=== PATIENT | male | born 1945 | race Caucasian/White ===

== ENCOUNTER 2022-06-08 16:08 | Inpatient (IN) | payer OTHER, SELFPAY ==
[2022-06-08] VITALS (87 sets, daily range): BP systolic 71–125; BP diastolic 42–59; PULSE 81–122; RESP 14–36; TEMP 37.7–37.9; O2SAT 87–98; BMI 35.9; BMI 49.4
--- NOTE | 2022-06-08 16:17 | ECG_ITS ---
[facility] Test Date: 2022-06-08 Pat Name: Devyn Luo Department: Room: Gender: Male Specialized Developer: : 1945 Requested By: Walter Newsome Order Number: [id number] Konrad MD: Gilles Galvez M.D. Measurements Intervals [place] Rate: 117 P: 19 [place]: 162 QRS: 43 QRSD: 84 T: 50 QT: 319 QTc: 446 Interpretive Statements SINUS TACHYCARDIA MODERATE ST DEPRESSION [0.05+ mV ST DEPRESSION] No previous ECG available for comparison Electronically Signed On 06-10-2022 16:28:17 CDT by Gilles Galvez M.D. [id number]
--- NOTE | 2022-06-08 16:29 | XRR_ITS ---
PROCEDURE INFORMATION: Exam: XR Chest Exam date and time: 06/08/2022 5:00 PM Age: 77 years old Clinical indication: Shortness of breath and other: Blood pressure issues; Patient HX: Blood pressure issues; Short of breath; Additional info: SOB TECHNIQUE: Imaging protocol: Radiologic exam of the chest. Views: 1 view. COMPARISON: CR XR chest 1V [id number] 12/07/2015 11:11 AM FINDINGS: Lungs: Lungs are clear bilaterally. Pleural spaces: No pleural effusion. No pneumothorax. Heart/Mediastinum: Stable mild enlargement of the cardiac silhouette. Mediastinal contours are unremarkable. Vasculature: Stable vascular calcifications in the aorta. Bones/joints: Unremarkable for age. XR/XR chest 1V portable [id number] IMPRESSION: 1. No acute cardiopulmonary process. 2. Incidental/nonacute findings are listed in the report.
--- NOTE | 2022-06-08 16:30 | ED_ITS ---
HPI - SOB/Dyspnea General: Chief Complaint: Shortness of Breath/Dyspnea Stated Complaint: RESP DISTRESS Time Seen by Provider: 06/08/22 16:13 Source: patient and EMS Mode of arrival: EMS Limitations: no limitations History of Present Illness: HPI Narrative: History is predominantly obtained from the patient as well as additional history from EMS report. EMS was called to the patient's home by family. The patient apparently has been short of breath and complaining of similar symptoms since this morning per history from EMS although the patient states his breathing seems to be normal. There is could conflict in information regarding his home oxygen use. There is question of whether he does use home oxygen intermittently per patient. Patient currently denies chest pain. He states he has had cough which has been nonproductive but is unaware of any fevers. He states he has had some heart problems in the past and has had a stent placed previously. He denies any nausea vomiting or diarrhea exposure to infectious disease etc. Later information received from family members alleges that he has been having some upset stomach with some vomiting and diarrhea for the last 2 days. MD elicited complaint: shortness of breath Relieving factors: oxygen Associated symptoms: Deny abdominal pain, chest pain, extremity pain, fever(s), nausea, syncope or vomiting Review of Systems Const: Denies: fever(s) ENMT: Denies: throat pain, odynophagia, nasal discharge or nasal congestion Card: Denies: chest pain, irregular heart rhythm, syncope or pre-syncope Resp: Reports: dyspnea and non-productive cough GI: Denies: abdominal pain, nausea, vomiting or diarrhea Musc: Denies: back pain or extremity pain Skin/Breast: Denies: rash Neuro: Denies: headache(s), numbness in extremities or weakness in extremities Physical Exam Narrative: EXAM NARRATIVE: The patient appears to be comfortable he answers questions no reasonable fashion with generally complete answers. Const: COMMON NORMALS: alert GENERAL APPEARANCE: cooperative NUTRITIONAL APPEARANCE: overweight ORIENTATION/CONSCIOUSNESS: Yes awake, Yes oriented to person and Yes oriented to place HENMT: COMMON NORMALS: normocephalic, Normal nasal mucous membranes and turbinates present, moist oral mucous membranes and oropharynx normal HEAD & SCALP: normocephalic FACE & SINUS: normal facial exam NOSE: Normal nasal mucous membranes and turbinates present Eye: COMMON NORMALS: Equal, round and reactive pupils present, EOMs intact bilaterally and conjunctivae normal CONJUNCTIVA: Yes conjunctivae normal PUPIL: Yes Equal, round and reactive pupils present Neck/C-Spine: COMMON NORMALS: full ROM, no JVD and No carotid bruits Chest: COMMONS NORMALS: normal inspection of the chest Resp: COMMON NORMALS: No retractions and No use of accessory muscles AUSCULTATION: crackles and rhonchi Cardio: COMMON NORMALS: no JVD, regular rate, regular rhythm, No murmurs present (Cardio) and Peripheral pulses 2+ throughout RATE: regular rate RHYTHM: regular rhythm PERIPHERAL PULSES: Peripheral pulses 2+ throughout GI: COMMON NORMALS: Normal to inspection, nondistended, normoactive bowel sounds present and Soft to palpation INSPECTION: Yes central obesity PALPATION: Yes Soft to palpation Back/Pelvis: COMMON NORMALS: thoracic and lumbar spine normal to inspection, n o thoracic nor lumbar tenderness, thoraco-lumbar ROM normal and straight leg raise negative bilaterally Extremity: COMMON NORMALS: normal to inspection, full ROM and no calf tenderness NARRATIVE EXTREMITY EXAM: Bilateral pretibial edema right leg worse than left. Neuro: COMMON NORMALS: moves all extremities, no focal motor deficits and no sensory deficits noted SENSORIUM/ORIENTATION: Yes alert, Yes oriented to person and Yes oriented to place Skin: NARRATIVE SKIN EXAM: Hyperpigmentation to right lower extremity. No proximal erythema, lymphangitis or lymphadenopathy. Course Reevaluation(s): Reevaluation #1: Patient continues to be oxygen requiring approximately 3 L to keep O2 sat in the 94 to 95% range. He has a history of intermittent oxygen use but does not require it continuously. CT scan is reassuring that there is no evidence of pulmonary embolus. There are some other changes which suggest pulmonary in fection. His viral studies to include COVID-19 and influenza are negative. He has a very mild elevation in his troponin but his serial EKGs do not suggest any ongoing ischemia at this point. We will plan on giving a loading dose of antibiotics, additional fluids and reassess but likely will need to be placed in observation status for determination response to current therapy. Time: 21:22 Consultations: Consultation #1: Discussed current findings with attending hospitalist Dr. Amin who agreed to place the patient in the hospital for further evaluation. Time: 21:39 Vital Signs: Vital signs: Vital Signs Temperature 99.8 F H 06/08/22 16:11 Pulse Rate 90 06/08/22 21:17 Respiratory Rate 16 06/08/22 21:17 Blood Pressure 89/46 06/08/22 21:17 Pulse Oximetry 93 06/08/22 21:17 Oxygen Delivery Me thod Nasal Cannula 06/08/22 16:11 Oxygen Flow Rate 3 06/08/22 16:11 MDM - SOB/Dyspnea Medical Decision Making Patient was transported to the emergency department because of increasing shortness of breath over the past several days accompanied by cough and some questionable subjective fevers at home. He has had a history of using oxygen intermittently but not on a continuous basis. History was initially limited to what the patient and EMS provided and then son provided additional illuminating history later in his visit. His evaluation revealed findings suggestive of pneumonia clinically. A CTA was obtained due to an elevated D-dimer. It was reassuring and that there was no evidence of PE. We also evaluate him for potential ACS etc. but EKGs and serial troponinsBrain or skull or your low back from your falls. And his BNP are not suggestive of same but will need to be followed to ensure that they do not significantly change. The patient's initial viral studies to include COVID antigen as well as influenza antigen were unremarkable. Despite the patient's denial of history of COPD certainly some of his medication profile suggest he may have COPD. The patient will be admitted to the hospitalist service for further treatment and reevaluation. Lab Data I reviewed the patient's lab results. 06/08/22 16:47 06/08/22 16:47 Labs/Radiology: Radiology Impressions Chest X-Ray 06/08/22 16:29 IMPRESSION: 1. No acute cardiopulmonary process. 2. Incidental/nonacute findings are listed in the report. Chest CTA 06/08/22 18:10 IMPRESSION: 1. Bronchial wall thickening and mucous plugging in the right lower lobe suspicious for bronchitis. 2. Calcified granuloma in the left upper lobe. Flattened appearance of the trachea and proximal bronchi which raises suspicion for tracheobronchomalacia. Recommend clinical correlation. 3. No evidence for pulmonary embolism. 4. Dependent atelectasis in the lungs bilaterally. 5. Incidental/nonacute findings are listed in the report. COMMENTS: Consistent with the [employer] [employer]'s Incidental Findings Committee white paper (J Am Jeff Radiol 2018): Any incidental renal lesion less than 1 cm or classified as too small to characterize, or any incidental cystic renal lesion characterized as simple-appearing, is likely benign. No follow-up imaging is recommended for these lesions per consensus recommendations based on imaging criteria. Laboratory Results WBC 7.5 10^3/uL (4.0-10.0) 06/08/22 16:47 RBC 4.94 10^6/uL (4.1-5.3) 06/08/22 16:47 Hgb 14.7 g/dL (11.7-16.6) 06/08/22 16:47 Hct 45.2 % (42.0-52.0) 06/08/22 16:47 MCV 91.5 fl (80-94) 06/08/22 16:47 MCH 29.8 pg (28.0-34.0) 06/08/22 16:47 MCHC 32.5 g/dL (30.0-36.0) 06/08/22 16:47 RDW 13.0 % (12.1-15.1) 06/08/22 16:47 Plt Count 179 10^3/cmm (130-400) 06/08/22 16:47 MPV 9.0 fL (7.4-10.4) 06/08/22 16:47 Neut % (Auto) 91.8 % 06/08/22 16:47 Lymph % (Auto) 4.0 % 06/08/22 16:47 [place] % (Auto) 2.7 % 06/08/22 16:47 Eos % (Auto) 0.8 % 06/08/22 16:47 Baso % (Auto) 0.3 % 06/08/22 16:47 Neut # (Auto) 6.85 10^3/uL (1.8-7.7) 06/08/22 16:47 Lymph # (Auto) 0.3 10^3/uL (0.8-4.8) L 06/08/22 16:47 [place] # (Auto) 0.2 10^3/uL (0.2-0.9) 06/08/22 16:47 Eos # (Auto) 0.1 10^3/uL (0.0-0.8) 06/08/22 16:47 Baso # (Auto) 0.0 10^3/uL (0.0-0.1) 06/08/22 16:47 Nucleated RBC % (auto) 0 % 06/08/22 16:47 Nucleated RBCs # 0.0 /100WBC 06/08/22 16:47 D-Dimer 1.21 ug/mIFEU (0-0.59) H 06/08/22 16:47 Specimen Type Arterial 06/08/22 16:22 Sample Site Radial, left 06/08/22 16:22 ABG pH 7.39 (7.35-7.45) 06/08/22 16:22 ABG pCO2 37.0 mmHg (35-45) 06/08/22 16:22 ABG pO2 68.8 mmHg (80.0-100.0) L 06/08/22 16:22 ABG HCO3 22.6 mmol/L (22-26) 06/08/22 16:22 ABG O2 Saturation 93.8 06/08/22 16:22 ABG Base Excess -1.9 mmol/L (-2.0-2.0) 06/08/22 16:22 Al Test Pos 06/08/22 16:22 A-a O2 Gradient 4.3 mmHg (5-10) L 06/08/22 16:22 Hematocrit 45.9 % (42-52) 06/08/22 16:22 Hgb O2 Saturation 92.5 % (95-100) L 06/08/22 16:22 Carboxyhemoglobin 0.7 %THgb (0.4-20.1) 06/08/22 16:22 Methemoglobin 0.7 % (0.4-1.5) 06/08/22 16:22 Total Hemoglobin 15.0 g/dL (14-18) 06/08/22 16:22 Sodium 141.0 mmol/L (131-143) 06/08/22 16:22 Potassium 4.0 mmol/L (3.5-5.0) 06/08/22 16:22 Glucose 123.0 mg/dL (70-115) H 06/08/22 16:22 Ionized Calcium 1.1 mmol/L (1.1-1.4) 06/08/22 16:22 O2 Delivery Device Nc 06/08/22 16:22 O2 Liters/Min 5.0 % 06/08/22 16:22 Target Aircraft Technician ID Cak 06/08/22 16:22 Sodium 137 mmol/L (136-145) 06/08/22 16:47 Potassium 4.3 mmol/L (3.5-5.1) 06/08/22 16:47 Chloride 101 mmol/L (98-107) 06/08/22 16:47 Carbon Dioxide 24 mmol/L (22-29) 06/08/22 16:47 Anion Gap 16.3 (5-19) 06/08/22 16:47 BUN 25 mg/dL (8-23) H 06/08/22 16:47 Creatinine 1.6 mg/dL (0.7-1.2) H 06/08/22 16:47 GFR Calculation Not Reportable 06/08/22 16:47 Glucose 115 mg/dL (65-115) 06/08/22 16:47 Calculated Osmolality 289 mOsm/kg (285-295) 06/08/22 16:47 Calcium 8.6 mg/dL (8.5-10.5) 06/08/22 16:47 Total Bilirubin 0.7 mg/dL (0.15-1.2) 06/08/22 16:47 AST 55 U/L (0-40) H 06/08/22 16:47 ALT 45 U/L (0-41) H 06/08/22 16:47 Alkaline Phosphatase 132 U/L (40-130) H 06/08/22 16:47 Troponin T Baseline 20 ng/L (0-15) H 06/08/22 16:47 Troponin T 120 Minute 29.91 ng/L (0-15) H 06/08/22 19:05 Delta Troponin T 9.91 ABS# (0-10) 06/08/22 19:05 NT-Pro-B Natriuret Pep 458 pg/mL (0-450) H 06/08/22 16:47 Total Protein 6.9 g/dL (6.6-8.7) 06/08/22 16:47 Albumin 4.1 g/dL (3.5-5.2) 06/08/22 16:47 Globulin 2.8 g/dL (1.3-4.6) 06/08/22 16:47 Influenza Type A Ag Negative (Negative) 06/08/22 19:35 Influenza Type B Ag Negative (Negative) 06/08/22 19:35 SARS-CoV-2 Ag (Rapid) negative (Negative) 06/08/22 19:35 EKG Data EKG 1: I personally reviewed and interpreted this EKG as follows: Interpretation: Contemporaneous review of EKG reveals ventricular rate of 117 bpm. Normal VA interval, QRS duration, QTc intervals. Normal axis. Consistent with sinus tachycardia. There appears to be approximately 1.[address] depression V2 345 and extending somewhat into 6. EKG 2: I personally reviewed and interpreted this EKG as follows: Interpretation: Second EKG this visit reveals a ventricular rate of 106 bpm consistent with sinus tachycardia. Normal intervals, normal axis, very minimal ST wave depressions noted V2 V3 and perhaps V4. No reciprocal changes otherwise. No other changes of concern. Essentially unchanged from prior EKG this visit. Discharge Plan Discharge Patient Disposition: Admitted As Inpatient Clinical Impression: Community acquired pneumonia, Acute exacerbation of chronic obstructive airways disease Condition: Stable Prescriptions: No Action atorvastatin 80 mg Tablet 80 mg PO DAILY cetirizine 10 mg Tablet 10 mg PO DAILY Senna-S 8.6-50 mg Tablet 1 tab-cap PO DAILY famotidine 20 mg Tablet 20 mg PO BID tamsulosin 0.4 mg Capsule 0.4 mg PO DAILY Novolog U-100 Insulin aspart 100 unit/mL Solution See Rx Instructions .ROUTE .COMPLEX Rx Instructions: per sliding scale Wixela Inhub 500-50 mcg/dose Blister With Device 1 inh INHALATION BID Nitrostat 0.4 mg Tablet, Sublingual 0.4 mg SUBLINGUAL Q5M PRN (Reason: Chest Pain) Rx Instructions: do not exceed 3 doses per episode gabapentin 300 mg Capsule 300 mg PO BEDTIME aspirin 81 mg Tablet,Chewable 81 mg PO DAILY Flonase 50 mcg/actuation [place],Suspension 1 spray INTRANASAL BID Rx Instructions: administer into each nostril finasteride 5 mg Tablet 5 mg PO DAILY loratadine 10 mg Tablet 10 mg PO DAILY Vitamin D3 25 mcg (1,000 unit) Capsule 25 mcg PO DAILY Osteo Bi-Flex 250-200 mg Tablet 1 tab PO BID Rx Instructions: give after food/meal Lantus Solostar U-100 Insulin 100 unit/mL (3 mL) Insulin Pen 50 unit SUBCUT BEDTIME Combivent Respimat 20-100 mcg/actuation Mist 1 puff INHALATION QID Rx Instructions: space evenly during waking hours Referrals: Trujillo,Natalia R, LIBRARY SERVICES COORDINATOR [Primary Care Provider] - Coding Level of Care Code ED Senior Bi Developer for Anabelle Lopez
[2022-06-08 16:33] LABS: ABG PH Result 7.39 (7.35-7.45); Alveolar-Arterial Oxygen Gradi 4.3 mmHg (5-10); Arterial Blood Gas Hematocrit 45.9 % (42-52); Base Excess ABG -1.9 mmol/L (-2.0-2.0); Blood Gas Allen Test Pos; Blood Gas Operator Identificat CAK; Blood Gas Sample Site Radial, left; Blood Gas Sample Type Arterial; Carboxyhemoglobin 0.7 %THgb (0.4-20.1); HCO3 ABG 22.6 mmol/L (22-26); HGB O2 Sat 92.5 % (95-100); Ionized Calcium Level - ABG 1.1 mmol/L (1.1-1.4); Methemoglobin 0.7 % (0.4-1.5); Oxygen Device NC; Oxygen Saturation ABG 93.8; PO2 ABG 68.8 mmHg (80.0-100.0)
[2022-06-08 16:59] LABS: Basophils % 0.3 %; Eosinophils # 0.1 10^3/uL (0.0-0.8); Eosinophils % 0.8 %; Hematocrit 45.2 % (42.0-52.0); Hemoglobin 14.7 g/dL (11.7-16.6); Lymphocytes # 0.3 10^3/uL (0.8-4.8); Mean Corpuscular HGB Conc 32.5 g/dL (30.0-36.0); Mean Corpuscular Hemoglobin 29.8 pg (28.0-34.0); Mean Corpuscular Volume 91.5 fl (80-94); Monocytes # 0.2 10^3/uL (0.2-0.9); Monocytes % 2.7 %; Neutrophils # 6.85 10^3/uL (1.8-7.7); Neutrophils % 91.8 %; Nucleated Red Blood Cells % 0 %; Platelet Count 179 10^3/cmm (130-400); Red Blood Count 4.94 10^6/uL (4.1-5.3); White Blood Count 7.5 10^3/uL (4.0-10.0)
--- NOTE | 2022-06-08 17:14 | PC.PHAR ---
pt and family unable to verify home medications - Patient has home health nurse through [facility]. Med list updated from [facility] records
[2022-06-08 17:27] LABS: D Dimer 1.21 ug/mIFEU (0-0.59)
[2022-06-08 17:32] LABS: Troponin(5th) Baseline 20 ng/L (0-15)
[2022-06-08 17:35] LABS: Alanine Aminotransferase 45 U/L (0-41); Albumin Level 4.1 g/dL (3.5-5.2); Alkaline Phosphatase 132 U/L (40-130); Anion Gap 16.3 (5-19); Aspartate Amino Transferase 55 U/L (0-40); Blood Urea Nitrogen 25 mg/dL (8-23); Calcium 8.6 mg/dL (8.5-10.5); Carbon Dioxide 24 mmol/L (22-29); Chloride 101 mmol/L (98-107); Globulin 2.8 g/dL (1.3-4.6); Glucose 115 mg/dL (65-115); NT Pro B Type Natriuretic Pept 458 pg/mL (0-450); Osmolality Calculated 289 mOsm/kg (285-295); Potassium 4.3 mmol/L (3.5-5.1); Sodium 137 mmol/L (136-145); Total Bilirubin 0.7 mg/dL (0.15-1.2); Total Protein 6.9 g/dL (6.6-8.7)
--- NOTE | 2022-06-08 18:10 | CTR_ITS ---
PROCEDURE INFORMATION: Exam: CTA Chest With Contrast Exam date and time: 06/08/2022 6:30 PM Age: 77 years old Clinical indication: Abnormal findings; Abnormal diagnostic tests; Elevated d-dimer; Additional info: SOB, elevated dimer TECHNIQUE: Imaging protocol: Computed tomographic angiography of the chest with contrast. Sagittal and coronal reformatted images were created and reviewed. 3D rendering (Not supervised by radiologist): MIP and/or 3D reconstructed images were created by the technologist. Radiation optimization: All CT scans at this facility use at least one of these dose optimization techniques: automated exposure control; mA and/or kV adjustment per patient size (includes targeted exams where dose is matched to clinical indication); or iterative reconstruction. Contrast material: OMNI 350; Contrast volume: 100 ml; Contrast route: INTRAVENOUS (IV); REPORTING DATA: Count of CT and Cardiac NM exams in prior 12 months: This patient has received 0 known CTs and 0 known cardiac nuclear medicine studies in the 12 months prior to the current study. COMPARISON: CR (CHEST, ) 06/08/2022 5:00 PM RADIATION DOSE METRICS: Total DLP (mGy-cm): 564 FINDINGS: Pulmonary arteries: No filling defects in the pulmonary arteries to suggest pulmonary embolism. Aorta: Mild atherosclerotic changes in the visualized arteries. No evidence for aortic aneurysm. Evaluation for aortic dissection is limited due to the phase of contrast-enhancement. Lungs: Bronchial wall thickening and mucous plugging in the right lower lobe suspicious for bronchitis. Mosaic attenuation of the pulmonary parenchyma, consistent with air trapping from underlying small airways disease. Dependent atelectasis in the lungs bilaterally. Calcified granuloma in the left upper lobe. Flattened appearance of the trachea and proximal bronchi which raises suspicion for tracheobronchomalacia. Pleural spaces: No pneumothorax. No pleural effusion. Heart: Moderate enlargement of the heart. Coronary arteries: Mild atherosclerotic calcification in the coronary arteries. Esophagus: The esophagus is unremarkable. Lymph nodes: Calcified lymph nodes in the mediastinum and right hilum. No lymphadenopathy. Liver: The visualized liver is unremarkable. Gallbladder and bile ducts: Patient has had a previous cholecystectomy. No dilatation of the visualized bile ducts. Pancreas: Mild atrophy of the visualized pancreatic parenchyma. Spleen: The visualized spleen is unremarkable. Kidneys and ureters: The visualized right kidney is unremarkable. Multiple parapelvic cysts in the visualized left kidney. Bones/joints: Degenerative changes in the spine and shoulders. There is a vertebral body hemangioma at T10. Soft tissues: No acute abnormality in the extra-abdominal soft tissues. CT/CT angio chest PE protcl [id number] IMPRESSION: 1. Bronchial wall thickening and mucous plugging in the right lower lobe suspicious for bronchitis. 2. Calcified granuloma in the left upper lobe. Flattened appearance of the trachea and proximal bronchi which raises suspicion for tracheobronchomalacia. Recommend clinical correlation. 3. No evidence for pulmonary embolism. 4. Dependent atelectasis in the lungs bilaterally. 5. Incidental/nonacute findings are listed in the report. COMMENTS: Consistent with the [place] [employer]'s Incidental Findings Committee white paper (J Am Jeff Radiol 2018): Any incidental renal lesion less than 1 cm or classified as too small to characterize, or any incidental cystic renal lesion characterized as simple-appearing, is likely benign. No follow-up imaging is recommended for these lesions per consensus recommendations based on imaging criteria.
--- NOTE | 2022-06-08 18:30 | ECG_ITS ---
[facility] Test Date: 2022-06-08 Pat Name: Devyn Luo Department: Room: Gender: Male Personal Lines Account Executive: : 1945 Requested By: Walter Newsome Order Number: [id number] Konrad MD: Gilles Galvez M.D. Measurements Intervals [place] Rate: 106 P: 28 [place]: 162 QRS: 57 QRSD: 86 T: 59 QT: 317 QTc: 422 Interpretive Statements SINUS TACHYCARDIA MINIMAL ST DEPRESSION [0.025+ mV ST DEPRESSION] ABNORMAL RHYTHM ECG Compared to ECG 06/08/2022 16:22:16 No significant changes Electronically Signed On 06-10-2022 16:46:41 CDT by Gilles Galvez M.D. [email or web address]
[2022-06-08] MEDS: iohexol 350 mg/mL 500 mL Btl (per mL) IV (18:40)
[2022-06-08 19:33] LABS: Troponin 5 2HR 29.91 ng/L (0-15)
[2022-06-08 19:37] LABS: Troponin 5 2HR Delta 9.91 ABS# (0-10)
[2022-06-08 20:10] LABS: SARS Covid-2 Antigen negative (Negative)
[2022-06-08 20:17] LABS: Influenza A by IFA Negative (Negative); Influenza B by IFA Negative (Negative)
[2022-06-08] MEDS: cefTRIAXone 2,000 MG in sodium chloride 0.9% (plus) 50 ML 100 MG IV (21:35)
[2022-06-08] MEDS: sodium chloride 0.9% 500 ML IV (21:37)
[2022-06-08] MEDS: azithromycin 500 MG in sodium chloride 0.9% 250 ML 250 MG IV (21:44)
--- NOTE | 2022-06-08 22:01 | P.HP_ITS ---
Providers/Chief Complaint Admitting Physician: Gaudencio Amin MD Primary Care Provider: DAVID Anglin Chief Complaint: RESP DISTRESS History of Present Illness Devyn Luo is a 77 year old male who presents to the hospital with complaints of right lower extremity discomfort, shortness of breath, wheezing. He also had an episode of vomiting and some loose stool. No blood was noted in the emesis or the loose stool. All of his symptoms started in the last 1 to 2 days. He has not taken his temperature but had some chills, and some sweating. He has had a cough its not really been productive. He denies any chest discomfort currently. He denies any abdominal pain. He still has some discomfort in his right lower extremity. In the emergency department he received some Rocephin, azithromycin, a breathing treatment. Reports he typically has 1 L of oxygen he wears at home as needed that he has been prescribed. Review of Systems General: Reports: 10 or more systems reviewed and unremarkable except in HPI and below Card: Denies: chest pain Resp: Reports: dyspnea, non-productive cough and wheezing; Denies: hemoptysis GI: Reports: nausea, vomiting and diarrhea; Denies: abdominal pain, hematochezia or melena Medications/Allergies Home Medications Medication Instructions Recorded Confirmed Last Taken Type aspirin 81 mg chewable tablet 81 mg PO DAILY 06/08/22 06/08/22 06/08/22 History atorvastatin 80 mg tablet 80 mg PO DAILY 06/08/22 06/08/22 06/07/22 History cetirizine 10 mg tablet 10 mg PO DAILY 06/08/22 06/08/22 06/08/22 History cholecalciferol (vitamin D3) 25 25 mcg PO DAILY 06/08/22 06/08/22 06/08/22 History mcg (1,000 unit) capsule (Vitamin D3) famotidine 20 mg tablet 20 mg PO BID 06/08/22 06/08/22 06/08/22 History finasteride 5 mg tablet 5 mg PO DAILY 06/08/22 06/08/22 06/08/22 History fluticasone 500 mcg-salmeterol 50 1 inh inhalation BID 06/08/22 06/08/22 06/08/22 History mcg/dose blistr powdr for inhalation (Wixela Inhub) fluticasone propionate 50 1 spray intranasal BID 06/08/22 06/08/22 06/08/22 History mcg/actuation nasal spray,suspension gabapentin 300 mg capsule 300 mg PO BEDTIME 06/08/22 06/08/22 06/07/22 History glucosamine-chondroitin 250 mg-200 1 tab PO BID 06/08/22 06/08/22 06/08/22 History mg tablet (Osteo Bi-Flex) insulin aspart U-100 100 unit/mL See Rx Instructions .Route .COMPLEX 06/08/22 06/08/22 Unknown History subcutaneous solution (Novolog U-100 Insulin aspart) insulin glargine 100 unit/mL (3 50 unit SUBCUT BEDTIME 06/08/22 06/08/22 06/07/22 History mL) subcutaneous pen (Lantus Solostar U-100 Insulin) ipratropium 20 mcg-albuterol 100 1 puff inhalation QID 06/08/22 06/08/22 06/08/22 History mcg/actuation mist for inhalation (Combivent Respimat) loratadine 10 mg tablet 10 mg PO DAILY 06/08/22 06/08/22 06/08/22 History nitroglycerin 0.4 mg sublingual 0.4 mg sublingual Q5M PRN Chest 06/08/22 06/08/22 Unknown History tablet (Nitrostat) Pain sennosides 8.6 mg-docusate sodium 1 tab-cap PO DAILY 06/08/22 06/08/22 06/08/22 History 50 mg tablet (Senna-S) tamsulosin 0.4 mg capsule 0.4 mg PO DAILY 06/08/22 06/08/22 06/08/22 History Allergies Allergy/AdvReac Type Severity Reaction Status Date / Time amoxicillin Allergy Unknown Unknown Verified 06/08/22 17:06 PFSH Acute PFSH: Medical History (Updated 06/08/22 @ 22:13 by Gaudencio Amin MD) BPH (benign prostatic hyperplasia) Chronic kidney disease COPD (chronic obstructive pulmonary disease) Coronary artery disease GERD (gastroesophageal reflux disease) Hyperlipidemia Morbid obesity Peripheral neuropathy Type 2 diabetes mellitus Surgical History (Updated 06/08/22 @ 22:04 by Gaudencio Amin MD) History of cholecystectomy History of coronary angioplasty Family History (Updated 06/08/22 @ 22:04 by Gaudencio Amin MD) Other CAD (coronary artery disease) Social History (Updated 06/08/22 @ 22:04 by Gaudencio Amin MD) Smoking and tobacco status: former smoker Alcohol intake: never Vitals/I&O/Wt Last Vital Signs Temp 99.8 F H 06/08/22 16:11 Pulse 90 06/08/22 21:17 Resp 16 06/08/22 21:57 BP 100/51 06/08/22 21:57 Pulse Ox 95 06/08/22 21:57 O2 Del Method Nasal Cannula 06/08/22 16:11 O2 Flow Rate 3 06/08/22 16:11 06/08/22 06/08/22 06/08/22 06:59 14:59 22:59 Intake Total 550 / 550 Balance 550 / 550 Weight last 48 hrs Weight 120.202 kg Physical Exam Narrative: General exam is a white male, with audible wheezing, with a temperature of 99.8 and a systolic blood pressure of 100. He is on 3 L of oxygen saturating 90%. HEENT: Atraumatic and normocephalic. Oropharynx is clear Neck is obese, no obvious lymphadenopathy Cardiovascular heart sounds distant. No obvious murmur. Regular Lungs bilateral expiratory wheezes. No crackles Abdomen is obese soft nontender positive bowel sounds. No obvious organomegaly Back demonstrates a few excoriations Extremities show trace edema bilaterally. Right bigger than left with some venous stasis changes and also some erythema surrounding these. Increased warmth and pain to palpation. Skin see findings above Neuro no obvious focal deficits. Data 06/08/22 16:47 06/08/22 16:47 Other Labs: Dimer elevated at 1.21 ABG with a pH 7.39, PCO2 37, PO2 69 on 5 L LFTs are elevated with an AST 55, ALT 45, alk phos of 132 Troponin 20 with repeat of 29 BNP 458 Albumin 4.1 Calcium 8.6 Rapid COVID and influenza negative. PCR pending. Chest x-ray by my read demonstrates poor quality, atelectasis right lung. Probable cardiomegaly. CTA demonstrates no pulmonary embolism. Bronchial wall thickening and some mucous plugging are noted. By my reading some posterior dependent atelectasis is also noted. Blood cultures were drawn EKG initially demonstrated sinus tachycardia with a rate of 120, normal axis, some nonspecific ST-T wave changes/slight depression V2 through 4 A&P Assessment and plan (1) Acute exacerbation of chronic obstructive airways disease: Patient with audible wheezing, consistent with acute exacerbation of COPD. I will give Solu-Medrol 125 mg IV x1, and then 60 mg IV every 12 hours Budesonide twice daily DuoNeb every 4 hours Wean steroids as soon as patient has improvement. CTA was performed which did not demonstrate any pulmonary embolism. Levaquin was initiated. It is also possible that his wheezing may have been triggered by aspiration/vomiting that occurred earlier today Associated with acute respiratory failure. Is requiring 3 to 5 L of oxygen, tachypneic. This is much greater than his baseline of 1 L as needed (2) Cellulitis of right lower extremity: Patient has evidence of underlying right lower extremity venous stasis, with acute cellulitis. Check venous duplex lower extremities to rule out DVT in this area Initiate vancomycin (3) Hypotension: Patient was normotensive on arrival to the emergency department but tachycardic. He is now hypotensive. He has received a small fluid bolus in the emergency department, with improvement of his blood pressure. We will continue to monitor the patient, for recurrent hypotension. This is most likely secondary to his underlying infection. (4) Acute kidney injury: Patient may have acute kidney injury We will bladder scan secondary to his previous prostate problems Continue to follow creatinine closely Without baseline lab it is unknown if he has a chronic component but I suspect it. (5) Transaminitis: Patient has evidence of transaminitis. Etiology is unclear. Check hepatitis panel. If this persists consider hepatic ultrasound. Note he has previously had his gallbladder removed. (6) Elevated troponin: I believe this is a type II elevation Telemetry, serial troponins Depending upon these and echocardiogram might be ordered, however the usefulness of this may be in question secondary to body habitus of the patient. (7) Type 2 diabetes mellitus: Continue long-acting insulin. Add sliding scale. Plan Multiple other medical problems as outlined in past medical history Allow natural Lovenox for DVT prophylaxis Attestations Medical Necessity Statement*: Will need greater than 2 midnight stay for evaluation and treatment of cellulit is, COPD exacerbation, acute respiratory failure Critical Care Time: The high probability of a clinically significant, sudden or life threatening deterioration of the patient's [pulmonary, cardiac, vascular] system(s) required my full and direct attention, intervention and personal management. The critical care time is as shown. This time is in addition to time spent performing any reported procedures but includes the following: [x] Data and vital sign review and interpretation [x] Patient assessment, examination and intervention [x] Documentation [x] Medication orders and management Critical Care Time (min): 49 Coding Level of Care Code Critical Care >/= 30 minutes Diagnoses Acute exacerbation of chronic obstructive airways disease J44.1 Cellulitis of right lower extremity L03.115 Hypotension I95.9 Acute kidney injury N17.9 Transaminitis R74.01 Elevated troponin R77.8 Type 2 diabetes mellitus E11.9 Time Spent (min) 49
--- NOTE | 2022-06-08 22:17 | PC.PHAR ---
Initial Vanc Dosing Goal Vanc Trough: 15-20 (High trough requested) Plan: Initial dose of 1750 mg Q24H Vanc trough scheduled for prior to 4th dose and will reassess
--- NOTE | 2022-06-08 22:30 | ECG_ITS ---
[facility] Test Date: 2022-06-08 Pat Name: Devyn Luo Department: Room: [facility] Gender: Male Assistant Grocery Store Manager: : 1945 Requested By: Walter Newsome Order Number: [id number] Konrad MD: Gilles Galvez M.D. Measurements Intervals [place] Rate: 80 P: 50 MI: 165 QRS: 42 QRSD: 89 T: 53 QT: 347 QTc: 403 Interpretive Statements SINUS RHYTHM Compared to ECG 06/08/2022 19:03:53 Sinus tachycardia no longer present ST (T wave) deviation no longer present Electronically Signed On 06-10-2022 16:47:00 CDT by Gilles Galvez M.D. [id number]
[2022-06-08 22:36] LABS: Troponin 5 6HR 30.81 ng/L (0-15)
[2022-06-08 22:37] LABS: Troponin 5 6HR Delta 10.81 ng/L (0-12)
[2022-06-08] MEDS: vancomycin 1,750 MG/350 ML PIGGYBACK 233.33 MG IV (22:52)
[2022-06-08] MEDS: enoxaparin 40 mg/0.4 mL Syringe SUBCUT (23:01)
[2022-06-08] MEDS: levofloxacin-dextrose 5 % 750 MG/150 ML PREMIX 100 MG IV (23:01)
[2022-06-08] MEDS: ipratropium-albuterol 3 mL Neb INHALATION (23:15)
[2022-06-08 23:58] LABS: Hepatitis A Antibody IgM Non-Reactive (Nonreactive); Hepatitis B Core IgM Non-Reactive (Nonreactive); Hepatitis B Surface Antigen Non-Reactive (Nonreactive); Hepatitis C Virus Antibody Non-Reactive (Nonreactive)
[2022-06-09] VITALS (58 sets, daily range): BP systolic 92–158; BP diastolic 48–125; PULSE 64–98; RESP 15–30; TEMP 37.2–37.3; O2SAT 85–99
[2022-06-09 01:59] LABS: Adenovirus Not Detected (NOT DETECT); Coronavirus 229E,HKU1,NL63,OC4 Not Detected (NOT DETECT); Human Metapneumovirus Not Detected (NOT DETECT); Human Rhinovirus/Enterovirus Detected (NOT DETECT); Influenza A Not Detected (NOT DETECT); Influenza A H1 Not Detected (NOT DETECT); Influenza A H1-2009 Not Detected (NOT DETECT); Influenza A H3 Not Detected (NOT DETECT); Influenza B Not Detected (NOT DETECT); Parainfluenza Virus Type 1 Not Detected (NOT DETECT); SARS-COV-2 Not Detected (NOT DETECT)
[2022-06-09 02:00] LABS: Chlamydia Pneumoniae Not Detected (NOT DETECT); Mycoplasma Pneumoniae Not Detected (NOT DETECT); Parainfluenza Virus Type 2 Not Detected (NOT DETECT); Parainfluenza Virus Type 3 Not Detected (NOT DETECT); Parainfluenza Virus Type 4 Not Detected (NOT DETECT); Respiratory Syncytial Virus A Not Detected (NOT DETECT); Respiratory Syncytial Virus B Not Detected (NOT DETECT)
[2022-06-09 02:08] LABS: Human Metapneumovirus Not Detected (NOT DETECT); Human Rhinovirus/Enterovirus Detected (NOT DETECT); Results from Genmark
[2022-06-09] MEDS: ipratropium-albuterol 3 mL Neb INHALATION ×5 (03:15→19:35)
[2022-06-09 03:25] LABS: Basophils % 0.3 %; Eosinophils % 0.1 %; Hematocrit 40.6 % (42.0-52.0); Lymphocytes # 0.4 10^3/uL (0.8-4.8); Lymphocytes % 2.4 %; Mean Corpuscular Hemoglobin 30.3 pg (28.0-34.0); Mean Corpuscular Volume 94.6 fl (80-94); Mean Platelet Volume 9.4 fL (7.4-10.4); Monocytes # 0.6 10^3/uL (0.2-0.9); Neutrophils # 14.09 10^3/uL (1.8-7.7); Neutrophils % 92.8 %; Nucleated Red Blood Cells % 0 %; Platelet Count 152 10^3/cmm (130-400); Red Blood Count 4.29 10^6/uL (4.1-5.3); Red Cell Distribution Width 13.1 % (12.1-15.1); White Blood Count 15.2 10^3/uL (4.0-10.0)
[2022-06-09 03:48] LABS: Alanine Aminotransferase 39 U/L (0-41); Albumin Level 3.3 g/dL (3.5-5.2); Alkaline Phosphatase 95 U/L (40-130); Anion Gap 17.2 (5-19); Aspartate Amino Transferase 49 U/L (0-40); Blood Urea Nitrogen 29 mg/dL (8-23); Carbon Dioxide 21 mmol/L (22-29); Chloride 102 mmol/L (98-107); Globulin 2.6 g/dL (1.3-4.6); Glucose 123 mg/dL (65-115); Magnesium 1.4 mg/dL (1.7-2.3); Osmolality Calculated 289 mOsm/kg (285-295); Potassium 4.2 mmol/L (3.5-5.1); Sodium 136 mmol/L (136-145); Total Bilirubin 0.5 mg/dL (0.15-1.2); Total Protein 5.9 g/dL (6.6-8.7)
[2022-06-09 04:04] LABS: Slide Review Slide Review Perform
[2022-06-09 07:34] LABS: Glucose Point of Care 176 mg/dL (70-110)
[2022-06-09] MEDS: budesonide 0.5 mg/2 mL Neb INHALATION ×2 (08:06→19:35)
[2022-06-09] MEDS: finasteride 5 mg Tablet PO (08:20)
[2022-06-09] MEDS: aspirin 81 mg Chew Tablet PO (08:20)
[2022-06-09] MEDS: tamsulosin 0.4 mg Capsule PO (08:21)
[2022-06-09] MEDS: insulin lispro 100 unit/1 mL SUBCUT ×4 (08:21→21:37)
[2022-06-09] MEDS: atorvastatin 40 mg Tablet 80 MG PO (08:21)
[2022-06-09] MEDS: cetirizine 10 mg Tablet PO (08:21)
[2022-06-09] MEDS: famotidine 20 mg Tablet PO ×2 (08:21→17:08)
[2022-06-09 11:14] LABS: Glucose Point of Care 268 mg/dL (70-110)
--- NOTE | 2022-06-09 15:00 | PM.PN ---
Subjective Subjective: Patient was seen and examined this morning, shortness of breath is significantly improved, currently he is saturating well on 3 L supplemental oxygen, noted Tmax overnight was 100.3, serum creatinine has trended up to 1.9 as compared to admission serum creatinine of 1.6, could be possible secondary to acute hypotension. Medications: Medication Review Details: Generic Name Dose Route Start Last Admin Trade Name Woodq PRN Reason Stop Dose Admin Albuterol/Ipratrop ium 3 ml 06/09/22 00:00 06/09/22 11:17 Ipratropium-Albu terol 3 Ml Neb INHALATION 3 ml Q4H.RESPIRATORY S CH Administration Aspirin 81 mg 06/09/22 09:00 06/09/22 08:20 Aspirin 81 Mg Ch ew Tablet PO 81 mg DAILY DONALD Administration Atorvastatin Calci um 80 mg 06/09/22 09:00 06/09/22 08:21 Atorvastatin 40 Mg Tablet PO 80 mg DAILY DONALD Administration Budesonide 0.5 mg 06/09/22 09:00 06/09/22 08:06 Budesonide 0.5 M g/2 Ml Neb INHALATION 0.5 mg BID DONALD Administration Cetirizine HCl 10 mg 06/09/22 09:00 06/09/22 08:21 Cetirizine 10 Mg Tablet PO 10 mg DAILY DONALD Administration Enoxaparin Sodium 40 mg 06/08/22 22:51 06/08/22 23:01 Enoxaparin 40 Mg /0.4 Ml Syringe SUBCUT 40 mg Q24H DONALD Administration Famotidine 20 mg 06/09/22 09:00 06/09/22 08:21 Famotidine 20 Mg Tablet PO 20 mg BID DONALD Administration Finasteride 5 mg 06/09/22 09:00 06/09/22 08:20 Finasteride 5 Mg Tablet PO 5 mg DAILY DONALD Administration Vancomycin/PEG/NAD A/Lysine/Water 1,750 mg in 350 m ls @ 233.333 mls/h r 06/08/22 22:30 06/09/22 00:25 Vancocin IV Infused Q24H DONALD Infusion Levofloxacin/Dextr ose 750 mg in 150 mls @ 100 mls/hr 06/08/22 22:51 06/09/22 00:31 Levaquin-D5w IV Infused Q24H DONALD Infusion Protocol Insulin Human Lisp ro 0 unit 06/09/22 08:00 06/09/22 12:19 Insulin Lispro 1 00 Unit/1 Ml SUBCUT 10 unit WM&BEDTIME DONALD Administration Protocol Methylprednisolone Sodium Succinate 60 mg 06/09/22 10:00 06/09/22 10:06 Methylprednisolo ne Sod Succ 125 Mg /2 Ml Inj IVP 60 mg Q12H DONALD Administration Tamsulosin HCl 0.4 mg 06/09/22 09:00 06/09/22 08:21 Tamsulosin 0.4 M g Capsule PO 0.4 mg DAILY DONALD Administration Vitals/I&O/Wt Last Vital Signs Temp 99.1 F 06/09/22 04:00 Pulse 77 06/09/22 14:00 Resp 24 H 06/09/22 14:00 BP 126/73 06/09/22 13:30 Pulse Ox 92 06/09/22 13:00 O2 Del Method Nasal Cannula 06/09/22 11:15 O2 Flow Rate 2 06/09/22 11:15 06/09/22 06/09/22 06/09/22 06:59 14:59 22:59 Intake Total 750 / 1300 650 / 650 Output Total 0 / 0 Balance 750 / 1300 650 / 650 Weight last 48 hrs Weight 165.108 kg Weight 165.108 kg Weight 120.202 kg Physical Exam Const: COMMON NORMALS: patient oriented x3 HENMT: COMMON NORMALS: normocephalic and atraumatic HEAD & SCALP: normocephalic and atraumatic Resp: OTHER: Bilateral expiratory wheezing present in both the lungs smith. Cardio: COMMON NORMALS: regular rate, regular rhythm, S1 normal heart sound present, S2 normal heart sound present, No gallops present (Cardio), No murmurs present (Cardio), No rub (Cardio) and Peripheral pulses 2+ throughout RATE: regular rate RHYTHM: regular rhythm HEART SOUNDS: S1 normal heart sound present and S2 normal heart sound present PERIPHERAL PULSES: Peripheral pulses 2+ throughout GI: COMMON NORMALS: Normal to inspection, nondistended, normoactive bowel sounds present, Soft to palpation, non-tender, No hepatosplenomegaly present and no masses AUSCULTATION: Yes normoactive bowel sounds PALPATION: Yes Soft to palpation and Yes No hepatosplenomegaly present RECTAL EXAM: Yes deferred Extremity: NARRATIVE EXTREMITY EXAM: Right lower extremity redness, trace edema present Neuro: COMMON NORMALS: patient oriented x3 Data 06/09/22 02:48 06/09/22 02:48 Micro: Microbiology 06/08/22 23:23 MRSA Culture - Final Nose 06/08/22 22:16 Blood Culture - Preliminary Blood SPECIMEN COLLECTED 06/08/22 22:16 Blood Culture - Preliminary Blood SPECIMEN COLLECTED A&P Assessment and plan (1) Acute exacerbation of chronic obstructive airways disease: Patient with audible wheezing, consistent with acute exacerbation of COPD. I will give Solu-Medrol 125 mg IV x1, and then 60 mg IV every 12 hours Budesonide twice daily DuoNeb every 4 hours Wean steroids as soon as patient has improvement. CTA was performed which did not demonstrate any pulmonary embolism. Levaquin was initiated. It is also possible that his wheezing may have been triggered by aspiration/vomiting that occurred earlier today Associated with acute respiratory failure. Is requiring 3 to 5 L of oxygen, tachypneic. This is much greater than his baseline of 1 L as needed (2) Cellulitis of right lower extremity: Patient has evidence of underlying right lower extremity venous stasis, with acute cellulitis. Check venous duplex lower extremities to rule out DVT in this area Initiate vancomycin (3) Hypotension: Patient was normotensive on arrival to the emergency department but tachycardic. He is now hypotensive. He has received a small fluid bolus in the emergency department, with improvement of his blood pressure. We will continue to monitor the patient, for recurrent hypotension. This is most likely secondary to his underlying infection. (4) Acute kidney injury: Patient may have acute kidney injury We will bladder scan secondary to his previous prostate problems Continue to follow creatinine closely Without baseline lab it is unknown if he has a chronic component but I suspect it. (5) Transaminitis: Patient has evidence of transaminitis. Etiology is unclear. Check hepatitis panel. If this persists consider hepatic ultrasound. Note he has previously had his gallbladder removed. (6) Elevated troponin: I believe this is a type II elevation Telemetry, serial troponins Depending upon these and echocardiogram might be ordered, however the usefulness of this may be in question secondary to body habitus of the patient. (7) Type 2 diabetes mellitus: Continue long-acting insulin. Add sliding scale. Plan 77-year-old male with past medical history of CKD COPD CAD GERD morbid obesity type 2 diabetes Came in with chief complaint of worsening shortness of breath, going on for about a week time, was significantly worse yesterday, he also had an episode of projectile nonbloody vomiting last night, he was also complaining of loose stool, currently he is also complaining of right lower extremity pain. Patient has history of chronic nonproductive cough, particularly so when he wears his CPAP at night. Assessment: COPD exacerbation: CTA chest has shown: Bronchial wall thickening and mucous plugging in the right lower lobe suspicious for bronchitis. No evidence for pulmonary embolism.Dependent atelectasis in the lungs bilaterally. MRSA PCR negative Blood culture: Sputum Gram stain and culture Continue vancomycin and levofloxacin for now Continue DuoNebs Budesonide inhaler Solu-Medrol 60 IV twice daily Right lower extremity cellulitis: Bilateral lower extremity venous duplex negative for DVT Currently on Vanco and levofloxacin will suffice for cellulitis. CKD versus AICHA on CKD: Admission serum creatinine is 1.6 Serum creatinine has up trended to 1.9: Could be possibly secondary to contrast use, during CTA as well as, some contribution from acute hypotension. Baseline serum creatinine is unknown Monitor BMP for now Avoid nephrotoxic's Intake output charting Transaminitis: Currently he has denied any abdominal pain, though he had an episode of vomiting prior to admission Monitor CMP for now If needed ultrasound abdomen If needed hepatitis panel Type 2 diabetes: Continue Lantus 50 at bedtime SSI, monitor fingerstick Sleep apnea: Continue CPAP at night CODE STATUS AND DVT prophylaxis on Lovenox Attestations Medical Necessity Statement*: Needs to be in hospital for management of COPD exacerbation. Coding Level of Care Code Acute Code for [facility] Diagnoses Acute exacerbation of chronic obstructive airways disease J44.1 Cellulitis of right lower extremity L03.115 Hypotension I95.9 Acute kidney injury N17.9 Transaminitis R74.01 Elevated troponin R77.8 Type 2 diabetes mellitus E11.9
[2022-06-09 17:10] LABS: Glucose Point of Care 240 mg/dL (70-110)
[2022-06-09] MEDS: gabapentin 300 mg Capsule PO (21:17)
[2022-06-09] MEDS: vancomycin 1,750 MG/350 ML PIGGYBACK 233.3 MG IV (21:18)
[2022-06-09] MEDS: enoxaparin 40 mg/0.4 mL Syringe SUBCUT (21:19)
--- NOTE | 2022-06-09 21:24 | PC.ADMIT ---
[address] Admission Note: The patient,Devyn Luo,77 y/o, was given written information regarding hospital policies, unit procedures and contact persons. Patient's smoking status: former smoker. Vital Signs - 8 hr 06/09/22 13:30 06/09/22 14:00 06/09/22 14:00 Pulse Rate 91 77 77 Respiratory Rate 23 H 24 H Blood Pressure 126/73 Pulse Oximetry Oxygen Delivery Method Oxygen Flow Rate 06/09/22 15:00 06/09/22 15:04 06/09/22 14:30 Pulse Rate 76 77 78 Respiratory Rate 18 19 H Blood Pressure Pulse Oximetry 94 Oxygen Delivery Method Nasal Cannula Oxygen Flow Rate 3 06/09/22 15:00 06/09/22 15:30 06/09/22 16:00 Pulse Rate 77 79 77 Respiratory Rate 19 H 29 H 27 H Blood Pressure 111/53 123/54 Pulse Oximetry 95 94 Oxygen Delivery Method Oxygen Flow Rate 06/09/22 16:30 06/09/22 17:00 06/09/22 17:30 Pulse Rate 98 93 79 Respiratory Rate 30 H 28 H 26 H Blood Pressure 116/60 116/60 Pulse Oximetry 94 94 Oxygen Delivery Method Oxygen Flow Rate 06/09/22 18:00 06/09/22 19:35 Pulse Rate 84 81 Respiratory Rate 21 H 17 Blood Pressure 102/61 Pulse Oximetry 93 94 Oxygen Delivery Method Nasal Cannula Oxygen Flow Rate 2
[2022-06-09 21:36] LABS: Glucose Point of Care 195 mg/dL (70-110)
[2022-06-09] MEDS: insulin glargine 100 units/1 mL 50 UNIT SUBCUT (21:37)
--- NOTE | 2022-06-09 22:51 | USCV_ITS ---
Devyn Luo Age: 77 Gender: M : 1945 Exam Date: 06/09/2022 01:10 Ordering Phys: Gaudencio Amin MD Technologist: KG Exam Location: [facility] [place] Indication: Bilateral lower extremity edema. No history of DVT per patient. HISTORY: Bilateral lower extremity edema. No history of DVT per patient. PROCEDURES: Venous duplex imaging was performed in bilateral lower extremities. The following venous structures were evaluated: common femoral vein, profunda vein, proximal portion of the greater saphenous vein, superficial femoral vein, and the popliteal vein. In addition, the posterior tibial veins were evaluated. FINDINGS: Normal 2-D Doppler and augmentation and compressibility throughout the lower extremity venous structures. Additional imaging through the proximal calf veins also reveals no thrombus. Limited evaluation of the greater saphenous vein is patent with no thrombus. CONCLUSIONS No DVT bilateral lower extremities. Dr. Alyson Culver DO (Electronically Signed) Final Date: 09 June 2022 07:34 S
[2022-06-09] MEDS: levofloxacin-dextrose 5 % 750 MG/150 ML PREMIX 100 MG IV (22:57)
[2022-06-10] VITALS (28 sets, daily range): BP systolic 113–146; BP diastolic 58–100; PULSE 68–87; RESP 16–30; TEMP 36.8–37.2; O2SAT 75–99; BMI 49.4
[2022-06-10 01:05] LABS: Glucose Point of Care 221 mg/dL (70-110)
[2022-06-10] MEDS: ipratropium-albuterol 3 mL Neb INHALATION ×5 (04:00→19:54)
[2022-06-10 04:49] LABS: Hematocrit 39.5 % (42.0-52.0); Hemoglobin 12.8 g/dL (11.7-16.6); Mean Corpuscular HGB Conc 32.4 g/dL (30.0-36.0); Mean Corpuscular Hemoglobin 30.3 pg (28.0-34.0); Mean Corpuscular Volume 93.6 fl (80-94); Mean Platelet Volume 9.6 fL (7.4-10.4); Platelet Count 167 10^3/cmm (130-400); Red Blood Count 4.22 10^6/uL (4.1-5.3); White Blood Count 13.3 10^3/uL (4.0-10.0)
[2022-06-10 05:01] LABS: Alanine Aminotransferase 36 U/L (0-41); Albumin Level 3.4 g/dL (3.5-5.2); Alkaline Phosphatase 101 U/L (40-130); Anion Gap 17.3 (5-19); Aspartate Amino Transferase 39 U/L (0-40); Blood Urea Nitrogen 46 mg/dL (8-23); Calcium 8.1 mg/dL (8.5-10.5); Carbon Dioxide 22 mmol/L (22-29); Chloride 102 mmol/L (98-107); Globulin 2.6 g/dL (1.3-4.6); Glucose 260 mg/dL (65-115); Osmolality Calculated 305 mOsm/kg (285-295); Potassium 4.3 mmol/L (3.5-5.1); Sodium 137 mmol/L (136-145); Total Bilirubin 0.4 mg/dL (0.15-1.2)
[2022-06-10 07:29] LABS: Glucose Point of Care 296 mg/dL (70-110)
[2022-06-10] MEDS: famotidine 20 mg Tablet PO ×2 (08:24→17:14)
[2022-06-10] MEDS: tamsulosin 0.4 mg Capsule PO (08:24)
[2022-06-10] MEDS: aspirin 81 mg Chew Tablet PO (08:24)
[2022-06-10] MEDS: cetirizine 10 mg Tablet PO (08:24)
[2022-06-10] MEDS: finasteride 5 mg Tablet PO (08:24)
[2022-06-10] MEDS: atorvastatin 40 mg Tablet 80 MG PO (08:25)
[2022-06-10] MEDS: insulin lispro 100 unit/1 mL SUBCUT ×4 (08:25→21:03)
[2022-06-10] MEDS: sodium chloride 0.9% 1,000 ML 75 ML IV (08:45)
[2022-06-10] MEDS: budesonide 0.5 mg/2 mL Neb INHALATION ×2 (09:01→19:54)
--- NOTE | 2022-06-10 09:57 | PC.NURSE ---
up in chair and assist .. am garrettk serverd doctor here iv fluids started
[2022-06-10 11:14] LABS: Glucose Point of Care 391 mg/dL (70-110)
--- NOTE | 2022-06-10 12:47 | PM.PN ---
Subjective Subjective: Patient was seen and examined this morning, shortness of breath is improved, has been afebrile overnight, serum creatinine has trended up to 2, with also uptrending BUN 46. We will start patient on gentle IV hydration with normal saline at 75 cc an hour. Medications: Medication Review Details: Generic Name Dose Route Start Last Admin Trade Name Lucio PRN Reason Stop Dose Admin Albuterol/Ipratrop ium 3 ml 06/09/22 00:00 06/10/22 11:25 Ipratropium-Albu terol 3 Ml Neb INHALATION 3 ml Q4H.RESPIRATORY S CH Administration Aspirin 81 mg 06/09/22 09:00 06/10/22 08:24 Aspirin 81 Mg Ch ew Tablet PO 81 mg DAILY DONALD Administration Atorvastatin Calci um 80 mg 06/09/22 09:00 06/10/22 08:25 Atorvastatin 40 Mg Tablet PO 80 mg DAILY DONALD Administration Budesonide 0.5 mg 06/09/22 20:00 06/10/22 09:01 Budesonide 0.5 M g/2 Ml Neb INHALATION 0.5 mg BID DONALD Administration Cetirizine HCl 10 mg 06/09/22 09:00 06/10/22 08:24 Cetirizine 10 Mg Tablet PO 10 mg DAILY DONALD Administration Enoxaparin Sodium 40 mg 06/08/22 22:51 06/09/22 21:19 Enoxaparin 40 Mg /0.4 Ml Syringe SUBCUT 40 mg Q24H DONALD Administration Famotidine 20 mg 06/09/22 09:00 06/10/22 08:24 Famotidine 20 Mg Tablet PO 20 mg BID DONALD Administration Finasteride 5 mg 06/09/22 09:00 06/10/22 08:24 Finasteride 5 Mg Tablet PO 5 mg DAILY DONALD Administration Gabapentin 300 mg 06/09/22 21:00 06/09/22 21:17 Gabapentin 300 M g Capsule PO 300 mg BEDTIME DONALD Administration Vancomycin/PEG/NAD A/Lysine/Water 1,750 mg in 350 m ls @ 233.333 mls/h r 06/08/22 22:30 06/10/22 00:13 Vancocin IV Infused Q24H DONALD Infusion Levofloxacin/Dextr ose 750 mg in 150 mls @ 100 mls/hr 06/08/22 22:51 06/10/22 00:51 Levaquin-D5w IV Infused Q24H DONALD Infusion Protocol Sodium Chloride 1,000 mls @ 75 ml s/hr 06/10/22 08:15 06/10/22 08:45 Sodium Chloride 0.9% IV 75 mls/hr .[id number] DONALD Administration Insulin Glargine 50 unit 06/09/22 21:00 06/09/22 21:37 Insulin Glargine 100 Units/1 Ml SUBCUT 50 unit BEDTIME DONALD Administration Insulin Human Lisp ro 0 unit 06/09/22 08:00 06/10/22 11:44 Insulin Lispro 1 00 Unit/1 Ml SUBCUT 14 unit WM&BEDTIME DONALD Administration Protocol Methylprednisolone Sodium Succinate 60 mg 06/09/22 10:00 06/10/22 10:00 Methylprednisolo ne Sod Succ 125 Mg /2 Ml Inj IVP 60 mg Q12H DONALD Administration Tamsulosin HCl 0.4 mg 06/09/22 09:00 06/10/22 08:24 Tamsulosin 0.4 M g Capsule PO 0.4 mg DAILY DONALD Administration Vitals/I&O/Wt Last Vital Signs Temp 98.9 F 06/10/22 03:00 Pulse 70 06/10/22 11:25 Resp 16 06/10/22 11:25 BP 143/89 06/10/22 10:00 Pulse Ox 94 06/10/22 11:25 O2 Del Method Nasal Cannula 06/10/22 11:25 O2 Flow Rate 2 06/10/22 11:25 06/09/22 06/10/22 06/10/22 22:59 06:59 14:59 Intake Total 659.777 / 1309.777 642.223 / 1952.000 250 / 250 Output Total 400 / 400 0 / 400 Balance 259.777 / 909.777 642.223 / 1552.000 250 / 250 Weight last 48 hrs Weight 165.108 kg Weight 165.108 kg Weight 165.108 kg Weight 120.202 kg Physical Exam Const: COMMON NORMALS: patient oriented x3 HENMT: COMMON NORMALS: normocephalic and atraumatic HEAD & SCALP: normocephalic and atraumatic Resp: OTHER: Bilateral expiratory wheezing present in both the lungs smith. Cardio: COMMON NORMALS: regular rate, regular rhythm, S1 normal heart sound present, S2 normal heart sound present, No gallops present (Cardio), No murmurs present (Cardio), No rub (Cardio) and Peripheral pulses 2+ throughout RATE: regular rate RHYTHM: regular rhythm HEART SOUNDS: S1 normal heart sound present and S2 normal heart sound present PERIPHERAL PULSES: Peripheral pulses 2+ throughout GI: COMMON NORMALS: Normal to inspection, nondistended, normoactive bowel sounds present, Soft to palpation, non-tender, No hepatosplenomegaly present and no masses AUSCULTATION: Yes normoactive bowel sounds PALPATION: Yes Soft to palpation and Yes No hepatosplenomegaly present RECTAL EXAM: Yes deferred Extremity: COMMON NORMALS: no clubbing, cyanosis or edema and no pedal edema NARRATIVE EXTREMITY EXAM: Right lower extremity redness, trace edema present Neuro: COMMON NORMALS: patient oriented x3 Data 06/10/22 04:10 06/10/22 04:10 Micro: Microbiology 06/08/22 22:16 Blood Culture - Preliminary Blood NEGATIVE TO DATE 06/08/22 22:16 Blood Culture - Preliminary Blood NEGATIVE TO DATE 06/08/22 23:23 MRSA Culture - Final Nose A&P Assessment and plan (1) Acute exacerbation of chronic obstructive airways disease: Patient with audible wheezing, consistent with acute exacerbation of COPD. I will give Solu-Medrol 125 mg IV x1, and then 60 mg IV every 12 hours Budesonide twice daily DuoNeb every 4 hours Wean steroids as soon as patient has improvement. CTA was performed which did not demonstrate any pulmonary embolism. Levaquin was initiated. It is also possible that his wheezing may have been triggered by aspiration/vomiting that occurred earlier today Associated with acute respiratory failure. Is requiring 3 to 5 L of oxygen, tachypneic. This is much greater than his baseline of 1 L as needed (2) Cellulitis of right lower extremity: Patient has evidence of underlying right lower extremity venous stasis, with acute cellulitis. Check venous duplex lower extremities to rule out DVT in this area Initiate vancomycin (3) Hypotension: Patient was normotensive on arrival to the emergency department but tachycardic. He is now hypotensive. He has received a small fluid bolus in the emergency department, with improvement of his blood pressure. We will continue to monitor the patient, for recurrent hypotension. This is most likely secondary to his underlying infection. (4) Acute kidney injury: Patient may have acute kidney injury We will bladder scan secondary to his previous prostate problems Continue to follow creatinine closely Without baseline lab it is unknown if he has a chronic component but I suspect it. (5) Transaminitis: Patient has evidence of transaminitis. Etiology is unclear. Check hepatitis panel. If this persists consider hepatic ultrasound. Note he has previously had his gallbladder removed. (6) Elevated troponin: I believe this is a type II elevation Telemetry, serial troponins Depending upon these and echocardiogram might be ordered, however the usefulness of this may be in question secondary to body habitus of the patient. (7) Type 2 diabetes mellitus: Continue long-acting insulin. Add sliding scale. Plan 77-year-old male with past medical history of CKD COPD CAD GERD morbid obesity type 2 diabetes Came in with chief complaint of worsening shortness of breath, going on for about a week time, was significantly worse yesterday, he also had an episode of projectile nonbloody vomiting last night, he was also complaining of loose stool, currently he is also complaining of right lower extremity pain. Patient has history of chronic nonproductive cough, particularly so when he wears his CPAP at night. Assessment: COPD exacerbation: CTA chest has shown: Bronchial wall thickening and mucous plugging in the right lower lobe suspicious for bronchitis. No evidence for pulmonary embolism.Dependent atelectasis in the lungs bilaterally. MRSA PCR negative Blood culture: Sputum Gram stain and culture Continue vancomycin and levofloxacin for now Continue DuoNebs Budesonide inhaler Solu-Medrol 60 IV twice daily Right lower extremity cellulitis: Bilateral lower extremity venous duplex negative for DVT Currently on Vanco and levofloxacin will suffice for cellulitis. CKD versus AICHA on CKD: Admission serum creatinine is 1.6 Serum creatinine has up trended to 1.9: Could be possibly secondary to contrast use, during CTA as well as, some contribution from acute hypotension. Baseline serum creatinine is unknown Monitor BMP for now Avoid nephrotoxic's Gentle IV hydration with normal saline 75 cc an hour. Intake output charting Transaminitis: Currently he has denied any abdominal pain, though he had an episode of vomiting prior to admission Monitor CMP for now If needed ultrasound abdomen If needed hepatitis panel Type 2 diabetes: Continue Lantus 50 at bedtime SSI, monitor fingerstick Sleep apnea: Continue CPAP at night CODE STATUS AND DVT prophylaxis on Lovenox Attestations Medical Necessity Statement*: Needs to be in hospital for monitoring of AICHA, need for IV fluids. Coding Level of Care Code Acute Code for Chg Fwd Diagnoses Acute exacerbation of chronic obstructive airways disease J44.1 Cellulitis of right lower extremity L03.115 Hypotension I95.9 Acute kidney injury N17.9 Transaminitis R74.01 Elevated troponin R77.8 Type 2 diabetes mellitus E11.9
[2022-06-10 16:51] LABS: Glucose Point of Care 381 mg/dL (70-110)
[2022-06-10 18:37] LABS: Add Urine Culture? No; Amorphous Sediment Urine 2+ /hpf; Bacteria Urine TRACE /hpf; Bilirubin Urine Neg (Negative); Blood Urine Neg (Negative); Glucose Urine UA 2+ (Normal); Ketones Urine Negative (Negative); Leukocyte Esterase Urine Negative (Negative); Nitrate Urine Negative (Negative); Protein Urine Neg (Negative); RBC Urine 0-4 /hpf (0-2); Squamous Epithelial Cell Urine 0-4 /hpf (0-5); Urine Appearance Clear (CLEAR); Urine Color Yellow (Yellow); Urobilinogen Urine Norm (Negative); WBC Urine 0-4 /hpf (0-5); pH Urine 5 (5-7)
[2022-06-10] MEDS: gabapentin 300 mg Capsule PO (20:56)
[2022-06-10 21:02] LABS: Glucose Point of Care 416 mg/dL (70-110)
[2022-06-10] MEDS: insulin glargine 100 units/1 mL 50 UNIT SUBCUT (21:03)
[2022-06-10] MEDS: levofloxacin-dextrose 5 % 750 MG/150 ML PREMIX 100 MG IV (21:28)
[2022-06-10] MEDS: enoxaparin 40 mg/0.4 mL Syringe SUBCUT (21:37)
[2022-06-10 22:11] LABS: Vancomycin Trough 10.3 ug/mL (10-15)
[2022-06-10] MEDS: vancomycin 1,750 MG/350 ML PIGGYBACK 150 MG IV (22:18)
--- NOTE | 2022-06-10 22:24 | PC.PHAR ---
Vanc trough dose change Vanc trough: 10.3 Trough goal: 15-20 (high trough requested) Plan: Change frequency to 1750 mg Q18H Vanc trough to be scheduled for prior to 4th dose and will reassess
[2022-06-11] VITALS (16 sets, daily range): BP systolic 114–139; BP diastolic 58–78; PULSE 62–78; RESP 13–25; TEMP 36.8; O2SAT 80–99
[2022-06-11] MEDS: ipratropium-albuterol 3 mL Neb INHALATION ×3 (00:13→08:32)
[2022-06-11] MEDS: sodium chloride 0.9% 1,000 ML 75 ML IV (01:52)
[2022-06-11 04:35] LABS: Basophils % 0.2 %; Hematocrit 37.5 % (42.0-52.0); Hemoglobin 12.2 g/dL (11.7-16.6); Lymphocytes # 0.5 10^3/uL (0.8-4.8); Lymphocytes % 3.4 %; Mean Corpuscular HGB Conc 32.5 g/dL (30.0-36.0); Mean Corpuscular Hemoglobin 29.9 pg (28.0-34.0); Mean Corpuscular Volume 91.9 fl (80-94); Mean Platelet Volume 10.2 fL (7.4-10.4); Monocytes # 0.6 10^3/uL (0.2-0.9); Monocytes % 4.3 %; Neutrophils # 11.88 10^3/uL (1.8-7.7); Neutrophils % 90.4 %; Nucleated Red Blood Cells % 0 %; Platelet Count 192 10^3/cmm (130-400); Red Blood Count 4.08 10^6/uL (4.1-5.3); Red Cell Distribution Width 12.6 % (12.1-15.1); White Blood Count 13.2 10^3/uL (4.0-10.0)
[2022-06-11 04:47] LABS: Alanine Aminotransferase 35 U/L (0-41); Albumin Level 3.2 g/dL (3.5-5.2); Alkaline Phosphatase 109 U/L (40-130); Anion Gap 16.6 (5-19); Aspartate Amino Transferase 28 U/L (0-40); Blood Urea Nitrogen 47 mg/dL (8-23); Calcium 8.2 mg/dL (8.5-10.5); Carbon Dioxide 21 mmol/L (22-29); Chloride 99 mmol/L (98-107); Globulin 2.9 g/dL (1.3-4.6); Glucose 341 mg/dL (65-115); Osmolality Calculated 300 mOsm/kg (285-295); Potassium 4.6 mmol/L (3.5-5.1); Sodium 132 mmol/L (136-145); Total Bilirubin 0.3 mg/dL (0.15-1.2); Total Protein 6.1 g/dL (6.6-8.7)
[2022-06-11 07:07] LABS: Glucose Point of Care 347 mg/dL (70-110)
[2022-06-11] MEDS: atorvastatin 40 mg Tablet 80 MG PO (08:23)
[2022-06-11] MEDS: aspirin 81 mg Chew Tablet PO (08:23)
[2022-06-11] MEDS: tamsulosin 0.4 mg Capsule PO (08:23)
[2022-06-11] MEDS: cetirizine 10 mg Tablet PO (08:23)
[2022-06-11] MEDS: famotidine 20 mg Tablet PO (08:23)
[2022-06-11] MEDS: finasteride 5 mg Tablet PO (08:23)
[2022-06-11] MEDS: insulin lispro 100 unit/1 mL SUBCUT (08:24)
[2022-06-11] MEDS: budesonide 0.5 mg/2 mL Neb INHALATION (08:32)
[2022-06-11] MEDS: levoFLOXacin 750 mg Tablet PO (09:38)
--- NOTE | 2022-06-11 13:39 | PC.SOCIAL ---
IMM Update @ 0900 on 06/11/22 CM to room and updated IMM w/ patient and his daughter. Copy provided and copy dated, initialed and placed in chart.
--- NOTE | 2022-06-11 15:52 | PM.DCS ---
Discharge Providers Date of Admission: 06/08/22 21:56 Date of Discharge: June 11, 2022 Attending Provider at Admission: Gaudencio Amin MD Attending Provider at Discharge: Moy Shah MD Primary Care Provider: DAVID Anglin Diagnoses at Discharge Discharge Diagnosis (1) Acute exacerbation of chronic obstructive airways disease: Status: Acute (2) Cellulitis of right lower extremity: Status: Acute (3) Hypotension: Status: Acute (4) Acute kidney injury: Status: Acute (5) Transaminitis: Status: Acute (6) Elevated troponin: Status: Acute (7) Type 2 diabetes mellitus: Status: Acute Reason for Visit Reason for Visit: RESP DISTRESS Hospital Course Hospital Course 77-year-old male with past medical history of CKD COPD CAD GERD morbid obesity type 2 diabetes Came in with chief complaint of worsening shortness of breath, going on for about a week time, was significantly worse yesterday, he also had an episode of projectile nonbloody vomiting last night, he was also complaining of loose stool, currently he is also complaining of right lower extremity pain. Patient has history of chronic nonproductive cough, particularly so when he wears his CPAP at night. He was admitted for the management of COPD exacerbation, as well as right lower extremity cellulitis:CTA chest has shown:?Bronchial wall thickening and mucous plugging in the right lower lobe suspicious for bronchitis. No evidence for pulmonary embolism.Dependent atelectasis in the lungs bilaterally.MRSA PCR negative,Blood culture:NTD Sputum Gram stain and culture: Unfortunately could not be obtained, he was on vancomycin and levofloxacin during the hospital stay, along with DuoNebs steroids, supplemental oxygen as needed, I-S, to which she responded well, shortness of breath had significantly improved, at the time of discharge he was saturating well on his home oxygen requirement, which was 3 Ls, for his right lower extremity cellulitis: Bilateral lower extremity Doppler vein was negative for DVT, he has been discharged on, p.o. levofloxacin as well as doxycycline for 7 days, during the hospital stay patient was also managed for AICHA on CKD, likely secondary to acute hypotension as well as contrast use, he was kept on gentle IV hydration, nephrotoxic's were avoided BMP was monitored, intake output charting was done, at the time of discharge serum creatinine was trending down it was 1.7, he has been advised to follow-up with his BMP in a week or 2 with his primary care physician Overall patient responded well to above medical management, and he was discharged in stable condition to home, will continue to follow his PCP as outpatient. Physical Exam Const: COMMON NORMALS: patient oriented x3 HENMT: COMMON NORMALS: normocephalic and atraumatic HEAD & SCALP: normocephalic and atraumatic Resp: OTHER: Minimal bilateral expiratory wheezing present in both the lungs smith. Cardio: COMMON NORMALS: regular rate, regular rhythm, S1 normal heart sound present, S2 normal heart sound present, No gallops present (Cardio), No murmurs present (Cardio), No rub (Cardio) and Peripheral pulses 2+ throughout RATE: regular rate RHYTHM: regular rhythm HEART SOUNDS: S1 normal heart sound present and S2 normal heart sound present PERIPHERAL PULSES: Peripheral pulses 2+ throughout GI: COMMON NORMALS: Normal to inspection, nondistended, normoactive bowel sounds present, Soft to palpation, non-tender, No hepatosplenomegaly present and no masses AUSCULTATION: Yes normoactive bowel sounds PALPATION: Yes Soft to palpation and Yes No hepatosplenomegaly present RECTAL EXAM: Yes deferred Extremity: COMMON NORMALS: no clubbing, cyanosis or edema and no pedal edema NARRATIVE EXTREMITY EXAM: Right lower extremity redness, trace edema present Neuro: COMMON NORMALS: patient oriented x3 Discharge Data Studies Completed and Pending Completed Studies During Hospitalization Category Date Time Status CT angio chest PE protcl [id number] Stat Cat Scan 06/08/22 18:10 Completed XR chest 1V portable [id number] Stat Exams 06/08/22 16:29 [place] [id number] Routine Ultrasound 06/09/22 22:51 Completed Pending at discharge Category Date Time Status Blood Culture Stat Lab 06/08/22 22:16 Results Radiology Impressions Chest X-Ray 06/08/22 16:29 IMPRESSION: 1. No acute cardiopulmonary process. 2. Incidental/nonacute findings are listed in the report. Chest CTA 06/08/22 18:10 IMPRESSION: 1. Bronchial wall thickening and mucous plugging in the right lower lobe suspicious for bronchitis. 2. Calcified granuloma in the left upper lobe. Flattened appearance of the trachea and proximal bronchi which raises suspicion for tracheobronchomalacia. Recommend clinical correlation. 3. No evidence for pulmonary embolism. 4. Dependent atelectasis in the lungs bilaterally. 5. Incidental/nonacute findings are listed in the report. COMMENTS: Consistent with the [employer]'s Incidental Findings Committee white paper (J Am Jeff Radiol 2018): Any incidental renal lesion less than 1 cm or classified as too small to characterize, or any incidental cystic renal lesion characterized as simple-appearing, is likely benign. No follow-up imaging is recommended for these lesions per consensus recommendations based on imaging criteria. Laboratory Results WBC 13.2 10^3/uL (4.0-10.0) H 06/11/22 03:55 RBC 4.08 10^6/uL (4.1-5.3) L 06/11/22 03:55 Hgb 12.2 g/dL (11.7-16.6) 06/11/22 03:55 Hct 37.5 % (42.0-52.0) L 06/11/22 03:55 MCV 91.9 fl (80-94) 06/11/22 03:55 MCH 29.9 pg (28.0-34.0) 06/11/22 03:55 MCHC 32.5 g/dL (30.0-36.0) 06/11/22 03:55 RDW 12.6 % (12.1-15.1) 06/11/22 03:55 Plt Count 192 10^3/cmm (130-400) 06/11/22 03:55 MPV 10.2 fL (7.4-10.4) 06/11/22 03:55 Neut % (Auto) 90.4 % 06/11/22 03:55 Lymph % (Auto) 3.4 % 06/11/22 03:55 Heard % (Auto) 4.3 % 06/11/22 03:55 Eos % (Auto) 0.0 % 06/11/22 03:55 Baso % (Auto) 0.2 % 06/11/22 03:55 Neut # (Auto) 11.88 10^3/uL (1.8-7.7) H 06/11/22 03:55 Lymph # (Auto) 0.5 10^3/uL (0.8-4.8) L 06/11/22 03:55 Heard # (Auto) 0.6 10^3/uL (0.2-0.9) 06/11/22 03:55 Eos # (Auto) 0.0 10^3/uL (0.0-0.8) 06/11/22 03:55 Baso # (Auto) 0.0 10^3/uL (0.0-0.1) 06/11/22 03:55 Nucleated RBC % (auto) 0 % 06/11/22 03:55 Nucleated RBCs # 0.0 /100WBC 06/11/22 03:55 D-Dimer 1.21 ug/mIFEU (0-0.59) H 06/08/22 16:47 Specimen Type Arterial 06/08/22 16:22 Sample Site Radial, left 06/08/22 16:22 ABG pH 7.39 (7.35-7.45) 06/08/22 16:22 ABG pCO2 37.0 mmHg (35-45) 06/08/22 16:22 ABG pO2 68.8 mmHg (80.0-100.0) L 06/08/22 16:22 ABG HCO3 22.6 mmol/L (22-26) 06/08/22 16:22 ABG O2 Saturation 93.8 06/08/22 16:22 ABG Base Excess -1.9 mmol/L (-2.0-2.0) 06/08/22 16:22 Al Test Pos 06/08/22 16:22 A-a O2 Gradient 4.3 mmHg (5-10) L 06/08/22 16:22 Hematocrit 45.9 % (42-52) 06/08/22 16:22 Hgb O2 Saturation 92.5 % (95-100) L 06/08/22 16:22 Carboxyhemoglobin 0.7 %THgb (0.4-20.1) 06/08/22 16:22 Methemoglobin 0.7 % (0.4-1.5) 06/08/22 16:22 Total Hemoglobin 15.0 g/dL (14-18) 06/08/22 16:22 Sodium 141.0 mmol/L (131-143) 06/08/22 16:22 Potassium 4.0 mmol/L (3.5-5.0) 06/08/22 16:22 Glucose 123.0 mg/dL (70-115) H 06/08/22 16:22 Ionized Calcium 1.1 mmol/L (1.1-1.4) 06/08/22 16:22 O2 Delivery Device Nc 06/08/22 16:22 O2 Liters/Min 5.0 % 06/08/22 16:22 [employer] ID Cak 06/08/22 16:22 Sodium 132 mmol/L (136-145) L 06/11/22 03:55 Potassium 4.6 mmol/L (3.5-5.1) 06/11/22 03:55 Chloride 99 mmol/L (98-107) 06/11/22 03:55 Carbon Dioxide 21 mmol/L (22-29) L 06/11/22 03:55 Anion Gap 16.6 (5-19) 06/11/22 03:55 BUN 47 mg/dL (8-23) H 06/11/22 03:55 Creatinine 1.7 mg/dL (0.7-1.2) H 06/11/22 03:55 GFR Calculation Not Reportable 06/11/22 03:55 Glucose 341 mg/dL (65-115) H 06/11/22 03:55 POC Glucose 347 mg/dL (70-110) H 06/11/22 06:57 Calculated Osmolality 300 mOsm/kg (285-295) H 06/11/22 03:55 Calcium 8.2 mg/dL (8.5-10.5) L 06/11/22 03:55 Magnesium 1.4 mg/dL (1.7-2.3) L 06/09/22 02:48 Total Bilirubin 0.3 mg/dL (0.15-1.2) 06/11/22 03:55 AST 28 U/L (0-40) 06/11/22 03:55 ALT 35 U/L (0-41) 06/11/22 03:55 Alkaline Phosphatase 109 U/L (40-130) 06/11/22 03:55 Troponin T Baseline 20 ng/L (0-15) H 06/08/22 16:47 Troponin T 120 Minute 29.91 ng/L (0-15) H 06/08/22 19:05 Delta Troponin T 9.91 ABS# (0-10) 06/08/22 19:05 Troponin T Hi Sens 6Hr 30.81 ng/L (0-15) H 06/08/22 22:16 Troponin T Hi Sens 6Hr Delta 10.81 ng/L (0-12) 06/08/22 22:16 NT-Pro-B Natriuret Pep 458 pg/mL (0-450) H 06/08/22 16:47 Total Protein 6.1 g/dL (6.6-8.7) L 06/11/22 03:55 Albumin 3.2 g/dL (3.5-5.2) L 06/11/22 03:55 Globulin 2.9 g/dL (1.3-4.6) 06/11/22 03:55 Urine Color Yellow (Yellow) 06/10/22 18:00 Urine Appearance Clear (CLEAR) 06/10/22 18:00 Urine pH 5 (5-7) 06/10/22 18:00 Ur Specific [place] 1.020 (1.005-1.030) 06/10/22 18:00 Urine Protein Neg (Negative) 06/10/22 18:00 Urine Glucose (UA) 2+ (Normal) H 06/10/22 18:00 Urine Ketones Negative (Negative) 06/10/22 18:00 Urine Blood Neg (Negative) 06/10/22 18:00 Urine Nitrate Negative (Negative) 06/10/22 18:00 Urine Bilirubin Neg (Negative) 06/10/22 18:00 Urine Urobilinogen Norm mg/dL (Negative) 06/10/22 18:00 Ur Leukocyte Esterase Negative (Negative) 06/10/22 18:00 Urine RBC 0-4 /hpf (0-2) H 06/10/22 18:00 Urine WBC 0-4 /hpf (0-5) H 06/10/22 18:00 Ur Squamous Epith Cells 0-4 /hpf (0-5) H 06/10/22 18:00 Amorphous Sediment 2+ /hpf 06/10/22 18:00 Urine Bacteria Trace /hpf (NONE) 06/10/22 18:00 Vancomycin Trough 10.3 ug/mL (10-15) 06/10/22 21:09 Coronavirus 229E (PCR) Not detected (NOT DETECT) 06/08/22 21:42 Hepatitis A IgM Ab Non-reactive (Nonreactive) 06/08/22 16:47 Hep Bs Antigen Non-reactive (Nonreactive) 06/08/22 16:47 Hep B Core IgM Ab Non-reactive (Nonreactive) 06/08/22 16:47 Hepatitis C Antibody Non-reactive (Nonreactive) 06/08/22 16:47 Human Metapneumovir PCR Not detected (NOT DETECT) 06/09/22 02:00 Influenza Type A Ag Negative (Negative) 06/08/22 19:35 Influenza Type B Ag Negative (Negative) 06/08/22 19:35 Entero/Rhino (PCR) Detected (NOT DETECT) A 06/09/22 02:00 SARS-CoV-2 (PCR) Not detected (NOT DETECT) 06/08/22 21:42 SARS-CoV-2 Ag (Rapid) negative (Negative) 06/08/22 19:35 Vitals Last Vital Signs Temp 98.3 F 06/11/22 10:40 Pulse 78 06/11/22 10:40 Resp 25 H 06/11/22 10:40 BP 114/58 06/11/22 10:40 Pulse Ox 96 06/11/22 10:40 O2 Del Method Nasal Cannula 06/11/22 07:35 O2 Flow Rate 2 06/11/22 07:35 Discharge Plan Discharge Patient Disposition: Home Health Service Condition: Stable Prescriptions: New prednisone 20 mg tablet 40 mg PO DAILY 5 Days Qty: 20 0RF levofloxacin 750 mg tablet 750 mg PO DAILY 7 Days Qty: 7 0RF doxycycline monohydrate 100 mg capsule 100 mg PO BID 7 Days Qty: 14 0RF Continued atorvastatin 80 mg Tablet 80 mg PO DAILY cetirizine 10 mg Tablet 10 mg PO DAILY Senna-S 8.6-50 mg Tablet 1 tab-cap PO DAILY famotidine 20 mg Tablet 20 mg PO BID tamsulosin 0.4 mg Capsule 0.4 mg PO DAILY Novolog U-100 Insulin aspart 100 unit/mL Solution See Rx Instructions .ROUTE .COMPLEX Rx Instructions: per sliding scale Wixela Inhub 500-50 mcg/dose Blister With Device 1 inh INHALATION BID Nitrostat 0.4 mg Tablet, Sublingual 0.4 mg SUBLINGUAL Q5M PRN (Reason: Chest Pain) Rx Instructions: do not exceed 3 doses per episode gabapentin 300 mg Capsule 300 mg PO BEDTIME aspirin 81 mg Tablet,Chewable 81 mg PO DAILY fluticasone propionate 50 mcg/actuation [place],Suspension 1 spray INTRANASAL BID Rx Instructions: administer into each nostril finasteride 5 mg Tablet 5 mg PO DAILY loratadine 10 mg Tablet 10 mg PO DAILY Vitamin D3 25 mcg (1,000 unit) Capsule 25 mcg PO DAILY Osteo Bi-Flex 250-200 mg Tablet 1 tab PO BID Rx Instructions: give after food/meal Lantus Solostar U-100 Insulin 100 unit/mL (3 mL) Insulin Pen 50 unit SUBCUT BEDTIME Combivent Respimat 20-100 mcg/actuation Mist 1 puff INHALATION QID Rx Instructions: space evenly during waking hours Discharge Orders: Discharge Order (Routine); Ordered 06/11/22 Ordered By: Moy Shah Referrals: [facility] [Outside] Natalia Trujillo, [employer] [Primary Care Provider] - Patient Instructions: Doxycycline (By mouth), Prednisone (By mouth), Levofloxacin (By mouth), Acute Kidney Injury (DC), Opioid Safety Discharge Attestations Time Spent in Discharge Care*: greater than 30 min Quality Metrics Clinical Quality Measures [ No reported AMI, CVA or VTE this stay] Coding Level of Care Code Acute Code for [facility] Fwd Diagnoses Acute exacerbation of chronic obstructive airways disease J44.1 Cellulitis of right lower extremity L03.115 Hypotension I95.9 Acute kidney injury N17.9 Transaminitis R74.01 Elevated troponin R77.8 Type 2 diabetes mellitus E11.9
== END 2022-06-11 11:40 | disposition home health service (06) | DRG 190 ==
LOC: ER 22:04 → ICU 22:21
PROVIDERS: Admitting Provider Internal Medicine; Emergency Provider Emergency Medicine; PCP Nurse Practitioner; Visit Provider Internal Medicine
DX: J44.0 Chronic obstructive pulmonary disease with (acute) lower respiratory infection (principal); I21.A1 Myocardial infarction type 2; L03.115 Cellulitis of right lower limb; Z68.42 Body mass index [BMI] 45.0-49.9, adult; N17.9 Acute kidney failure, unspecified; J20.9 Acute bronchitis, unspecified; J44.1 Chronic obstructive pulmonary disease with (acute) exacerbation; I25.10 Atherosclerotic heart disease of native coronary artery without angina pectoris; Z98.61 Coronary angioplasty status; K21.9 Gastro-esophageal reflux disease without esophagitis; E66.01 Morbid (severe) obesity due to excess calories; E11.42 Type 2 diabetes mellitus with diabetic polyneuropathy; E11.22 Type 2 diabetes mellitus with diabetic chronic kidney disease; N18.9 Chronic kidney disease, unspecified; I95.9 Hypotension, unspecified; Z79.4 Long term (current) use of insulin; Z79.82 Long term (current) use of aspirin; N40.0 Benign prostatic hyperplasia without lower urinary tract symptoms; E78.5 Hyperlipidemia, unspecified; Z87.891 Personal history of nicotine dependence
CPT/HCPCS: 36415; 36416; 36600; 51798; 71045; 71275; 80051; 80053; 80074; 80202; 81001; 82330; 82805; 82962; 83735; 83880; 84484; 85025; 85378; 87040; 87426; 87635; 87641; 87801; 87804; 93005; 93970; 94640; 96365; 96372; 96375; 96376; 97116; 97161; 99285; J0456; J0696; J1650; J1815; J1956; J2930; J3372; J3475; J7030; J7040; J7050; J7626; Q9967

== ENCOUNTER 2022-06-25 10:10 | Emergency (ER) | payer OTHER, SELFPAY ==
[2022-06-25 10:15] VITALS: BP 167/80; PULSE 69; O2SAT 93; BMI 48.8
--- NOTE | 2022-06-25 10:29 | USR_ITS ---
PROCEDURE INFORMATION: Exam: US Duplex Right Lower Extremity Veins, Limited Exam date and time: 06/25/2022 11:05 AM Age: 77 years old Clinical indication: Edema, localized; Lower extremity, right; Additional info: Swelling TECHNIQUE: Imaging protocol: Real-time duplex ultrasound of the right extremity with 2-D cervantes scale, color Doppler flow and spectral waveform analysis including responses to compression and other maneuvers (when performed) with image documentation. Limited exam was focused on the right lower extremity veins. COMPARISON: No relevant prior studies available. FINDINGS: Right deep veins: Unremarkable. The common femoral, femoral, proximal profunda femoral, popliteal, posterior tibial and peroneal veins are patent without thrombus. Normal Doppler waveforms. Normal compressibility and/or augmentation response. Right superficial veins: Unremarkable. Saphenofemoral junction is patent without thrombus. Soft tissues: Unremarkable. US/[place] [id number] IMPRESSION: No sonographic evidence of deep vein thrombosis.
[2022-06-25 11:16] LABS: Basophils # 0.1 10^3/uL (0.0-0.1); Eosinophils # 0.2 10^3/uL (0.0-0.8); Hematocrit 38.1 % (42.0-52.0); Hemoglobin 12.1 g/dL (11.7-16.6); Lymphocytes % 16.5 %; Mean Corpuscular HGB Conc 31.8 g/dL (30.0-36.0); Mean Corpuscular Hemoglobin 30.3 pg (28.0-34.0); Mean Corpuscular Volume 95.3 fl (80-94); Mean Platelet Volume 9.1 fL (7.4-10.4); Monocytes # 0.9 10^3/uL (0.2-0.9); Monocytes % 14.5 %; Neutrophils # 4.05 10^3/uL (1.8-7.7); Neutrophils % 64.7 %; Nucleated Red Blood Cells % 0 %; Platelet Count 178 10^3/cmm (130-400); Red Cell Distribution Width 12.8 % (12.1-15.1); White Blood Count 6.3 10^3/uL (4.0-10.0)
--- NOTE | 2022-06-25 11:31 | ED_ITS ---
HPI - Extremity Problem General: Chief complaint: Extremity Problem,Nontraumatic Stated complaint: right Leg pain Time Seen by Provider: 06/25/22 10:36 Source: patient Mode of arrival: ambulatory Limitations: no limitations History of Present Illness: 77-year-old male states has been having worsening erythema to his right lower leg he states its been red and warm to touch and has had increased swelling. He states that he was on doxycycline 2 weeks ago and finished it roughly a week ago and its been worsening since he stopped. He denies any fevers he denies any worsening improving factors. Associated symptoms: Deny chest pain, fever(s) or rash Review of Systems Const: Denies: fever(s), chills or body aches ENMT: Denies: throat pain or dental pain Card: Denies: chest pain Resp: Denies: dyspnea GI: Denies: abdominal pain, nausea, vomiting or diarrhea Musc: Reports: extremity pain and extremity swelling; Denies: neck pain or back pain Skin/Breast: Denies: rash Neuro: Denies: headache(s) Psych: Denies: depression PFSH ED PFSH: Medical History Acute exacerbation of chronic obstructive airways disease Acute kidney injury BPH (benign prostatic hyperplasia) Cellulitis of right lower extremity Chronic kidney disease Community acquired pneumonia COPD (chronic obstructive pulmonary disease) Coronary artery disease Elevated troponin GERD (gastroesophageal reflux disease) Hyperlipidemia Hypotension Morbid obesity Peripheral neuropathy Transaminitis Type 2 diabetes mellitus Surgical History History of cholecystectomy History of coronary angioplasty Family History Other CAD (coronary artery disease) Social History Smoking and tobacco status: former smoker Alcohol intake: never Physical Exam Const: COMMON NORMALS: no acute distress and patient oriented x3 HENMT: COMMON NORMALS: normocephalic HEAD & SCALP: normocephalic Eye: COMMON NORMALS: conjunctivae normal CONJUNCTIVA: Yes conjunctivae normal Chest: COMMONS NORMALS: normal inspection of the chest Resp: COMMON NORMALS: normal respiratory effort Extremity: OTHER: Distal pulses intact to right leg he does have erythema to his ankle to mid calf some slight swelling Neuro: COMMON NORMALS: patient oriented x3 Psych: COMMON NORMALS: mental status grossly normal Skin: COMMON NORMALS: no rashes or lesions noted GENERAL SKIN EXAM: no rashes or lesions noted Course Vital Signs: Vital signs: Vital Signs Pulse Rate 69 06/25/22 10:15 Blood Pressure 167/80 06/25/22 10:15 Pulse Oximetry 93 06/25/22 10:15 Oxygen Delivery Me thod Nasal Cannula 06/25/22 10:15 MDM - Extremity (Nontraumatic) Medical Decision Making Patient presents for cellulitis White count is normal no signs of DVT or arterial obstruction we will place him on antibiotics he is to follow-up with PCP this week as scheduled return if worsening. Medical Records I reviewed the patient's medical records. Lab Data I reviewed the patient's lab results. 06/25/22 11:04 06/25/22 11:04 Laboratory Results WBC 6.3 10^3/uL (4.0-10.0) 06/25/22 11:04 RBC 4.00 10^6/uL (4.1-5.3) L 06/25/22 11:04 Hgb 12.1 g/dL (11.7-16.6) 06/25/22 11:04 Hct 38.1 % (42.0-52.0) L 06/25/22 11:04 MCV 95.3 fl (80-94) H 06/25/22 11:04 MCH 30.3 pg (28.0-34.0) 06/25/22 11:04 MCHC 31.8 g/dL (30.0-36.0) 06/25/22 11:04 RDW 12.8 % (12.1-15.1) 06/25/22 11:04 Plt Count 178 10^3/cmm (130-400) 06/25/22 11:04 MPV 9.1 fL (7.4-10.4) 06/25/22 11:04 Neut % (Auto) 64.7 % 06/25/22 11:04 Lymph % (Auto) 16.5 % 06/25/22 11:04 [place] % (Auto) 14.5 % 06/25/22 11:04 Eos % (Auto) 3.0 % 06/25/22 11:04 Baso % (Auto) 1.0 % 06/25/22 11:04 Neut # (Auto) 4.05 10^3/uL (1.8-7.7) 06/25/22 11:04 Lymph # (Auto) 1.0 10^3/uL (0.8-4.8) 06/25/22 11:04 [place] # (Auto) 0.9 10^3/uL (0.2-0.9) 06/25/22 11:04 Eos # (Auto) 0.2 10^3/uL (0.0-0.8) 06/25/22 11:04 Baso # (Auto) 0.1 10^3/uL (0.0-0.1) 06/25/22 11:04 Nucleated RBC % (auto) 0 % 06/25/22 11:04 Nucleated RBCs # 0.0 /100WBC 06/25/22 11:04 Sodium 139 mmol/L (136-145) 06/25/22 11:04 Potassium 4.1 mmol/L (3.5-5.1) 06/25/22 11:04 Chloride 101 mmol/L (98-107) 06/25/22 11:04 Carbon Dioxide 28 mmol/L (22-29) 06/25/22 11:04 Anion Gap 14.1 (5-19) 06/25/22 11:04 BUN 18 mg/dL (8-23) 06/25/22 11:04 Creatinine 1.3 mg/dL (0.7-1.2) H 06/25/22 11:04 GFR Calculation Not Reportable 06/25/22 11:04 Glucose 230 mg/dL (65-115) H 06/25/22 11:04 Calculated Osmolality 297 mOsm/kg (285-295) H 06/25/22 11:04 Calcium 8.4 mg/dL (8.5-10.5) L 06/25/22 11:04 Total Bilirubin 0.5 mg/dL (0.15-1.2) 06/25/22 11:04 AST 18 U/L (0-40) 06/25/22 11:04 ALT 18 U/L (0-41) 06/25/22 11:04 Alkaline Phosphatase 106 U/L (40-130) 06/25/22 11:04 Total Protein 6.0 g/dL (6.6-8.7) L 06/25/22 11:04 Albumin 3.1 g/dL (3.5-5.2) L 06/25/22 11:04 Globulin 2.9 g/dL (1.3-4.6) 06/25/22 11:04 Discharge Plan Discharge Patient Disposition: Home Clinical Impression: Cellulitis Condition: Stable Prescriptions: New hydrocodone-acetaminophen 5-325 mg tablet 1 tab PO Q6H PRN (Reason: pain) Qty: 14 0RF Bactrim DS 800-160 mg tablet 1 tab PO BID 10 Days Qty: 20 0RF cephalexin 500 mg capsule 500 mg PO TID 7 Days Qty: 21 0RF No Action atorvastatin 80 mg Tablet 80 mg PO DAILY cetirizine 10 mg Tablet 10 mg PO DAILY Senna-S 8.6-50 mg Tablet 1 tab-cap PO DAILY famotidine 20 mg Tablet 20 mg PO BID tamsulosin 0.4 mg Capsule 0.4 mg PO DAILY Novolog U-100 Insulin aspart 100 unit/mL Solution See Rx Instructions .ROUTE .COMPLEX Rx Instructions: per sliding scale Wixela Inhub 500-50 mcg/dose Blister With Device 1 inh INHALATION BID Nitrostat 0.4 mg Tablet, Sublingual 0.4 mg SUBLINGUAL Q5M PRN (Reason: Chest Pain) Rx Instructions: do not exceed 3 doses per episode gabapentin 300 mg Capsule 300 mg PO BEDTIME aspirin 81 mg Tablet,Chewable 81 mg PO DAILY fluticasone propionate 50 mcg/actuation [place],Suspension 1 spray INTRANASAL BID Rx Instructions: administer into each nostril finasteride 5 mg Tablet 5 mg PO DAILY loratadine 10 mg Tablet 10 mg PO DAILY Vitamin D3 25 mcg (1,000 unit) Capsule 25 mcg PO DAILY Osteo Bi-Flex 250-200 mg Tablet 1 tab PO BID Rx Instructions: give after food/meal Lantus Solostar U-100 Insulin 100 unit/mL (3 mL) Insulin Pen 50 unit SUBCUT BEDTIME Combivent Respimat 20-100 mcg/actuation Mist 1 puff INHALATION QID Rx Instructions: space evenly during waking hours Discharge Orders: Discharge ED (Routine); Ordered 06/25/22 Ordered By: Kim Mazariegos Referrals: Mariana Cao MD [Primary Care Provider] - 1-3 days Discharge Diet: Advance as tolerated Discharge Activity: Resume usual activity Patient Instructions: Cellulitis (ED) Coding Level of Care Code ED Retail Planning Manager for Anabelle Lopez
[2022-06-25 11:36] LABS: Alanine Aminotransferase 18 U/L (0-41); Albumin Level 3.1 g/dL (3.5-5.2); Alkaline Phosphatase 106 U/L (40-130); Anion Gap 14.1 (5-19); Aspartate Amino Transferase 18 U/L (0-40); Blood Urea Nitrogen 18 mg/dL (8-23); Calcium 8.4 mg/dL (8.5-10.5); Carbon Dioxide 28 mmol/L (22-29); Chloride 101 mmol/L (98-107); Globulin 2.9 g/dL (1.3-4.6); Glucose 230 mg/dL (65-115); Osmolality Calculated 297 mOsm/kg (285-295); Potassium 4.1 mmol/L (3.5-5.1); Sodium 139 mmol/L (136-145); Total Bilirubin 0.5 mg/dL (0.15-1.2)
[2022-06-25] MEDS: clindamycin 150 mg Capsule 300 MG PO (11:48)
[2022-06-25] MEDS: HYDROcodone-acetaminophen 5-325 mg Tablet 1 TAB PO (11:48)
== END 2022-06-25 11:58 | disposition home or self-care (01) ==
PROVIDERS: Emergency Provider Emergency Medicine; PCP Internal Medicine
DX: L03.115 Cellulitis of right lower limb (principal); J44.9 Chronic obstructive pulmonary disease, unspecified; E11.22 Type 2 diabetes mellitus with diabetic chronic kidney disease; N18.9 Chronic kidney disease, unspecified; I25.10 Atherosclerotic heart disease of native coronary artery without angina pectoris; E78.5 Hyperlipidemia, unspecified; Z98.61 Coronary angioplasty status; Z87.891 Personal history of nicotine dependence; Z79.82 Long term (current) use of aspirin; Z79.4 Long term (current) use of insulin
CPT/HCPCS: 36415; 80053; 85025; 93971; 99285

== ENCOUNTER 2022-10-09 14:31 | Emergency (ER) | payer OTHER, SELFPAY ==
[2022-10-09 15:12] VITALS: BP 142/72; PULSE 64; RESP 26; TEMP 36.6; O2SAT 98; BMI 46.3
[2022-10-09] MEDS: cefTRIAXone 2,000 MG in sodium chloride 0.9% (plus) 50 ML 100 MG IV (19:58)
[2022-10-09 20:02] VITALS: BP 119/69; PULSE 68; RESP 16; O2SAT 95
[2022-10-09 20:11] LABS: Basophils % 0.5 %; Eosinophils # 0.9 10^3/uL (0.0-0.8); Eosinophils % 12.5 %; Hematocrit 42.4 % (37-53); Lymphocytes # 1.4 10^3/uL (0.8-4.8); Lymphocytes % 19.8 %; Mean Corpuscular HGB Conc 32.5 g/dL (30-55); Mean Corpuscular Hemoglobin 30.4 pg (27-33); Mean Corpuscular Volume 93.4 fl (82-101); Mean Platelet Volume 9.2 fL (7.4-10.4); Monocytes # 0.7 10^3/uL (0.2-0.9); Monocytes % 9.3 %; Neutrophils # 4.19 10^3/uL (1.8-7.7); Neutrophils % 57.6 %; Nucleated Red Blood Cells % 0 %; Platelet Count 242 10^3/cmm (157-399); Red Blood Count 4.54 10^6/uL (3.85-5.65); Red Cell Distribution Width 13.1 % (12.1-15.1); White Blood Count 7.28 10^3/uL (3.29-11.43)
[2022-10-09 20:21] LABS: Alanine Aminotransferase 15 U/L (0-41); Albumin Level 3.9 g/dL (3.5-5.2); Alkaline Phosphatase 134 U/L (40-130); Anion Gap 13.2 (5-19); Aspartate Amino Transferase 19 U/L (0-40); Blood Urea Nitrogen 21 mg/dL (8-23); Calcium 8.9 mg/dL (8.5-10.5); Carbon Dioxide 27 mmol/L (22-29); Chloride 102 mmol/L (98-107); Globulin 3.3 g/dL (1.3-4.6); Glucose 170 mg/dL (65-115); Osmolality Calculated 293 mOsm/kg (285-295); Potassium 4.2 mmol/L (3.5-5.1); Sodium 138 mmol/L (136-145); Total Bilirubin 0.7 mg/dL (0.15-1.2); Total Protein 7.2 g/dL (6.6-8.7)
--- NOTE | 2022-10-09 20:24 | W.ED.EXTPRO ---
HPI - Extremity Problem General: Chief complaint: Extremity Problem,Nontraumatic Stated complaint: cellulitus in right leg Time Seen by Provider: 10/09/22 19:32 History of Present Illness: 77-year-old male here complaining of redness of the skin around his right ankle and lower leg. He does suffer from chronic bilateral lower extremity edema. His home health nurse was wrapping his leg and noticed the redness. He reports that he has a history of cellulitis similar to this. He reports a low-grade temperature at home today. This was taken by his home health nurse but he does not know the measurement. He reports he does not feel unwell otherwise. No chest pain, shortness of breath, hemoptysis. No history of DVT or PE. He is diabetic. His blood sugar ranges from 100-300 depending on the time of day and what he eats. Associated symptoms: Deny chest pain Review of Systems General: Reports: 10 or more systems reviewed and unremarkable except in HPI and below Const: Denies: chills or body aches Eyes: Denies: change in vision Card: Denies: chest pain or syncope Resp: Denies: dyspnea or productive cough GI: Denies: abdominal pain, nausea, vomiting or diarrhea : Denies: flank pain, dysuria or urinary frequency Musc: Denies: neck pain or back pain Neuro: Denies: headache(s), numbness in extremities, weakness in extremities, lack of coordination or difficulty walking [facility] ED PFSH: Medical History Acute exacerbation of chronic obstructive airways disease Acute kidney injury BPH (benign prostatic hyperplasia) Cellulitis of right lower extremity Chronic kidney disease Community acquired pneumonia COPD (chronic obstructive pulmonary disease) Coronary artery disease Elevated troponin GERD (gastroesophageal reflux disease) Hyperlipidemia Hypotension Morbid obesity Peripheral neuropathy Transaminitis Type 2 diabetes mellitus Surgical History History of cholecystectomy History of coronary angioplasty Family History Other CAD (coronary artery disease) Social History Smoking and tobacco status: former smoker Alcohol intake: never Physical Exam Const: COMMON NORMALS: no limitations, alert and well nourished EXAM LIMITATIONS: no altered mental status HENMT: COMMON NORMALS: normocephalic, atraumatic and external ears normal HEAD & SCALP: normocephalic and atraumatic EXTERNAL EAR: Yes external ears normal MOUTH: no muffled voice Eye: COMMON NORMALS: EOMs intact bilaterally, conjunctivae normal and no scleral icterus CONJUNCTIVA: Yes conjunctivae normal Neck/C-Spine: COMMON NORMALS: no JVD GENERAL: Yes normal visual inspection and Yes trachea midline Resp: COMMON NORMALS: No use of accessory muscles and clear to auscultation bilaterally AUSCULTATION: clear to auscultation bilaterally Cardio: COMMON NORMALS: no JVD, regular rate and regular rhythm RATE: regular rate RHYTHM: regular rhythm GI: COMMON NORMALS: Soft to palpation and non-tender PALPATION: Yes Soft to palpation and No Guarding due to palpation present (GI) Extremity: NARRATIVE EXTREMITY EXAM: [place] edema both lower extremities. There is some erythema and increased warmth around the right lower extremity from the upper foot through the lower right leg. No tenderness in the upper calf. Negative Homans' sign. No tenderness behind the knees. DP pulse 2+ bilaterally. Neuro: COMMON NORMALS: moves all extremities, no focal motor deficits and no sensory deficits noted SENSORIUM/ORIENTATION: Yes alert SPEECH: speech normal Psych: COMMON NORMALS: mental status grossly normal, Normal thought process present, cooperative, normal affect and speech normal SPEECH: Yes normal speech THOUGHT PROCESS: Normal thought process present Skin: OTHER: Cellulitis with some breakdown limited to the epidermis. Some serosanguineous discharge is noted in the dressing when I remove it. Course Vital Signs: Vital signs: Vital Signs Temperature 97.9 F 10/09/22 15:12 Pulse Rate 68 10/09/22 20:02 Respiratory Rate 16 10/09/22 20:02 Blood Pressure 119/69 10/09/22 20:02 Pulse Oximetry 95 10/09/22 20:02 Oxygen Delivery Me thod Room Air 10/09/22 15:12 MDM - Extremity (Nontraumatic) Medical Decision Making Patient appears to have chronic bilateral lower extremity edema with increased compartment pressures. He also has diabetes. He is now suffering from cellulitis of the right lower extremity. No evidence of septic arthritis, necrosis, sepsis. Low clinical suspicion for DVT. Discussed with patient and he would like to try outpatient therapy first. We will give 2 g of Rocephin given his morbid obesity and inability to get to the pharmacy until tomorrow. From that point on he will be on cephalexin 500 mg p.o. every 6 hours. One of the most important parts of his treatment will be elevating his legs. He has a habit of leaving his legs down when he is in his chair. We will also send him home with materials to wrap his legs. He will also be given return precautions. White blood cell count here was normal. No fever here. Normotensive. Normal pulse. Patient can be discharged with antibiotics and return precautions Lab Data 10/09/22 19:38 10/09/22 19:38 Laboratory Results WBC 7.28 10^3/uL (3.29-11.43) 10/09/22 19:38 RBC 4.54 10^6/uL (3.85-5.65) 10/09/22 19:38 Hgb 13.80 g/dL (11.27-16.99) 10/09/22 19:38 Hct 42.4 % (37-53) 10/09/22 19:38 MCV 93.4 fl (82-101) 10/09/22 19:38 MCH 30.4 pg (27-33) 10/09/22 19:38 MCHC 32.5 g/dL (30-55) 10/09/22 19:38 RDW 13.1 % (12.1-15.1) 10/09/22 19:38 Plt Count 242 10^3/cmm (157-399) 10/09/22 19:38 MPV 9.2 fL (7.4-10.4) 10/09/22 19:38 Neut % (Auto) 57.6 % 10/09/22 19:38 Lymph % (Auto) 19.8 % 10/09/22 19:38 [place] % (Auto) 9.3 % 10/09/22 19:38 Eos % (Auto) 12.5 % 10/09/22 19:38 Baso % (Auto) 0.5 % 10/09/22 19:38 Neut # (Auto) 4.19 10^3/uL (1.8-7.7) 10/09/22 19:38 Lymph # (Auto) 1.4 10^3/uL (0.8-4.8) 10/09/22 19:38 [place] # (Auto) 0.7 10^3/uL (0.2-0.9) 10/09/22 19:38 Eos # (Auto) 0.9 10^3/uL (0.0-0.8) H 10/09/22 19:38 Baso # (Auto) 0.0 10^3/uL (0.0-0.1) 10/09/22 19:38 Nucleated RBC % (auto) 0 % 10/09/22 19:38 Nucleated RBCs # 0.0 /100WBC 10/09/22 19:38 Sodium 138 mmol/L (136-145) 10/09/22 19:38 Potassium 4.2 mmol/L (3.5-5.1) 10/09/22 19:38 Chloride 102 mmol/L (98-107) 10/09/22 19:38 Carbon Dioxide 27 mmol/L (22-29) 10/09/22 19:38 Anion Gap 13.2 (5-19) 10/09/22 19:38 BUN 21 mg/dL (8-23) 10/09/22 19:38 GFR Calculation Not Reportable 10/09/22 19:38 Calculated Osmolality 293 mOsm/kg (285-295) 10/09/22 19:38 Calcium 8.9 mg/dL (8.5-10.5) 10/09/22 19:38 Total Bilirubin 0.7 mg/dL (0.15-1.2) 10/09/22 19:38 AST 19 U/L (0-40) 10/09/22 19:38 ALT 15 U/L (0-41) 10/09/22 19:38 Total Protein 7.2 g/dL (6.6-8.7) 10/09/22 19:38 Albumin 3.9 g/dL (3.5-5.2) 10/09/22 19:38 Globulin 3.3 g/dL (1.3-4.6) 10/09/22 19:38 Discharge Plan Discharge Patient Disposition: Home Clinical Impression: Cellulitis, Lower extremity edema Condition: Stable Prescriptions: New cephalexin 500 mg capsule 500 mg PO Q6H 10 Days Qty: 40 0RF No Action atorvastatin 80 mg Tablet 80 mg PO DAILY cetirizine 10 mg Tablet 10 mg PO DAILY Senna-S 8.6-50 mg Tablet 1 tab-cap PO DAILY famotidine 20 mg Tablet 20 mg PO BID tamsulosin 0.4 mg Capsule 0.4 mg PO DAILY Novolog U-100 Insulin aspart 100 unit/mL Solution See Rx Instructions .ROUTE .COMPLEX Rx Instructions: per sliding scale Wixela Inhub 500-50 mcg/dose Blister With Device 1 inh INHALATION BID Nitrostat 0.4 mg Tablet, Sublingual 0.4 mg SUBLINGUAL Q5M PRN (Reason: Chest Pain) Rx Instructions: do not exceed 3 doses per episode gabapentin 300 mg Capsule 300 mg PO BEDTIME aspirin 81 mg Tablet,Chewable 81 mg PO DAILY fluticasone propionate 50 mcg/actuation [place],Suspension 1 spray INTRANASAL BID Rx Instructions: administer into each nostril finasteride 5 mg Tablet 5 mg PO DAILY loratadine 10 mg Tablet 10 mg PO DAILY Vitamin D3 25 mcg (1,000 unit) Capsule 25 mcg PO DAILY Osteo Bi-Flex 250-200 mg Tablet 1 tab PO BID Rx Instructions: give after food/meal Lantus Solostar U-100 Insulin 100 unit/mL (3 mL) Insulin Pen 50 unit SUBCUT BEDTIME Combivent Respimat 20-100 mcg/actuation Mist 1 puff INHALATION QID Rx Instructions: space evenly during waking hours hydrocodone-acetaminophen 5-325 mg tablet 1 tab PO Q6H PRN (Reason: pain) Qty: 14 0RF Discharge Orders: Discharge ED (Routine); Ordered 10/09/22 Ordered By: Jose A Zuniga Referrals: Mariana Cao MD [Primary Care Provider] - 4-7 days (Follow-up on right lower extremity cellulitis) Discharge Diet: Diabetic Discharge Activity: Increase activity as tolerated Patient Instructions: Cellulitis (ED), Pain Management Activity Restrictions/Additional Instructions: 1. Take antibiotics as prescribed 2. Elevate lower extremities above the level of the heart for at least 20 minutes 4 times per day. If you are not up on your feet ambulating your legs should be up elevated. 3. Change dressings every 6-8 hours or whenever soiled. 4. Return to the emergency department if there is worsening redness, fever greater than 100.8, altered mental status, severe weakness, change from redness to necrosis or other signs of worsening infection, [id number] blood sugar, or worsening symptoms. 5. Follow-up with primary care doctor in 3 to 5 days. Coding Level of Care Code ED Manager Change for Anabelel Lopez
[2022-10-09 20:40] VITALS: BP 119/69; PULSE 68; RESP 16; TEMP 36.6; O2SAT 95
== END 2022-10-09 20:43 | disposition home or self-care (01) ==
PROVIDERS: Emergency Provider Emergency Medicine; PCP Internal Medicine
DX: L03.115 Cellulitis of right lower limb (principal); R60.0 Localized edema; Z79.82 Long term (current) use of aspirin; Z79.4 Long term (current) use of insulin; J44.9 Chronic obstructive pulmonary disease, unspecified; E11.22 Type 2 diabetes mellitus with diabetic chronic kidney disease; N18.9 Chronic kidney disease, unspecified; I25.10 Atherosclerotic heart disease of native coronary artery without angina pectoris; E78.5 Hyperlipidemia, unspecified; Z98.61 Coronary angioplasty status; Z87.891 Personal history of nicotine dependence
CPT/HCPCS: 80053; 85025; 87040; 96365; 99284; J0696

== ENCOUNTER 2022-10-16 08:10 | Inpatient (IN) | payer OTHER, SELFPAY ==
[2022-10-16] VITALS (7 sets, daily range): BP systolic 137–166; BP diastolic 67–87; PULSE 60–83; RESP 16–20; TEMP 36.4–37.1; O2SAT 94–96; BMI 46.0
--- NOTE | 2022-10-16 | USR_ITS ---
[facility] Final Radiology Report Call: [phone] assistance Online chat: [email or web address] Name: GAMA CALLAHAN Age: 77Years M Date: 10/16/2022 SSN: -- : [id number] Study: US RETROPERITONEAL COMP Requesting Physician: ZUHAIR BONNER Images: 30 Add?l Studies: Provided Clinical History: PROCEDURE INFORMATION: Exam: US Retroperitoneal; Complete; Kidneys and Bladder Exam date and time: 10/16/2022 5:31 PM Age: 77 years old Clinical indication: Abnormal findings; Abnormal lab test; Other: Abnormal renal test; Patient HX: ? [place] and bladder distention TECHNIQUE: Imaging protocol: Real-time ultrasound of the retroperitoneum with image documentation. Complete exam focused on the kidneys and bladder. COMPARISON: No relevant prior studies available. FINDINGS: Right kidney: Normal. No stones. No hydronephrosis. Left kidney: Normal. No stones. No hydronephrosis. Urinary bladder: Unremarkable. IMPRESSION: Unremarkable kidneys and bladder. Thank you for allowing us to participate in the care of your patient. Dictated and Authenticated by: Gama Bauman MD 10/16/2022 6:19 PM Central Time ([place] & [place]) TAH[place]
--- NOTE | 2022-10-16 08:54 | ED_ITS ---
HPI - Skin/Abscess/Foreign Bdy General: Chief complaint: Skin/Abscess/Foreign Body Stated complaint: here last week for cellulitis Time Seen by Provider: 10/16/22 08:15 Source: patient Mode of arrival: ambulatory History of Present Illness: 77-year-old male presents emergency room complaining of his bilateral lower leg redness erythema with some proximal spreading lesions some bulla formation on the toes of the right foot along the dorsum. He has had no fever at home he has previously been on trimethoprim sulfamethoxazole. Patient is diabetic and morbidly obese. Onset (ago): day(s) Tetanus up to date: yes Location: LLE and RLE Severity: moderate Quality: burning Pain Consistency: constant Relieving factors: rest Exacerbating factors: palpation and movement Associated symptoms: Deny arthralgias, chills, cough, fever(s), itching, myalgias, nausea, rigidity, short of breath or vomiting Treatments prior to arrival: bandages Review of Systems Const: Denies: fever(s) or chills Card: Reports: edema and dyspnea on exertion; Denies: chest pain or orthopnea Resp: Reports: dyspnea; Denies: productive cough or non-productive cough GI: Denies: abdominal pain, nausea or vomiting : Denies: flank pain, dysuria, urinary frequency or urinary urgency Skin/Breast: Denies: rash or pruritus PFSH ED PFSH: Medical History Acute exacerbation of chronic obstructive airways disease Acute kidney injury BPH (benign prostatic hyperplasia) Cellulitis of right lower extremity Chronic kidney disease Community acquired pneumonia COPD (chronic obstructive pulmonary disease) Coronary artery disease Elevated troponin GERD (gastroesophageal reflux disease) Hyperlipidemia Hypotension Morbid obesity Peripheral neuropathy Transaminitis Type 2 diabetes mellitus Surgical History History of cholecystectomy History of coronary angioplasty Family History Other CAD (coronary artery disease) Social History Smoking and tobacco status: former smoker Alcohol intake: never Physical Exam Const: COMMON NORMALS: no acute distress GENERAL APPEARANCE: cooperative and comfortable ORIENTATION/CONSCIOUSNESS: Yes awake, Yes oriented to person, Yes oriented to place and Yes oriented to time HENMT: COMMON NORMALS: normocephalic, atraumatic and hearing grossly normal bilaterally HEAD & SCALP: normocephalic and atraumatic Resp: COMMON NORMALS: normal respiratory effort, No retractions, No use of accessory muscles and clear to auscultation bilaterally AUSCULTATION: clear to auscultation bilaterally Cardio: COMMON NORMALS: regular rate, regular rhythm and No murmurs present (Cardio) RATE: regular rate RHYTHM: regular rhythm GI: COMMON NORMALS: Soft to palpation and No hepatosplenomegaly present AUSCULTATION: Yes normoactive bowel sounds PALPATION: Yes Soft to palpation, No Tenderness to palpation present (GI), No Guarding due to palpation present (GI) and Yes No hepatosplenomegaly present Neuro: SENSORIUM/ORIENTATION: Yes oriented to person, Yes oriented to place and Yes oriented to time Skin: OTHER: Bilateral lower extremity edema tender to the touch there is some skin breakdown and abrasions on the right lower leg with some bulla formation on the dorsum of the toes and forefoot. Approximately there is a reddened area test slightly indurated Course Vital Signs: Vital signs: Vital Signs Temperature 97.5 F L 10/16/22 08:18 Pulse Rate 68 10/16/22 10:25 Respiratory Rate 17 10/16/22 10:25 Blood Pressure 147/69 10/16/22 10:25 Pulse Oximetry 94 10/16/22 10:25 Oxygen Delivery Me thod Room Air 10/16/22 10:25 MDM - Skin/Abscess/Foreign Bdy Medicial Decision Making Failure of outpatient therapy with progression of the cellulitis. He has been on Bactrim despite this is worsened, additionally he has had his worsening renal function likely due to being on the Bactrim and underlying borderline renal function. We will start on vancomycin cultures done. Discussed Dr. Galicia. Medical Records I reviewed the patient's medical records. Lab Data I reviewed the patient's lab results. 10/16/22 09:50 10/16/22 09:50 Laboratory Results WBC 4.73 10^3/uL (3.29-11.43) 10/16/22 09:50 RBC 4.00 10^6/uL (3.85-5.65) 10/16/22 09:50 Hgb 12.30 g/dL (11.27-16.99) 10/16/22 09:50 Hct 37.8 % (37-53) 10/16/22 09:50 MCV 94.5 fl (82-101) 10/16/22 09:50 MCH 30.8 pg (27-33) 10/16/22 09:50 MCHC 32.5 g/dL (30-55) 10/16/22 09:50 RDW 13.2 % (12.1-15.1) 10/16/22 09:50 Plt Count 185 10^3/cmm (157-399) 10/16/22 09:50 MPV 9.0 fL (7.4-10.4) 10/16/22 09:50 Neut % (Auto) 54.4 % 10/16/22 09:50 Lymph % (Auto) 18.6 % 10/16/22 09:50 [place] % (Auto) 12.5 % 10/16/22 09:50 Eos % (Auto) 13.7 % 10/16/22 09:50 Baso % (Auto) 0.6 % 10/16/22 09:50 Neut # (Auto) 2.57 10^3/uL (1.8-7.7) 10/16/22 09:50 Lymph # (Auto) 0.9 10^3/uL (0.8-4.8) 10/16/22 09:50 [place] # (Auto) 0.6 10^3/uL (0.2-0.9) 10/16/22 09:50 Eos # (Auto) 0.7 10^3/uL (0.0-0.8) 10/16/22 09:50 Baso # (Auto) 0.0 10^3/uL (0.0-0.1) 10/16/22 09:50 Nucleated RBC % (auto) 0 % 10/16/22 09:50 Nucleated RBCs # 0.0 /100WBC 10/16/22 09:50 Sodium 141 mmol/L (136-145) 10/16/22 09:50 Potassium 4.4 mmol/L (3.5-5.1) 10/16/22 09:50 Chloride 106 mmol/L (98-107) 10/16/22 09:50 Carbon Dioxide 28 mmol/L (22-29) 10/16/22 09:50 Anion Gap 11.4 (5-19) 10/16/22 09:50 BUN 27 mg/dL (8-23) H 10/16/22 09:50 Creatinine 2.2 mg/dL (0.7-1.2) H 10/16/22 09:50 GFR Calculation Not Reportable 10/16/22 09:50 Glucose 96 mg/dL (65-115) 10/16/22 09:50 Calculated Osmolality 297 mOsm/kg (285-295) H 10/16/22 09:50 Calcium 8.8 mg/dL (8.5-10.5) 10/16/22 09:50 Total Bilirubin 0.4 mg/dL (0.15-1.2) 10/16/22 09:50 AST 18 U/L (0-40) 10/16/22 09:50 ALT 14 U/L (0-41) 10/16/22 09:50 Alkaline Phosphatase 115 U/L (40-130) 10/16/22 09:50 Total Protein 6.3 g/dL (6.6-8.7) L 10/16/22 09:50 Albumin 3.6 g/dL (3.5-5.2) 10/16/22 09:50 Globulin 2.7 g/dL (1.3-4.6) 10/16/22 09:50 Discharge Plan Discharge Patient Disposition: Placed in Observation Clinical Impression: Cellulitis, Lower extremity edema, Diabetes mellitus, Acute kidney injury Condition: Stable Prescriptions: No Action cephalexin 500 mg capsule 500 mg PO Q6H 10 Days Qty: 40 0RF atorvastatin 80 mg Tablet 80 mg PO DAILY cetirizine 10 mg Tablet 10 mg PO DAILY Senna-S 8.6-50 mg Tablet 1 tab-cap PO DAILY famotidine 20 mg Tablet 20 mg PO BID tamsulosin 0.4 mg Capsule 0.4 mg PO DAILY Novolog U-100 Insulin aspart 100 unit/mL Solution See Rx Instructions .ROUTE .COMPLEX Rx Instructions: per sliding scale Wixela Inhub 500-50 mcg/dose Blister With Device 1 inh INHALATION BID Nitrostat 0.4 mg Tablet, Sublingual 0.4 mg SUBLINGUAL Q5M PRN (Reason: Chest Pain) Rx Instructions: do not exceed 3 doses per episode gabapentin 300 mg Capsule 300 mg PO BEDTIME aspirin 81 mg Tablet,Chewable 81 mg PO DAILY fluticasone propionate 50 mcg/actuation [place],Suspension 1 spray INTRANASAL BID Rx Instructions: administer into each nostril finasteride 5 mg Tablet 5 mg PO DAILY loratadine 10 mg Tablet 10 mg PO DAILY Vitamin D3 25 mcg (1,000 unit) Capsule 25 mcg PO DAILY Osteo Bi-Flex 250-200 mg Tablet 1 tab PO BID Rx Instructions: give after food/meal Lantus Solostar U-100 Insulin 100 unit/mL (3 mL) Insulin Pen 50 unit SUBCUT BEDTIME Combivent Respimat 20-100 mcg/actuation Mist 1 puff INHALATION QID Rx Instructions: space evenly during waking hours hydrocodone-acetaminophen 5-325 mg tablet 1 tab PO Q6H PRN (Reason: pain) Qty: 14 0RF Referrals: Mariana Cao MD [Primary Care Provider] - Coding Level of Care Code ED [employer] for Anabelle Lopez
[2022-10-16 10:04] LABS: Basophils % 0.6 %; Eosinophils # 0.7 10^3/uL (0.0-0.8); Eosinophils % 13.7 %; Hematocrit 37.8 % (37-53); Lymphocytes # 0.9 10^3/uL (0.8-4.8); Lymphocytes % 18.6 %; Mean Corpuscular HGB Conc 32.5 g/dL (30-55); Mean Corpuscular Hemoglobin 30.8 pg (27-33); Mean Corpuscular Volume 94.5 fl (82-101); Monocytes # 0.6 10^3/uL (0.2-0.9); Monocytes % 12.5 %; Neutrophils # 2.57 10^3/uL (1.8-7.7); Neutrophils % 54.4 %; Nucleated Red Blood Cells % 0 %; Platelet Count 185 10^3/cmm (157-399); Red Cell Distribution Width 13.2 % (12.1-15.1); White Blood Count 4.73 10^3/uL (3.29-11.43)
[2022-10-16 10:30] LABS: Alanine Aminotransferase 14 U/L (0-41); Albumin Level 3.6 g/dL (3.5-5.2); Alkaline Phosphatase 115 U/L (40-130); Anion Gap 11.4 (5-19); Aspartate Amino Transferase 18 U/L (0-40); Blood Urea Nitrogen 27 mg/dL (8-23); Calcium 8.8 mg/dL (8.5-10.5); Carbon Dioxide 28 mmol/L (22-29); Chloride 106 mmol/L (98-107); Creatinine Clr Calc Pharmacy 41.6866; Globulin 2.7 g/dL (1.3-4.6); Glucose 96 mg/dL (65-115); Osmolality Calculated 297 mOsm/kg (285-295); Potassium 4.4 mmol/L (3.5-5.1); Sodium 141 mmol/L (136-145); Total Bilirubin 0.4 mg/dL (0.15-1.2); Total Protein 6.3 g/dL (6.6-8.7)
[2022-10-16 12:40] LABS: Lactic Sepsis W/Reflex 1.6 mmol/L (0.5-2.2)
[2022-10-16] MEDS: vancomycin 1,000 MG in sodium chloride 0.9% 250 ML 250 MG IV ×2 (12:49→17:42)
--- NOTE | 2022-10-16 12:52 | PC.PHAR ---
pt states his daughter takes care of his medications-pts daughter verified pts medications states the [facility]-medications entered are what the pts daughter states the pt takes-[facility] 10/16/22-
[2022-10-16] MEDS: sodium chloride 0.9% 1,000 ML 100 ML IV (14:36)
--- NOTE | 2022-10-16 15:57 | P.HP_ITS ---
Providers/Chief Complaint Admitting Physician: Blue Galicia MD Primary Care Provider: Mariana Cao MD Chief Complaint: here last week for cellulitis History of Present Illness Devyn Luo is a 77 year old male with past medical history of type 2 diabetes mellitus, CKD with baseline creatinine of around 1.3, CAD, COPD, morbid obesity, presents to the ER today because of worsening redness and pain along with worsening of chronic wounds on right leg along with new redness and rash on left leg. He has been on outpatient Keflex for the last 3 days but not getting be tter. Redness in the legs have been getting worse over last 1 week. Patient states he has had slight open wounds on the right leg for a long time for which he dresses at home with Vaseline and bandage but wounds got worse since the leg started becoming red with serosanguineous discharge which was not foul-smelling or purulent along with development of few blisters on the dorsum of the foot near toes. Had subjective feels a fever at home but did not check. Has pets at home as a dog but denies any [place] or bug or animal bites. Review of Systems General: Reports: 10 or more systems reviewed and unremarkable except in HPI and below Const: Denies: fever(s), chills, body aches, change in appetite, change in weight, malaise, night sweats, diaphoresis, change in sleep pattern, daytime sleepiness or snoring Eyes: Denies: change in vision, blurry vision, photophobia, eye discomfort or eye discharge ENMT: Denies: throat pain, enlarged tonsils, hoarseness, mouth pain, oral sores, dry mouth, tinnitus, nasal congestion or post nasal drip Card: Denies: chest pain, palpitations, irregular heart rhythm, edema, swelling of feet/ankles, lightheadedness, syncope, pre-syncope, dyspnea on exertion, orthopnea, leg pain with exertion or acrocyanosis Resp: Denies: dyspnea, productive cough, non-productive cough, wheezing, stridor, pain on inspiration, change in phlegm color, hemoptysis or chest congestion GI: Denies: abdominal pain, nausea, vomiting, hematemesis, coffee ground emesis, dysphagia, heartburn, diarrhea, constipation, bloating, GI cramping, change in bowel habits, pain on defecation, hematochezia or melena : Denies: flank pain, difficulty urinating, dysuria, urinary frequency, urinary urgency, urinary hesitancy, urinary dribbling, difficulty starting urination, change in urine stream, nocturia or hematuria Musc: Denies: neck pain, back pain, extremity pain, joint pain, joint swelling, joint redness, joint stiffness or limited range of motion Neuro: Denies: headache(s), numbness in extremities, weakness in extremities, sensory changes, lack of coordination, difficulty walking, frequent falls, dizziness, vertigo, confusion, Slurred speech present, difficulty communicating thoughts or seizure-like activity Psych: Denies: anxiety, depression, mood swings, panic attacks, hopelessness or irritability Endo: Denies: polyuria, polydipsia, tired all the time, cold intolerance, excessive sweating, flushing or heat intolerance Solo/Lymph: Denies: easy bruising or easy bleeding All/Imm: Denies: tongue swelling, facial swelling or acute wheezing Medications/Allergies Home Medications Medication Instructions Recorded Confirmed Last Taken Type aspirin 81 mg chewable tablet 81 mg PO DAILY 06/08/22 10/16/22 06/08/22 History atorvastatin 80 mg tablet 80 mg PO DAILY 06/08/22 10/16/22 06/07/22 History cetirizine 10 mg tablet 10 mg PO DAILY 06/08/22 10/16/22 06/08/22 History cholecalciferol (vitamin D3) 25 25 mcg PO DAILY 06/08/22 10/16/22 06/08/22 History mcg (1,000 unit) capsule (Vitamin D3) famotidine 20 mg tablet 20 mg PO BID 06/08/22 10/16/22 06/08/22 History finasteride 5 mg tablet 5 mg PO DAILY 06/08/22 10/16/22 06/08/22 History fluticasone 500 mcg-salmeterol 50 1 inh inhalation BID 06/08/22 10/16/22 10/16/22 History mcg/dose blistr powdr for inhalation (Wixela Inhub) fluticasone propionate 50 1 spray intranasal BID 06/08/22 10/16/22 06/08/22 History mcg/actuation nasal spray,suspension gabapentin 300 mg capsule 300 mg PO BEDTIME 06/08/22 10/16/2206/07/23 History glucosamine-chondroitin 250 mg-200 1 tab PO BID 06/08/22 10/16/22 06/08/22 History mg tablet (Osteo Bi-Flex) insulin aspart U-100 100 unit/mL 20 unit SUBCUT TID 06/08/22 10/16/22 10/16/22 History subcutaneous solution (Novolog U-100 Insulin aspart) insulin glargine 100 unit/mL (3 50 unit SUBCUT BEDTIME 06/08/22 10/16/22 10/15/22 History mL) subcutaneous pen (Lantus Solostar U-100 Insulin) ipratropium 20 mcg-albuterol 100 1 puff inhalation QID 06/08/22 10/16/22 06/08/22 History mcg/actuation mist for inhalation (Combivent Respimat) nitroglycerin 0.4 mg sublingual 0.4 mg sublingual Q5M PRN Chest 06/08/22 10/16/22 Unknown History tablet (Nitrostat) Pain sennosides 8.6 mg-docusate sodium 1 tab-cap PO DAILY 06/08/22 10/16/22 06/08/22 History 50 mg tablet (Senna-S) tamsulosin 0.4 mg capsule 0.4 mg PO DAILY 06/08/22 10/16/22 06/08/22 History cephalexin 500 mg capsule 500 mg PO Q6H 10 days #40 caps 10/09/22 10/16/22 10/15/22 Rx Allergies Allergy/AdvReac Type Severity Reaction Status Date / Time amoxicillin Allergy Unknown Unknown Verified 10/16/22 12:47 PFSH Acute PFSH: Medical History (Updated 10/16/22 @ 16:04 by Blue Galicia MD) Acute exacerbation of chronic obstructive airways disease Acute kidney injury BPH (benign prostatic hyperplasia) Cellulitis of right lower extremity Chronic kidney disease Community acquired pneumonia COPD (chronic obstructive pulmonary disease) Coronary artery disease Elevated troponin GERD (gastroesophageal reflux disease) Hyperlipidemia Hypotension Morbid obesity Peripheral neuropathy Transaminitis Type 2 diabetes mellitus Surgical History History of cholecystectomy History of coronary angioplasty Family History Other CAD (coronary artery disease) Social History Smoking and tobacco status: former smoker Alcohol intake: never Vitals/I&O/Wt Last Vital Signs Temp 97.5 F L 10/16/22 08:18 Pulse 68 10/16/22 10:25 Resp 17 10/16/22 10:25 BP 147/69 10/16/22 10:25 Pulse Ox 94 10/16/22 10:25 O2 Del Method Room Air 10/16/22 14:10 10/16/22 10/16/22 10/16/22 06:59 14:59 22:59 Intake Total 250 / 250 Balance 250 / 250 Weight last 48 hrs Weight 154.221 kg Physical Exam Narrative: General: No acute distress, AO x3, morbidly obese, slightly hard of hearing HEENT: PERRLA, pupils bilaterally equal and reactive Chest: Normal vesicular breath sounds, no added sounds, equal good air entry bilaterally CVS: S1-S2 regular, no murmurs, no tachycardia, no gallops, no rubs Abdomen: Soft, nontender, no organomegaly, bowel sounds present Neuro: No focal deficits, no facial deformity, AO x3, power 5/5 in all limbs Skin: OTHER: Right leg Left leg Data 10/16/22 09:50 10/16/22 09:50 Micro: Microbiology 10/16/22 09:50 Blood Culture - Preliminary Blood SPECIMEN COLLECTED 10/16/22 09:54 Blood Culture - Preliminary Blood SPECIMEN COLLECTED A&P Assessment and plan (1) Cellulitis: Failure to outpatient Keflex. Most likely worsening in setting of morbid obesity leading to venous congestion. Lower limb Dopplers most recently last 6 months negative for DVT. Check ESR, CRP. Depending on the value will plan for lower lobe CT imaging to rule out osteomyelitis. Abscess so far unlikely. Check MRSA swab, blood culture. Empirically start patient on IV vancomycin and meropenem. Allergic to penicillin. Wound care with ABD (2) Acute kidney injury: Creatinine 2.2. Baseline creatinine seems to be around 1.3. Most likely in setting of diabetic nephropathy. Check urine lites, urine creatinine. Monitor urine output. Medical reconciliation done for nephrotoxic drugs. Gentle IV hydration with normal saline at 100 cc/h. Abdominal KUB to rule out hydronephrosis. (3) Diabetes mellitus: Check A1c. Continue with home dose of Lantus 50 units along with short-acting at 20 units 3 times daily. Add insulin sliding scale at low-dose protocol ACHS. Monitor for hypoglycemia. (4) COPD (chronic obstructive pulmonary disease): No exacerbation. Switch home dose of inhalers to nebulization. Ox supplementation keeping saturation over 90%. (5) Failure of outpatient treatment: Plan History of CAD: No active chest pain. Continue with home dose of aspirin, statin. Check A1c, lipid panel as above. BPH: Continue with home dose of finasteride and Flomax. KUB as above. Full code Cardiac carb consistent diet. Heparin 5000 every 12 hourly for DVT prophylaxis Famotidine for PUD prophylaxis. Attestations Medical Necessity Statement*: Admission for more than 2 midnights for management of acute kidney injury, cellulitis with failure to outpatient treatment Diagnoses Cellulitis L03.90 Acute kidney injury N17.9 Diabetes mellitus E11.9 COPD (chronic obstructive pulmonary disease) J44.9 Failure of outpatient treatment Z78.9
[2022-10-16 16:23] LABS: Erythrocyte Sedimentation Rate 5 mm/hr (0-10)
--- NOTE | 2022-10-16 16:27 | USCV_ITS ---
Devyn Luo Age: 77 Gender: M : 1945 Exam Date: 10/16/2022 17:05 Ordering Phys: Blue Galicia MD Technologist: Jimmy Jacobs Exam Location: [facility] [place] Indication: CAD BP: 137 / 76 HR: 60 Rhythm: Sinus Technical Quality: Technically difficult study MEASUREMENTS (Male / Female) Normal Values 2D ECHO LVOT Diameter 2.1 cm LV Ejection Fraction MOD 2C 61.1 % LV Ejection Fraction 2C AL 60.8 % LA Diameter 5.0 cm M-MODE Aortic Annulus Diameter 3.8 cm LA Ao Ratio MM 1.4 DOPPLER AV Peak Velocity 137.0 cm/s LVOT Peak Velocity 104.0 cm/s AV Area Cont Eq vti 2.9 cm squared AV Area Cont Eq pk 2.5 cm squared MV Area PHT 5.0 cm squared Mitral E to A Ratio 1.7 MV E' Velocity 47.5 cm/s Mitral E to MV E' Ratio 10.9 Mitral E to LV E' Lateral Ratio 10.5 Mitral E to LV E' Septal Ratio 11.3 TR Peak Velocity 134.7 cm/s TR Peak Gradient 7.3 mmHg TV Peak E Velocity 97.0 cm/s Right Atrial Pressure 3.0 mmHg Pulmonary Artery Systolic Pressu 10.3 mmHg PV Peak Velocity 120.0 cm/s RV Acceleration Time 0.1 s FINDINGS Left Ventricle The examination is technically so poor that it is uninterpretable but without the echo contrast. With echo contrast the ventricle appears to be normal in size and function. Diastolic function cannot be determined. Right Ventricle Right ventricle not well visualized. Right Atrium Right atrium not well visualized. Left Atrium Left atrium not well visualized. Mitral Valve Mitral valve not well visualized. Aortic Valve Aortic valve not well visualized. Tricuspid Valve Tricuspid valve not well visualized. Pulmonic Valve Pulmonic valve not well visualized. Pericardium Normal pericardium without effusion. Aorta Aorta not well visualized. IVC Inferior vena cava not visualized. CONCLUSIONS The examination is technically so poor that it is uninterpretable but without the echo contrast. With echo contrast the ventricle appears to be normal in size and function. Diastolic function cannot be determined. There are no prior echocardiogram studies to compare. Dr. Nam Gramajo MD (Electronically Signed) Final Date: 17 October 2022 18:00 S
[2022-10-16] MEDS: fluticasone nasal spray 16gm Btl 1 SPRAY INTRANASAL (16:37)
[2022-10-16] MEDS: meropenem 1,000 MG in sodium chloride 0.9% (plus) 50 ML 100 MG IV (16:38)
[2022-10-16] MEDS: famotidine 20 mg Tablet PO (16:43)
[2022-10-16] MEDS: heparin 5,000 unit/mL INJ 1 mL 5000 UNIT SUBCUT (16:43)
[2022-10-16 16:56] LABS: Procalcitonin 0.15 ng/mL (0-0.5); Thyroid Stimulating Hormone 3.43 uIU/mL (0.27-4.20); Vitamin B12 410 pg/mL (232-1245)
[2022-10-16 17:07] LABS: C Reactive Protein 19.5 mg/L (0.0-4.9); Iron 53 ug/dL (59-158); Percent Saturation 27.6 % (20-50); Total Iron Binding Capacity 192 mcg/dl; Unsaturated Iron Binding 139 ug/dL (112-347)
[2022-10-16] MEDS: perflutren protein-a microsphr 0.22 mg/mL SDV 3 mL IV (17:41)
[2022-10-16] MEDS: ipratropium-albuterol 3 mL Neb INHALATION (20:15)
[2022-10-16] MEDS: gabapentin 300 mg Capsule PO (20:36)
[2022-10-16 21:54] LABS: Glucose Point of Care 173 mg/dL (70-110)
[2022-10-16] MEDS: insulin lispro 100 unit/1 mL SUBCUT (22:04)
[2022-10-16] MEDS: insulin glargine 100 units/1 mL 50 UNIT SUBCUT (22:05)
[2022-10-17] VITALS (13 sets, daily range): BP systolic 118–154; BP diastolic 52–75; PULSE 58–82; RESP 17–26; TEMP 36.3–37; O2SAT 93–98
[2022-10-17] MEDS: meropenem 1,000 MG in sodium chloride 0.9% (plus) 50 ML 100 MG IV ×3 (00:52→17:56)
[2022-10-17] MEDS: sodium chloride 0.9% 1,000 ML 100 ML IV ×3 (01:39→22:05)
[2022-10-17] MEDS: ipratropium-albuterol 3 mL Neb INHALATION ×4 (02:23→20:31)
[2022-10-17] MEDS: heparin 5,000 unit/mL INJ 1 mL 5000 UNIT SUBCUT ×2 (05:10→17:55)
[2022-10-17 06:13] LABS: Basophils % 0.4 %; Eosinophils # 0.7 10^3/uL (0.0-0.8); Eosinophils % 15.2 %; Hematocrit 35.6 % (37-53); Lymphocytes # 0.8 10^3/uL (0.8-4.8); Lymphocytes % 16.7 %; Mean Corpuscular HGB Conc 32.3 g/dL (30-55); Mean Corpuscular Hemoglobin 30.5 pg (27-33); Mean Corpuscular Volume 94.4 fl (82-101); Monocytes # 0.5 10^3/uL (0.2-0.9); Monocytes % 11.5 %; Neutrophils # 2.58 10^3/uL (1.8-7.7); Nucleated Red Blood Cells % 0 %; Platelet Count 176 10^3/cmm (157-399); Red Blood Count 3.77 10^6/uL (3.85-5.65); Red Cell Distribution Width 13.1 % (12.1-15.1); White Blood Count 4.61 10^3/uL (3.29-11.43)
[2022-10-17 06:27] LABS: Glucose Point of Care 87 mg/dL (70-110)
[2022-10-17 06:39] LABS: Chol HDL Ratio 2.48 mg/dL (1.0-5.00); Cholesterol 99 mg/dL (0-200); HDL Cholesterol 40 mg/dL (60-100); LDL Cholesterol Calculated 39 mg/dL (50-129); LDL HDL Ratio 0.98 RATIO (0.00-3.22); Triglycerides 99 mg/dL (0-150)
[2022-10-17 06:41] LABS: Alanine Aminotransferase 13 U/L (0-41); Albumin Level 3.2 g/dL (3.5-5.2); Alkaline Phosphatase 97 U/L (40-130); Anion Gap 9.4 (5-19); Aspartate Amino Transferase 16 U/L (0-40); Blood Urea Nitrogen 24 mg/dL (8-23); Calcium 8.4 mg/dL (8.5-10.5); Carbon Dioxide 27 mmol/L (22-29); Chloride 110 mmol/L (98-107); Globulin 2.5 g/dL (1.3-4.6); Glucose 84 mg/dL (65-115); Magnesium 1.9 mg/dL (1.7-2.3); Osmolality Calculated 297 mOsm/kg (285-295); Phosphorus 3.2 mg/dL (2.5-4.5); Potassium 4.4 mmol/L (3.5-5.1); Sodium 142 mmol/L (136-145); Total Bilirubin 0.5 mg/dL (0.15-1.2); Total Protein 5.7 g/dL (6.6-8.7)
[2022-10-17 06:46] LABS: Folate Level 18.7 ng/mL (4.5-32.2)
[2022-10-17 06:59] LABS: Estmated Average Glucose 166; Hemoglobin A1C 7.4 % (4.0-6.0)
[2022-10-17] MEDS: fluticasone nasal spray 16gm Btl 1 SPRAY INTRANASAL ×2 (08:05→17:56)
[2022-10-17] MEDS: sennosides-docusate Tablet 1 TAB PO (08:08)
[2022-10-17] MEDS: tamsulosin 0.4 mg Capsule PO (08:08)
[2022-10-17] MEDS: cetirizine 10 mg Tablet PO (08:08)
[2022-10-17] MEDS: finasteride 5 mg Tablet PO (08:08)
[2022-10-17] MEDS: famotidine 20 mg Tablet PO ×2 (08:08→17:55)
[2022-10-17] MEDS: atorvastatin 40 mg Tablet 80 MG PO (08:08)
[2022-10-17] MEDS: aspirin 81 mg Chew Tablet PO (08:08)
--- NOTE | 2022-10-17 09:42 | PC.CHAP ---
Pastoral Care Encounter/Spiritual Assessment Type of Contact [] Declined embalmer assistant visit [] Patient/Family/Request visit [] Outpatient visit [] Follow-up visit [] Physician referral [] Code/Alert [] Routine visit [] Staff referral [] Actively dying [] Patient sleeping [] Family support [] [] Out of room [] Palliative care [] [] Receiving care in room [] Pre-surgical visit [] Trauma [] Long length of stay [] ICU visit [] Other: Relational/Emotional Strength [] Patient feels connected with others/family/visitors/staff [] Distress [] Loneliness/isolation [] Abandonment Spirituality of Patient [] Person of [place] [] Attends Jew of their [place] [] Believes in Prayer [] Reads Bible or Congregational materials [] There are Spiritual issues to be addressed Pulmonologist Interventions [] Prayer [] Active listening [] Non-anxious presence [] Spiritual/emotional support [] Crisis/trauma care [] Spiritual counseling [] Bereavement support [] Provided bereavement packet [] Provided Bible/devotional materials [] Provided toy/stuffed animal, coloring book to patient or family member [] Provided Communion [] Anointing/[place] [] Salvation [] Completed spiritual assessment [] Other: Impact on Illness or Injury [] Angry [] Fearful [] Anxious [] Often cries [] Exhaustion [] Unable to work [] Unable to attend jainism [] Unable to walk/stand [] Unable to read [] Unable to drive [] Unable to eat/drink [] Unable to sleep [] Unable to be with family [] Patient intubated [] Other: Summary Time spent with patient Pastoral Care Encounter/Spiritual Assessment Type of Contact [] Declined embalmer assistant visit [] Patient/Family/Request visit [] Outpatient visit [] Follow-up visit [] Physician referral [] Code/Alert [x] Routine visit [] Staff referral [] Actively dying [] Patient sleeping [x] Family support [] [] Out of room [] Palliative care [] [] Receiving care in room [] Pre-surgical visit [] Trauma [] Long length of stay [] ICU visit [] Other: Relational/Emotional Strength [x] Patient feels connected with others/family/visitors/staff [] Distress [] Loneliness/isolation [] Abandonment Spirituality of Patient [] Person of [place] [] Attends Jew of their [place] [] Believes in Prayer [] Reads Bible or Congregational materials [] There are Spiritual issues to be addressed Pulmonologist Interventions [x] Prayer [x] Active listening [] Non-anxious presence [] Spiritual/emotional support [] Crisis/trauma care [] Spiritual counseling [] Bereavement support [] Provided bereavement packet [] Provided Bible/devotional materials [] Provided toy/stuffed animal, coloring book to patient or family member [] Provided Communion [] Anointing/[place] [] Salvation [x] Completed spiritual assessment [] Other: Impact on Illness or Injury [] Angry [] Fearful [] Anxious [] Often cries [] Exhaustion [] Unable to work [] Unable to attend jainism [] Unable to walk/stand [] Unable to read [] Unable to drive [] Unable to eat/drink [] Unable to sleep [] Unable to be with family [] Patient intubated [] Other: Summary Time spent with patient 10 min
[2022-10-17 11:25] LABS: Glucose Point of Care 129 mg/dL (70-110)
--- NOTE | 2022-10-17 16:23 | P.PN_ITS ---
Subjective Subjective: No acute events overnight. Seen with family at bedside. Denies any nausea, pain, headache. States feeling better today. States he cannot make a difference about his legs because he has not seen his legs for few days. 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 Blood work shows stable CBC without leukocytosis, CMP showing improvement in creatinine down to 1.7, A1c of 7.4. Vitals/I&O/Wt Last Vital Signs Temp 97.4 F L 10/17/22 16:00 Pulse 63 10/17/22 16:00 Resp 17 10/17/22 16:00 BP 130/75 10/17/22 16:00 Pulse Ox 93 10/17/22 16:00 O2 Del Method Room Air 10/17/22 16:00 O2 Flow Rate 96 10/16/22 16:14 10/17/22 10/17/22 10/17/22 06:59 14:59 22:59 Intake Total 1170 / 1960 1650 / 1650 Balance 1170 / 1560 1650 / 1650 Weight last 48 hrs Weight 154.221 kg Physical Exam Narrative: General: No acute distress, AO x3, morbidly obese, slightly hard of hearing HEENT: PERRLA, pupils bilaterally equal and reactive Chest: Normal vesicular breath sounds, no added sounds, equal good air entry bilaterally CVS: S1-S2 regular, no murmurs, no tachycardia, no gallops, no rubs Abdomen: Soft, nontender, no organomegaly, bowel sounds present Neuro: No focal deficits, no facial deformity, AO x3, power 5/5 in all limbs Skin: OTHER: Right leg Left leg Data 10/17/22 05:48 10/17/22 05:48 Micro: Microbiology 10/16/22 09:50 Blood Culture - Preliminary Blood NEGATIVE TO DATE 10/16/22 09:54 Blood Culture - Preliminary Blood NEGATIVE TO DATE 10/16/22 17:56 MRSA Culture - Final Nose A&P Assessment and plan (1) Cellulitis: Failure to outpatient Keflex. Slightly improving on day 1 of treatment. Most likely worsening in setting of morbid obesity leading to venous congestion. Lower limb Dopplers most recently last 6 months negative for DVT. CRP mildly elevated so we will hold off on CT imaging to rule out osteomyelitis. MRSA swab negative. Follow-up blood cultures. DC vancomycin, continue with meropenem for now. Wound care with ABD (2) Acute kidney injury: Creatinine trending down. Baseline creatinine seems to be around 1.3. Most likely in setting of diabetic nephropathy. Electrolytes stable. Uremia improving. Studies including urine lites, urine creatinine ordered but not collected yet. Urinalysis pending. Monitor urine output. Medical reconciliation done for nephrotoxic drugs. Continue gentle IV hydration with normal saline at 100 cc/h. Abdominal KUB ruled out hydronephrosis. Monitor BMP including electrolytes daily. (3) Diabetes mellitus: A1c 7.4. Patient having episodes of hypoglycemia. Decrease Lantus to 40 units nightly, discontinue short acting home dose of 20 units 3 times a day. Continue with sliding scale at low-dose protocol. Monitor for hypoglycemia. (4) COPD (chronic obstructive pulmonary disease): No exacerbation. Switch home dose of inhalers to nebulization. Ox supplementation keeping saturation over 90%. (5) Failure of outpatient treatment: Plan History of CAD: No active chest pain. Continue with home dose of aspirin, statin. BPH: Continue with home dose of finasteride and Flomax. KUB as above. Full code Cardiac carb consistent diet. Heparin 5000 every 12 hourly for DVT prophylaxis Famotidine for PUD prophylaxis. Attestations Medical Necessity Statement*: Requires further hospitalization for management of bilateral lower limb cellulitis in setting of failure to outpatient therapy, acute kidney injury in setting of diabetic nephropathy Diagnoses Cellulitis L03.90 Acute kidney injury N17.9 Diabetes mellitus E11.9 COPD (chronic obstructive pulmonary disease) J44.9 Failure of outpatient treatment Z78.9
[2022-10-17 17:33] LABS: Glucose Point of Care 191 mg/dL (70-110)
[2022-10-17] MEDS: insulin lispro 100 unit/1 mL SUBCUT ×2 (17:55→21:17)
[2022-10-17 21:10] LABS: Glucose Point of Care 192 mg/dL (70-110)
[2022-10-17] MEDS: insulin glargine 100 units/1 mL 40 UNIT SUBCUT (21:17)
[2022-10-17] MEDS: gabapentin 300 mg Capsule PO (21:17)
[2022-10-18] VITALS (12 sets, daily range): BP systolic 133–166; BP diastolic 55–80; PULSE 65–92; RESP 18–22; TEMP 36.3–36.7; O2SAT 91–94
[2022-10-18] MEDS: meropenem 1,000 MG in sodium chloride 0.9% (plus) 50 ML 100 MG IV ×3 (01:02→16:36)
[2022-10-18] MEDS: ipratropium-albuterol 3 mL Neb INHALATION ×4 (01:37→19:46)
[2022-10-18] MEDS: heparin 5,000 unit/mL INJ 1 mL 5000 UNIT SUBCUT ×2 (04:34→16:37)
[2022-10-18 05:31] LABS: Basophils % 0.5 %; Eosinophils # 0.7 10^3/uL (0.0-0.8); Eosinophils % 15.6 %; Hematocrit 36.3 % (37-53); Lymphocytes % 23.4 %; Mean Corpuscular HGB Conc 31.7 g/dL (30-55); Mean Corpuscular Hemoglobin 30.4 pg (27-33); Mean Platelet Volume 8.9 fL (7.4-10.4); Monocytes # 0.5 10^3/uL (0.2-0.9); Monocytes % 11.3 %; Neutrophils # 2.07 10^3/uL (1.8-7.7); Nucleated Red Blood Cells % 0 %; Platelet Count 172 10^3/cmm (157-399); Red Blood Count 3.78 10^6/uL (3.85-5.65); White Blood Count 4.23 10^3/uL (3.29-11.43)
[2022-10-18 05:56] LABS: Alanine Aminotransferase 12 U/L (0-41); Albumin Level 3.2 g/dL (3.5-5.2); Alkaline Phosphatase 107 U/L (40-130); Anion Gap 9.6 (5-19); Aspartate Amino Transferase 16 U/L (0-40); Blood Urea Nitrogen 25 mg/dL (8-23); Calcium 8.3 mg/dL (8.5-10.5); Carbon Dioxide 26 mmol/L (22-29); Chloride 111 mmol/L (98-107); Glucose 100 mg/dL (65-115); Osmolality Calculated 298 mOsm/kg (285-295); Potassium 4.6 mmol/L (3.5-5.1); Sodium 142 mmol/L (136-145); Total Bilirubin 0.4 mg/dL (0.15-1.2); Total Protein 5.2 g/dL (6.6-8.7)
[2022-10-18 06:33] LABS: Glucose Point of Care 92 mg/dL (70-110)
[2022-10-18] MEDS: sodium chloride 0.9% 1,000 ML 100 ML IV (07:47)
[2022-10-18] MEDS: cetirizine 10 mg Tablet PO (07:51)
[2022-10-18] MEDS: tamsulosin 0.4 mg Capsule PO (07:51)
[2022-10-18] MEDS: aspirin 81 mg Chew Tablet PO (07:51)
[2022-10-18] MEDS: famotidine 20 mg Tablet PO ×2 (07:51→16:37)
[2022-10-18] MEDS: finasteride 5 mg Tablet PO (07:51)
[2022-10-18] MEDS: sennosides-docusate Tablet 1 TAB PO (07:52)
[2022-10-18] MEDS: atorvastatin 40 mg Tablet 80 MG PO (07:52)
[2022-10-18] MEDS: fluticasone nasal spray 16gm Btl 1 SPRAY INTRANASAL ×2 (07:54→16:36)
[2022-10-18 12:12] LABS: Glucose Point of Care 182 mg/dL (70-110)
[2022-10-18] MEDS: insulin lispro 100 unit/1 mL SUBCUT ×2 (12:19→22:06)
--- NOTE | 2022-10-18 14:09 | PM.PN ---
Subjective Subjective: No acute events overnight. Seen with family at bedside. Patient states he is feeling a lot better. As per family member patient's leg seems to be improving. Denies any nausea, vomiting, headache. Blood work showed a stable CBC, CMP showing creatinine trending down to baseline of 1.4, no electrolyte abnormalities. Vitals/I&O/Wt Last Vital Signs Temp 97.9 F 10/18/22 12:00 Pulse 92 10/18/22 12:00 Resp 18 10/18/22 12:00 BP 166/64 10/18/22 12:00 Pulse Ox 93 10/18/22 12:00 O2 Del Method Room Air 10/18/22 08:41 O2 Flow Rate 96 10/16/22 16:14 10/17/22 10/18/22 10/18/22 22:59 06:59 14:59 Intake Total 1530 / 3180 50 / 3230 1969 Balance 1530 / 3180 50 / 3230 1969 Weight last 48 hrs Weight 153.768 kg Physical Exam Narrative: General: No acute distress, AO x3, morbidly obese, slightly hard of hearing HEENT: PERRLA, pupils bilaterally equal and reactive Chest: Normal vesicular breath sounds, no added sounds, equal good air entry bilaterally CVS: S1-S2 regular, no murmurs, no tachycardia, no gallops, no rubs Abdomen: Soft, nontender, no organomegaly, bowel sounds present Neuro: No focal deficits, no facial deformity, AO x3, power 5/5 in all limbs HEENT: Right lower limb wound stable, blisters opened up yesterday without any purulent discharge, skin under the blister healthy, cellulitis on the left leg improving, bilateral leg less erythematous. Data 10/18/22 05:12 10/18/22 05:12 Micro: Microbiology 10/16/22 09:50 Blood Culture - Preliminary Blood NEGATIVE TO DATE 10/16/22 09:54 Blood Culture - Preliminary Blood NEGATIVE TO DATE 10/16/22 17:56 MRSA Culture - Final Nose A&P Assessment and plan (1) Cellulitis: Failure to outpatient Keflex. Slightly improving on day 1 of treatment. Most likely worsening in setting of morbid obesity leading to venous congestion. Lower limb Dopplers most recently last 6 months negative for DVT. CRP mildly elevated so we will hold off on CT imaging to rule out osteomyelitis. MRSA swab negative. Follow-up blood cultures. DC vancomycin, continue with meropenem for now. Wound care with ABD (2) Acute kidney injury: Creatinine trending down. Baseline creatinine seems to be around 1.3. Most likely in setting of diabetic nephropathy. Electrolytes stable. Uremia improving. Studies including urine lites, urine creatinine ordered but not collected yet. Urinalysis pending. Monitor urine output. Medical reconciliation done for nephrotoxic drugs. Continue gentle IV hydration with normal saline at 100 cc/h. Abdominal KUB ruled out hydronephrosis. Monitor BMP including electrolytes daily. (3) Diabetes mellitus: A1c 7.4. Patient having episodes of hypoglycemia. Decrease Lantus to 40 units nightly, discontinue short acting home dose of 20 units 3 times a day. Continue with sliding scale at low-dose protocol. Monitor for hypoglycemia. (4) COPD (chronic obstructive pulmonary disease): No exacerbation. Switch home dose of inhalers to nebulization. Ox supplementation keeping saturation over 90%. (5) Failure of outpatient treatment: Plan History of CAD: No active chest pain. Continue with home dose of aspirin, statin. BPH: Continue with home dose of finasteride and Flomax. KUB as above. Full code Cardiac carb consistent diet. Heparin 5000 every 12 hourly for DVT prophylaxis Famotidine for PUD prophylaxis. Plan for the day: Continue with IV meropenem for now. Most likely plan to discharge on oral Levaquin and doxycycline for overall 10-day course. Patient had failure to outpatient treatment on Keflex. Continue with wound care daily. Blood sugars better controlled.Can plan to decrease Lantus down to 35 units and continue with insulin sliding scale. Attestations Medical Necessity Statement*: Requires further hospitalization for management of lower limb bilateral cellulitis with failure to outpatient treatment Diagnoses Cellulitis L03.90 Acute kidney injury N17.9 Diabetes mellitus E11.9 COPD (chronic obstructive pulmonary disease) J44.9 Failure of outpatient treatment Z78.9
[2022-10-18] MEDS: benzonatate 100 mg Capsule PO (16:37)
[2022-10-18 16:54] LABS: Glucose Point of Care 134 mg/dL (70-110)
[2022-10-18 20:59] LABS: Glucose Point of Care 224 mg/dL (70-110)
[2022-10-18] MEDS: gabapentin 300 mg Capsule PO (22:06)
[2022-10-18] MEDS: insulin glargine 100 units/1 mL 35 UNIT SUBCUT (22:07)
[2022-10-19] VITALS: BP 118/67; PULSE 80; RESP 20; TEMP 36.5; O2SAT 92
[2022-10-19] MEDS: meropenem 1,000 MG in sodium chloride 0.9% (plus) 50 ML 100 MG IV ×2 (00:58→08:56)
[2022-10-19 01:33] VITALS: PULSE 66; RESP 20; O2SAT 92
[2022-10-19] MEDS: ipratropium-albuterol 3 mL Neb INHALATION ×2 (01:33→08:41)
[2022-10-19 04:00] VITALS: BP 150/68; PULSE 62; RESP 20; TEMP 36.6; O2SAT 94
[2022-10-19] MEDS: heparin 5,000 unit/mL INJ 1 mL 5000 UNIT SUBCUT (04:50)
[2022-10-19 05:09] LABS: Basophils % 0.5 %; Eosinophils # 0.7 10^3/uL (0.0-0.8); Eosinophils % 15.5 %; Hematocrit 34.7 % (37-53); Lymphocytes # 1.2 10^3/uL (0.8-4.8); Lymphocytes % 26.7 %; Mean Corpuscular Hemoglobin 30.3 pg (27-33); Mean Corpuscular Volume 94.8 fl (82-101); Mean Platelet Volume 9.1 fL (7.4-10.4); Monocytes # 0.6 10^3/uL (0.2-0.9); Monocytes % 13.2 %; Neutrophils # 1.92 10^3/uL (1.8-7.7); Neutrophils % 43.9 %; Nucleated Red Blood Cells % 0 %; Platelet Count 176 10^3/cmm (157-399); Red Blood Count 3.66 10^6/uL (3.85-5.65); White Blood Count 4.38 10^3/uL (3.29-11.43)
[2022-10-19 05:41] LABS: Alanine Aminotransferase 13 U/L (0-41); Albumin Level 3.3 g/dL (3.5-5.2); Alkaline Phosphatase 108 U/L (40-130); Anion Gap 12.5 (5-19); Aspartate Amino Transferase 18 U/L (0-40); Blood Urea Nitrogen 23 mg/dL (8-23); Calcium 8.6 mg/dL (8.5-10.5); Carbon Dioxide 25 mmol/L (22-29); Chloride 110 mmol/L (98-107); Glucose 85 mg/dL (65-115); Osmolality Calculated 299 mOsm/kg (285-295); Potassium 4.5 mmol/L (3.5-5.1); Sodium 143 mmol/L (136-145); Total Bilirubin 0.3 mg/dL (0.15-1.2); Total Protein 5.3 g/dL (6.6-8.7)
[2022-10-19 06:38] LABS: Glucose Point of Care 76 mg/dL (70-110)
[2022-10-19 08:00] VITALS: BP 137/71; PULSE 60; RESP 20; TEMP 36.4; O2SAT 93
[2022-10-19 08:41] VITALS: PULSE 63; RESP 20; O2SAT 92
[2022-10-19] MEDS: atorvastatin 40 mg Tablet 80 MG PO (08:55)
[2022-10-19] MEDS: finasteride 5 mg Tablet PO (08:55)
[2022-10-19] MEDS: tamsulosin 0.4 mg Capsule PO (08:56)
[2022-10-19] MEDS: cetirizine 10 mg Tablet PO (08:56)
[2022-10-19] MEDS: aspirin 81 mg Chew Tablet PO (08:56)
[2022-10-19] MEDS: sennosides-docusate Tablet 1 TAB PO (08:56)
[2022-10-19] MEDS: famotidine 20 mg Tablet PO (08:56)
[2022-10-19] MEDS: fluticasone nasal spray 16gm Btl 1 SPRAY INTRANASAL (08:59)
--- NOTE | 2022-10-19 09:16 | PC.SOCIAL ---
IMM update IMM updated with patient. Verbalized an understanding. Copy Pg 2 provided. Initialled, dated, timed, and placed in chart.
[2022-10-19] MEDS: benzonatate 100 mg Capsule PO (09:35)
[2022-10-19 10:12] VITALS: PULSE 63; RESP 20; O2SAT 92
--- NOTE | 2022-10-19 13:22 | PM.DCS ---
Discharge Providers Date of Admission: 10/16/22 15:55 Date of Discharge: October 19, 2022 Attending Provider at Admission: Blue Galicia MD Attending Provider at Discharge: Blue Galicia MD Primary Care Provider: Mariana Fong MD Diagnoses at Discharge Discharge Diagnosis (1) Cellulitis: Status: Acute (2) Acute kidney injury: Status: Acute (3) Diabetes mellitus: Status: Acute (4) COPD (chronic obstructive pulmonary disease): Status: Acute (5) Failure of outpatient treatment: Status: Acute Reason for Visit Reason for Visit: here last week for cellulitis Hospital Course Hospital Course Devyn Luo is a 77 year old male with past medical history of type 2 diabetes mellitus, CKD with baseline creatinine of around 1.3, CAD, COPD, morbid obesity, presents to the ER today because of worsening redness and pain along with worsening of chronic wounds on right leg along with new redness and rash on left leg.? He has been on outpatient Keflex for the last 3 days but not getting better.? Redness in the legs have been getting worse over last 1 week.? Patient states he has had slight open wounds on the right leg for a long time for which he dresses at home with Vaseline and bandage but wounds got worse since the leg started becoming red with serosanguineous discharge which was not foul-smelling or purulent along with development of few blisters on the dorsum of the foot near toes.? Had subjective feels a fever at home but did not check.? Has pets at home as a dog but denies animal bites or looking. He was admitted to the hospital further evaluation and management of bilateral lower limb cellulitis in setting of chronic venous insufficiency. He was started on broad-spectrum antibiotics along with aggressive wound care after which his wounds and cellulitis gradually improved. He was also found to have acute kidney injury on admission which was treated with IV hydration and his kidney functions and urine output has been back to baseline for last 24 hours. During hospitalization he was found to have recurrent episodes of hypoglycemia for which his insulin sliding scale has been adjusted. His dose of Lantus has been reduced to 35 units daily. He is to continue taking his Humalog as per sliding scale as before. He is to take oral doxycycline and Levaquin for 7 more days to finish a course of antibiotics. He is to continue doing his lower limb wound care as before. He is to follow-up with his primary care provider within next 2 weeks. Physical Exam Narrative: General: No acute distress, AO x3, morbidly obese, slightly hard of hearing HEENT: PERRLA, pupils bilaterally equal and reactive Chest: Normal vesicular breath sounds, no added sounds, equal good air entry bilaterally CVS: S1-S2 regular, no murmurs, no tachycardia, no gallops, no rubs Abdomen: Soft, nontender, no organomegaly, bowel sounds present Neuro: No focal deficits, no facial deformity, AO x3, power 5/5 in all limbs HEENT: Right lower limb wound stable, blisters opened up yesterday without any purulent discharge, skin under the blister healthy, cellulitis on the left leg improving, bilateral leg less erythematous. Skin: OTHER: On admission. Right leg Left leg Discharge Data Studies Completed and Pending Completed Studies During Hospitalization Category Date Time Status CV. echo wo/w contrast [id number] Routine Ultrasound 10/16/22 16:27 Completed US kidney bilateral with bladder [US renal BI with PV Ultrasound 10/16/22 16:10 Completed bladder] Routine Pending at discharge Category Date Time Status Blood Culture Stat Lab 10/16/22 09:50 Results Urinalysis Routine Lab 10/16/22 15:55 Ordered Urine Creatinine Routine Lab 10/16/22 15:56 Ordered Urine Lytes [Urine Random Lytes] Stat Lab 10/16/22 15:56 Ordered Laboratory Results WBC 4.38 10^3/uL (3.29-11.43) 10/19/22 04:49 RBC 3.66 10^6/uL (3.85-5.65) L 10/19/22 04:49 Hgb 11.10 g/dL (11.27-16.99) L 10/19/22 04:49 Hct 34.7 % (37-53) L 10/19/22 04:49 MCV 94.8 fl (82-101) 10/19/22 04:49 MCH 30.3 pg (27-33) 10/19/22 04:49 MCHC 32.0 g/dL (30-55) 10/19/22 04:49 RDW 13.0 % (12.1-15.1) 10/19/22 04:49 Plt Count 176 10^3/cmm (157-399) 10/19/22 04:49 MPV 9.1 fL (7.4-10.4) 10/19/22 04:49 Neut % (Auto) 43.9 % 10/19/22 04:49 Lymph % (Auto) 26.7 % 10/19/22 04:49 Zavala % (Auto) 13.2 % 10/19/22 04:49 Eos % (Auto) 15.5 % 10/19/22 04:49 Baso % (Auto) 0.5 % 10/19/22 04:49 Neut # (Auto) 1.92 10^3/uL (1.8-7.7) 10/19/22 04:49 Lymph # (Auto) 1.2 10^3/uL (0.8-4.8) 10/19/22 04:49 Zavala # (Auto) 0.6 10^3/uL (0.2-0.9) 10/19/22 04:49 Eos # (Auto) 0.7 10^3/uL (0.0-0.8) 10/19/22 04:49 Baso # (Auto) 0.0 10^3/uL (0.0-0.1) 10/19/22 04:49 Nucleated RBC % (auto) 0 % 10/19/22 04:49 Nucleated RBCs # 0.0 /100WBC 10/19/22 04:49 ESR 5 mm/hr (0-10) 10/16/22 09:50 Sodium 143 mmol/L (136-145) 10/19/22 04:49 Potassium 4.5 mmol/L (3.5-5.1) 10/19/22 04:49 Chloride 110 mmol/L (98-107) H 10/19/22 04:49 Carbon Dioxide 25 mmol/L (22-29) 10/19/22 04:49 Anion Gap 12.5 (5-19) 10/19/22 04:49 BUN 23 mg/dL (8-23) 10/19/22 04:49 Creatinine 1.4 mg/dL (0.7-1.2) H 10/19/22 04:49 GFR Calculation Not Reportable 10/19/22 04:49 Glucose 85 mg/dL (65-115) 10/19/22 04:49 POC Glucose 76 mg/dL (70-110) 10/19/22 06:34 Estimat Average Glucose 166 10/17/22 05:48 Hemoglobin A1c 7.4 % (4.0-6.0) H 10/17/22 05:48 Calculated Osmolality 299 mOsm/kg (285-295) H 10/19/22 04:49 Lactic Acid 1.6 mmol/L (0.5-2.2) 10/16/22 09:05 Calcium 8.6 mg/dL (8.5-10.5) 10/19/22 04:49 Phosphorus 3.2 mg/dL (2.5-4.5) 10/17/22 05:48 Magnesium 1.9 mg/dL (1.7-2.3) 10/17/22 05:48 Iron 53 ug/dL (59-158) L 10/16/22 09:50 TIBC 192 mcg/dl 10/16/22 09:50 % Saturation 27.6 % (20-50) 10/16/22 09:50 Unsat Iron Binding 139 ug/dL (112-347) 10/16/22 09:50 Total Bilirubin 0.3 mg/dL (0.15-1.2) 10/19/22 04:49 AST 18 U/L (0-40) 10/19/22 04:49 ALT 13 U/L (0-41) 10/19/22 04:49 Alkaline Phosphatase 108 U/L (40-130) 10/19/22 04:49 C-Reactive Protein 19.5 mg/L (0.0-4.9) H 10/16/22 09:50 Total Protein 5.3 g/dL (6.6-8.7) L 10/19/22 04:49 Albumin 3.3 g/dL (3.5-5.2) L 10/19/22 04:49 Globulin 2.0 g/dL (1.3-4.6) 10/19/22 04:49 Triglycerides 99 mg/dL (0-150) 10/17/22 05:48 Cholesterol 99 mg/dL (0-200) 10/17/22 05:48 LDL Cholesterol, Calc 39 mg/dL (50-129) L 10/17/22 05:48 HDL Cholesterol 40 mg/dL (60-100) L 10/17/22 05:48 LDL/HDL Ratio 0.98 RATIO (0.00-3.22) 10/17/22 05:48 Cholesterol/HDL Ratio 2.48 mg/dL (1.0-5.00) 10/17/22 05:48 Vitamin B12 410 pg/mL (232-1245) 10/16/22 09:50 Folate 18.7 ng/mL (4.5-32.2) 10/17/22 05:48 Procalcitonin 0.15 ng/mL (0-0.5) 10/16/22 09:50 TSH 3.43 uIU/mL (0.27-4.20) 10/16/22 09:50 Imaging US: Radiologist's impression: FINDINGS: Right kidney: Normal. No stones. No hydronephrosis. Left kidney: Normal. No stones. No hydronephrosis. Urinary bladder: Unremarkable. IMPRESSION: Unremarkable kidneys and bladder. Echo: Radiologist's impression: ?FINDINGS ?Left Ventricle ?The examination is technically so poor that it is ?uninterpretable but without the echo contrast.? With echo ?contrast the ventricle appears to be normal in size and ?function.? Diastolic function cannot be determined. ?Right Ventricle ?Right ventricle not well visualized. ?Right Atrium ?Right atrium not well visualized. ?Left Atrium ?Left atrium not well visualized. ?Mitral Valve ?Mitral valve not well visualized. ?Aortic Valve ?Aortic valve not well visualized. ?Tricuspid Valve ?Tricuspid valve not well visualized. ?Pulmonic Valve ?Pulmonic valve not well visualized. ?Pericardium ?Normal pericardium without effusion. ?Aorta ?Aorta not well visualized. ?IVC ?Inferior vena cava not visualized. ?CONCLUSIONS ?The examination is technically so poor that it is ?uninterpretable but without the echo contrast.? With echo ?contrast the ventricle appears to be normal in size and ?function.? Diastolic function cannot be determined. ?There are no prior echocardiogram studies to compare. ?Dr. Nam Gramajo MD ?(Electronically Signed) ?Final Date:? ? ? 17 October 2022 ? 18:00 Vitals Last Vital Signs Temp 97.6 F 10/19/22 08:00 Pulse 63 10/19/22 10:12 Resp 20 H 10/19/22 10:12 BP 137/71 10/19/22 08:00 Pulse Ox 92 09/07/23 10:12 O2 Del Method Room Air 10/19/22 08:41 O2 Flow Rate 96 10/16/22 16:14 Discharge Plan Discharge Patient Disposition: Home Health Service Condition: Stable Prescriptions: New levofloxacin 500 mg tablet 500 mg PO Q24H 7 Days Qty: 7 0RF doxycycline hyclate 100 mg tablet 100 mg PO Q12H 7 Days Qty: 14 0RF Continued atorvastatin 80 mg Tablet 80 mg PO DAILY cetirizine 10 mg Tablet 10 mg PO DAILY sennosides-docusate sodium [Senna-S] 8.6-50 mg Tablet 1 tab-cap PO DAILY famotidine 20 mg Tablet 20 mg PO BID tamsulosin 0.4 mg Capsule 0.4 mg PO DAILY insulin aspart U-100 [Novolog U-100 Insulin aspart] 100 unit/mL Solution 20 unit SUBCUT TID fluticasone propion-salmeterol [Wixela Inhub] 500-50 mcg/dose Blister With Device 1 inh INHALATION BID nitroglycerin [Nitrostat] 0.4 mg Tablet, Sublingual 0.4 mg SUBLINGUAL Q5M PRN (Reason: Chest Pain) Rx Instructions: do not exceed 3 doses per episode gabapentin 300 mg Capsule 300 mg PO BEDTIME aspirin 81 mg Tablet,Chewable 81 mg PO DAILY fluticasone propionate 50 mcg/actuation [place],Suspension 1 spray INTRANASAL BID Rx Instructions: administer into each nostril finasteride 5 mg Tablet 5 mg PO DAILY cholecalciferol (vitamin D3) [Vitamin D3] 25 mcg (1,000 unit) Capsule 25 mcg PO DAILY glucosamine-chondroitin [Osteo Bi-Flex] 250-200 mg Tablet 1 tab PO BID Rx Instructions: give after food/meal Combivent Respimat 20-100 mcg/actuation Mist 1 puff INHALATION QID Rx Instructions: space evenly during waking hours Changed Lantus Solostar U-100 Insulin 100 unit/mL (3 mL) Insulin Pen 35 unit SUBCUT BEDTIME Qty: 5 0RF Discontinued cephalexin 500 mg capsule 500 mg PO Q6H 10 Days Qty: 40 0RF Discharge Orders: Discharge Order (Routine); Ordered 10/19/22 Ordered By: Blue Galicia Referrals: [facility] [Outside] Mariana Fong MD [Primary Care Provider] - 10/20/22 10:00 am (FOLLOW UP WITH NURSE FOR LEG INFECTION. PHONE APPOINTMENT. THEN FOLLOW UP WITH DR FONG 11/03 @ 1130 AM ALSO DON'T FORGET PODIETRY APPOINTMENT IN [place] 10/26 @ 1120 AM) Discharge Diet: Cardiac and Diabetic Discharge Activity: Resume usual activity and Increase activity as tolerated Patient Instructions: Type 2 Diabetes, Doxycycline (By mouth), Levofloxacin (By mouth), Cellulitis (ED), Foot Care for People with Diabetes (DC), Opioid Safety Activity Restrictions/Additional Instructions: Dose of Lantus has been reduced to 35 units daily. Continue insulin sliding scale as before. Antibiotic has been changed to doxycycline and Levaquin for next 7 days. Continue wound care as before Discharge Attestations Time Spent in Discharge Care*: greater than 30 min Specific Discharge Activities: educating patient, educating and/or supporting family/caregiver, discussing with pcp/other providers, discussing with patient case coordinator/social workers/dc planners, documenting/other paperwork and evaluating patient/reviewing data Status at Discharge: Cognitive status at discharge: cognitively intact, Behavioral status at discharge: cooperative, Functional status at discharge: uses cane/walker, Overall status at discharge: patient is back to baseline Quality Metrics Clinical Quality Measures [ No reported AMI, CVA or VTE this stay] Coding Level of Care Code 82267 Total time (in minutes) for Discharge: 60 Diagnoses Cellulitis L03.90 Acute kidney injury N17.9 Diabetes mellitus E11.9 COPD (chronic obstructive pulmonary disease) J44.9 Failure of outpatient treatment Z78.9
== END 2022-10-19 10:13 | disposition home health service (06) | DRG 603 ==
LOC: ER 12:39 → MEDSURG 16:26
PROVIDERS: Admitting Provider Student in an Organized Health Care Education/Training Program; Emergency Provider Family Medicine; PCP Internal Medicine; Visit Provider Student in an Organized Health Care Education/Training Program
DX: L03.116 Cellulitis of left lower limb (principal); N17.9 Acute kidney failure, unspecified; Z68.42 Body mass index [BMI] 45.0-49.9, adult; L03.115 Cellulitis of right lower limb; E11.22 Type 2 diabetes mellitus with diabetic chronic kidney disease; E11.649 Type 2 diabetes mellitus with hypoglycemia without coma; N18.9 Chronic kidney disease, unspecified; E11.51 Type 2 diabetes mellitus with diabetic peripheral angiopathy without gangrene; E11.40 Type 2 diabetes mellitus with diabetic neuropathy, unspecified; J44.9 Chronic obstructive pulmonary disease, unspecified; I25.10 Atherosclerotic heart disease of native coronary artery without angina pectoris; Z98.61 Coronary angioplasty status; E66.01 Morbid (severe) obesity due to excess calories; N40.0 Benign prostatic hyperplasia without lower urinary tract symptoms; Z87.01 Personal history of pneumonia (recurrent); K21.9 Gastro-esophageal reflux disease without esophagitis; E78.5 Hyperlipidemia, unspecified; Z87.891 Personal history of nicotine dependence; Z79.4 Long term (current) use of insulin; Z79.82 Long term (current) use of aspirin
CPT/HCPCS: 36415; 36416; 76770; 76857; 80053; 80061; 82607; 82746; 82962; 83036; 83540; 83550; 83605; 83735; 84100; 84145; 84443; 85025; 85651; 86140; 87040; 87641; 94640; 94664; 96365; 96372; 99285; C8929; J1644; J1815; J2185; J3370; J7030; J7050; Q3014; Q9956

== ENCOUNTER 2022-11-24 10:59 | Inpatient (IN) | payer OTHER, SELFPAY ==
[2022-11-24] VITALS (12 sets, daily range): BP systolic 146–201; BP diastolic 74–102; PULSE 63–91; RESP 16–22; TEMP 36.4–37; O2SAT 91–100; BMI 47.8
--- NOTE | 2022-11-24 12:00 | XR_ITS ---
WS: [id number] Portable AP semiupright chest, 11/24/2022 Clinical Data: dyspnea/cough Comparison: Portable chest, 06/08/2022 Findings: There is a right lower lobe patchy opacity which may represent pneumonia and/or atelectasis . There is minimal patchy opacity in the left lower lobe. No nodules, masses or effusions are seen. T he heart is enlarged.. The pulmonary vascularity is not increased. No pneumothorax is seen. The aorti c arch and descending thoracic aorta are tortuous. Impression: 1. Patchy opacity in both lower lobes, more on right than left. 2. Cardiomegaly and atherosclerosis.
[2022-11-24 12:20] LABS: Basophils % 0.6 %; Eosinophils # 0.6 10^3/uL (0.0-0.8); Hematocrit 34.5 % (37-53); Lymphocytes # 0.8 10^3/uL (0.8-4.8); Lymphocytes % 12.8 %; Mean Corpuscular HGB Conc 31.6 g/dL (30-55); Mean Corpuscular Hemoglobin 30.3 pg (27-33); Mean Corpuscular Volume 95.8 fl (82-101); Mean Platelet Volume 8.4 fL (7.4-10.4); Monocytes # 0.5 10^3/uL (0.2-0.9); Monocytes % 7.5 %; Neutrophils % 68.6 %; Nucleated Red Blood Cells % 0 %; Platelet Count 193 10^3/cmm (157-399); Red Cell Distribution Width 12.7 % (12.1-15.1); White Blood Count 6.27 10^3/uL (3.29-11.43)
--- NOTE | 2022-11-24 12:25 | PC.PHAR ---
Addendum entered by Betty Parada 11/24/22 12:33: PT STATES NOTHING HAS CHANGED SINCE HE WAS HERE LAST (3 WEEKS AGO). I HAVE CONFIRMED MED LIST AND WILL [facility] WHEN [facility]IV[facility]. PT HAS TAKEN AM MEDS AND INSULIN, TODAY. Original Note: [facility] FOR MED LIST-11/24/22 12:25PM
[2022-11-24] MEDS: levofloxacin-dextrose 5 % 750 MG/150 ML PREMIX 100 MG IV (12:52)
[2022-11-24 12:57] LABS: Alanine Aminotransferase 12 U/L (0-41); Alkaline Phosphatase 108 U/L (40-130); Anion Gap 13.8 (5-19); Aspartate Amino Transferase 18 U/L (0-40); Blood Urea Nitrogen 42 mg/dL (8-23); Calcium 8.2 mg/dL (8.5-10.5); Carbon Dioxide 27 mmol/L (22-29); Chloride 107 mmol/L (98-107); Globulin 3.3 g/dL (1.3-4.6); Glucose 190 mg/dL (65-115); NT Pro B Type Natriuretic Pept 2352 pg/mL (0-450); Osmolality Calculated 312 mOsm/kg (285-295); Potassium 4.8 mmol/L (3.5-5.1); Sodium 143 mmol/L (136-145); Total Bilirubin 0.2 mg/dL (0.15-1.2); Total Protein 6.3 g/dL (6.6-8.7)
--- NOTE | 2022-11-24 13:05 | W.ED.EXTPRO ---
HPI - Extremity Problem General: Chief complaint: Extremity Problem,Nontraumatic Stated complaint: swelling in extremities Time Seen by Provider: 11/24/22 11:01 Source: patient Mode of arrival: ambulatory History of Present Illness: 77-year-old male who presents to the emergency room with complaints of swelling in his legs generalized weakness. He is a wounds in his legs have been following at wound care. He has not had any fever sweats or chills he is currently getting topical treatment but is not on any antibiotics. He feels a little bit more short of breath his oxygen sats are normal on his usual 4 L of oxygen. He has a history of COPD and congestive heart failure has not noticed any increased swelling in his legs seems like it is at his baseline. He has not had any episodes of chest pain he does have a little bit of left flank pain which she relates to muscle pull while he was trying to get off the toilet. MD Complaint: extremity pain and extremity swelling Onset (ago): minute(s) Location: left and right Radiation: none Relieving factors: nothing Exacerbating factors: nothing Associated symptoms: Deny arthralgias, chest pain, fever(s), myalgias, rash or short of breath Review of Systems Const: Denies: fever(s) or chills Card: Denies: chest pain Resp: Reports: dyspnea and productive cough GI: Denies: abdominal pain : Denies: dysuria, urinary frequency or urinary urgency Musc: Denies: neck pain or back pain Skin/Breast: Denies: rash PFSH ED PFSH: Medical History (Updated 11/25/22 @ 07:25 by Angel Luis Gardner DO) BPH (benign prostatic hyperplasia) Cellulitis Chronic kidney disease COPD (chronic obstructive pulmonary disease) Coronary artery disease GERD (gastroesophageal reflux disease) Hyperlipidemia Morbid obesity Peripheral neuropathy Type 2 diabetes mellitus Surgical History History of cholecystectomy History of coronary angioplasty Family History Other CAD (coronary artery disease) Social History Smoking and tobacco/nicotine status: former use of tobacco/nicotine Alcohol intake: never Substance/Drug Use: never Physical Exam Const: GENERAL APPEARANCE: cooperative and comfortable ORIENTATION/CONSCIOUSNESS: Yes awake, Yes oriented to person, Yes oriented to place and Yes oriented to time HENMT: COMMON NORMALS: normocephalic, atraumatic and hearing grossly normal bilaterally HEAD & SCALP: normocephalic and atraumatic Resp: COMMON NORMALS: normal respiratory effort, No retractions, No use of accessory muscles and clear to auscultation bilaterally AUSCULTATION: clear to auscultation bilaterally Cardio: COMMON NORMALS: regular rate, regular rhythm and No murmurs present (Cardio) RATE: regular rate RHYTHM: regular rhythm GI: COMMON NORMALS: Soft to palpation and No hepatosplenomegaly present AUSCULTATION: Yes normoactive bowel sounds PALPATION: Yes Soft to palpation, No Tenderness to palpation present (GI), No Guarding due to palpation present (GI) and Yes No hepatosplenomegaly present Extremity: OTHER: Chronic venous stasis edema superficial ulcers on the right lower leg Neuro: SENSORIUM/ORIENTATION: Yes oriented to person, Yes oriented to place and Yes oriented to time Skin: COMMON NORMALS: no rashes or lesions noted GENERAL SKIN EXAM: no rashes or lesions noted Course Vital Signs: Vital signs: Vital Signs Temperature 98.2 F 11/25/22 04:20 Pulse Rate 76 11/25/22 06:32 Respiratory Rate 20 H 11/25/22 04:20 Blood Pressure 124/70 11/25/22 04:20 Pulse Oximetry 88 L 11/25/22 04:20 Oxygen Delivery Me thod CPAP 11/25/22 04:20 Oxygen Flow Rate 2 11/24/22 20:00 Fraction of Inspir ed Oxygen 28 11/24/22 20:55 MDM - Extremity (Nontraumatic) Medical Decision Making Patient has a right lower lobe pneumonia suspect he is also fluid overloaded BNP is elevated has acute kidney injury as well. He was given Levaquin here cultures done. We will admit discussed with hospitalist orders written Medical Records I reviewed the patient's medical records. Lab Data I reviewed the patient's lab results. 11/25/22 04:22 11/25/22 04:22 Radiology Impressions Chest/Abdomen/Pelvis CT 11/24/22 15:24 IMPRESSION: 1. Moderate right and small left pleural effusions. 2. 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 IMPRESSION: 1. No acute findings. 2. Dermal thickening and subcutaneous edema of the imaged lower anterior abdominopelvic wall is nonspecific. Consideration for infectious or traumatic etiologies. 3. Additional chronic and incidental findings as above. COMMENTS: Consistent with the [employer]'s Incidental Findings Committee white paper (J Am Jeff Radiol 2018): Any incidental renal lesion less than 1 cm or classified as too small to characterize, or any incidental cystic renal lesion characterized as simple-appearing, is likely benign. No follow-up imaging is recommended for these lesions per consensus recommendations based on imaging criteria. Renal Ultrasound 11/25/22 00:59 IMPRESSION: 1. Suspect a small cyst in the right kidney, measuring 15 x 11 x 14 mm 2. Otherwise essentially sonographic appearance of the kidneys. 3. No hydronephrosis. 4. Other details discussed above. Laboratory Results WBC 6.27 10^3/uL (3.29-11.43) 11/24/22 12:15 RBC 3.60 10^6/uL (3.85-5.65) L 11/24/22 12:15 Hgb 10.90 g/dL (11.27-16.99) L 11/24/22 12:15 Hct 34.5 % (37-53) L 11/24/22 12:15 MCV 95.8 fl (82-101) 11/24/22 12:15 MCH 30.3 pg (27-33) 11/24/22 12:15 MCHC 31.6 g/dL (30-55) 11/24/22 12:15 RDW 12.7 % (12.1-15.1) 11/24/22 12:15 Plt Count 193 10^3/cmm (157-399) 11/24/22 12:15 MPV 8.4 fL (7.4-10.4) 11/24/22 12:15 Neut % (Auto) 68.6 % 11/24/22 12:15 Lymph % (Auto) 12.8 % 11/24/22 12:15 [place] % (Auto) 7.5 % 11/24/22 12:15 Eos % (Auto) 10.0 % 11/24/22 12:15 Baso % (Auto) 0.6 % 11/24/22 12:15 Neut # (Auto) 4.30 10^3/uL (1.8-7.7) 11/24/22 12:15 Lymph # (Auto) 0.8 10^3/uL (0.8-4.8) 11/24/22 12:15 [place] # (Auto) 0.5 10^3/uL (0.2-0.9) 11/24/22 12:15 Eos # (Auto) 0.6 10^3/uL (0.0-0.8) 11/24/22 12:15 Baso # (Auto) 0.0 10^3/uL (0.0-0.1) 11/24/22 12:15 Nucleated RBC % (auto) 0 % 11/24/22 12:15 Nucleated RBCs # 0.0 /100WBC 11/24/22 12:15 Sodium 143 mmol/L (136-145) 11/24/22 12:15 Potassium 4.8 mmol/L (3.5-5.1) 11/24/22 12:15 Chloride 107 mmol/L (98-107) 11/24/22 12:15 Carbon Dioxide 27 mmol/L (22-29) 11/24/22 12:15 Anion Gap 13.8 (5-19) 11/24/22 12:15 BUN 42 mg/dL (8-23) H 11/24/22 12:15 Creatinine 5.2 mg/dL (0.7-1.2) H 11/24/22 12:15 GFR Calculation Not Reportable 11/24/22 12:15 Glucose 190 mg/dL (65-115) H 11/24/22 12:15 Calculated Osmolality 312 mOsm/kg (285-295) H 11/24/22 12:15 Lactic Acid 1.0 mmol/L (0.5-2.2) 11/24/22 12:15 Calcium 8.2 mg/dL (8.5-10.5) L 11/24/22 12:15 Phosphorus 5.6 mg/dL (2.5-4.5) H 11/24/22 12:15 Total Bilirubin 0.2 mg/dL (0.15-1.2) 11/24/22 12:15 AST 18 U/L (0-40) 11/24/22 12:15 ALT 12 U/L (0-41) 11/24/22 12:15 Alkaline Phosphatase 108 U/L (40-130) 11/24/22 12:15 Creatine Kinase 150 U/L (39-308) 11/24/22 12:00 C-Reactive Protein 36.2 mg/L (0.0-4.9) H 11/24/22 12:15 NT-Pro-B Natriuret Pep 2352 pg/mL (0-450) H 11/24/22 12:15 Total Protein 6.3 g/dL (6.6-8.7) L 11/24/22 12:15 Albumin 3.0 g/dL (3.5-5.2) L 11/24/22 12:15 Globulin 3.3 g/dL (1.3-4.6) 11/24/22 12:15 25-OH Vitamin D Total 25 ng/mL (30-100) L 11/24/22 12:15 Procalcitonin 0.22 ng/mL (0-0.5) 11/24/22 12:15 PTH Intact 268.5 pg/mL (15-65) H 11/24/22 12:15 Calcium (PTH Intact) 7.7 mg/dL (8.5-10.5) L 11/24/22 12:15 Ur Random Sodium 68 mmol/L 11/24/22 16:20 Ur Random Potassium 42 mmol/L 11/24/22 16:20 Ur Random Chloride 57 mmol/L 11/24/22 16:20 Ur Random Urea Nitrogn 429 mg/dL 11/24/22 16:20 Urine Creatinine 94 mg/dL (39-259) 11/24/22 16:20 Coronavirus 229E (PCR) Not detected (NOT DETECT) 11/24/22 12:39 SARS-CoV-2 (PCR) Not detected (NOT DETECT) 11/24/22 12:39 All radiology interpretation(s) finalized by discharge Discharge Plan Discharge Patient Disposition: Admitted As Inpatient Admit Provider: Charlie Noble Clinical Impression: Acute kidney injury superimposed on chronic kidney disease, COPD (chronic obstructive pulmonary disease), CHF (congestive heart failure), Pneumonia Condition: Stable Coding Level of Care Code ED [employer] for Anabelle Lopez
[2022-11-24 14:27] LABS: Adenovirus Not Detected (NOT DETECT); Chlamydia Pneumoniae Not Detected (NOT DETECT); Coronavirus 229E,HKU1,NL63,OC4 Not Detected (NOT DETECT); Human Metapneumovirus Not Detected (NOT DETECT); Human Rhinovirus/Enterovirus Not Detected (NOT DETECT); Influenza A Not Detected (NOT DETECT); Influenza A H1 Not Detected (NOT DETECT); Influenza A H1-2009 Not Detected (NOT DETECT); Influenza A H3 Not Detected (NOT DETECT); Influenza B Not Detected (NOT DETECT); Mycoplasma Pneumoniae Not Detected (NOT DETECT); Parainfluenza Virus Type 1 Not Detected (NOT DETECT); Parainfluenza Virus Type 2 Not Detected (NOT DETECT); Parainfluenza Virus Type 3 Not Detected (NOT DETECT); Parainfluenza Virus Type 4 Not Detected (NOT DETECT); Respiratory Syncytial Virus A Not Detected (NOT DETECT); Respiratory Syncytial Virus B Not Detected (NOT DETECT); SARS-COV-2 Not Detected (NOT DETECT)
--- NOTE | 2022-11-24 14:28 | PM.HP ---
Providers/Chief Complaint Admitting Physician: Charlie Noble MD Primary Care Provider: Mariana Cao MD Chief Complaint: swelling in extremities History of Present Illness Devyn Luo is a 77 year old male with a past medical history significant for venous insufficiency, type 2 diabetes mellitus, chronic kidney disease with baseline Cr of 1.3, coronary artery disease, COPD, and morbid obesity who presents to the emergency department with generalized weakness for the past week. He endorses associated symptoms of slurred speech x1 week. Reports associated severe weakness, bilateral lower extremity swelling, abdominal swelling, shortness of breath, chills, intermittent confusion, and fatigue. Reports exertion makes symptoms worse. Denies alleviating factors. In the emergency department, patient was found to have renal failure with BUN 42 and creatinine 5.2. Prior creatinine 1.4 about 5 weeks ago. Blood work also revealed elevated NT proBNP. He was checked for COVID-19 which was negative. Chest x-ray revealed patchy opacities in bilateral lower lobes, right greater than left as well as cardiomegaly and atherosclerosis. Patient denies known history of congestive heart failure. Of note, patient was admitted from 10/16/2022 to 10/19/2022 for acute kidney injury. Echocardiogram during that admission was of poor quality. Patient denies being on home diuretic. Review of Systems Narrative: A complete review of systems was obtained and is negative except as stated in HPI. Medications/Allergies Home Medications Medication Instructions Recorded Confirmed Last Taken Type aspirin 81 mg chewable tablet 81 mg PO DAILY 06/08/22 11/24/22 11/24/22 History atorvastatin 80 mg tablet 80 mg PO DAILY 06/08/22 11/24/22 11/24/22 History cetirizine 10 mg tablet 10 mg PO DAILY 06/08/22 11/24/22 11/24/22 History cholecalciferol (vitamin D3) 25 25 mcg PO DAILY 06/08/22 11/24/22 11/24/22 History mcg (1,000 unit) capsule (Vitamin D3) famotidine 20 mg tablet 20 mg PO BID 06/08/22 11/24/22 11/24/22 History finasteride 5 mg tablet 5 mg PO DAILY 06/08/22 11/24/22 11/24/22 History fluticasone 500 mcg-salmeterol 50 1 inh inhalation BID 06/08/22 11/24/22 11/24/22 History mcg/dose blistr powdr for inhalation (Howardxela Inhub) fluticasone propionate 50 1 spray intranasal BID 06/08/22 11/24/22 11/24/22 History mcg/actuation nasal spray,suspension gabapentin 300 mg capsule 300 mg PO BEDTIME 06/08/22 11/24/22 11/23/22 History glucosamine-chondroitin 250 mg-200 1 tab PO BID 06/08/22 11/24/22 11/24/22 History mg tablet (Osteo Bi-Flex) insulin aspart U-100 100 unit/mL 20 unit SUBCUT TID 06/08/22 11/24/22 11/24/22 History subcutaneous solution (Novolog U-100 Insulin aspart) ipratropium 20 mcg-albuterol 100 1 puff inhalation QID 06/08/22 11/24/22 11/24/22 History mcg/actuation mist for inhalation (Combivent Respimat) nitroglycerin 0.4 mg sublingual 0.4 mg sublingual Q5M PRN Chest 06/08/22 11/24/22 Unknown History tablet (Nitrostat) Pain sennosides 8.6 mg-docusate sodium 1 tab-cap PO DAILY 06/08/22 11/24/22 11/24/22 History 50 mg tablet (Senna-S) tamsulosin 0.4 mg capsule 0.4 mg PO QPM 06/08/22 11/24/22 11/23/22 History insulin glargine 100 unit/mL (3 35 unit (0.35 mL) SUBCUT BEDTIME 10/19/22 11/24/22 11/23/22 Rx mL) subcutaneous pen (Lantus #5 pens Solostar U-100 Insulin) acetaminophen 500 mg tablet 1,000 mg PO Q6H PRN Pain 11/24/22 11/24/22 11/24/22 History Allergies Allergy/AdvReac Type Severity Reaction Status Date / Time amoxicillin Allergy Unknown Unknown Verified 10/16/22 12:47 PFSH Acute PFSH: Medical History (Updated 11/24/22 @ 15:46 by Charlie Noble MD) BPH (benign prostatic hyperplasia) Cellulitis Chronic kidney disease COPD (chronic obstructive pulmonary disease) Coronary artery disease GERD (gastroesophageal reflux disease) Hyperlipidemia Morbid obesity Peripheral neuropathy Type 2 diabetes mellitus Surgical History History of cholecystectomy History of coronary angioplasty Family History Other CAD (coronary artery disease) Social History Smoking and tobacco/nicotine status: former use of tobacco/nicotine Alcohol intake: never Substance/Drug Use: never Vitals/I&O/Wt Last Vital Signs Temp 98.6 F 11/24/22 11:08 Pulse 70 11/24/22 12:34 Resp 20 H 11/24/22 12:34 BP 162/84 11/24/22 11:08 Pulse Ox 99 11/24/22 12:34 O2 Del Method Nasal Cannula 11/24/22 12:34 O2 Flow Rate 3 11/24/22 12:34 Weight last 48 hrs Weight 160.118 kg Physical Exam Narrative: General: Patient is awake. In moderate respiratory distress. Head: Normocephalic. Atraumatic. EOM intact. Neck: JVD difficult to assess due to large neck. Cardiovascular: RRR. No gallops. No murmurs. 3+ edema in bilateral lower extremities. Lungs: Breath sounds markedly diminished bilateral bases. Dependent crackles are present. Tachypnea and increased work of breathing. No wheezing. Skin: No jaundice. No rashes. Abdomen: Normal bowel sounds, abdomen soft and nontender. Extremities: No cyanosis or clubbing. Musculoskeletal: No erythematous joints. Neurological: Moves all 4 extremities. No focal neuro deficits. CN II-XII grossly intact. No myoclonus. Data 11/24/22 12:15 11/24/22 12:15 Micro: Microbiology 11/24/22 12:39 Blood Culture - Preliminary Blood SPECIMEN COLLECTED 11/24/22 12:32 Blood Culture - Preliminary Blood SPECIMEN COLLECTED A&P Assessment and plan (1) Acute kidney injury superimposed on chronic kidney disease: Admission Cr 5.2, previously baseline ~1.3 Avoid nephrotoxins Strict I&Os Phos, vitamin D, PTH CT abd/pelvis wo contrast Nephro consult (2) CHF (congestive heart failure): Presentation c/w newly diagnosed congestive heart failure Suspected acute diastolic heart failure given echo from 10/2022 Hypervolemic on exam Imaging reviewed, markedly fluid overloaded Start diuresis (3) Infiltrate noted on imaging study: Infiltrate on CXR concerning for pneumonia, better characterized with CT chest w/o contrast Obtain inflammatory markers Cultures Lactic acid w/ reflux Started on levofloxacin in ED (4) COPD (chronic obstructive pulmonary disease): In moderate respiratory distress, but no wheezing on exam Nebulizing treatments Supplemental oxygen support (5) BPH (benign prostatic hyperplasia): CT plain to eval for obstruction Continue Flomax Continue finasteride (6) Peripheral neuropathy: Continue gabapentin, dose reduced d/t renal clearance (7) Type 2 diabetes mellitus: Continue Lantus, reduce home dose d/t renal clearance Continue mealtime insulin at reduced rate SSI Avoid hypoglycemia (8) Abdominal distention: Suspicious for component of ascites CT abd/pelvis as above Serial exams (9) Slurred speech: Onset 1 week ago, suspect encephalopathy although ddx is broad No focal neurological deficit on exam Unable to have CT contrast for angio given renal function May consider MRI in the future pending clinical course Continue aspirin Continue high intensity statin (10) Generalized weakness: A/w debility and physical deconditioning Secondary to acute illness Plan for therapy eval when clinically appropriate (11) Morbid obesity: Would benefit from weight loss Plan DVT ppx: Heparin Attestations Medical Necessity Statement*: Patient presents with multiple complaints, found to have severe renal failure, newly diagnosed congestive heart failure, possible infection with pneumonia, and severe weakness with expected hospitalization to cross two midnights for work up and treatment of renal failure, further imaging, urine studies, serial labs, telemetry, nephrology evaluation, IV diuresis, IV abx, therapy and supportive care. Coding Level of Care Code Acute Code for [facility] Fwd Diagnoses Acute kidney injury superimposed on chronic kidney disease N17.9; N18.9 CHF (congestive heart failure) I50.9 Infiltrate noted on imaging study R93.89 COPD (chronic obstructive pulmonary disease) J44.9 BPH (benign prostatic hyperplasia) N40.0 Peripheral neuropathy G62.9 Type 2 diabetes mellitus E11.9 Abdominal distention R14.0 Slurred speech R47.81 Generalized weakness R53.1 Morbid obesity E66.01
--- NOTE | 2022-11-24 15:24 | CTR_ITS ---
PROCEDURE INFORMATION: Exam: CT Chest Without Contrast; Diagnostic Exam date and time: 11/24/2022 3:31 PM Age: 77 years old Clinical indication: Condition or disease; Kidney or ureter condition; Chronic kidney disease or failure; Not specified; Lung condition and disease; Other: SOB, chf; Additional info: Renal failure, infiltrate on cxr, sepsis TECHNIQUE: Imaging protocol: Diagnostic computed tomography of the chest without contrast. Radiation optimization: All CT scans at this facility use at least one of these dose optimization techniques: automated exposure control; mA and/or kV adjustment per patient size (includes targeted exams where dose is matched to clinical indication); or iterative reconstruction. REPORTING DATA: Count of CT and Cardiac NM exams in prior 12 months: This patient has received [address] and 0 known cardiac nuclear medicine studies in the 12 months prior to the current study. COMPARISON: 1. CT angio chest PE protcl [id number] 06/08/2022 6:30 PM 2. CR XR chest 1V portable [id number] 11/24/2022 12:05 PM RADIATION DOSE METRICS: Total DLP (mGy-cm): 0.01 FINDINGS: Lungs: Expiratory phase imaging with significant anterior bowing of the posterior tracheal membrane similar to prior, which could indicate tracheobronchomalacia. Uohqo-oqhkqmn-shmp-left dependent atelectasis No consolidation. Pleural spaces: Moderate right and small left pleural effusions. No pneumothorax. Heart: Mild cardiomegaly. No pericardial effusion. Coronary arteries: Mild coronary artery calcification. Lymph nodes: No enlarged lymph nodes. Vasculature: Mild systemic atherosclerotic calcification without aortic aneurysm. Bones/joints: No acute fracture. Similar appearance of fractured left 2nd costal cartilage. Mild degenerative changes along the spine. Soft tissues: Asymmetric left gynecomastia. Other findings: Motion artifact degrades image quality, rendering evaluation suboptimal. PROCEDURE INFORMATION: Exam: CT Abdomen And Pelvis Without Contrast Exam date and time: 11/24/2022 3:31 PM Age: 77 years old Clinical indication: Condition or disease; Kidney or ureter condition; Chronic kidney disease or failure; Not specified; Lung condition and disease; Other: SOB, chf; Additional info: Renal failure, infiltrate on cxr, sepsis TECHNIQUE: Imaging protocol: Computed tomography of the abdomen and pelvis without contrast. Radiation optimization: All CT scans at this facility use at least one of these dose optimization techniques: automated exposure control; mA and/or kV adjustment per patient size (includes targeted exams where dose is matched to clinical indication); or iterative reconstruction. REPORTING DATA: Count of CT and Cardiac NM exams in prior 12 months: This patient has received [address] and 0 known cardiac nuclear medicine studies in the 12 months prior to the current study. COMPARISON: 1. CT angio chest PE protcl [id number] 06/08/2022 6:30 PM 2. CR XR chest 1V portable [id number] 11/24/2022 12:05 PM RADIATION DOSE METRICS: Total DLP (mGy-cm): 3403.28 FINDINGS: Liver: Normal without focal lesions. Gallbladder and bile ducts: Prior cholecystectomy. No biliary ductal dilatation. Pancreas: Diffuse fatty infiltration of the pancreas. Spleen: Normal. Adrenal glands: Normal. No mass. Kidneys and ureters: Suspect left and possibly right renal sinus cysts. Mild symmetric perirenal fat stranding is commonly age related. Otherwise unremarkable. Stomach and bowel: No bowel dilatation to suggest obstruction. Appendix: No evidence of appendicitis. Intraperitoneal space: No free air, free fluid, or well-organized fluid collection. Vasculature: Mild systemic atherosclerotic calcification without abdominal aortic aneurysm. Lymph nodes: No enlarged lymph nodes. Urinary bladder: Urinary bladder is unremarkable. Reproductive: Unremarkable as visualized. Bones/joints: No acute fracture. Dextroconvex curvature of the lumbar spine. Lower lumbar spine and sacroiliac joint degenerative changes. Mild bilateral hip degenerative changes. Soft tissues: Dermal thickening and subcutaneous edema of the imaged lower anterior abdominopelvic wall. Other findings: Motion artifact degrades image quality, rendering evaluation suboptimal. CT/[place] [id number] IMPRESSION: 1. Moderate right and small left pleural effusions. 2. 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 IMPRESSION: 1. No acute findings. 2. Dermal thickening and subcutaneous edema of the imaged lower anterior abdominopelvic wall is nonspecific. Consideration for infectious or traumatic etiologies. 3. Additional chronic and incidental findings as above. COMMENTS: Consistent with the [employer]'s Incidental Findings Committee white paper (J Am Jeff Radiol 2018): Any incidental renal lesion less than 1 cm or classified as too small to characterize, or any incidental cystic renal lesion characterized as simple-appearing, is likely benign. No follow-up imaging is recommended for these lesions per consensus recommendations based on imaging criteria.
--- NOTE | 2022-11-24 15:35 | PC.PHAR ---
[place] HAS NO RECORD OF MEDICATIONS FOR THIS PATIENT. 11/24/2022
[2022-11-24 16:54] LABS: Potassium, Radom Urine 42 mmol/L; Urine Random Chloride 57 mmol/L; Urine Random Sodium 68 mmol/L
--- NOTE | 2022-11-24 17:07 | PC.NURSE ---
PT PLACED ON CONTINUOUS NIBP ,SPO2, AND CM
[2022-11-24 17:29] LABS: Creatinine Urine, Random 94 mg/dL (39-259)
--- NOTE | 2022-11-24 17:29 | PC.NURSE ---
Patient arrived to Med/Surg [id number]
[2022-11-24 17:43] LABS: Glucose Point of Care 121 mg/dL (70-110)
[2022-11-24 17:54] LABS: Urea Nitrogen,Urine Random 429 mg/dL
[2022-11-24 18:25] LABS: Calcium 7.7 mg/dL (8.5-10.5); Parathyroid Hormone 268.5 pg/mL (15-65)
[2022-11-24 18:35] LABS: 25 Hydroxy Vitamin D 25 ng/mL (30-100); Procalcitonin 0.22 ng/mL (0-0.5)
[2022-11-24] MEDS: FUROsemide 100 MG in sodium chloride 0.9% 40 ML 7.5 MG IV (18:40)
[2022-11-24] MEDS: tamsulosin 0.4 mg Capsule PO (18:40)
[2022-11-24] MEDS: fluticasone nasal spray 16gm Btl 1 SPRAY INTRANASAL (18:40)
[2022-11-24] MEDS: famotidine 20 mg Tablet PO (18:40)
[2022-11-24 18:46] LABS: C Reactive Protein 36.2 mg/L (0.0-4.9); Phosphorus 5.6 mg/dL (2.5-4.5)
--- NOTE | 2022-11-24 19:17 | P.CONIM_ITS ---
Providers/Reason For Consult Consulting Physician/Specialty*: [facility]a/Nephrology Reason for Consult*: Acute on CKD Attending Physician: Charlie Noble MD Primary Care Provider: Mariana Cao MD History of Present Illness History of Present Illness Devyn Luo is a 77 year old male Patient is a 77-year-old male with past medical history of diabetes, hypertension, coronary artery disease, COPD on home O2 at 2 L, morbid obesity, chronic kidney disease with a baseline creatinine of 1.3-1.4 range presented to the emergency department due to generalized weakness and slurred speech. Patient also complained of shortness of breath and worsening lower extremity edema. He was found to have a creatinine of 5.2 in the ER. Also has elevated proBNP. Chest x-ray relieved bilateral infiltrates cardiomegaly. Other lab data is significant for elevated phosphorus level elevated PTH calcium is also low at 7.7 hemoglobin was 10. Review of Systems Narrative: other ros negative Medications/Allergies Home Medications Medication Instructions Recorded Confirmed Last Taken Type aspirin 81 mg chewable tablet 81 mg PO DAILY 06/08/22 11/24/22 11/24/22 History atorvastatin 80 mg tablet 80 mg PO DAILY 06/08/22 11/24/22 11/24/22 History cetirizine 10 mg tablet 10 mg PO DAILY 06/08/22 11/24/22 11/24/22 History cholecalciferol (vitamin D3) 25 25 mcg PO DAILY 06/08/22 11/24/22 11/24/22 Histo ry mcg (1,000 unit) capsule (Vitamin D3) famotidine 20 mg tablet 20 mg PO BID 06/08/22 11/24/22 11/24/22 History finasteride 5 mg tablet 5 mg PO DAILY 06/08/22 11/24/22 11/24/22 History fluticasone 500 mcg-salmeterol 50 1 inh inhalation BID 06/08/22 11/24/22 11/24/22 History mcg/dose blistr powdr for inhalation (Wixela Inhub) fluticasone propionate 50 1 spray intranasal BID 06/08/22 11/24/22 11/24/22 History mcg/actuation nasal spray,suspension gabapentin 300 mg capsule 300 mg PO BEDTIME 06/08/22 11/24/22 11/23/22 History glucosamine-chondroitin 250 mg-200 1 tab PO BID 06/08/22 11/24/22 11/24/22 History mg tablet (Osteo Bi-Flex) insulin aspart U-100 100 unit/mL 20 unit SUBCUT TID 06/08/22 11/24/22 11/24/22 History subcutaneous solution (Novolog U-100 Insulin aspart) ipratropium 20 mcg-albuterol 100 1 puff inhalation QID 06/08/22 11/24/22 11/24/22 History mcg/actuation mist for inhalation (Combivent Respimat) nitroglycerin 0.4 mg sublingual 0.4 mg sublingual Q5M PRN Chest 06/08/22 11/24/22 Unknown History tablet (Nitrostat) Pain sennosides 8.6 mg-docusate sodium 1 tab-cap PO DAILY 06/08/22 11/24/22 11/24/22 History 50 mg tablet (Senna-S) tamsulosin 0.4 mg capsule 0.4 mg PO QPM 06/08/22 11/24/22 11/23/22 History insulin glargine 100 unit/mL (3 35 unit (0.35 mL) SUBCUT BEDTIME 10/19/22 11/24/22 11/23/22 Rx mL) subcutaneous pen (Lantus #5 pens Solostar U-100 Insulin) acetaminophen 500 mg tablet 1,000 mg PO Q6H PRN Pain 11/24/22 11/24/22 11/24/22 History Allergies Allergy/AdvReac Type Severity Reaction Status Date / Time amoxicillin Allergy Unknown Unknown Verified 10/16/22 12:47 Current Medications Generic Name Dose Route Start Last Admin Trade Name Freq PRN Reason Stop Dose Admin Famotidine 20 mg 11/24/22 18:00 11/24/22 18:40 Famotidine 20 Mg Tablet PO 20 mg BID DONALD Administration Fluticasone Propionate 1 spray 11/24/22 18:00 11/24/22 18:40 Fluticasone Nasal [place] 16gm Btl INTRANASAL 1 spray BID DONALD Administration Furosemide 100 mg/ Sodium 50 mls @ 7.5 mls/hr 11/24/22 18:00 11/24/22 18:40 Chloride IV 15 mg/hr .Q6H40M DONALD 7.5 mls/hr Administration 15 MG/HR Insulin Human Lispro 0 unit 11/24/22 18:00 11/24/22 17:47 Insulin Lispro 100 Unit/1 Ml SUBCUT Not Given WM&BEDTIME DONALD Protocol Tamsulosin HCl 0.4 mg 11/24/22 18:00 11/24/22 18:40 Tamsulosin 0.4 Mg Capsule PO 0.4 mg QPM DONALD Administration PFSH Acute PFSH: Medical History (Updated 11/24/22 @ 15:46 by Charlie Noble MD) BPH (benign prostatic hyperplasia) Cellulitis Chronic kidney disease COPD (chronic obstructive pulmonary disease) Coronary artery disease GERD (gastroesophageal reflux disease) Hyperlipidemia Morbid obesity Peripheral neuropathy Type 2 diabetes mellitus Surgical History History of cholecystectomy History of coronary angioplasty Family History Other CAD (coronary artery disease) Social History Smoking and tobacco/nicotine status: former use of tobacco/nicotine Alcohol intake: never Substance/Drug Use: never Vitals/I&O/Wt Last Vital Signs Temp 97.6 F 11/24/22 17:25 Pulse 70 11/24/22 17:25 Resp 22 H 11/24/22 17:25 BP 174/89 11/24/22 17:25 Pulse Ox 98 11/24/22 17:25 O2 Del Method Nasal Cannula 11/24/22 12:34 O2 Flow Rate 3 11/24/22 12:34 11/24/22 11/24/22 11/24/22 06:59 14:59 22:59 Intake Total 150 / 150 Balance 150 / 150 Weight last 48 hrs Weight 160.118 kg Physical Exam Narrative: awake ,alert heent s1s2 rrr lungs clear per report + edema Urinary Catheter Management: Lundy: Cath Placed During This Visit: yes Urinary Catheter Date of Insertion: 11/24/22 Urinary Catheter Time of Insertion: 19:14 Data 11/24/22 12:15 11/24/22 12:15 Micro: Microbiology 11/24/22 12:39 Blood Culture - Preliminary Blood SPECIMEN COLLECTED 11/24/22 12:32 Blood Culture - Preliminary Blood SPECIMEN COLLECTED A&P Assessment and plan (1) Acute kidney injury superimposed on chronic kidney disease: Plan 1. Acute on chronic kidney disease: Baseline creatinine in the 1.3-1.4 range, last creatinine was 1.4 in October 2022. Now has AICHA with a creatinine of 5.2, likely multifactorial possible cardiorenal, denies NSAID use no recent IV contrast exposure. No obstruction on CT. UA with no protein no blood. -Agree with Lasix drip, will add IV albumin -Check urine electrolytes, check CK level -Avoid contrast studies and nephrotoxins 2 g sodium restriction and 1500 mill fluid restriction -Strict intake and output 2. New onset CHF: Echocardiogram pending, Lasix as above 3. Anemia: We will check iron studies, will need to order LINDA if indicated 4. MBD: Noted to have elevated Phos, elevated PTH and low calcium, check vitamin D level. Add calcitriol 5. History of hypertension: Blood pressure elevated on presentation, improved now Patient evaluated using audiovisual cart time spent 40 minutes. Consult Attestations Medical Necessity Statement: per mediroseannene team Coding Level of Care Code Acute Code for g Fwd Diagnoses Acute kidney injury superimposed on chronic kidney disease N17.9; N18.9
[2022-11-24] MEDS: budesonide 0.5 mg/2 mL Neb INHALATION (20:23)
[2022-11-24] MEDS: ipratropium-albuterol 3 mL Neb INHALATION (20:23)
[2022-11-24] MEDS: insulin glargine 100 units/1 mL 20 UNIT SUBCUT (20:24)
[2022-11-24] MEDS: gabapentin 100 mg Capsule PO (20:24)
[2022-11-24] MEDS: heparin 5,000 unit/mL INJ 1 mL 5000 UNIT SUBCUT (20:24)
[2022-11-24] MEDS: albumin 25 G/100 ML VIAL IV (20:38)
[2022-11-24 20:40] LABS: Creatine Phosphokinase 150 U/L (39-308)
[2022-11-24 20:42] LABS: Glucose Point of Care 208 mg/dL (70-110)
[2022-11-24] MEDS: insulin lispro 100 unit/1 mL SUBCUT (23:19)
[2022-11-25] VITALS (14 sets, daily range): BP systolic 124–165; BP diastolic 70–105; PULSE 66–84; RESP 17–23; TEMP 36.6–37.6; O2SAT 88–96
[2022-11-25] MEDS: amlodipine 5 mg Tablet PO (00:46)
[2022-11-25] MEDS: FUROsemide 100 MG in sodium chloride 0.9% 40 ML 7.5 MG IV ×4 (00:47→23:20)
--- NOTE | 2022-11-25 00:59 | USR_ITS ---
PROCEDURE INFORMATION: Exam: US Retroperitoneal; Complete; Kidneys and Bladder Exam date and time: 11/25/2022 2:17 AM Age: 77 years old Clinical indication: Other: Hematuria; Additional info: New hematuria TECHNIQUE: Imaging protocol: Real-time ultrasound of the retroperitoneum with image documentation. Complete exam focused on the kidneys and bladder. COMPARISON: US CV. echo wo/w contrast [id number] 10/16/2022 5:31 PM FINDINGS: The right kidney measures 11.4 cm in length. The left kidney measures 13.2 cm in length. There is no hydronephrosis or perinephric fluid. Neither ureter is visible or obviously dilated. The renal parenchymal thickness and echogenicity appear within normal limits for age. Suspect a small cyst in the right kidney, measuring 15 x 11 x 14 mm There is no sonographically visible renal calculus, or solid mass. The urinary bladder is not well visualized or evaluated at this time. The patient reportedly has a catheter in the bladder. US/US renal BI* [id number] IMPRESSION: 1. Suspect a small cyst in the right kidney, measuring 15 x 11 x 14 mm 2. Otherwise essentially sonographic appearance of the kidneys. 3. No hydronephrosis. 4. Other details discussed above.
--- NOTE | 2022-11-25 01:00 | PC.NURSE ---
This nurse went to change out IV lasix drip bag and give one time dose of amlodipine. This nurse noticed the pt's bansal bag was getting full and the urine was now bright red/pink. This nurse emptied 1200mLs of bright red/pink urine from bansal bag and notified Dr Andrea. Dr Andrea ordered US of kidneys and bladder.
[2022-11-25 04:46] LABS: Basophils % 0.7 %; Eosinophils # 0.5 10^3/uL (0.0-0.8); Eosinophils % 9.3 %; Hematocrit 32.8 % (37-53); Lymphocytes # 0.7 10^3/uL (0.8-4.8); Lymphocytes % 13.5 %; Mean Corpuscular HGB Conc 30.8 g/dL (30-55); Mean Corpuscular Hemoglobin 29.7 pg (27-33); Mean Corpuscular Volume 96.5 fl (82-101); Mean Platelet Volume 8.8 fL (7.4-10.4); Monocytes # 0.6 10^3/uL (0.2-0.9); Monocytes % 10.4 %; Neutrophils # 3.62 10^3/uL (1.8-7.7); Neutrophils % 65.9 %; Nucleated Red Blood Cells % 0 %; Platelet Count 176 10^3/cmm (157-399); Red Cell Distribution Width 12.4 % (12.1-15.1); White Blood Count 5.49 10^3/uL (3.29-11.43)
[2022-11-25 05:03] LABS: Alanine Aminotransferase 11 U/L (0-41); Albumin Level 2.8 g/dL (3.5-5.2); Alkaline Phosphatase 91 U/L (40-130); Anion Gap 14.4 (5-19); Aspartate Amino Transferase 16 U/L (0-40); Blood Urea Nitrogen 42 mg/dL (8-23); Calcium 8.3 mg/dL (8.5-10.5); Carbon Dioxide 26 mmol/L (22-29); Chloride 106 mmol/L (98-107); Globulin 3.1 g/dL (1.3-4.6); Glucose 106 mg/dL (65-115); Magnesium 1.9 mg/dL (1.7-2.3); Osmolality Calculated 305 mOsm/kg (285-295); Phosphorus 5.5 mg/dL (2.5-4.5); Potassium 4.4 mmol/L (3.5-5.1); Sodium 142 mmol/L (136-145); Total Bilirubin 0.4 mg/dL (0.15-1.2); Total Protein 5.9 g/dL (6.6-8.7)
[2022-11-25] MEDS: albumin 25 G/100 ML VIAL IV ×3 (05:45→21:24)
[2022-11-25 06:29] LABS: Glucose Point of Care 104 mg/dL (70-110)
[2022-11-25] MEDS: budesonide 0.5 mg/2 mL Neb INHALATION ×2 (07:35→20:20)
[2022-11-25] MEDS: ipratropium-albuterol 3 mL Neb INHALATION ×4 (07:35→20:20)
--- NOTE | 2022-11-25 07:48 | USCV_ITS ---
Devyn Luo Age: 77 Gender: M : 1945 Exam Date: 11/25/2022 08:46 Ordering Phys: Charlie Noble MD Technologist: Mason Blanton Exam Location: [facility] – [place] Indication: CHF BP: 151 / 79 HR: 78 Rhythm: Sinus Technical Quality: Adequate MEASUREMENTS (Male / Female) Normal Values 2D ECHO LVOT Diameter 2.2 cm LV Ejection Fraction MOD 2C 64.0 % LV Ejection Fraction 2C AL 64.4 % LA Diameter 4.0 cm LA Width 4.2 cm LA Height 4.6 cm RA Width 3.6 cm RA Height 3.5 cm Aorta at Sinotubular Diameter 2.7 cm M-MODE Aortic Annulus Diameter 3.3 cm LA Ao Ratio MM 1.4 MV E Point Septal Separation 0.6 cm DOPPLER AV Peak Velocity 142.0 cm/s LVOT Peak Velocity 110.0 cm/s AV Area Cont Eq vti 2.8 cm squared AV Area Cont Eq pk 2.9 cm squared MV Peak Velocity 117.0 cm/s MV Area PHT 3.5 cm squared Mitral E to A Ratio 1.4 MV E' Velocity 56.0 cm/s Mitral E to MV E' Ratio 10.0 Mitral E to LV E' Lateral Ratio 8.3 Mitral E to LV E' Septal Ratio 12.8 TR Peak Velocity 154.0 cm/s TR Peak Gradient 9.5 mmHg TR Mean Velocity 108.7 cm/s TR Mean Gradient 5.2 mmHg TR Velocity Time Integral 30.2 cm Right Atrial Pressure 8.0 mmHg Pulmonary Artery Systolic Pressu 17.5 mmHg PV Peak Velocity 99.0 cm/s RV Acceleration Time 0.1 s RV Ejection Time 0.3 s RV AcT/ET 0.4 FINDINGS Left Ventricle Normal left ventricular size and systolic function, EF 62 %. No regional wall motion abnormalities. Right Ventricle The right ventricle is normal in size and function. Right Atrium The right atrium is normal in size. Left Atrium The left atrium is normal in size. Mitral Valve Normal abnormality gross abnormalities noted Aortic Valve Thickened aortic valve. Tricuspid Valve Trace to mild tricuspid valve regurgitation. Pulmonic Valve Pulmonic valve not well visualized. Pericardium Normal pericardium without effusion. Aorta Normal ascending aorta dimension. IVC Inferior vena cava not visualized. CONCLUSIONS Normal left ventricular size and systolic function, EF 62 %. No regional wall motion abnormalities. Thickened aortic valve. Trace to mild tricuspid valve regurgitation. Estimated pulmonary artery peak systolic pressure, within normal limits There is no pericardial effusion. Technically difficult study because of the poor ultrasonic window. Dr Gilles Galvez MD FAC (Electronically Signed) Final Date: 25 November 2022 13:07 S
[2022-11-25] MEDS: sennosides-docusate Tablet 1 TAB PO (08:08)
[2022-11-25] MEDS: cetirizine 10 mg Tablet PO (08:08)
[2022-11-25] MEDS: fluticasone nasal spray 16gm Btl 1 SPRAY INTRANASAL ×2 (08:08→17:59)
[2022-11-25] MEDS: finasteride 5 mg Tablet PO (08:08)
[2022-11-25] MEDS: heparin 5,000 unit/mL INJ 1 mL 5000 UNIT SUBCUT ×2 (08:08→21:15)
[2022-11-25] MEDS: aspirin 81 mg Chew Tablet PO (08:08)
[2022-11-25] MEDS: atorvastatin 40 mg Tablet 80 MG PO (08:08)
[2022-11-25] MEDS: famotidine 20 mg Tablet PO ×2 (08:08→17:58)
--- NOTE | 2022-11-25 08:56 | P.PN_ITS ---
Subjective Subjective: Patient reports ongoing shortness of breath, albeit slightly improved compared to yesterday. Endorses chills overnight. Denies nausea, emesis, or fevers. Reports ongoing diffuse weakness. Discuss labs results, urinary output, and plan of care. Medications: Reviewed: Yes Vitals/I&O/Wt Last Vital Signs Temp 98.2 F 11/25/22 04:20 Pulse 67 11/25/22 07:37 Resp 18 11/25/22 07:37 BP 151/79 11/25/22 07:29 Pulse Ox 94 11/25/22 07:37 O2 Del Method Nasal Cannula 11/25/22 07:37 O2 Flow Rate 3 11/25/22 07:37 FiO2 28 11/24/22 20:55 11/24/22 11/25/22 11/25/22 22:59 06:59 14:59 Intake Total 250 / 250 50 / 300 510 / 510 Output Total 1000 / 1000 2200 / 3200 Balance -750 / -750 -2150 / -2900 510 / 510 Weight last 48 hrs Weight 160.118 kg Physical Exam Narrative: General: Patient is awake. Alert. Head: Normocephalic. Atraumatic. EOM intact. Neck: JVD difficult to assess due to large neck. Cardiovascular: RRR. No gallops. No murmurs. 3+ edema in bilateral lower extremities, similar to yesterdays exam. Lungs: Breath sounds diminished bilateral bases. Dependent crackles are present. No wheezing. Skin: No jaundice. No rashes. Abdomen: Normal bowel sounds, abdomen soft and nontender. Extremities: No cyanosis or clubbing. Musculoskeletal: No erythematous joints. Neurological: Moves all 4 extremities. No focal neuro deficits. No myoclonus. Urinary Catheter Management: Lundy: Cath Placed During This Visit: yes Reason for Continuing Indwelling Catheter: Other Urinary Catheter Date of Insertion: 11/24/22 Urinary Catheter Time of Insertion: 19:14 Data 11/25/22 04:22 11/25/22 04:22 Micro: Microbiology 11/24/22 12:39 Blood Culture - Preliminary Blood SPECIMEN COLLECTED 11/24/22 12:32 Blood Culture - Preliminary Blood SPECIMEN COLLECTED A&P Assessment and plan (1) Acute kidney injury superimposed on chronic kidney disease: Cr remains elevated, good urinary output w/ Lasix drip Previously baseline Cr ~1.3 Etiology unclear, broad ddx Avoid nephrotoxins Strict I&Os No hydro Renal US reviewed Nephro following, appreciate assistance (2) CHF (congestive heart failure): Presentation c/w newly diagnosed congestive heart failure Remains significantly volume overloaded on exam Repeat echo ordered Continue Lasix drip (3) Infiltrate noted on imaging study: Concern for infiltrate on initial chest xray CT imaging reviewed (4) COPD (chronic obstructive pulmonary disease): At risk for COPD exacerbation, how threshold for systemic steroids Nebulizing treatments Supplemental oxygen support (5) BPH (benign prostatic hyperplasia): Continue Flomax Continue finasteride (6) Peripheral neuropathy: Continue gabapentin, dose reduced d/t renal clearance (7) Type 2 diabetes mellitus: Continue Lantus, reduce home dose d/t renal clearance SSI Monitor BS closely, insulin will likely need adjusted Avoid hypoglycemia (8) Abdominal distention: Imaging reviewed (9) Slurred speech: Onset now>1 week ago, speech now improved Monitoring mentation Continue aspirin Continue high intensity statin (10) Generalized weakness: A/w debility and physical deconditioning Secondary to acute illness Start therapy, OOB (11) Morbid obesity: Would benefit from weight loss Plan DVT ppx: Heparin Attestations Medical Necessity Statement*: Patient requires ongoing hospitalization for IV Lasix drip, electrolyte management, nephro expertise, telemetry, therapy, and supportive care. Coding Level of Care Code Acute Code for [facility] Fwd Diagnoses Acute kidney injury superimposed on chronic kidney disease N17.9; N18.9 CHF (congestive heart failure) I50.9 Infiltrate noted on imaging study R93.89 COPD (chronic obstructive pulmonary disease) J44.9 BPH (benign prostatic hyperplasia) N40.0 Peripheral neuropathy G62.9 Type 2 diabetes mellitus E11.9 Abdominal distention R14.0 Slurred speech R47.81 Generalized weakness R53.1 Morbid obesity E66.01
[2022-11-25 11:01] LABS: Glucose Point of Care 159 mg/dL (70-110)
--- NOTE | 2022-11-25 11:34 | PM.PN ---
Subjective Subjective: no new complaints Medications: Reviewed: Yes Vitals/I&O/Wt Last Vital Signs Temp 98.2 F 11/25/22 04:20 Pulse 75 11/25/22 11:15 Resp 18 11/25/22 11:15 BP 151/79 11/25/22 07:29 Pulse Ox 93 11/25/22 11:15 O2 Del Method Nasal Cannula 11/25/22 11:15 O2 Flow Rate 2 11/25/22 11:15 FiO2 28 11/24/22 20:55 11/24/22 11/25/22 11/25/22 22:59 06:59 14:59 Intake Total 250 / 250 50 / 300 510 / 510 Output Total 1000 / 1000 2200 / 3200 1200 / 1200 Balance -750 / -750 -2150 / -2900 -690 / -690 Weight last 48 hrs Weight 160.118 kg Physical Exam Narrative: awake ,alert heent s1s2 rrr lungs clear per report + edema Urinary Catheter Management: Lundy: Cath Placed During This Visit: yes Reason for Continuing Indwelling Catheter: Other Urinary Catheter Date of Insertion: 11/24/22 Urinary Catheter Time of Insertion: 19:14 Data 11/25/22 04:22 11/25/22 04:22 Micro: Microbiology 11/24/22 12:39 Blood Culture - Preliminary Blood SPECIMEN COLLECTED 11/24/22 12:32 Blood Culture - Preliminary Blood SPECIMEN COLLECTED A&P Assessment and plan (1) Acute kidney injury superimposed on chronic kidney disease: Plan 1. Acute on chronic kidney disease: Baseline creatinine in the 1.3-1.4 range, last creatinine was 1.4 in October 2022. Now has AICHA with a creatinine of 5.2, likely multifactorial possible cardiorenal, denies NSAID use no recent IV contrast exposure. No obstruction on CT. UA with no protein no blood. -c/w Lasix drip, + IV albumin -Check urine electrolytes, check CK level -Avoid contrast studies and nephrotoxins 2 g sodium restriction and 1500 mill fluid restriction -Strict intake and output - cr worse @ 5.4 , monitor 2. New onset CHF: Echocardiogram pending, Lasix as above 3. Anemia: We will check iron studies, will need to order LINDA if indicated 4. MBD: Noted to have elevated Phos, elevated PTH and low calcium, check vitamin D level. Add calcitriol 5. History of hypertension: Blood pressure elevated on presentation, improved now Patient evaluated using audiovisual cart time spent 40 minutes. Attestations Medical Necessity Statement*: per mediicne team Coding Level of Care Code Acute Code for Chg Fwd Diagnoses Acute kidney injury superimposed on chronic kidney disease N17.9; N18.9
[2022-11-25 12:35] LABS: Urine Random Chloride 126 mmol/L; Urine Random Sodium 125 mmol/L
[2022-11-25] MEDS: nystatin cream 30 gm 1 APPLIC TOPICAL ×2 (12:35→17:58)
[2022-11-25] MEDS: insulin lispro 100 unit/1 mL SUBCUT ×3 (12:35→21:57)
--- NOTE | 2022-11-25 17:45 | PC.NURSE ---
Patient arrived from med surg via bed. Patient is alert and oriented family at bedside. Nurse will continue to monitor.
[2022-11-25] MEDS: tamsulosin 0.4 mg Capsule PO (17:58)
[2022-11-25 19:15] LABS: Glucose Point of Care 179 mg/dL (70-110)
[2022-11-25] MEDS: gabapentin 100 mg Capsule PO (21:15)
[2022-11-25 21:20] LABS: Glucose Point of Care 213 mg/dL (70-110)
[2022-11-25] MEDS: insulin glargine 100 units/1 mL 20 UNIT SUBCUT (21:27)
[2022-11-26] VITALS (56 sets, daily range): BP systolic 109–179; BP diastolic 48–86; PULSE 67–87; RESP 15–34; TEMP 36.4–37.1; O2SAT 86–96
[2022-11-26 05:21] LABS: Basophils % 0.5 %; Eosinophils # 0.6 10^3/uL (0.0-0.8); Eosinophils % 10.5 %; Hematocrit 29.1 % (37-53); Lymphocytes # 0.7 10^3/uL (0.8-4.8); Lymphocytes % 12.5 %; Mean Corpuscular Hemoglobin 30.6 pg (27-33); Mean Corpuscular Volume 95.7 fl (82-101); Mean Platelet Volume 9.1 fL (7.4-10.4); Monocytes # 0.6 10^3/uL (0.2-0.9); Monocytes % 10.3 %; Neutrophils % 65.8 %; Nucleated Red Blood Cells % 0 %; Platelet Count 190 10^3/cmm (157-399); Red Blood Count 3.04 10^6/uL (3.85-5.65); Red Cell Distribution Width 12.4 % (12.1-15.1); White Blood Count 5.62 10^3/uL (3.29-11.43)
[2022-11-26] MEDS: albumin 25 G/100 ML VIAL IV ×3 (05:26→21:26)
[2022-11-26 05:34] LABS: Albumin Level 3.2 g/dL (3.5-5.2); Anion Gap 12.8 (5-19); Blood Urea Nitrogen 46 mg/dL (8-23); Calcium 8.4 mg/dL (8.5-10.5); Carbon Dioxide 29 mmol/L (22-29); Chloride 100 mmol/L (98-107); Glucose 74 mg/dL (65-115); Magnesium 1.8 mg/dL (1.7-2.3); Phosphorus 6.6 mg/dL (2.5-4.5); Potassium 3.8 mmol/L (3.5-5.1); Sodium 138 mmol/L (136-145)
[2022-11-26 06:59] LABS: Glucose Point of Care 89 mg/dL (70-110)
[2022-11-26] MEDS: budesonide 0.5 mg/2 mL Neb INHALATION ×2 (07:19→20:21)
[2022-11-26] MEDS: ipratropium-albuterol 3 mL Neb INHALATION ×4 (07:19→20:21)
[2022-11-26] MEDS: aspirin 81 mg Chew Tablet PO (08:25)
[2022-11-26] MEDS: sennosides-docusate Tablet 1 TAB PO (08:25)
[2022-11-26] MEDS: cetirizine 10 mg Tablet PO (08:25)
[2022-11-26] MEDS: finasteride 5 mg Tablet PO (08:25)
[2022-11-26] MEDS: famotidine 20 mg Tablet PO ×2 (08:25→17:57)
[2022-11-26] MEDS: heparin 5,000 unit/mL INJ 1 mL 5000 UNIT SUBCUT (08:25)
[2022-11-26] MEDS: atorvastatin 40 mg Tablet 80 MG PO (08:25)
[2022-11-26] MEDS: fluticasone nasal spray 16gm Btl 1 SPRAY INTRANASAL ×2 (08:38→17:58)
[2022-11-26] MEDS: nystatin cream 30 gm 1 APPLIC TOPICAL ×2 (08:38→17:58)
--- NOTE | 2022-11-26 10:29 | PM.PN ---
Subjective Subjective: Patient endorses ongoing shortness of breath, edema, weakness, and fatigue. Denies nausea, emesis, fevers or chest pain. Denies confusion. No reports of confusion / altered mental status since admission. Medications: Reviewed: Yes Vitals/I&O/Wt Last Vital Signs Temp 98.7 F 11/26/22 08:15 Pulse 67 11/26/22 08:15 Resp 23 H 11/26/22 08:15 BP 140/62 11/26/22 08:15 Pulse Ox 90 11/26/22 08:15 O2 Del Method Nasal Cannula 11/26/22 08:15 O2 Flow Rate 3 11/26/22 08:15 FiO2 28 11/24/22 20:55 11/25/22 11/26/22 11/26/22 22:59 06:59 14:59 Intake Total 1240 / 1920 150 / 2070 510 / 510 Output Total 2700 / 3900 1770 / 5670 Balance -1460 / -1980 -1620 / -3600 510 / 510 Weight last 48 hrs Weight 160.118 kg Physical Exam Narrative: General: Patient is awake. Alert. Conversational. Head: Normocephalic. Atraumatic. EOM intact. Neck: Supple. JVD difficult to assess due to large neck. Cardiovascular: RRR. No gallops. No murmurs. 3+ edema in bilateral lower extremities. Lungs: Breath sounds diminished bilateral bases. Dependent crackles are present. No wheezing. Skin: No jaundice. No rashes. Abdomen: Normal bowel sounds, abdomen soft and nontender. Extremities: No cyanosis or clubbing. Musculoskeletal: No erythematous joints. Neurological: Moves all 4 extremities. No focal neuro deficits. No myoclonus. Urinary Catheter Management: Lundy: Cath Placed During This Visit: yes Reason for Continuing Indwelling Catheter: Accurate Measurement of Urinary Output in Critically Ill Patients Urinary Catheter Date of Insertion: 11/24/22 Urinary Catheter Time of Insertion: 19:14 Data 11/26/22 04:32 11/26/22 04:32 Micro: Microbiology 11/24/22 12:39 Blood Culture - Preliminary Blood NEGATIVE TO DATE 11/24/22 12:32 Blood Culture - Preliminary Blood NEGATIVE TO DATE A&P Assessment and plan (1) Acute kidney injury superimposed on chronic kidney disease: Previously baseline Cr ~1.3 Good urinary output, however Cr increasing, now 6.2, Lasix drip d/c this AM by nephro Ddx remains broad, d/w nephrology Continue albumin Avoid nephrotoxins Lundy for strict I&Os No hydronephrosis on imaging Admission UA fairly benign, will repeat urinalysis Nephro following, appreciate recommendations (2) CHF (congestive heart failure): Presentation c/w newly diagnosed congestive heart failure Remains volume overloaded Repeat echo reviewed, persistently poor windows likley 2/2 body habitus, but LVEF again preserved at 62%, no RWMA, and some mild valvular abnormalities Lasix drip discontinue due to increasing creatinine (3) Infiltrate noted on imaging study: Pneumonia initially considered on admission, but further workup revealed no infiltrated on CT imaging Remains afebrile No leukocytosis CAP considered but ruled out (4) COPD (chronic obstructive pulmonary disease): No wheezing, no evidence of acute exacerbation, continue to monitor for such Nebulizing treatments Supplemental oxygen support (5) BPH (benign prostatic hyperplasia): No urinary retention on imaging Continue Flomax Continue finasteride (6) Peripheral neuropathy: Continue gabapentin, dose reduced d/t renal clearance (7) Type 2 diabetes mellitus: Continue Lantus, AM glucose is borderline low, will decrease dose slightly SSI Avoid hypoglycemia (8) Slurred speech: Onset now>1 week ago, resolved Monitoring mentation, no recurrence since admitted Continue aspirin Continue high intensity statin (9) Generalized weakness: A/w debility and physical deconditioning Secondary to acute illness Treat underlying renal failure Therapy (10) Morbid obesity: Would benefit from weight loss Plan DVT ppx: Heparin Attestations Medical Necessity Statement*: Patient requires ongoing hospitalization for management of renal function with possibility of needing initiation of renal replacement, IV fluid balance management, electrolyte management, nephro expertise, telemetry, therapy, and supportive care. Coding Level of Care Code Acute Code for g Fwd Diagnoses Acute kidney injury superimposed on chronic kidney disease N17.9; N18.9 CHF (congestive heart failure) I50.9 Infiltrate noted on imaging study R93.89 COPD (chronic obstructive pulmonary disease) J44.9 BPH (benign prostatic hyperplasia) N40.0 Peripheral neuropathy G62.9 Type 2 diabetes mellitus E11.9 Slurred speech R47.81 Generalized weakness R53.1 Morbid obesity E66.01
--- NOTE | 2022-11-26 10:53 | PM.PN ---
Subjective Subjective: denies any complaints Medications: Reviewed: Yes Vitals/I&O/Wt Last Vital Signs Temp 98.7 F 11/26/22 08:15 Pulse 67 11/26/22 08:15 Resp 23 H 11/26/22 08:15 BP 140/62 11/26/22 08:15 Pulse Ox 90 11/26/22 08:15 O2 Del Method Nasal Cannula 11/26/22 08:15 O2 Flow Rate 3 11/26/22 08:15 FiO2 28 11/24/22 20:55 11/25/22 11/26/22 11/26/22 22:59 06:59 14:59 Intake Total 1240 / 1920 150 / 2070 510 / 510 Output Total 2700 / 3900 1770 / 5670 Balance -1460 / -1980 -1620 / -3600 510 / 510 Weight last 48 hrs Weight 160.118 kg Physical Exam Narrative: awake ,alert heent s1s2 rrr lungs clear per report + edema Urinary Catheter Management: Lundy: Cath Placed During This Visit: yes Reason for Continuing Indwelling Catheter: Accurate Measurement of Urinary Output in Critically Ill Patients Urinary Catheter Date of Insertion: 11/24/22 Urinary Catheter Time of Insertion: 19:14 Data 11/27/22 05:10 11/27/22 05:10 Micro: Microbiology 11/24/22 12:39 Blood Culture - Preliminary Blood NEGATIVE TO DATE 11/24/22 12:32 Blood Culture - Preliminary Blood NEGATIVE TO DATE A&P Assessment and plan (1) Acute kidney injury superimposed on chronic kidney disease: Plan 1. Acute on chronic kidney disease: Baseline creatinine in the 1.3-1.4 range, last creatinine was 1.4 in October 2022. Now has AICHA with a creatinine of 5.2, likely multifactorial possible cardiorenal, denies NSAID use no recent IV contrast exposure. No obstruction on CT. UA with no protein no blood. -Cr is worse @ 6.2 , c/w IV albumin , , hold Lasix drip -Check urine electrolytes, normal CK level -Avoid contrast studies and nephrotoxins 2 g sodium restriction and 1500 mill fluid restriction -Strict intake and output 2. New onset CHF: Echocardiogram noted 3. Anemia: We will check iron studies, will need to order LINDA if indicated 4. MBD: Noted to have elevated Phos, elevated PTH and low calcium, check vitamin D level. Add calcitriol 5. History of hypertension: Blood pressure elevated on presentation, improved now Patient evaluated using audiovisual cart time spent 40 minutes. Attestations Medical Necessity Statement*: per medcine team Coding Level of Care Code Acute Code for Chg Fwd Diagnoses Acute kidney injury superimposed on chronic kidney disease N17.9; N18.9
[2022-11-26 11:35] LABS: Glucose Point of Care 147 mg/dL (70-110)
[2022-11-26 12:02] LABS: Glucose Urine UA Norm (Normal); Protein Urine 3+ (Negative); Specific Gravity, Urine 1.005 (1.005-1.030); Urine Appearance Cloudy (CLEAR); Urine Color Red (Yellow); pH Urine 5 (5-7)
[2022-11-26 12:03] LABS: Bilirubin Urine Neg (Negative); Blood Urine 3+ (Negative); Ketones Urine Negative (Negative); Leukocyte Esterase Urine Trace (Negative); Nitrate Urine Negative (Negative); Urobilinogen Urine Norm (Negative)
[2022-11-26 12:04] LABS: Bacteria Urine TRACE /hpf; RBC Urine TOO NUMEROUS TO CNT /hpf (0-2); WBC Urine 0-4 /hpf (0-5)
[2022-11-26 12:05] LABS: Add Urine Culture? Yes
[2022-11-26] MEDS: insulin lispro 100 unit/1 mL SUBCUT ×3 (12:39→21:18)
--- NOTE | 2022-11-26 16:02 | PC.NURSE ---
Report called to [place] nurse, Suzi. Patient to be transferred to room 275 via bed accompanied by family and this nurse. Belongings transferred with patientand placed at bedside.
[2022-11-26 17:14] LABS: Glucose Point of Care 147 mg/dL (70-110)
[2022-11-26] MEDS: tamsulosin 0.4 mg Capsule PO (17:58)
[2022-11-26 20:13] LABS: Glucose Point of Care 141 mg/dL (70-110)
[2022-11-26] MEDS: insulin glargine 100 units/1 mL 18 UNIT SUBCUT (21:18)
[2022-11-26] MEDS: gabapentin 100 mg Capsule PO (21:18)
[2022-11-27] VITALS (11 sets, daily range): BP systolic 111–169; BP diastolic 62–77; PULSE 65–77; RESP 18–19; TEMP 36.4–36.7; O2SAT 92–97
[2022-11-27] MEDS: albumin 25 G/100 ML VIAL IV ×2 (05:25→13:46)
[2022-11-27 05:30] LABS: Basophils % 0.4 %; Eosinophils # 0.5 10^3/uL (0.0-0.8); Eosinophils % 9.6 %; Hematocrit 28.2 % (37-53); Lymphocytes # 0.8 10^3/uL (0.8-4.8); Lymphocytes % 15.5 %; Mean Corpuscular HGB Conc 31.2 g/dL (30-55); Mean Corpuscular Hemoglobin 30.2 pg (27-33); Mean Corpuscular Volume 96.9 fl (82-101); Mean Platelet Volume 8.9 fL (7.4-10.4); Monocytes # 0.6 10^3/uL (0.2-0.9); Monocytes % 10.7 %; Neutrophils # 3.46 10^3/uL (1.8-7.7); Neutrophils % 63.6 %; Nucleated Red Blood Cells % 0 %; Platelet Count 168 10^3/cmm (157-399); Red Blood Count 2.91 10^6/uL (3.85-5.65); Red Cell Distribution Width 12.3 % (12.1-15.1); White Blood Count 5.43 10^3/uL (3.29-11.43)
[2022-11-27 05:58] LABS: Albumin Level 3.2 g/dL (3.5-5.2); Anion Gap 16.3 (5-19); Blood Urea Nitrogen 52 mg/dL (8-23); Calcium 8.3 mg/dL (8.5-10.5); Carbon Dioxide 30 mmol/L (22-29); Chloride 102 mmol/L (98-107); Glucose 95 mg/dL (65-115); Magnesium 1.8 mg/dL (1.7-2.3); Phosphorus 6.8 mg/dL (2.5-4.5); Potassium 4.3 mmol/L (3.5-5.1); Sodium 144 mmol/L (136-145)
[2022-11-27 06:42] LABS: Glucose Point of Care 95 mg/dL (70-110)
[2022-11-27] MEDS: budesonide 0.5 mg/2 mL Neb INHALATION (07:49)
[2022-11-27] MEDS: ipratropium-albuterol 3 mL Neb INHALATION ×3 (07:49→15:20)
[2022-11-27] MEDS: atorvastatin 40 mg Tablet 80 MG PO (08:14)
[2022-11-27] MEDS: famotidine 20 mg Tablet PO (08:14)
[2022-11-27] MEDS: finasteride 5 mg Tablet PO (08:14)
[2022-11-27] MEDS: cetirizine 10 mg Tablet PO (08:14)
[2022-11-27] MEDS: sennosides-docusate Tablet 1 TAB PO (08:14)
[2022-11-27] MEDS: calcitriol 0.25 mcg Capsule 0.5 MCG PO (08:16)
[2022-11-27] MEDS: nystatin cream 30 gm 1 APPLIC TOPICAL (08:17)
[2022-11-27] MEDS: fluticasone nasal spray 16gm Btl 1 SPRAY INTRANASAL (08:17)
--- NOTE | 2022-11-27 09:51 | PM.PN ---
Subjective Subjective: no new complaints Medications: Reviewed: Yes Vitals/I&O/Wt Last Vital Signs Temp 97.5 F L 11/27/22 07:51 Pulse 74 11/27/22 07:55 Resp 19 H 11/27/22 07:51 BP 111/70 11/27/22 07:51 Pulse Ox 97 11/27/22 07:51 O2 Del Method Nasal Cannula 11/27/22 07:51 O2 Flow Rate 3 11/27/22 07:49 FiO2 28 11/24/22 20:55 11/26/22 11/27/22 11/27/22 22:59 06:59 14:59 Intake Total 120 / 970 100 / 1070 340 / 340 Output Total 650 / 1730 Balance 120 / -110 -550 / -660 340 / 340 Weight last 48 hrs Weight 160.118 kg Physical Exam Narrative: awake ,alert heent s1s2 rrr lungs clear per report + edema Urinary Catheter Management: Lundy: Cath Placed During This Visit: yes Reason for Continuing Indwelling Catheter: Accurate Measurement of Urinary Output in Critically Ill Patients Urinary Catheter Date of Insertion: 11/24/22 Urinary Catheter Time of Insertion: 19:14 Data 11/27/22 05:10 11/27/22 05:10 A&P Assessment and plan (1) Acute kidney injury superimposed on chronic kidney disease: Plan 1. Acute on chronic kidney disease: Baseline creatinine in the 1.3-1.4 range, last creatinine was 1.4 in October 2022. Now has AICHA with a creatinine of 5.2, likely multifactorial possible cardiorenal, denies NSAID use no recent IV contrast exposure. No obstruction on CT. UA with no protein no blood. -Cr is worse @ 7.2 , lasix drip on hold , on OV albumin - rapidly rising Cr, ordered serologies , may require renal biopsy , repeat UA showed + protein and + blood , will discuss transfer for higher level of care - for renal biopsy -Avoid contrast studies and nephrotoxins 2 g sodium restriction and 1500 mill fluid restriction -Strict intake and output 2. New onset CHF: Echocardiogram noted 3. Anemia: We will check iron studies, will need to order LINDA if indicated 4. MBD: Noted to have elevated Phos, elevated PTH and low calcium, check vitamin D level. Add calcitriol 5. History of hypertension: Blood pressure elevated on presentation, improved now Patient evaluated using audiovisual cart time spent 40 minutes. Attestations Medical Necessity Statement*: per medicine team Coding Level of Care Code Acute Code for Chg Fwd Diagnoses Acute kidney injury superimposed on chronic kidney disease N17.9; N18.9
[2022-11-27 10:00] LABS: Complement C3 135 mg/dL (90-180)
[2022-11-27 11:00] LABS: Glucose Point of Care 132 mg/dL (70-110)
[2022-11-27 14:05] LABS: Methicillin-Resist S.aureu PCR NOT DETECTED (NOT DETECTED)
--- NOTE | 2022-11-27 16:01 | PC.SOCIAL ---
Pg 2 IMM Explained to pt Pg 2 IMM. No questions voiced. Provided pt a copy. Initialed, dated, & timed a copy & placed in chart.
--- NOTE | 2022-11-27 16:09 | PC.NURSE ---
notified daughter Venecia Singh of transfer at this time.
--- NOTE | 2022-11-27 16:25 | PC.NURSE ---
Report called to Joyce Delgado RN at [facility] at this time.
[2022-11-27 17:09] LABS: Glucose Point of Care 171 mg/dL (70-110)
--- NOTE | 2022-11-27 17:15 | PM.TDS ---
Transfer Summary Providers Date of Admission: 11/24/22 16:55 Date of Discharge/Transfer: 11/27/22 Attending Provider at Admission: Charlie Noble MD Attending Provider at Transfer: Meg Cantu MD Primary Care Provider: Mariana Cao MD Transfer Plans: Anticipated date of transfer: 11/27/22. Receiving Facility: [place], [place] . Receiving Provider: Hospitalist service . Diagnoses at Discharge Discharge Diagnosis (1) Acute kidney injury superimposed on chronic kidney disease: Status: Acute Reason for Visit Reason for Visit swelling in extremities Hospital Course Hospital Course Devyn Luo is a 77 year old male with a past medical history significant for venous insufficiency, type 2 diabetes mellitus, chronic kidney disease with baseline Cr of 1.3, coronary artery disease, COPD on baseline 2lpm, and morbid obesity who presented to the emergency department with generalized weakness for the past week. Prior to the current hospitalization he was admitted between October 16 of October 19, 2022 with lower extremity ulcers and cellulitis for which she received inpatient treatment with meropenem and was transitioned to Levaquin and doxycycline at the time of discharge for 10 days. His creatinine at discharge was 1.4. In the emergency department on November 24 he was found to have BUN of 42 and a creatinine of 5.2. Other notable labs included an elevated proBNP. Chest x-ray revealed patchy opacities in bilateral lower lobes right greater than left, cardiomegaly and atherosclerosis. Initially overall impression was that of new diagnosis of diastolic heart failure for which patient was started on diuresis with Lasix, including a Lasix drip. However he continued to have increasing creatinine during the course of his admission, most recently this morning at 7.2 BUN at 52. Overall diagnosis of renal failure remains unclear at this point, work-up summarized as below. 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 We do not have the capability to perform a renal biopsy at our center therefore patient is being transferred to higher level of care. Notable work-up thus far: CT of the chest abdomen and pelvis showing moderate right and left pleural effusions. Suspect left and possibly right renal sinus cysts no hydronephrosis or obstructing calculus. Renal ultrasound with normal sonographic appearance of the kidneys without hydronephrosis. COVID PCR negative Complement C3-C4 135 and 29 respectively CYNTHIA and ANCA screen pending UA on November 26, 2022 showing 3+ protein, 3+ blood, prior comparison available only from May which was negative for both blood and protein. Of note UA on November 26 is from a Lundy urine specimen. No obvious nephrotoxic medications per review of his home medication list. No recent contrast studies or interventions Echo: Date of Service: 11/25/22 Procedure(s): CV. echo complete* [id number] ?CONCLUSIONS ?Normal left ventricular size and systolic function, EF 62 %. No ?regional wall motion abnormalities. ?Thickened aortic valve. ?Trace to mild tricuspid valve regurgitation. ?Estimated pulmonary artery peak systolic pressure, within normal ?limits ?There is no pericardial effusion. ?Technically difficult study because of the poor ultrasonic ?window. Physical Exam Narrative: General: No acute distress, AO x3 HEENT: PERRLA, pupils bilaterally equal and reactive, pallors not present Chest: Normal vesicular breath sounds, no added sounds, equal good air entry bilaterally CVS: S1-S2 regular, no murmurs, no tachycardia, no gallops, no rubs Abdomen: Soft, nontender, no organomegaly, bowel sounds present Neuro: No focal deficits, no facial deformity, AO x3, power 5/5 in all limbs Extremities: B/L LE piting edema with stasis dermatitis and dry flaky skin Urinary Catheter Management: Lundy: Cath Placed During This Visit: yes Reason for Continuing Indwelling Catheter: Accurate Measurement of Urinary Output in Critically Ill Patients Urinary Catheter Date of Insertion: 11/24/22 Urinary Catheter Time of Insertion: 19:14 TS Data Studies Completed and Pending Pending at discharge Category Date Time Status CYNTHIA Screen w/ Reflex Routine Lab 11/27/22 05:10 Received ANCA [Anti-Neutrophil Cytoplasmic AB] Routine Lab 11/27/22 05:10 Received Blood Culture Stat Lab 11/24/22 12:39 Results Glomerular Basement AB IGG Routine Lab 11/27/22 05:10 Received Urine Culture Routine Lab 11/26/22 11:33 Results Labs from last 24 hours 11/27/22 11/27/22 11/27/22 16:51 10:56 06:38 WBC RBC Hgb Hct MCV MCH MCHC RDW Plt Count MPV Neut % (Auto) Lymph % (Auto) [place] % (Auto) Eos % (Auto) Baso % (Auto) Neut # (Auto) Lymph # (Auto) [place] # (Auto) Eos # (Auto) Baso # (Auto) Nucleated RBC % (auto) Nucleated RBCs # Sodium Potassium Chloride Carbon Dioxide Anion Gap BUN Creatinine GFR Calculation Glucose POC Glucose 171 H 132 H 95 Calcium Phosphorus Magnesium Albumin CYNTHIA Screen ANCA Screen ANCA Titer Glomerular Base Mem IgG Complement C3 Complement C4 MRSA (PCR) 11/27/22 11/27/22 11/27/22 05:10 05:10 05:10 WBC RBC Hgb Hct MCV MCH MCHC RDW Plt Count MPV Neut % (Auto) Lymph % (Auto) [place] % (Auto) Eos % (Auto) Baso % (Auto) Neut # (Auto) Lymph # (Auto) [place] # (Auto) Eos # (Auto) Baso # (Auto) Nucleated RBC % (auto) Nucleated RBCs # Sodium 144 Potassium 4.3 Chloride 102 Carbon Dioxide 30 H Anion Gap 16.3 BUN 52 H Creatinine 7.2 H* GFR Calculation Not Reportable Glucose 95 POC Glucose Calcium 8.3 L Phosphorus 6.8 H Magnesium 1.8 Albumin 3.2 L CYNTHIA Screen Pending ANCA Screen Pending ANCA Titer Pending Glomerular Base Mem IgG Pending Complement C3 135 Complement C4 29 MRSA (PCR) 11/27/22 11/26/22 11/25/22 05:10 20:05 11:45 WBC 5.43 RBC 2.91 L Hgb 8.80 L Hct 28.2 L MCV 96.9 MCH 30.2 MCHC 31.2 RDW 12.3 Plt Count 168 MPV 8.9 Neut % (Auto) 63.6 Lymph % (Auto) 15.5 [place] % (Auto) 10.7 Eos % (Auto) 9.6 Baso % (Auto) 0.4 Neut # (Auto) 3.46 Lymph # (Auto) 0.8 [place] # (Auto) 0.6 Eos # (Auto) 0.5 Baso # (Auto) 0.0 Nucleated RBC % (auto) 0 Nucleated RBCs # 0.0 Sodium Potassium Chloride Carbon Dioxide Anion Gap BUN Creatinine GFR Calculation Glucose POC Glucose 141 H Calcium Phosphorus Magnesium Albumin CYNTHIA Screen ANCA Screen ANCA Titer Glomerular Base Mem IgG Complement C3 Complement C4 MRSA (PCR) Not detected Completed Studies During Hospitalization Category Date Time Status CT chest abdomen pelvis [[place] [id number] Cat Scan 11/24/22 15:24 Completed ] Stat XR chest 1V portable [id number] Stat Exams 11/24/22 12:00 Completed CV. echo complete* [id number] Routine Ultrasound 10/14/23 07:48 Completed US renal BI* [id number] Stat Ultrasound 11/25/22 00:59 Completed Laboratory Last Values WBC 5.43 10^3/uL (3.29-11.43) 11/27/22 05:10 RBC 2.91 10^6/uL (3.85-5.65) L 11/27/22 05:10 Hgb 8.80 g/dL (11.27-16.99) L 11/27/22 05:10 Hct 28.2 % (37-53) L 11/27/22 05:10 MCV 96.9 fl (82-101) 11/27/22 05:10 MCH 30.2 pg (27-33) 11/27/22 05:10 MCHC 31.2 g/dL (30-55) 11/27/22 05:10 RDW 12.3 % (12.1-15.1) 11/27/22 05:10 Plt Count 168 10^3/cmm (157-399) 11/27/22 05:10 MPV 8.9 fL (7.4-10.4) 11/27/22 05:10 Neut % (Auto) 63.6 % 11/27/22 05:10 Lymph % (Auto) 15.5 % 11/27/22 05:10 [place] % (Auto) 10.7 % 11/27/22 05:10 Eos % (Auto) 9.6 % 11/27/22 05:10 Baso % (Auto) 0.4 % 11/27/22 05:10 Neut # (Auto) 3.46 10^3/uL (1.8-7.7) 11/27/22 05:10 Lymph # (Auto) 0.8 10^3/uL (0.8-4.8) 11/27/22 05:10 [place] # (Auto) 0.6 10^3/uL (0.2-0.9) 11/27/22 05:10 Eos # (Auto) 0.5 10^3/uL (0.0-0.8) 11/27/22 05:10 Baso # (Auto) 0.0 10^3/uL (0.0-0.1) 11/27/22 05:10 Nucleated RBC % (auto) 0 % 11/27/22 05:10 Nucleated RBCs # 0.0 /100WBC 11/27/22 05:10 Sodium 144 mmol/L (136-145) 11/27/22 05:10 Potassium 4.3 mmol/L (3.5-5.1) 11/27/22 05:10 Chloride 102 mmol/L (98-107) 11/27/22 05:10 Carbon Dioxide 30 mmol/L (22-29) H 11/27/22 05:10 Anion Gap 16.3 (5-19) 11/27/22 05:10 BUN 52 mg/dL (8-23) H 11/27/22 05:10 Creatinine 7.2 mg/dL (0.7-1.2) H* 11/27/22 05:10 GFR Calculation Not Reportable 11/27/22 05:10 Glucose 95 mg/dL (65-115) 11/27/22 05:10 POC Glucose 171 mg/dL (70-110) H 11/27/22 16:51 Calculated Osmolality 305 mOsm/kg (285-295) H 11/25/22 04:22 Lactic Acid 1.0 mmol/L (0.5-2.2) 11/24/22 12:15 Calcium 8.3 mg/dL (8.5-10.5) L 11/27/22 05:10 Phosphorus 6.8 mg/dL (2.5-4.5) H 11/27/22 05:10 Magnesium 1.8 mg/dL (1.7-2.3) 11/27/22 05:10 Total Bilirubin 0.4 mg/dL (0.15-1.2) 11/25/22 04:22 AST 16 U/L (0-40) 11/25/22 04:22 ALT 11 U/L (0-41) 11/25/22 04:22 Alkaline Phosphatase 91 U/L (40-130) 11/25/22 04:22 Creatine Kinase 150 U/L (39-308) 11/24/22 12:00 C-Reactive Protein 36.2 mg/L (0.0-4.9) H 11/24/22 12:15 NT-Pro-B Natriuret Pep 2352 pg/mL (0-450) H 11/24/22 12:15 Total Protein 5.9 g/dL (6.6-8.7) L 11/25/22 04:22 Albumin 3.2 g/dL (3.5-5.2) L 11/27/22 05:10 Globulin 3.1 g/dL (1.3-4.6) 11/25/22 04:22 25-OH Vitamin D Total 25 ng/mL (30-100) L 11/24/22 12:15 Procalcitonin 0.22 ng/mL (0-0.5) 11/24/22 12:15 PTH Intact 268.5 pg/mL (15-65) H 11/24/22 12:15 Calcium (PTH Intact) 7.7 mg/dL (8.5-10.5) L 11/24/22 12:15 Urine Color Red (Yellow) A 11/26/22 11: Urine Appearance Cloudy (CLEAR) A 11/26/22 11:33 Urine pH 5 (5-7) 11/26/22 11:33 Ur Specific [place] 1.005 (1.005-1.030) 11/26/22 11:33 Urine Protein 3+ (Negative) H 11/26/22 11:33 Urine Glucose (UA) Norm (Normal) 11/26/22 11:33 Urine Ketones Negative (Negative) 11/26/22 11:33 Urine Blood 3+ (Negative) H 11/26/22 11:33 Urine Nitrate Negative (Negative) 11/26/22 11:33 Urine Bilirubin Neg (Negative) 11/26/22 11:33 Urine Urobilinogen Norm mg/dL (Negative) 11/26/22 11:33 Ur Leukocyte Esterase Trace (Negative) H 11/26/22 11:33 Urine RBC Too numerous to cnt /hpf (0-2) H 11/26/22 11:33 Urine WBC 0-4 /hpf (0-5) H 11/26/22 11:33 Ur Squamous Epith Cells None /hpf (0-5) 11/26/22 11:33 Amorphous Sediment Not Reportable 11/26/22 11:33 Urine Bacteria Trace /hpf (NONE) 11/26/22 11:33 Ur Random Sodium 125 mmol/L 11/25/22 11:47 Ur Random Potassium 42 mmol/L 11/24/22 16:20 Ur Random Chloride 126 mmol/L 11/25/22 11:47 Ur Random Urea Nitrogn 429 mg/dL 11/24/22 16:20 Urine Creatinine 94 mg/dL (39-259) 11/24/22 16:20 Complement C3 135 mg/dL (90-180) 11/27/22 05:10 Complement C4 29 mg/dL (10-40) 11/27/22 05:10 Coronavirus 229E (PCR) Not detected (NOT DETECT) 11/24/22 12:39 SARS-CoV-2 (PCR) Not detected (NOT DETECT) 11/24/22 12:39 MRSA (PCR) Not detected (NOT DETECTED) 11/25/22 11:45 Radiology Impressions Chest/Abdomen/Pelvis CT 11/24/22 15:24 IMPRESSION: 1. Moderate right and small left pleural effusions. 2. 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 IMPRESSION: 1. No acute findings. 2. Dermal thickening and subcutaneous edema of the imaged lower anterior abdominopelvic wall is nonspecific. Consideration for infectious or traumatic etiologies. 3. Additional chronic and incidental findings as above. COMMENTS: Consistent with the [employer]'s Incidental Findings Committee white paper (J Am Jeff Radiol 2018): Any incidental renal lesion less than 1 cm or classified as too small to characterize, or any incidental cystic renal lesion characterized as simple-appearing, is likely benign. No follow-up imaging is recommended for these lesions per consensus recommendations based on imaging criteria. Renal Ultrasound 11/25/22 00:59 IMPRESSION: 1. Suspect a small cyst in the right kidney, measuring 15 x 11 x 14 mm 2. Otherwise essentially sonographic appearance of the kidneys. 3. No hydronephrosis. 4. Other details discussed above. Recent Clincial Data Last Vital Signs Temp 97.7 F 11/27/22 11:53 Pulse 77 11/27/22 15:26 Resp 18 11/27/22 15:21 BP 113/62 11/27/22 11:53 Pulse Ox 93 11/27/22 15:21 O2 Del Method Nasal Cannula 11/27/22 15:21 O2 Flow Rate 3 11/27/22 15:21 FiO2 28 11/24/22 20:55 Vital Signs Temp Pulse Resp BP Pulse Ox O2 Del Method O2 Flow Rate 11/27/22 15:26 77 11/27/22 15:21 72 18 93 Nasal Cannula 3 11/27/22 11:53 97.7 F 76 19 H 113/62 97 Nasal Cannula 11/27/22 11:46 71 18 95 Nasal Cannula 3 11/27/22 07:51 97.5 F L 73 19 H 111/70 97 Nasal Cannula 11/27/22 07:55 74 11/27/22 07:49 73 18 94 Nasal Cannula 3 11/27/22 06:00 65 Intake & Output/Weight 11/25/22 11/26/22 11/27/22 11/28/22 06:59 06:59 06:59 06:59 Intake Total 300 / 300 2070 / 2070 1070 / 1070 700 / 700 Output Total 3200 / 3200 5670 / 5670 1730 / 1730 Balance -2900 / -2900 -3600 / -3600 -660 / -660 700 / 700 Weight 160.118 kg 160.118 kg Vitals Last Vital Signs Temp 97.7 F 11/27/22 11:53 Pulse 77 11/27/22 15:26 Resp 18 11/27/22 15:21 BP 113/62 11/27/22 11:53 Pulse Ox 93 11/27/22 15:21 O2 Del Method Nasal Cannula 11/27/22 15:21 O2 Flow Rate 3 11/27/22 15:21 FiO2 28 11/24/22 20:55 TS Medications Medications Acetaminophen (Acetaminophen 500 Mg Tablet) 1,000 mg PO Q6H PRN PRN Reason: Mild/Mod Pain Or Temp >/= 101 Albuterol/Ipratropium (Ipratropium-Albuterol 3 Ml Neb) 3 ml INHALATION QID.RESPIRATORY DONALD Last Admin: 11/27/22 15:20 Dose: 3 ml Aspirin (Aspirin 81 Mg Chew Tablet) 81 mg PO DAILY DONALD Last Admin: 11/26/22 08:25 Dose: 81 mg Atorvastatin Calcium (Atorvastatin 40 Mg Tablet) 80 mg PO DAILY DONALD Last Admin: 11/27/22 08:14 Dose: 80 mg Budesonide (Budesonide 0.5 Mg/2 Ml Neb) 0.5 mg INHALATION BID.RESPIRATORY DONALD Last Admin: 11/27/22 07:49 Dose: 0.5 mg Calcitriol (Calcitriol 0.25 Mcg Capsule) 0.5 mcg PO DAILY [facility] Last Admin: 11/27/22 08:16 Dose: 0.5 mcg Calcium Carbonate (Calcium Carbonate 500 Mg Chew Tablet) 1,000 mg PO Q4H PRN PRN Reason: DYSPEPSI Cetirizine HCl (Cetirizine 10 Mg Tablet) 10 mg PO DAILY [facility] Last Admin: 11/27/22 08:14 Dose: 10 mg Dextrose (Dextrose 50% Syringe 50 Ml) 25 ml IVP ONCE PRN; Protocol PRN Reason: hypoglycemia protocol Dextrose (Dextrose 50% Syringe 50 Ml) 50 ml IVP PRN PRN; Protocol PRN Reason: hypoglycemia protocol Famotidine (Famotidine 20 Mg Tablet) 20 mg PO BID [facility] Last Admin: 11/27/22 08:14 Dose: 20 mg Finasteride (Finasteride 5 Mg Tablet) 5 mg PO DAILY [facility] Last Admin: 11/27/22 08:14 Dose: 5 mg Fluticasone Propionate (Fluticasone Nasal [place] 16gm Btl) 1 spray INTRANASAL BID [facility] Last Admin: 11/27/22 08:17 Dose: 1 spray Gabapentin (Gabapentin 100 Mg Capsule) 100 mg PO BEDTIME [facility] Last Admin: 11/26/22 21:18 Dose: 100 mg Glucagon (Glucagon 1 Mg/Ml Inj 1 Ml) 1 mg IM ONCE PRN; Protocol PRN Reason: Adult Acute Hypoglycemia Prot. Heparin Sodium (Porcine) (Heparin 5,000 Unit/Ml Inj 1 Ml) 5,000 unit SUBCUT Q12H [facility] Last Admin: 11/26/22 08:25 Dose: 5,000 unit Dextrose (D5w) 500 mls @ 100 mls/hr IV ONCE PRN; Protocol PRN Reason: Adult Acute Hypoglycemia Prot Albumin Human (Albumin) 25 g in 100 mls @ 60 mls/hr IV Q8H [facility] Last Admin: 11/27/22 13:46 Dose: 60 mls/hr Insulin Glargine (Insulin Glargine 100 Units/1 Ml) 18 unit SUBCUT BEDTIME [facility] Last Admin: 11/26/22 21:18 Dose: 18 unit Insulin Human Lispro (Insulin Lispro 100 Unit/1 Ml) 0 unit SUBCUT WM&BEDTIME [facility]; Protocol Last Admin: 11/27/22 13:18 Dose: Not Given Nitroglycerin (Nitroglycerin 0.4 Mg Sublingual Tablet) 0.4 mg SUBLINGUAL Q5M PRN PRN Reason: Chest Pain Nystatin (Nystatin Cream 30 Gm) 1 applic TOPICAL BID [facility] Last Admin: 11/27/22 08:17 Dose: 1 applic Ondansetron HCl (Ondansetron 4 Mg Tablet) 4 mg PO Q8H PRN PRN Reason: NAUSEA Senna/Docusate Sodium (Sennosides-Docusate Tablet) 1 tab PO DAILY [facility] Last Admin: 11/27/22 08:14 Dose: 1 tab Tamsulosin HCl (Tamsulosin 0.4 Mg Capsule) 0.4 mg PO QPM [facility] Last Admin: 11/26/22 17:58 Dose: 0.4 mg Discontinued Medications Albuterol/Ipratropium (Ipratropium-Albuterol 3 Ml Neb) 3 ml INHALATION QID.RESPIRATORY [facility] Amlodipine Besylate (Amlodipine 5 Mg Tablet) 5 mg PO ONCE ONE Stop: 11/25/22 00:38 Last Admin: 11/25/22 00:46 Dose: 5 mg Furosemide (Furosemide 10 Mg/Ml Sdv 10ml) 60 mg IVP ONCE ONE Stop: 11/24/22 14:05 Last Admin: 11/24/22 14:26 Dose: Not Given Levofloxacin/Dextrose (Levaquin-D5w) 750 mg in 150 mls @ 100 mls/hr IV ONCE ONE; Protocol Stop: 11/24/22 13:55 Last Infusion: 11/24/22 17:28 Dose: Infused Furosemide 100 mg/ Sodium (Chloride) 50 mls @ 7.5 mls/hr IV .Q6H40M [facility] Last Infusion: 11/26/22 07:58 Dose: Infused Insulin Glargine (Insulin Glargine 100 Units/1 Ml) 20 unit SUBCUT BEDTIME [facility] Last Admin: 11/25/22 21:27 Dose: 20 unit Insulin Human Lispro (Insulin Lispro 100 Unit/1 Ml) 8 unit SUBCUT TIDWM [facility] Allergies amoxicillin Allergy (Unknown, Verified 10/16/22 12:47) Unknown Home Medications aspirin 81 mg chewable tablet 81 mg PO DAILY 06/08/22 [History Confirmed 11/24/22] atorvastatin 80 mg tablet 80 mg PO DAILY 06/08/22 [History Confirmed 11/24/22] cetirizine 10 mg tablet 10 mg PO DAILY 06/08/22 [History Confirmed 11/24/22] cholecalciferol (vitamin D3) 25 mcg (1,000 unit) capsule (Vitamin D3) 25 mcg PO DAILY 06/08/22 [History Confirmed 11/24/22] famotidine 20 mg tablet 20 mg PO BID 06/08/22 [History Confirmed 11/24/22] finasteride 5 mg tablet 5 mg PO DAILY 06/08/22 [History Confirmed 11/24/22] fluticasone 500 mcg-salmeterol 50 mcg/dose blistr powdr for inhalation (Wixela Inhub) 1 inh inhalation BID 06/08/22 [History Confirmed 11/24/22] fluticasone propionate 50 mcg/actuation nasal spray,suspension 1 spray intranasal BID 06/08/22 [History Confirmed 11/24/22] gabapentin 300 mg capsule 300 mg PO BEDTIME 06/08/22 [History Confirmed 11/24/22] glucosamine-chondroitin 250 mg-200 mg tablet (Osteo Bi-Flex) 1 tab PO BID 06/08/22 [History Confirmed 11/24/22] insulin aspart U-100 100 unit/mL subcutaneous solution (Novolog U-100 Insulin aspart) 20 unit SUBCUT TID 06/08/22 [History Confirmed 11/24/22] ipratropium 20 mcg-albuterol 100 mcg/actuation mist for inhalation (Combivent Respimat) 1 puff inhalation QID 06/08/22 [History Confirmed 11/24/22] nitroglycerin 0.4 mg sublingual tablet (Nitrostat) 0.4 mg sublingual Q5M PRN Chest Pain 06/08/22 [History Confirmed 11/24/22] sennosides 8.6 mg-docusate sodium 50 mg tablet (Senna-S) 1 tab-cap PO DAILY 06/08/22 [History Confirmed 11/24/22] tamsulosin 0.4 mg capsule 0.4 mg PO QPM 06/08/22 [History Confirmed 11/24/22] insulin glargine 100 unit/mL (3 mL) subcutaneous pen (Lantus Solostar U-100 Insulin) 35 unit (0.35 mL) SUBCUT BEDTIME #5 pens 10/19/22 [Rx Confirmed 11/24/22] acetaminophen 500 mg tablet 1,000 mg PO Q6H PRN Pain 11/24/22 [History Confirmed 11/24/22] Discharge Plan Discharge Patient Disposition: Xfer Short-Term Hosp Condition: Stable Prescriptions: No Action insulin glargine [Lantus Solostar U-100 Insulin] 100 unit/mL (3 mL) Insulin Pen 35 unit SUBCUT BEDTIME Qty: 5 0RF acetaminophen 500 mg Tablet 1,000 mg PO Q6H PRN (Reason: Pain) atorvastatin 80 mg Tablet 80 mg PO DAILY cetirizine 10 mg Tablet 10 mg PO DAILY sennosides-docusate sodium [Senna-S] 8.6-50 mg Tablet 1 tab-cap PO DAILY famotidine 20 mg Tablet 20 mg PO BID tamsulosin 0.4 mg Capsule 0.4 mg PO QPM insulin aspart U-100 [Novolog U-100 Insulin aspart] 100 unit/mL Solution 20 unit SUBCUT TID fluticasone propion-salmeterol [Wixela Inhub] 500-50 mcg/dose Blister With Device 1 inh INHALATION BID nitroglycerin [Nitrostat] 0.4 mg Tablet, Sublingual 0.4 mg SUBLINGUAL Q5M PRN (Reason: Chest Pain) Rx Instructions: do not exceed 3 doses per episode gabapentin 300 mg Capsule 300 mg PO BEDTIME aspirin 81 mg Tablet,Chewable 81 mg PO DAILY fluticasone propionate 50 mcg/actuation [place],Suspension 1 spray INTRANASAL BID Rx Instructions: administer into each nostril finasteride 5 mg Tablet 5 mg PO DAILY cholecalciferol (vitamin D3) [Vitamin D3] 25 mcg (1,000 unit) Capsule 25 mcg PO DAILY glucosamine-chondroitin [Osteo Bi-Flex] 250-200 mg Tablet 1 tab PO BID Rx Instructions: give after food/meal Combivent Respimat 20-100 mcg/actuation Mist 1 puff INHALATION QID Rx Instructions: space evenly during waking hours Discharge Orders: Transfer Out of Facility (Order); Ordered 11/27/22 Ordered By: Meg Cantu Referrals: Mariana Cao MD [Primary Care Provider] - Transfer Attestations Time Spent in Transfer Care: greater than 30 min Status at Transfer: Cognitive status at transfer: cognitively intact; Behavioral status at transfer: cooperative; Quality Metrics Clinical Quality Measures [ No reported AMI, CVA or VTE this stay] Coding Level of Care Code Acute Code for Chg Fwd Diagnoses Acute kidney injury superimposed on chronic kidney disease N17.9; N18.9
--- NOTE | 2022-11-27 18:04 | PC.NURSE ---
Notified patient's daughter and [facility] that patient left at this time.
[2022-11-28 15:24] LABS: Anti-Nuclear Antibody Screen NEGATIVE (NEGATIVE)
[2022-11-29 14:01] LABS: Glomerular Bsmt Membrane IGG <1.0 AI
[2022-11-30 10:42] LABS: ANCA Screen NEGATIVE (NEGATIVE)
== END 2022-11-27 18:00 | disposition short-term general hospital (02) | DRG 682 ==
LOC: ER 15:27 → MEDSURG 11-25 07:23 → ICU 11-25 17:00 → CSU 11-25 17:00 → MEDSURG 11-26 16:18
PROVIDERS: Hospitalist; Admitting Provider Internal Medicine; Emergency Provider Family Medicine; PCP Internal Medicine; Visit Provider Student in an Organized Health Care Education/Training Program
DX: N17.9 Acute kidney failure, unspecified (principal); I50.31 Acute diastolic (congestive) heart failure; Z68.42 Body mass index [BMI] 45.0-49.9, adult; E11.22 Type 2 diabetes mellitus with diabetic chronic kidney disease; N18.9 Chronic kidney disease, unspecified; E11.42 Type 2 diabetes mellitus with diabetic polyneuropathy; E11.51 Type 2 diabetes mellitus with diabetic peripheral angiopathy without gangrene; I25.10 Atherosclerotic heart disease of native coronary artery without angina pectoris; J44.9 Chronic obstructive pulmonary disease, unspecified; E66.01 Morbid (severe) obesity due to excess calories; Z20.822 Contact with and (suspected) exposure to COVID-19; Z79.82 Long term (current) use of aspirin; Z79.4 Long term (current) use of insulin; N40.0 Benign prostatic hyperplasia without lower urinary tract symptoms; K21.9 Gastro-esophageal reflux disease without esophagitis; E78.5 Hyperlipidemia, unspecified; Z87.891 Personal history of nicotine dependence; R47.81 Slurred speech; Z99.81 Dependence on supplemental oxygen; D63.1 Anemia in chronic kidney disease; R14.0 Abdominal distension (gaseous)
CPT/HCPCS: 36415; 36416; 51702; 71045; 71250; 74176; 76770; 80053; 80069; 81001; 82306; 82310; 82436; 82550; 82575; 82962; 83520; 83605; 83735; 83880; 83970; 84100; 84133; 84145; 84300; 84540; 85025; 86036; 86038; 86140; 86160; 87040; 87086; 87635; 87641; 93306; 94640; 94660; 96365; 96372; 96376; 97110; 97161; 97530; 99285; J1644; J1815; J1940; J1956; J7626; P9047; Q3014

== ENCOUNTER 2022-12-21 11:36 | Inpatient (IN) | payer OTHER, SELFPAY ==
[2022-12-21 11:37] VITALS: BP 147/101; PULSE 100; RESP 17; TEMP 37.3; O2SAT 95; BMI 45.4
--- NOTE | 2022-12-21 11:44 | XR_ITS ---
WS: [id number] Portable AP upright chest, 12/21/2022 Clinical Data: sob Comparison: Portable chest, 11/24/2022 Findings: No nodules, masses or effusions are seen. The lower lobe opacities have resolved. The hear t is enlarged. The pulmonary vascularity is not increased. No pneumonia or pneumothorax is seen. Ther e is a right dialysis catheter which ends in the superior vena cava. The aortic arch and descending t horacic aorta show tortuosity. Impression: Atherosclerosis and cardiomegaly.
--- NOTE | 2022-12-21 11:44 | CT_ITS ---
WS: [id number] CT HEAD NONCONTRAST HISTORY: weakness TECHNIQUE: Contiguous axial imaging performed through the brain in 2.5 mm imaging. Bone and soft tiss ue windows. Sagittal and coronal reformats reviewed. All CT scans at [facility] use at least one of these dose optimization techniques: automated exposure control; mA and/or kV adjustment per pa tient size (includes targeted exams where dose is matched to clinical indication); or iterative recon struction. DLP: 1082.43 mGy.cm COMPARISON: 12/07/2015 No acute intracranial hemorrhage, midline shift or mass effect. Mild atrophy and small vessel ischemic disease. Mild cerebellar atrophy. Ventricles: Normal size with no hydrocephalus. No inferior displacement of the cerebellar tonsils. Paranasal sinuses: As visualized are clear. Mastoid air cells: Well pneumatized. Calvarium and scalp: Skull is intact with no soft tissue edema or swelling. IMPRESSION: 1. No acute intracranial hemorrhage or edema. 2. Mild cerebral and cerebellar atrophy with small vessel ischemic disease. No acute intracranial pro cess.
--- NOTE | 2022-12-21 11:52 | ED_ITS ---
HPI - Weakness General: Chief complaint: Weakness Stated complaint: weakness Time Seen by Provider: 12/21/22 11:36 Source: patient and EMS Mode of arrival: EMS Limitations: no limitations History of Present Illness: 77-year-old male has multiple medical issues including end-stage renal disease he is on dialysis gets dialysis Sunday. States he does have some chronic weakness as well he states that he has difficulty walking at times but he states this morning it felt much more weak states he could not get up out of his chair and could not ambulate he states he always has more right-sided weakness and left had no slurred speech states he does have some increased dyspnea as well. Denies any chest pain Associated symptoms: Denies chest pain, chills, fever(s), headache(s), nausea or vomiting Review of Systems Const: Denies: fever(s), chills, body aches or change in appetite Eyes: Denies: blurry vision or eye discomfort ENMT: Denies: throat pain or dental pain Card: Denies: chest pain Resp: Denies: dyspnea GI: Denies: abdominal pain, nausea, vomiting or diarrhea Musc: Reports: muscle weakness; Denies: neck pain or back pain Skin/Breast: Denies: rash Neuro: Denies: headache(s) Psych: Denies: depression PFSH ED PFSH: Medical History BPH (benign prostatic hyperplasia) Cellulitis Chronic kidney disease COPD (chronic obstructive pulmonary disease) Coronary artery disease GERD (gastroesophageal reflux disease) Hyperlipidemia Morbid obesity Peripheral neuropathy Type 2 diabetes mellitus Surgical History History of cholecystectomy History of coronary angioplasty Family History Other CAD (coronary artery disease) Social History Smoking and tobacco/nicotine status: former use of tobacco/nicotine Alcohol intake: never Substance/Drug Use: never Physical Exam Const: COMMON NORMALS: patient oriented x3 GENERAL APPEARANCE: ill appearing HENMT: COMMON NORMALS: normocephalic and atraumatic HEAD & SCALP: normocephalic and atraumatic Neck/C-Spine: COMMON NORMALS: full ROM and supple Chest: COMMONS NORMALS: normal inspection of the chest and normal palpation of entire chest wall Resp: COMMON NORMALS: No retractions and No use of accessory muscles EFFORT & INSPECTION: Yes labored AUSCULTATION: rales Cardio: COMMON NORMALS: regular rate, regular rhythm and No murmurs present (Cardio) RATE: regular rate RHYTHM: regular rhythm GI: COMMON NORMALS: Normal to inspection, nondistended, normoactive bowel sounds present, Soft to palpation, non-tender and no masses PALPATION: Yes Soft to palpation Extremity: COMMON NORMALS: normal to inspection and full ROM Neuro: COMMON NORMALS: patient oriented x3, moves all extremities and no focal motor deficits Psych: COMMON NORMALS: mental status grossly normal, Normal thought process present and cooperative THOUGHT PROCESS: Normal thought process present Skin: COMMON NORMALS: no rashes or lesions noted and no wounds GENERAL SKIN EXAM: no rashes or lesions noted Course Vital Signs: Vital signs: Vital Signs Temperature 99.1 F 12/21/22 11:37 Pulse Rate 100 12/21/22 11:37 Respiratory Rate 17 12/21/22 11:37 Blood Pressure 147/101 12/21/22 11:37 Pulse Oximetry 95 12/21/22 11:37 Oxygen Delivery Me thod Nasal Cannula 12/21/22 11:37 Oxygen Flow Rate 2 12/21/22 11:37 MDM - Weakness Medical Decision Making Patient presents with generalized weakness he is having difficult time walking feels like he cannot take care of himself he also has end-stage renal disease on dialysis I spoke to hospitalist will admit for observation. Medical Records I reviewed the patient's medical records. Lab Data I reviewed the patient's lab results. 12/21/22 11:59 12/21/22 11:59 Laboratory Results WBC 10.17 10^3/uL (3.29-11.43) 12/21/22 11:59 RBC 2.91 10^6/uL (3.85-5.65) L 12/21/22 11:59 Hgb 8.90 g/dL (11.27-16.99) L 12/21/22 11:59 Hct 27.9 % (37-53) L 12/21/22 11:59 MCV 95.9 fl (82-101) 12/21/22 11:59 MCH 30.6 pg (27-33) 12/21/22 11:59 MCHC 31.9 g/dL (30-55) 12/21/22 11:59 RDW 13.2 % (12.1-15.1) 12/21/22 11:59 Plt Count 111 10^3/cmm (157-399) L 12/21/22 11:59 MPV 8.7 fL (7.4-10.4) 12/21/22 11:59 Neut % (Auto) 80.4 % 12/21/22 11:59 Lymph % (Auto) 7.9 % 12/21/22 11:59 [place] % (Auto) 9.6 % 12/21/22 11:59 Eos % (Auto) 1.0 % 12/21/22 11:59 Baso % (Auto) 0.3 % 12/21/22 11:59 Neut # (Auto) 8.18 10^3/uL (1.8-7.7) H 12/21/22 11:59 Lymph # (Auto) 0.8 10^3/uL (0.8-4.8) 12/21/22 11:59 [place] # (Auto) 1.0 10^3/uL (0.2-0.9) H 12/21/22 11:59 Eos # (Auto) 0.1 10^3/uL (0.0-0.8) 12/21/22 11:59 Baso # (Auto) 0.0 10^3/uL (0.0-0.1) 12/21/22 11:59 Nucleated RBC % (auto) 0 % 12/21/22 11:59 Nucleated RBCs # 0.0 /100WBC 12/21/22 11:59 PT 15.60 SECONDS (12.1-14.9) H 12/21/22 11:59 INR 1.20 (0.8-1.2) 12/21/22 11:59 Sodium 136 mmol/L (136-145) 12/21/22 11:59 Potassium 4.8 mmol/L (3.5-5.1) 12/21/22 11:59 Chloride 95 mmol/L (98-107) L 12/21/22 11:59 Carbon Dioxide 24 mmol/L (22-29) 12/21/22 11:59 Anion Gap 21.8 (5-19) H 12/21/22 11:59 BUN 69 mg/dL (8-23) H 12/21/22 11:59 Creatinine 10.9 mg/dL (0.7-1.2) H* 12/21/22 11:59 GFR Calculation Not Reportable 12/21/22 11:59 Glucose 137 mg/dL (65-115) H 12/21/22 11:59 Calculated Osmolality 304 mOsm/kg (285-295) H 12/21/22 11:59 Calcium 8.8 mg/dL (8.5-10.5) 12/21/22 11:59 Total Bilirubin 0.3 mg/dL (0.15-1.2) 12/21/22 11:59 AST 32 U/L (0-40) 12/21/22 11:59 ALT 39 U/L (0-41) 12/21/22 11:59 Alkaline Phosphatase 80 U/L (40-130) 12/21/22 11:59 NT-Pro-B Natriuret Pep 6513 pg/mL (0-450) H 12/21/22 11:59 Total Protein 5.7 g/dL (6.6-8.7) L 12/21/22 11:59 Albumin 2.8 g/dL (3.5-5.2) L 12/21/22 11:59 Globulin 2.9 g/dL (1.3-4.6) 12/21/22 11:59 All radiology interpretation(s) finalized by discharge EKG Data EKG 1: I personally reviewed and interpreted this EKG as follows: EKG interpretation date: 12/21/22 EKG interpretation time: 12:01 Interpretation: nsr hr [address] or t wave abnormalities qrs 83 qtc 361 Discharge Plan Discharge Patient Disposition: Placed in Observation Clinical Impression: Generalized weakness, ESRD on dialysis Coding Level of Care Code ED Latex Foam Worker for Anabelle Lopez
--- NOTE | 2022-12-21 12:01 | ECG_ITS ---
[facility] Test Date: 2022-12-21 Pat Name: Devyn Luo Department: Room: Gender: Male Network Liaison: : 1945 Requested By: Kim Mazariegos Order Number: [id number] Konrad MD: Rodolfo Lara M.D. Measurements Intervals [place] Rate: 96 P: 69 NV: 147 QRS: 52 QRSD: 83 T: 50 QT: 307 QTc: 389 Interpretive Statements SINUS RHYTHM WITH OCCASIONAL SUPRAVENTRICULAR PREMATURE COMPLEXES NONSPECIFIC T-WAVE ABNORMALITY Compared to ECG 06/08/2022 23:20:08 T-wave abnormality now present Electronically Signed On 12-21-2022 16:37:06 SPAGHETTI PRESS HELPER by Rodolfo aLra M.D. [id number]
[2022-12-21 12:08] LABS: Basophils % 0.3 %; Eosinophils # 0.1 10^3/uL (0.0-0.8); Hematocrit 27.9 % (37-53); Lymphocytes # 0.8 10^3/uL (0.8-4.8); Lymphocytes % 7.9 %; Mean Corpuscular HGB Conc 31.9 g/dL (30-55); Mean Corpuscular Hemoglobin 30.6 pg (27-33); Mean Corpuscular Volume 95.9 fl (82-101); Mean Platelet Volume 8.7 fL (7.4-10.4); Monocytes % 9.6 %; Neutrophils # 8.18 10^3/uL (1.8-7.7); Neutrophils % 80.4 %; Nucleated Red Blood Cells % 0 %; Platelet Count 111 10^3/cmm (157-399); Red Blood Count 2.91 10^6/uL (3.85-5.65); Red Cell Distribution Width 13.2 % (12.1-15.1); White Blood Count 10.17 10^3/uL (3.29-11.43)
[2022-12-21 12:36] LABS: Alanine Aminotransferase 39 U/L (0-41); Albumin Level 2.8 g/dL (3.5-5.2); Alkaline Phosphatase 80 U/L (40-130); Anion Gap 21.8 (5-19); Aspartate Amino Transferase 32 U/L (0-40); Blood Urea Nitrogen 69 mg/dL (8-23); Calcium 8.8 mg/dL (8.5-10.5); Carbon Dioxide 24 mmol/L (22-29); Chloride 95 mmol/L (98-107); Globulin 2.9 g/dL (1.3-4.6); Glucose 137 mg/dL (65-115); NT Pro B Type Natriuretic Pept 6513 pg/mL (0-450); Osmolality Calculated 304 mOsm/kg (285-295); Potassium 4.8 mmol/L (3.5-5.1); Sodium 136 mmol/L (136-145); Total Bilirubin 0.3 mg/dL (0.15-1.2); Total Protein 5.7 g/dL (6.6-8.7)
[2022-12-21 12:59] LABS: Slide Review Slide Review Perform
--- NOTE | 2022-12-21 13:09 | PC.PHAR ---
NEW LIST PROVIDED HAD SEVERAL CHANGES. VERIFIED WITH DAUGHTER, THE FOLLOWING: ATORVASTATIN 80 MG CHANGED TO ONE-HALF TABLET (40 MG) DAILY, COMBIVENT 2 PUFFS EVERY 4 HOURS NEEDED, BUMETANIDE 1 MG TWICE DAILY FOR FLUID, CLOBETASOL PROP. 0.05% APPLY TO AFFECTED AREA TWICE DAILY FOR INFLAMATION, DOXYCYCLINE HYCLATE 100 MG TWICE DAILY,INSULIN ASPART. 30 UNITS IN AM, 25 UNITS AT NOON, AND 20 UNITS IN PM., MICONAZOLE NITRATE 2% APPLY TO AFFECTED AREA TWICE DAILY FOR INFECTION, NIACINAMIDE 500 MG E TIMES DAILY, MIRALAX 1 CAPFUL TWICE DAILY NEEDED, PREDINSONE 10 MG (SEE INSTRUCTIONS), SEVELAMRER CARB. 800 MG 3 TIMES DAILY. 12/21/22
--- NOTE | 2022-12-21 14:45 | ECG_ITS ---
[facility] Test Date: 2022-12-21 Pat Name: Devyn Luo Department: Room: Gender: Male Sawmilling Operator: : 1945 Requested By: Omar Harden Order Number: [id number] Konrad MD: Rodolfo Lara M.D. Measurements Intervals [place] Rate: 92 P: 43 NM: 156 QRS: 53 QRSD: 86 T: 38 QT: 319 QTc: 396 Interpretive Statements SINUS RHYTHM WITH OCCASIONAL SUPRAVENTRICULAR PREMATURE COMPLEXES Compared to ECG 12/21/2022 12:01:44 T-wave abnormality no longer present Electronically Signed On 12-21-2022 16:36:59 GLASS TOUGHENING OPERATOR by Rodolfo Lara M.D. [id number]
--- NOTE | 2022-12-21 14:45 | PM.HP ---
Providers/Chief Complaint Primary Care Provider: Mariana Cao MD Chief Complaint: weakness History of Present Illness Devyn Luo is a 77 year old male with a past medical history of chronic kidney disease, with developing acute renal failure, recently transfer to [facility], had a kidney biopsy, patient told me that he was diagnosed with renal failure associated with antibiotics? He also had a skin biopsy, and was diagnosed with bullous pemphigoid, currently on prednisone, doxycycline, on outpatient dialysis, history of CAD status post tenting x1, history of heart failure, who presents [facility] for generalized weakness. Patient tells me that he was recently discharged on the from the hospital, he can ambulate, but uses a walker, he has fallen a couple of times since getting out of the hospital, but has no acute back pains, no head ache, no blurry vision, no significant trauma, no loss of consciousness, he tells me that he was supposed to get dialysis today but felt too weak and fatigued to go to dialysis, he does not urinate, denies any dysuria, no hematuria, no cough, shortness of breath, no chest pain, abdominal pain, diarrhea, Review of Systems Const: Reports: fatigue and malaise; Denies: fever(s), chills or body aches Eyes: Denies: change in vision Card: Denies: chest pain Resp: Denies: dyspnea GI: Denies: abdominal pain : Denies: flank pain Musc: Denies: back pain Skin/Breast: Reports: rash Neuro: Reports: weakness in extremities; Denies: headache(s), numbness in extremities, dizziness or confusion Psych: Denies: anxiety Endo: Denies: polyuria Medications/Allergies Home Medications Medication Instructions Recorded Confirmed Last Taken Type aspirin 81 mg chewable tablet 81 mg PO DAILY 06/08/22 12/21/22 12/21/22 History atorvastatin 80 mg tablet 40 mg PO BEDTIME 06/08/22 12/21/22 12/20/22 History cetirizine 10 mg tablet 10 mg PO DAILY 06/08/22 12/21/22 12/21/22 History cholecalciferol (vitamin D3) 25 25 mcg PO DAILY 06/08/22 12/21/22 12/21/22 History mcg (1,000 unit) capsule (Vitamin D3) finasteride 5 mg tablet 5 mg PO DAILY 06/08/22 12/21/22 12/21/22 History fluticasone 500 mcg-salmeterol 50 1 inh inhalation BID 06/08/22 12/21/22 12/21/22 History mcg/dose blistr powdr for inhalation (Wixela Inhub) fluticasone propionate 50 1 spray intranasal BID 06/08/22 12/21/22 12/21/22 History mcg/actuation nasal spray,suspension gabapentin 300 mg capsule 300 mg PO BEDTIME 06/08/22 12/21/22 12/20/22 History glucosamine-chondroitin 250 mg-200 1 tab PO BID 06/08/22 12/21/22 12/21/22 History mg tablet (Osteo Bi-Flex) insulin aspart U-100 100 unit/mL See Rx Instructions .Route .COMPLEX 06/08/22 12/21/22 12/21/22 History subcutaneous solution (Novolog U-100 Insulin aspart) ipratropium 20 mcg-albuterol 100 1 puff inhalation QID 06/08/22 12/21/22 12/21/22 History mcg/actuation mist for inhalation (Combivent Respimat) nitroglycerin 0.4 mg sublingual 0.4 mg sublingual Q5M PRN Chest 06/08/22 12/21/22 Unknown History tablet (Nitrostat) Pain sennosides 8.6 mg-docusate sodium 1 tab-cap PO DAILY 06/08/22 12/21/22 12/21/22 History 50 mg tablet (Senna-S) tamsulosin 0.4 mg capsule 0.4 mg PO QPM 06/08/22 12/21/22 12/20/22 History acetaminophen 500 mg tablet 1,000 mg PO Q6H PRN Pain 11/24/22 12/21/22 11/24/22 History benzonatate 100 mg capsule 100 mg PO TID PRN Cough 12/21/22 12/21/22 Unknown History bumetanide 1 mg tablet 1 mg PO BID PRN FLUID RETENTION 12/21/22 12/21/22 Unknown History clobetasol 0.05 % topical cream 1 applic topical BID 12/21/22 12/21/22 12/21/22 History doxycycline hyclate 100 mg tablet See Rx Instructions .Route .COMPLEX 12/21/22 12/21/22 12/21/22 History insulin glargine 100 unit/mL (3 35 unit SUBCUT BEDTIME 12/21/22 12/21/22 12/20/22 History mL) subcutaneous pen (Lantus Solostar U-100 Insulin) miconazole nitrate 2 % topical 1 applic topical BID 12/21/22 12/21/22 12/21/22 History cream niacinamide 500 mg tablet 500 mg PO TID 12/21/22 12/21/22 12/21/22 History polyethylene glycol 3350 17 See Rx Instructions .Route .COMPLEX 12/21/22 12/21/22 Unknown History gram/dose oral powder (Miralax) prednisone 10 mg tablet See Rx Instructions .Route .COMPLEX 12/21/22 12/21/22 12/21/22 History sevelamer carbonate 800 mg tablet 800 mg PO TID 12/21/22 12/21/22 12/21/22 History Allergies Allergy/AdvReac Type Severity Reaction Status Date / Time amoxicillin Allergy Unknown Unknown Verified 10/16/22 12:47 PFSH Acute PFSH: Medical History BPH (benign prostatic hyperplasia) Cellulitis Chronic kidney disease COPD (chronic obstructive pulmonary disease) Coronary artery disease GERD (gastroesophageal reflux disease) Hyperlipidemia Morbid obesity Peripheral neuropathy Type 2 diabetes mellitus Surgical History History of cholecystectomy History of coronary angioplasty Family History Other CAD (coronary artery disease) Social History Smoking and tobacco/nicotine status: former use of tobacco/nicotine Alcohol intake: never Substance/Drug Use: never Vitals/I&O/Wt Last Vital Signs Temp 99.1 F 12/21/22 11:37 Pulse 100 12/21/22 11:37 Resp 17 12/21/22 11:37 BP 147/101 12/21/22 11:37 Pulse Ox 95 12/21/22 11:37 O2 Del Method Nasal Cannula 12/21/22 11:37 O2 Flow Rate 2 12/21/22 11:37 Weight last 48 hrs Weight 151.953 kg Physical Exam Const: COMMON NORMALS: no acute distress and patient oriented x3 Eye: COMMON NORMALS: Equal, round and reactive pupils present and EOMs intact bilaterally Neck/C-Spine: COMMON NORMALS: no lymphadenopathy Resp: COMMON NORMALS: normal respiratory effort, No retractions, No use of accessory muscles and clear to auscultation bilaterally AUSCULTATION: clear to auscultation bilaterally Cardio: COMMON NORMALS: regular rate, regular rhythm, S1 normal heart sound present and S2 normal heart sound present RATE: regular rate RHYTHM: regular rhythm HEART SOUNDS: S1 normal heart sound present and S2 normal heart sound present GI: COMMON NORMALS: Normal to inspection, nondistended, normoactive bowel sounds present, Soft to palpation and non-tender Extremity: COMMON NORMALS: no pedal edema Neuro: COMMON NORMALS: patient oriented x3, CN's II-XII intact bilaterally, moves all extremities and no focal motor deficits Psych: COMMON NORMALS: mental status grossly normal Skin: OTHER: Multiple bullous lesions, bilateral lower extremities, wrapped, ? Multiple lesions bilateral hands, wrapped, currently scaled over Data 12/21/22 11:59 12/21/22 11:59 A&P Assessment and plan (1) Generalized weakness: (2) ESRD on dialysis: (3) Morbid obesity: (4) Generalized weakness: (5) Type 2 diabetes mellitus: (6) CHF (congestive heart failure): (7) COPD (chronic obstructive pulmonary disease): (8) Bullous pemphigoid: (9) Anemia: Plan Generalized weakness, ? Etiology unclear, ? Await UA, ? His anemia, follow iron studies, B12, folate, ? Follow UA, ? PT OT, End-stage renal disease, etiology secondary to antibiotics?, ? Will get records from [facility] in [place], ?, Consulted nephrology for dialysis, Acute on chronic anemia, follow iron studies, B12, folate, Bullous pemphigoid, consult wound care, continue doxycycline, continue clobetasol, will consider speaking with dermatology, Serial EKGs, short of breath, telemetry monitoring, PT OT, Patient is DNR/DNI, heparin for DVT prophylaxis Attestations Medical Necessity Statement*: Patient requires hospitalization, for generalized weakness, missed dialysis, bullous pemphigoid, with multiple vesicular lesions bilateral lower extremities, bilateral hands, requiring wound care Diagnoses Generalized weakness R53.1 ESRD on dialysis N18.6; Z99.2 Morbid obesity E66.01 Type 2 diabetes mellitus E11.9 CHF (congestive heart failure) I50.9 COPD (chronic obstructive pulmonary disease) J44.9 Bullous pemphigoid L12.0 Anemia D64.9
[2022-12-21 15:00] VITALS: BP 141/86; PULSE 100; O2SAT 91
[2022-12-21 15:00] LABS: Add Urine Microscopic? YES; Bilirubin Urine 1+ (Negative); Blood Urine 3+ (Negative); Glucose Urine UA 2+ (Normal); Ketones Urine Negative (Negative); Leukocyte Esterase Urine Negative (Negative); Nitrate Urine Negative (Negative); Protein Urine 3+ (Negative); Urine Appearance Cloudy (CLEAR); Urine Color Brown (Yellow); Urobilinogen Urine Norm (Negative); pH Urine 6 (5-7)
[2022-12-21 15:29] LABS: Bacteria Urine 1+ /hpf; Mucus Urine TRACE /hpf; RBC Urine 80-100 /hpf (0-2); Renal Epithelial Cells Urine 0-4 /hpf; Squamous Epithelial Cell Urine 0-4 /hpf (0-5)
[2022-12-21 15:30] LABS: Add Urine Culture? Yes; Amorphous Sediment Urine TRACE /hpf
--- NOTE | 2022-12-21 15:40 | PC.NURSE ---
Nurse assumed care at 1500.
[2022-12-21 15:57] LABS: Ammonia 22 umol/L (16-60)
[2022-12-21 16:08] LABS: NT Pro B Type Natriuretic Pept 6637 pg/mL (0-450)
[2022-12-21 16:12] LABS: Troponin(5th) Baseline 147 ng/L (0-15)
[2022-12-21 16:16] LABS: Hepatitis B Core AB, Total Reactive (Nonreactive); Hepatitis B Surface AB 974.7 (11.5-1000); Hepatitis B Surface Antigen Non-Reactive (Nonreactive)
--- NOTE | 2022-12-21 16:31 | PM.CONSULT ---
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 Other past medical history significant for CHF, hypertension, coronary artery disease. Patient presented to the emergency department due to generalized weakness and missed dialysis. Lab data is significant for hemoglobin of 8.9, potassium was 4.8. Patient was noted to be in volume overload. Review of Systems Narrative: Other ros negative Medications/Allergies Home Medications Medication Instructions Recorded Confirmed Last Taken Type aspirin 81 mg chewable tablet 81 mg PO DAILY 06/08/22 12/21/22 12/21/22 History atorvastatin 80 mg tablet 40 mg PO BEDTIME 06/08/22 12/21/22 12/20/22 History cetirizine 10 mg tablet 10 mg PO DAILY 06/08/22 12/21/22 12/21/22 History cholecalciferol (vitamin D3) 25 25 mcg PO DAILY 06/08/22 12/21/22 12/21/22 History mcg (1,000 unit) capsule (Vitamin D3) finasteride 5 mg tablet 5 mg PO DAILY 06/08/22 12/21/22 12/21/22 History fluticasone 500 mcg-salmeterol 50 1 inh inhalation BID 06/08/22 12/21/22 12/21/22 History mcg/dose blistr powdr for inhalation (Wixela Inhub) fluticasone propionate 50 1 spray intranasal BID 06/08/22 12/21/22 12/21/22 History mcg/actuation nasal spray,suspension gabapentin 300 mg capsule 300 mg PO BEDTIME 06/08/22 12/21/22 12/20/22 History glucosamine-chondroitin 250 mg-200 1 tab PO BID 06/08/22 12/21/22 12/21/22 History mg tablet (Osteo Bi-Flex) insulin aspart U-100 100 unit/mL See Rx Instructions .Route .COMPLEX 06/08/22 12/21/2223 History subcutaneous solution (Novolog U-100 Insulin aspart) ipratropium 20 mcg-albuterol 100 1 puff inhalation QID 06/08/22 12/21/22 12/21/22 History mcg/actuation mist for inhalation (Combivent Respimat) nitroglycerin 0.4 mg sublingual 0.4 mg sublingual Q5M PRN Chest 06/08/22 12/21/22 Unknown History tablet (Nitrostat) Pain sennosides 8.6 mg-docusate sodium 1 tab-cap PO DAILY 06/08/22 12/21/22 12/21/22 History 50 mg tablet (Senna-S) tamsulosin 0.4 mg capsule 0.4 mg PO QPM 06/08/22 12/21/22 12/20/22 History acetaminophen 500 mg tablet 1,000 mg PO Q6H PRN Pain 11/24/22 12/21/22 11/24/22 History benzonatate 100 mg capsule 100 mg PO TID PRN Cough 12/21/22 12/21/22 Unknown History bumetanide 1 mg tablet 1 mg PO BID PRN FLUID RETENTION 12/21/22 12/21/22 Unknown History clobetasol 0.05 % topical cream 1 applic topical BID 12/21/22 12/21/22 12/21/22 History doxycycline hyclate 100 mg tablet See Rx Instructions .Route .COMPLEX 12/21/22 12/21/22 12/21/22 History insulin glargine 100 unit/mL (3 35 unit SUBCUT BEDTIME 12/21/22 12/21/22 12/20/22 History mL) subcutaneous pen (Lantus Solostar U-100 Insulin) miconazole nitrate 2 % topical 1 applic topical BID 12/21/22 12/21/22 12/21/22 History cream niacinamide 500 mg tablet 500 mg PO TID 12/21/22 12/21/22 12/21/22 History polyethylene glycol 3350 17 See Rx Instructions .Route .COMPLEX 12/21/22 12/21/22 Unknown History gram/dose oral powder (Miralax) prednisone 10 mg tablet See Rx Instructions .Route .COMPLEX 12/21/22 12/21/22 12/21/22 History sevelamer carbonate 800 mg tablet 800 mg PO TID 12/21/22 12/21/22 12/21/22 History Allergies Allergy/AdvReac Type Severity Reaction Status Date / Time amoxicillin Allergy Unknown Unknown Verified 10/16/22 12:47 PFSH Acute PFSH: Medical History BPH (benign prostatic hyperplasia) Cellulitis Chronic kidney disease COPD (chronic obstructive pulmonary disease) Coronary artery disease GERD (gastroesophageal reflux disease) Hyperlipidemia Morbid obesity Peripheral neuropathy Type 2 diabetes mellitus Surgical History History of cholecystectomy History of coronary angioplasty Family History Other CAD (coronary artery disease) Social History Smoking and tobacco/nicotine status: former use of tobacco/nicotine Alcohol intake: never Substance/Drug Use: never Vitals/I&O/Wt Last Vital Signs Temp 99.1 F 12/21/22 11:37 Pulse 100 12/21/22 15:00 Resp 17 12/21/22 11:37 BP 141/86 12/21/22 15:00 Pulse Ox 91 12/21/22 15:00 O2 Del Method Nasal Cannula 12/21/22 15:00 O2 Flow Rate 3 12/21/22 15:00 Weight last 48 hrs Weight 151.953 kg Physical Exam Narrative: awake ,alert 'no distress S1S2 RRR per report Lungs clear per report No edema Data 12/22/22 04:58 12/22/22 04:58 A&P Assessment and plan (1) ESRD on dialysis: Plan 1. End-stage renal disease: Per TTS schedule as outpatient, missed HD today, and plan for hemodialysis today. Ultrafiltration as tolerated. Patient was recently started on antibiotics for possible AIN diagnosis from antibiotics (status post kidney biopsy in [facility], results not available to us currently). 2. Anemia: Ordered LINDA 3. History of bullous pemphigoid: Wound care following 4. Hypertension: Blood pressure controlled 5. History of coronary artery disease and CHF Patient evaluated using audiovisual cart. Time spent 40 min Consult Attestations Medical Necessity Statement: per medicine team Coding Level of Care Code Acute Code for Chg Fwd Diagnoses ESRD on dialysis N18.6; Z99.2
[2022-12-21] MEDS: heparin, porcine 1,000 unit/mL INJ 10 mL 10000 UNIT INTRACATH (16:56)
[2022-12-21 17:03] LABS: Ferritin 843 ng/mL (30-400); Iron 14 ug/dL (59-158); Percent Saturation 10.2 % (20-50); Total Iron Binding Capacity 137 mcg/dl; Unsaturated Iron Binding 123 ug/dL (112-347)
[2022-12-21 17:09] LABS: Vitamin B12 758 pg/mL (232-1245)
[2022-12-21 17:14] LABS: Thyroid Stimulating Hormone 1.14 uIU/mL (0.27-4.20)
[2022-12-21 17:15] LABS: Folate Level 15.1 ng/mL (4.5-32.2)
[2022-12-21 17:27] LABS: Estmated Average Glucose 143; Hemoglobin A1C 6.6 % (4.0-6.0)
[2022-12-21 17:28] LABS: Procalcitonin 1.79 ng/mL (0-0.5)
[2022-12-21] MEDS: sevelamer 800 mg Tablet PO ×2 (17:53→22:07)
[2022-12-21] MEDS: fluticasone nasal spray 16gm Btl 1 SPRAY INTRANASAL (17:53)
[2022-12-21] MEDS: tamsulosin 0.4 mg Capsule PO (17:53)
[2022-12-21] MEDS: bumetanide 1 mg Tablet PO (17:53)
[2022-12-21] MEDS: mupirocin oint 22 gm 1 APPLIC TOPICAL (17:54)
--- NOTE | 2022-12-21 17:54 | ECG_ITS ---
[facility] Test Date: 2022-12-21 Pat Name: Devyn Luo Department: Room: 256 Gender: Male Sound Mixer: : 1945 Requested By: Omar Harden Order Number: [id number] Konrad MD: Rodolfo Lara M.D. Measurements Intervals [place] Rate: 96 P: 88 [place]: 153 QRS: 47 QRSD: 85 T: 49 QT: 313 QTc: 396 Interpretive Statements SINUS RHYTHM Compared to ECG 12/21/2022 14:49:36 No significant changes Electronically Signed On 12-21-2022 22:43:02 INVESTMENT STRATEGIST by Rodolfo Lara M.D. [id number]
[2022-12-21 18:02] VITALS: O2SAT 94
[2022-12-21 18:20] LABS: Troponin 5 2HR 134.2 ng/L (0-15); Troponin 5 2HR Delta -12.8 ABS# (0-10)
[2022-12-21] MEDS: heparin 5,000 unit/mL INJ 1 mL 5000 UNIT SUBCUT (22:00)
[2022-12-21] MEDS: gabapentin 300 mg Capsule PO (22:01)
[2022-12-21] MEDS: atorvastatin 40 mg Tablet PO (22:01)
[2022-12-21 22:08] VITALS: BP 106/72; BP 182/89; PULSE 100; PULSE 99; RESP 18; TEMP 36.7; TEMP 37
[2022-12-21] MEDS: ciprofloxacin 400 MG/200 ML PREMIX 200 MG IV (22:29)
[2022-12-21] MEDS: doxycycline 100 mg Tablet PO (22:39)
[2022-12-21] MEDS: pantoprazole 40 mg SDV IVP (22:39)
[2022-12-21 22:43] LABS: Troponin 5 6HR Delta -17.5 ng/L (0-12)
[2022-12-21 22:45] LABS: Troponin 5 6HR 129.5 ng/L (0-15)
[2022-12-22] VITALS (14 sets, daily range): BP systolic 93–151; BP diastolic 57–70; PULSE 78–107; RESP 16–19; TEMP 36.7–37.1; O2SAT 93–100
[2022-12-22] MEDS: insulin glargine 100 units/1 mL 15 UNIT SUBCUT ×2 (00:28→22:02)
[2022-12-22 00:36] LABS: Glucose Point of Care 220 mg/dL (70-110)
[2022-12-22 05:30] LABS: Basophils % 0.3 %; Eosinophils # 0.2 10^3/uL (0.0-0.8); Eosinophils % 1.9 %; Hematocrit 27.5 % (37-53); Lymphocytes # 1.1 10^3/uL (0.8-4.8); Lymphocytes % 11.8 %; Mean Corpuscular HGB Conc 31.3 g/dL (30-55); Mean Corpuscular Hemoglobin 29.7 pg (27-33); Mean Corpuscular Volume 94.8 fl (82-101); Mean Platelet Volume 9.2 fL (7.4-10.4); Monocytes # 0.8 10^3/uL (0.2-0.9); Monocytes % 8.5 %; Neutrophils # 7.03 10^3/uL (1.8-7.7); Neutrophils % 76.7 %; Nucleated Red Blood Cells % 0 %; Platelet Count 109 10^3/cmm (157-399); Red Cell Distribution Width 13.2 % (12.1-15.1); White Blood Count 9.16 10^3/uL (3.29-11.43)
[2022-12-22 05:48] LABS: Alanine Aminotransferase 39 U/L (0-41); Albumin Level 2.7 g/dL (3.5-5.2); Alkaline Phosphatase 68 U/L (40-130); Anion Gap 17.5 (5-19); Aspartate Amino Transferase 29 U/L (0-40); Blood Urea Nitrogen 48 mg/dL (8-23); Calcium 8.9 mg/dL (8.5-10.5); Carbon Dioxide 27 mmol/L (22-29); Chloride 95 mmol/L (98-107); Glucose 165 mg/dL (65-115); Magnesium 1.9 mg/dL (1.7-2.3); Osmolality Calculated 296 mOsm/kg (285-295); Phosphorus 5.8 mg/dL (2.5-4.5); Potassium 4.5 mmol/L (3.5-5.1); Slide Review Slide Review Perform; Sodium 135 mmol/L (136-145); Total Bilirubin 0.4 mg/dL (0.15-1.2); Total Protein 5.7 g/dL (6.6-8.7)
[2022-12-22 06:49] LABS: Glucose Point of Care 183 mg/dL (70-110)
[2022-12-22] MEDS: perflutren protein-a microsphr 0.22 mg/mL SDV 3 mL IV (07:55)
[2022-12-22] MEDS: finasteride 5 mg Tablet PO (08:24)
[2022-12-22] MEDS: cholecalciferol (vitamin D3) 1,000 unit Tablet 1000 UNIT PO (08:24)
[2022-12-22] MEDS: sevelamer 800 mg Tablet PO ×3 (08:24→22:03)
[2022-12-22] MEDS: cetirizine 10 mg Tablet PO (08:24)
[2022-12-22] MEDS: doxycycline 100 mg Tablet PO ×2 (08:24→17:24)
[2022-12-22] MEDS: sennosides-docusate Tablet 1 TAB PO (08:25)
[2022-12-22] MEDS: aspirin 81 mg Chew Tablet PO (08:25)
[2022-12-22] MEDS: insulin lispro 100 unit/1 mL SUBCUT ×3 (08:25→17:23)
[2022-12-22] MEDS: mupirocin oint 22 gm 1 APPLIC TOPICAL (08:27)
[2022-12-22] MEDS: fluticasone nasal spray 16gm Btl 1 SPRAY INTRANASAL ×2 (08:27→17:24)
--- NOTE | 2022-12-22 09:07 | PC.CHAP ---
Pastoral Care Encounter/Spiritual Assessment Type of Contact [] Declined rinkman visit [] Patient/Family/Request visit [] Outpatient visit [] Follow-up visit [] Physician referral [] Code/Alert [x] Routine visit [] Staff referral [] Actively dying [] Patient sleeping [] Family support [] [] Out of room [] Palliative care [] [] Receiving care in room [] Pre-surgical visit [] Trauma [] Long length of stay [] ICU visit [] Other: Relational/Emotional Strength [x] Patient feels connected with others/family/visitors/staff [] Distress [] Loneliness/isolation [] Abandonment Spirituality of Patient [x] Person of Linda [] Attends Amish of their Linda [x] Believes in Prayer [] Reads Bible or Nondenominational materials [] There are Spiritual issues to be addressed Dog Breeder Interventions [x] Prayer [x] Active listening [] Non-anxious presence [x] Spiritual/emotional support [] Crisis/trauma care [] Spiritual counseling [] Bereavement support [] Provided bereavement packet [] Provided Bible/devotional materials [] Provided toy/stuffed animal, coloring book to patient or family member [] Provided Communion [] Anointing/[place] [] Salvation [x] Completed spiritual assessment [] Other: Impact on Illness or Injury [] Angry [] Fearful [] Anxious [] Often cries [] Exhaustion [] Unable to work [] Unable to attend anabaptist [] Unable to walk/stand [] Unable to read [] Unable to drive [] Unable to eat/drink [] Unable to sleep [] Unable to be with family [] Patient intubated [] Other: Summary Time spent with patient 5 min
[2022-12-22] MEDS: budesonide 0.5 mg/2 mL Neb INHALATION ×2 (09:38→20:41)
[2022-12-22] MEDS: ipratropium-albuterol 3 mL Neb INHALATION (09:38)
--- NOTE | 2022-12-22 10:11 | PM.PN ---
Subjective Subjective: gettinf dressing changed s/p HD last night Medications: Reviewed: Yes Vitals/I&O/Wt Last Vital Signs Temp 98.5 F 12/22/22 08:00 Pulse 102 H 12/22/22 09:38 Resp 18 12/22/22 09:38 BP 93/67 12/22/22 08:00 Pulse Ox 94 12/22/22 09:38 O2 Del Method Nasal Cannula 12/22/22 09:38 O2 Flow Rate 3.5 12/22/22 09:38 12/21/22 12/22/22 12/22/22 22:59 06:59 14:59 Intake Total 500 / 500 200 / 700 360 / 360 Output Total 3322 / 3322 Balance -2822 / -2822 200 / -2622 360 / 360 Weight last 48 hrs Weight 153.1 kg Weight 151.953 kg Physical Exam Narrative: awake ,alert 'no distress S1S2 RRR per report Lungs clear per report No edema skin rash/wounds Data 12/22/22 04:58 12/22/22 04:58 A&P Assessment and plan (1) ESRD on dialysis: Plan 1. End-stage renal disease: Per TTS schedule as outpatient, missed HD yesterday and s/p HD last night . Ultrafiltration as tolerated. Patient was recently started on HD for possible AIN diagnosis from antibiotics (status post kidney biopsy in [facility], results not available to us currently). 2. Anemia: Ordered LINDA 3. History of bullous pemphigoid: Wound care following 4. Hypertension: Blood pressure controlled 5. History of coronary artery disease and CHF Patient evaluated using audiovisual cart. Time spent 20 min Attestations Medical Necessity Statement*: PER MEDICNE TEAM Coding Level of Care Code Acute Code for Chg Fwd Diagnoses ESRD on dialysis N18.6; Z99.2
[2022-12-22] MEDS: morphine 4 mg/mL SDV 1 mL 2 MG IVP (10:44)
[2022-12-22] MEDS: ciprofloxacin 400 MG/200 ML PREMIX 200 MG IV ×2 (10:44→22:03)
[2022-12-22] MEDS: heparin 5,000 unit/mL INJ 1 mL 5000 UNIT SUBCUT ×2 (10:45→22:03)
[2022-12-22 11:38] LABS: Glucose Point of Care 242 mg/dL (70-110)
--- NOTE | 2022-12-22 11:39 | P.CONIM_ITS ---
Providers/Reason For Consult Consulting Physician/Specialty*: Delmy Carranza, DIRECT CARE SUPERVISOR- Reason for Consult*: Wound Care Requesting Physician: Omar Harden MD Attending Physician: Omar Harden MD Primary Care Provider: Mariana Cao MD History of Present Illness History of Present Illness Devyn Luo is a 77 year old male today with multiple wounds to the anterior side of the body. Medical history includes CHF, COPD, diabetes and kidney failure. 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 Mr. Luo is a hemodialysis patient Sunday, , Sunday. He was admitted for generalized weakness on 12/21/22. Mr. Luo reports recently being diagnosed with bullous pemphigoid after a skin biopsy while he was in the hospital in [place], [place]. Mr. Luo reports he has had this skin condition for four to five years. He reports his skin self resolved four years ago with an exacerbation starting one month ago. Mr. Luo reports the open wounds as blisters that have erupted or burst. He is being treated curretly with prednisone, doxycycline and topical clobetasol. Mr. Luo has several open wounds to his bilateral lower extremities, abdominal fold, genitals and left arm. Purulent drainage from bilateral feet wounds and left arm wounds. There is loose devitalized epidermis to the bilateral feet that extends from the dorsal to the plantar surface of the feet. All wounds are superficial and limited to breakdown of skin.Non wound conditions include the right lower quadrant of the abdomen, the anterior chest and the right arm. The fourth toe is black and has stable eschar to the most distal aspect. Wounds were measured (see orders below for measurements). No curette debridement was performed. Moderate amount of deviatalized loose epidermis was removed from the bilateral feet with Metzenbaum scissors and forceps. No bleeding with minimal discomfort. All open wounds were cleansed and daily dressings applied. I recommend using mupirocin ointment BID to the open areas with telfa, kerlix and secured with tape. I recommend to continue to treat affected areas that are not open wounds with topical clobetasol. Mr. Luo reports his wounds are very sensitive to touch with tenderness and pain. Upon discharge a wheelchair will be necessary for Mr. Luo's transportation around and in his home due to his inability to tolerate ambulation. Due to the eschar to the fourth toe of the left foot I do feel a consult to podiatry is necessary for their expert evaluation and treatment. I appreciate the opportunity to consult with Mr. Luo. Review of Systems General: Reports: 10 or more systems reviewed and unremarkable except in HPI and below Narrative: Other ros negative Const: Denies: fever(s) or chills Eyes: Denies: change in vision Card: Denies: chest pain or palpitations Resp: Denies: dyspnea or productive cough GI: Denies: abdominal pain, nausea or vomiting : Denies: flank pain Musc: Reports: extremity swelling, joint stiffness and deformity Skin/Breast: Reports: erythema, sores, changes in skin color, dry skin, nail changes and change in hair Neuro: Reports: numbness in extremities, sensory changes and difficulty walking Psych: Denies: suicidal ideation Endo: Denies: change in body appearance Solo/Lymph: Denies: tender lymph nodes Medications/Allergies Home Medications Medication Instructions Recorded Confirmed Last Taken Type aspirin 81 mg chewable tablet 81 mg PO DAILY 06/08/22 12/21/22 12/21/22 History atorvastatin 80 mg tablet 40 mg PO BEDTIME 06/08/22 12/21/22 12/20/22 History cetirizine 10 mg tablet 10 mg PO DAILY 06/08/22 12/21/22 12/21/22 History cholecalciferol (vitamin D3) 25 25 mcg PO DAILY 06/08/22 12/21/22 12/21/22 History mcg (1,000 unit) capsule (Vitamin D3) finasteride 5 mg tablet 5 mg PO DAILY 06/08/22 12/21/22 12/21/22 History fluticasone 500 mcg-salmeterol 50 1 inh inhalation BID 06/08/22 12/21/22 12/21/22 History mcg/dose blistr powdr for inhalation (Wixela Inhub) fluticasone propionate 50 1 spray intranasal BID 06/08/22 12/21/22 12/21/22 History mcg/actuation nasal spray,suspension gabapentin 300 mg capsule 300 mg PO BEDTIME 06/08/22 12/21/22 12/20/22 History glucosamine-chondroitin 250 mg-200 1 tab PO BID 06/08/22 12/21/22 12/21/22 History mg tablet (Osteo Bi-Flex) insulin aspart U-100 100 unit/mL See Rx Instructions .Route .COMPLEX 06/08/22 12/21/22 12/21/22 History subcutaneous solution (Novolog U-100 Insulin aspart) ipratropium 20 mcg-albuterol 100 1 puff inhalation QID 06/08/22 12/21/22 12/21/22 History mcg/actuation mist for inhalation (Combivent Respimat) nitroglycerin 0.4 mg sublingual 0.4 mg sublingual Q5M PRN Chest 06/08/22 12/21/22 Unknown History tablet (Nitrostat) Pain sennosides 8.6 mg-docusate sodium 1 tab-cap PO DAILY 06/08/22 12/21/22 12/21/22 History 50 mg tablet (Senna-S) tamsulosin 0.4 mg capsule 0.4 mg PO QPM 06/08/22 12/21/22 12/20/22 History acetaminophen 500 mg tablet 1,000 mg PO Q6H PRN Pain 11/24/22 12/21/22 11/24/22 History benzonatate 100 mg capsule 100 mg PO TID PRN Cough 12/21/22 12/21/22 Unknown History bumetanide 1 mg tablet 1 mg PO BID PRN FLUID RETENTION 12/21/22 12/21/22 Unknown History clobetasol 0.05 % topical cream 1 applic topical BID 12/21/22 12/21/22 12/21/22 History doxycycline hyclate 100 mg tablet See Rx Instructions .Route .COMPLEX 12/21/22 12/21/22 12/21/22 History insulin glargine 100 unit/mL (3 35 unit SUBCUT BEDTIME 12/21/22 12/21/22 12/20/22 History mL) subcutaneous pen (Lantus Solostar U-100 Insulin) miconazole nitrate 2 % topical 1 applic topical BID 12/21/22 12/21/22 12/21/22 History cream niacinamide 500 mg tablet 500 mg PO TID 12/21/22 12/21/22 12/21/22 History polyethylene glycol 3350 17 See Rx Instructions .Route .COMPLEX 12/21/22 12/21/22 Unknown History gram/dose oral powder (Miralax) prednisone 10 mg tablet See Rx Instructions .Route .COMPLEX 12/21/22 12/21/22 12/21/22 History sevelamer carbonate 800 mg tablet 800 mg PO TID 12/21/22 12/21/22 12/21/22 History Allergies Allergy/AdvReac Type Severity Reaction Status Date / Time amoxicillin Allergy Unknown Unknown Verified 10/16/22 12:47 Current Medications Generic Name Dose Route Start Last Admin Trade Name Freq PRN Reason Stop Dose Admin Albuterol/Ipratropium 3 ml 12/21/22 18:05 12/22/22 09:38 Ipratropium-Albuterol 3 Ml Neb INHALATION 3 ml Q6H PRN Administration SHORTNESS OF BREATH Aspirin 81 mg 12/22/22 09:00 12/22/22 08:25 Aspirin 81 Mg Chew Tablet PO 81 mg DAILY DONALD Administration Atorvastatin Calcium 40 mg 12/21/22 21:00 12/21/22 22:01 Atorvastatin 40 Mg Tablet PO 40 mg BEDTIME DONALD Administration Budesonide 0.5 mg 12/22/22 08:00 12/22/22 09:38 Budesonide 0.5 Mg/2 Ml Neb INHALATION 0.5 mg BID.RESPIRATORY DONALD Administration Bumetanide 1 mg 12/21/22 14:24 12/21/22 17:53 Bumetanide 1 Mg Tablet PO 1 mg BID PRN Administration FLUID RETENTION Cetirizine HCl 10 mg 12/22/22 09:00 12/22/22 08:24 Cetirizine 10 Mg Tablet PO 10 mg DAILY DONALD Administration Doxycycline Monohydrate 100 mg 12/21/22 18:00 12/22/22 08:24 Doxycycline 100 Mg Tablet PO 100 mg BID DONALD Administration Finasteride 5 mg 12/22/22 09:00 12/22/22 08:24 Finasteride 5 Mg Tablet PO 5 mg DAILY DONALD Administration Fluticasone Propionate 1 spray 12/21/22 18:00 12/22/22 08:27 Fluticasone Nasal [place] 16gm Btl INTRANASAL 1 spray BID DONALD Administration Gabapentin 300 mg 12/21/22 21:00 12/21/22 22:01 Gabapentin 300 Mg Capsule PO 300 mg BEDTIME DONALD Administration Heparin Sodium (Porcine) 5,000 unit 12/22/22 10:00 12/22/22 10:45 Heparin 5,000 Unit/Ml Inj 1 Ml SUBCUT 5,000 unit Q12H DONALD Administration Ciprofloxacin/Dextrose 400 mg in 200 mls @ 200 mls/hr 12/21/22 18:30 12/22/22 10:44 Cipro IV 200 mls/hr Q12H DONALD Administration Protocol Insulin Glargine 15 unit 12/21/22 21:00 12/22/22 00:28 Insulin Glargine 100 Units/1 Ml SUBCUT 15 unit BEDTIME DONALD Administration Insulin Human Lispro 0 unit 12/21/22 18:00 12/22/22 08:25 Insulin Lispro 100 Unit/1 Ml SUBCUT 4 unit TIDWM DONALD Administration Protocol Morphine Sulfate 2 mg 12/21/22 16:43 12/22/22 10:44 Morphine 4 Mg/Ml Sdv 1 Ml IVP 2 mg Q4H PRN Administration SEVERE PAIN Non-Formulary Medication 1 tab 12/21/22 18:00 12/22/22 08:28 Glucosamine-Chondroitin [Osteo Bi-Flex] PO Not Given BID DONALD Non-Formulary Medication 500 mg 12/21/22 15:00 12/22/22 08:28 Niacinamide PO Not Given TID DONALD Pantoprazole Sodium 40 mg 12/21/22 16:43 12/21/22 22:39 Pantoprazole 40 Mg Sdv IVP 40 mg Q24H DONALD Administration Senna/Docusate Sodium 1 tab 12/22/22 09:00 12/22/22 08:25 Sennosides-Docusate Tablet PO 1 tab DAILY DONALD Administration Sevelamer Carbonate 800 mg 12/21/22 15:00 12/22/22 08:24 Sevelamer 800 Mg Tablet PO 800 mg TID DONALD Administration Tamsulosin HCl 0.4 mg 12/21/22 18:00 12/21/22 17:53 Tamsulosin 0.4 Mg Capsule PO 0.4 mg QPM DONALD Administration Vitamin D 1,000 unit 12/22/22 09:00 12/22/22 08:24 Cholecalciferol (Vitamin D3) 1,000 Unit Tablet PO 1,000 unit DAILY DONALD Administration PFSH Acute PFSH: Medical History BPH (benign prostatic hyperplasia) Cellulitis Chronic kidney disease COPD (chronic obstructive pulmonary disease) Coronary artery disease GERD (gastroesophageal reflux disease) Hyperlipidemia Morbid obesity Peripheral neuropathy Type 2 diabetes mellitus Surgical History History of cholecystectomy History of coronary angioplasty Family History Other CAD (coronary artery disease) Social History Smoking and tobacco/nicotine status: former use of tobacco/nicotine Alcohol intake: never Substance/Drug Use: never Vitals/I&O/Wt Last Vital Signs Temp 98.5 F 12/22/22 08:00 Pulse 99 12/22/22 09:55 Resp 16 12/22/22 10:44 BP 93/67 12/22/22 08:00 Pulse Ox 94 12/22/22 09:38 O2 Del Method Nasal Cannula 12/22/22 09:38 O2 Flow Rate 3.5 12/22/22 09:38 12/21/22 12/22/22 12/22/22 22:59 06:59 14:59 Intake Total 500 / 500 200 / 700 360 / 360 Output Total 3322 / 3322 Balance -2822 / -2822 200 / -2622 360 / 360 Weight last 48 hrs Weight 153.1 kg Weight 151.953 kg Physical Exam Narrative: awake ,alert 'no distress S1S2 RRR per report Lungs clear per report No edema skin rash/wounds Const: COMMON NORMALS: no acute distress and patient oriented x3 Resp: COMMON NORMALS: normal respiratory effort, No retractions, No use of accessory muscles and clear to auscultation bilaterally AUSCULTATION: clear to auscultation bilaterally Cardio: COMMON NORMALS: regular rate, regular rhythm, S1 normal heart sound present and S2 normal heart sound present RATE: regular rate RHYTHM: regular rhythm HEART SOUNDS: S1 normal heart sound present and S2 normal heart sound present GI: COMMON NORMALS: Normal to inspection, nondistended, normoactive bowel sounds present and non-tender Extremity: COMMON NORMALS: no pedal edema Neuro: COMMON NORMALS: patient oriented x3 Psych: COMMON NORMALS: mental status grossly normal Skin: WOUNDS: Yes wounds noted Data 12/22/22 04:58 12/22/22 04:58 A&P Assessment and plan (1) Bullous pemphigoid: Open wounds to the bilateral lower extremities, abdominal fold, genitals, and left upper extremity. Topical mupirocin, telfa, kerlix and tape, BID. Non wound condition to right upper extremity, right lower quadrant of abdomen, and anterior chest. Topical clobetasol, [employer] Daily. (2) Eschar of toe: Black stable eschar to fourth toe of left foot. Consult podiatry for eval and treat. Consult Attestations Medical Necessity Statement: per medicine team Time Spent in Patient Care: Greater than 35 minutes (>than 50% of time spent in counselling and/or direct pt care on unit) . Coding Level of Care Code 15207 Straight Forward MDM, Straight Forward Time for a total of 90 minutes, includes reviewing past or interval history, examining/interviewing patient, placing orders, counseling patient/family/other support, updating patient/family/other support, discussing plan of care with staff, communicating with other healthcare providers, documenting encounter and coordinating care and High Time for a total of 90 minutes, includes reviewing past or interval history, examining/interviewing patient, placing orders, counseling patient/family/other support, updating patient/family/other support, discussing plan of care with staff, communicating with other healthcare providers, documenting encounter and coordinating care Other Coding Information Focused coding review requested Prolonged care (total time indicated above or notated here) (90 minutes) Diagnoses Bullous pemphigoid L12.0 Eschar of toe R23.4 Time Spent (min) 90 Wound Orders Wound Number 1: Right leg superficial open wounds (clustered) , loose epidermis 1 [id number] Does Wound require Debridement?: Yes Tissue and other material debrided:: Non-Viable and Skin: Epidermis Level Debrided: Dermis Level of Consciousness Pre-Procedure:: Awake and Alert Reponse to treatment:: Procedure tolerated well Character of Wound/Ulcer Post Debridement:: Improved Level of Consciousness Post Procedure:: Awake and Alert Post procedure diagnosis:: Same as Pre-Procedure Diagnosis Duration: 14 Days Dressing change frequency: Twice Daily Wound Cleansing: Saline Primary Wound Care Dressing: Mupirocin Secondary Wound Care Dressing: telfa , kerlix and tape Bathing/Showering/Hygiene: May shower without wound dressing Off-Loading: Turn and reposition every 2 hours and Other (wheelchair for transportation) Wound Number 2: Left leg superficial open wounds (clustered) , loose epidermis [id number] Does Wound require Debridement?: Yes Tissue and other material debrided:: Non-Viable and Skin: Epidermis Level Debrided: Dermis Level of Consciousness Pre-Procedure:: Awake and Alert Blood Loss: None Reponse to treatment:: Procedure tolerated well Character of Wound/Ulcer Post Debridement:: Improved Level of Consciousness Post Procedure:: Awake and Alert Post procedure ashley gnosis:: Same as Pre-Procedure Diagnosis Duration: 14 Days Dressing change frequency: Twice Daily Wound Cleansing: Saline Primary Wound Care Dressing: Topical mupirocin Secondary Wound Care Dressing: Telfa, kerlix and tape. Bathing/Showering/Hygiene: May shower without wound dressing Off-Loading: Turn and reposition every 2 hours Wound Number 3: Right arm non wounds (clustered) , loose epidermis 85.5x41x0.1cm Duration: 14 Days Dressing change frequency: Daily Primary Wound Care Dressing: Topical clobetasol [employer] Wound Number 4: Left arm superficial open wounds (clustered) , loose epidermis [id number] Does Wound require Debridement?: No Duration: 14 Days Dressing change frequency: Twice Daily Wound Cleansing: Saline Primary Wound Care Dressing: Topical mupirocin Secondary Wound Care Dressing: Telfa, kerlix and tape Bathing/Showering/Hygiene: May shower without wound dressing Off-Loading: Turn and reposition every 2 hours Wound Number 5: Anterior chest non wounds (clustered) [id number] Duration: 14 Days Dressing change frequency: Daily Primary Wound Care Dressing: Topical clobetasol Wound Number 6: Right abdominal fold superficial open wounds (clustered) [id number] Does Wound require Debridement?: No Duration: 14 Days Dressing change frequency: Twice Daily Wound Cleansing: Saline Primary Wound Care Dressing: Mupirocin Secondary Wound Care Dressing: Telfa Bathing/Showering/Hygiene: May shower without wound dressing Off-Loading: Turn and reposition every 2 hours Wound Number 7: Midline abdominal fold superficial open wounds (clustered) 9x43x0.1cm Does Wound require Debridement?: No Duration: 14 Days Dressing change frequency: Twice Daily Wound Cleansing: Saline Primary Wound Care Dressing: Mupirocin Secondary Wound Care Dressing: telfa Bathing/Showering/Hygiene: May shower without wound dressing Off-Loading: Turn and reposition every 2 hours Wound Number 8: Left absominal fold superficial open wounds (clustered) 14x9.5x0.1cm Does Wound require Debridement?: No Duration: 14 Days Dressing change frequency: Twice Daily Wound Cleansing: Saline Primary Wound Care Dressing: Mupirocin Secondary Wound Care Dressing: telfa Bathing/Showering/Hygiene: May shower without wound dressing Off-Loading: Turn and reposition every 2 hours Wound Number 9: Genitals superficial open wounds (clustered) 13x6.5x0.1cm Does Wound require Debridement?: No Duration: 14 Days Dressing change frequency: Twice Daily Wound Cleansing: Saline Primary Wound Care Dressing: Mupirocin Bathing/Showering/Hygiene: May shower without wound dressing Off-Loading: Turn and reposition every 2 hours Non Wound Condition: Abdomen : Right Lower Quadrant non wounds (clustered) 6.5x8x0.1cm Duration: 14 Days Dressing change frequency: Daily Primary Wound Care Dressing: clobetasol Secondary Wound Care Dressing: CIELO Bathing/Showering/Hygiene: May shower without wound dressing Off-Loading: Turn and reposition every 2 hours Discharge From Services Discharge from Wound Care [facility]
--- NOTE | 2022-12-22 12:55 | P.CONIM_ITS ---
Providers/Reason For Consult Consulting Physician/Specialty*: Jeremiah Loco D.P.M./podiatry Reason for Consult*: Exacerbation of bullous pemphigus involving bilateral feet. Attending Physician: Omar Harden MD Primary Care Provider: Mariana Cao MD History of Present Illness History of Present Illness Devyn Luo is a 77 year old male presents to the emergency department for acute renal failure. Patient has bullous pemphigoid with lesions at extremities. I was consulted for evaluation of bilateral legs and feet. Patient reports previous exacerbation of both pemphigus. Patient endorses pain at his feet. No other complaints at this time. Review of Systems General: Reports: 10 or more systems reviewed and unremarkable except in HPI and below Const: Denies: fever(s) or chills Eyes: Denies: change in vision Card: Denies: chest pain or palpitations Resp: Denies: dyspnea or productive cough GI: Denies: abdominal pain, nausea or vomiting : Denies: flank pain Musc: Reports: extremity swelling, joint stiffness and deformity Skin/Breast: Reports: erythema, sores, changes in skin color, dry skin, nail changes and change in hair Neuro: Reports: numbness in extremities, sensory changes and difficulty walk ing Psych: Denies: suicidal ideation Endo: Denies: change in body appearance Solo/Lymph: Denies: tender lymph nodes Medications/Allergies Home Medications Medication Instructions Recorded Confirmed Last Taken Type aspirin 81 mg chewable tablet 81 mg PO DAILY 06/08/22 12/21/22 12/21/22 History atorvastatin 80 mg tablet 40 mg PO BEDTIME 06/08/22 12/21/22 12/20/22 History cetirizine 10 mg tablet 10 mg PO DAILY 06/08/22 12/21/22 12/21/22 History cholecalciferol (vitamin D3) 25 25 mcg PO DAILY 06/08/22 12/21/22 12/21/22 History mcg (1,000 unit) capsule (Vitamin D3) finasteride 5 mg tablet 5 mg PO DAILY 06/08/22 12/21/22 12/21/22 History fluticasone 500 mcg-salmeterol 50 1 inh inhalation BID 06/08/22 12/21/22 3 History mcg/dose blistr powdr for inhalation (Wixela Inhub) fluticasone propionate 50 1 spray intranasal BID 06/08/22 12/21/22 12/21/22 History mcg/actuation nasal spray,suspension gabapentin 300 mg capsule 300 mg PO BEDTIME 06/08/22 12/21/22 12/20/22 History glucosamine-chondroitin 250 mg-200 1 tab PO BID 06/08/22 12/21/22 12/21/22 History mg tablet (Osteo Bi-Flex) insulin aspart U-100 100 unit/mL See Rx Instructions .Route .COMPLEX 06/08/22 12/21/22 12/21/22 History subcutaneous solution (Novolog U-100 Insulin aspart) ipratropium 20 mcg-albuterol 100 1 puff inhalation QID 06/08/22 12/21/22 12/21/22 History mcg/actuation mist for inhalation (Combivent Respimat) nitroglycerin 0.4 mg sublingual 0.4 mg sublingual Q5M PRN Chest 06/08/22 12/21/22 Unknown History tablet (Nitrostat) Pain sennosides 8.6 mg-docusate sodium 1 tab-cap PO DAILY 06/08/22 12/21/22 12/21/22 History 50 mg tablet (Senna-S) tamsulosin 0.4 mg capsule 0.4 mg PO QPM 06/08/22 12/21/22 12/20/22 History acetaminophen 500 mg tablet 1,000 mg PO Q6H PRN Pain 11/24/22 12/21/22 11/24/22 History benzonatate 100 mg capsule 100 mg PO TID PRN Cough 12/21/22 12/21/22 Unknown History bumetanide 1 mg tablet 1 mg PO BID PRN FLUID RETENTION 12/21/22 12/21/22 Unknown History clobetasol 0.05 % topical cream 1 applic topical BID 12/21/22 12/21/22 12/21/22 History doxycycline hyclate 100 mg tablet See Rx Instructions .Route .COMPLEX 12/21/22 12/21/22 12/21/22 History insulin glargine 100 unit/mL (3 35 unit SUBCUT BEDTIME 12/21/22 12/21/22 12/20/22 History mL) subcutaneous pen (Lantus Solostar U-100 Insulin) miconazole nitrate 2 % topical 1 applic topical BID 12/21/22 12/21/22 12/21/22 History cream niacinamide 500 mg tablet 500 mg PO TID 12/21/22 12/21/22 12/21/22 History polyethylene glycol 3350 17 See Rx Instructions .Route .COMPLEX 12/21/22 12/21/22 Unknown History gram/dose oral powder (Miralax) prednisone 10 mg tablet See Rx Instructions .Route .COMPLEX 12/21/22 12/21/22 12/21/22 History sevelamer carbonate 800 mg tablet 800 mg PO TID 12/21/22 12/21/22 12/21/22 History Allergies Allergy/AdvReac Type Severity Reaction Status Date / Time amoxicillin Allergy Unknown Unknown Verified 10/16/22 12:47 Current Medications Generic Name Dose Route Start Last Admin Trade Name Freq PRN Reason Stop Dose Admin Albuterol/Ipratropium 3 ml 12/21/22 18:05 12/22/22 09:38 Ipratropium-Albuterol 3 Ml Neb INHALATION 3 ml Q6H PRN Administration SHORTNESS OF BREATH Aspirin 81 mg 12/22/22 09:00 12/22/22 08:25 Aspirin 81 Mg Chew Tablet PO 81 mg DAILY DONALD Administration Atorvastatin Calcium 40 mg 12/21/22 21:00 12/21/22 22:01 Atorvastatin 40 Mg Tablet PO 40 mg BEDTIME DONALD Administration Budesonide 0.5 mg 12/22/22 08:00 12/22/22 09:38 Budesonide 0.5 Mg/2 Ml Neb INHALATION 0.5 mg BID.RESPIRATORY DONALD Administration Bumetanide 1 mg 12/21/22 14:24 12/21/22 17:53 Bumetanide 1 Mg Tablet PO 1 mg BID PRN Administration FLUID RETENTION Cetirizine HCl 10 mg 12/22/22 09:00 12/22/22 08:24 Cetirizine 10 Mg Tablet PO 10 mg DAILY DONALD Administration Doxycycline Monohydrate 100 mg 12/21/22 18:00 12/22/22 08:24 Doxycycline 100 Mg Tablet PO 100 mg BID DONALD Administration Finasteride 5 mg 12/22/22 09:00 12/22/22 08:24 Finasteride 5 Mg Tablet PO 5 mg DAILY DONALD Administration Fluticasone Propionate 1 spray 12/21/22 18:00 12/22/22 08:27 Fluticasone Nasal [place] 16gm Btl INTRANASAL 1 spray BID DONALD Administration Gabapentin 300 mg 12/21/22 21:00 12/21/22 22:01 Gabapentin 300 Mg Capsule PO 300 mg BEDTIME DONALD Administration Heparin Sodium (Porcine) 5,000 unit 12/22/22 10:00 12/22/22 10:45 Heparin 5,000 Unit/Ml Inj 1 Ml SUBCUT 5,000 unit Q12H DONALD Administration Ciprofloxacin/Dextrose 400 mg in 200 mls @ 200 mls/hr 12/21/22 18:30 12/22/22 11:59 Cipro IV Infused Q12H [facility] Infusion Protocol Insulin Glargine 15 unit 12/21/22 21:00 12/22/22 00:28 Insulin Glargine 100 Units/1 Ml SUBCUT 15 unit BEDTIME DONALD Administration Insulin Human Lispro 0 unit 12/21/22 18:00 12/22/22 12:14 Insulin Lispro 100 Unit/1 Ml SUBCUT 6 unit TIDWM [facility] Administration Protocol Morphine Sulfate 2 mg 12/21/22 16:43 12/22/22 10:44 Morphine 4 Mg/Ml Sdv 1 Ml IVP 2 mg Q4H PRN Administration SEVERE PAIN Non-Formulary Medication 1 tab 12/21/22 18:00 12/22/22 08:28 Glucosamine-Chondroitin [Osteo Bi-Flex] PO Not Given BID [facility] Non-Formulary Medication 500 mg 12/21/22 15:00 12/22/22 08:28 Niacinamide PO Not Given TID [facility] Pantoprazole Sodium 40 mg 12/21/22 16:43 12/21/22 22:39 Pantoprazole 40 Mg Sdv IVP 40 mg Q24H [facility] Administration Senna/Docusate Sodium 1 tab 12/22/22 09:00 12/22/22 08:25 Sennosides-Docusate Tablet PO 1 tab DAILY [facility] Administration Sevelamer Carbonate 800 mg 12/21/22 15:00 12/22/22 08:24 Sevelamer 800 Mg Tablet PO 800 mg TID [facility] Administration Tamsulosin HCl 0.4 mg 12/21/22 18:00 12/21/22 17:53 Tamsulosin 0.4 Mg Capsule PO 0.4 mg QPM DONALD Administration Vitamin D 1,000 unit 12/22/22 09:00 12/22/22 08:24 Cholecalciferol (Vitamin D3) 1,000 Unit Tablet PO 1,000 unit DAILY DONALD Administration PFSH Acute PFSH: Medical History BPH (benign prostatic hyperplasia) Cellulitis Chronic kidney disease COPD (chronic obstructive pulmonary disease) Coronary artery disease GERD (gastroesophageal reflux disease) Hyperlipidemia Morbid obesity Peripheral neuropathy Type 2 diabetes mellitus Surgical History History of cholecystectomy History of coronary angioplasty Family History Other CAD (coronary artery disease) Social History Smoking and tobacco/nicotine status: former use of tobacco/nicotine Alcohol intake: never Substance/Drug Use: never Vitals/I&O/Wt Last Vital Signs Temp 98.5 F 12/22/22 08:00 Pulse 99 12/22/22 09:55 Resp 16 12/22/22 10:44 BP 93/67 12/22/22 08:00 Pulse Ox 94 12/22/22 09:38 O2 Del Method Nasal Cannula 12/22/22 09:38 O2 Flow Rate 3.5 12/22/22 09:38 12/21/22 12/22/22 12/22/22 22:59 06:59 14:59 Intake Total 500 / 500 200 / 700 560 / 560 Output Total 3322 / 3322 Balance -2822 / -2822 200 / -2622 560 / 560 Weight last 48 hrs Weight 337 lb 8.443 oz Weight 335 lb Physical Exam Narrative: GENERAL: Patient is alert and oriented ?3 and in no acute distress. The following is a focused bilateral lower extremity exam. VASCULAR: Dorsalis pedis palpable +2 bilaterally. Posterior tibial arteries palpable +2. Capillary refill time less than 3 seconds to the distal hallux bilaterally. No cap refill at the distal tuft of the left third toe. Calf is supple and nontender proximally and distally. Decreased pedal hair growth. Pitting edema to the lower extremities. NEUROLOGICAL: Protective sensation intact 8/10 sites, tested with [place] Yessenia monofilament to bilateral feet. DERMATOLOGICAL: Bullae that are fluid-filled at the instep and bilateral dorsal forefoot. Symmetrical appearance of bullae bilateral lower extremity. Pruritus bilateral lower extremity. Dry stable eschar at the distal tuft of the left third toe without fluctuance or bogginess. MUSCULOSKELETAL: Muscle strength +5 in all 3 planes bilateral foot and ankle. No crepitus with palpation of soft tissue bilateral lower extremities. Data 12/22/22 04:58 12/22/22 04:58 Micro: Microbiology 12/21/22 14:31 Urine Culture - Preliminary Urine,Clean Catch A&P Assessment and plan (1) Bullous pemphigoid: (2) Peripheral neuropathy: (3) Type 2 diabetes mellitus: (4) Acute kidney injury superimposed on chronic kidney disease: (5) Eschar of toe: Clinically stable, no plans for surgical intervention during his hospitali zation. Will monitor outpatient. Plan 77-year-old diabetic male with end-stage renal disease presents with exacerbation of bullous pemphigoid. Recommendations for lower extremity wounds Primary dressing will be changed twice daily during this hospitalization, 0.1% clobetasol directly to superficial wounds of the bilateral lower extremity with outer dressing consisting of sorb AG, 4 to Kerlix and tape. Podiatry will follow lower extremity wounds during this hospitalization. In regards to stable eschar to the distal tuft of the left third toe will monitor, this is stable, no plans for surgical intervention during this hospitalization. Coding Level of Care Code Acute Code for [facility] Diagnoses Bullous pemphigoid L12.0 Peripheral neuropathy G62.9 Type 2 diabetes mellitus E11.9 Acute kidney injury superimposed on chronic kidney disease N17.9; N18.9 Eschar of toe R23.4
--- NOTE | 2022-12-22 14:16 | XRR_ITS ---
PROCEDURE INFORMATION: Exam: XR Left Foot Exam date and time: 12/22/2022 3:30 PM Age: 77 years old Clinical indication: Other: Wounds TECHNIQUE: Imaging protocol: Radiologic exam of the left foot. Views: 3 or more views. COMPARISON: No relevant prior studies available. FINDINGS: Bones/joints: Diffusely demineralized bones without evidence of acute fracture or dislocation. Chronic healed fracture deformity of the 2nd metatarsal. Joints are maintained. Mild plantar calcaneal enthesophyte. Soft tissues: Diffuse soft tissue swelling. Small calcific densities adjacent to the medial malleolus may be vascular and/or dystrophic sequela of prior trauma. XR/XR foot LT min 3V* [id number] IMPRESSION: Soft tissue swelling and osteopenia without evidence of acute fracture or dislocation.
--- NOTE | 2022-12-22 14:16 | XRR_ITS ---
PROCEDURE INFORMATION: Exam: XR Right Foot Exam date and time: 12/22/2022 3:33 PM Age: 77 years old Clinical indication: Other: Wounds TECHNIQUE: Imaging protocol: Radiologic exam of the right foot. Views: 3 or more views. COMPARISON: No relevant prior studies available. FINDINGS: Bones/joints: Diffusely demineralized bones without evidence of acute fracture or dislocation. Joints are maintained. Mild plantar calcaneal enthesophyte. Soft tissues: Diffuse soft tissue swelling. XR/XR foot RT min 3V* [id number] IMPRESSION: Soft tissue swelling and osteopenia without evidence of acute fracture or dislocation.
--- NOTE | 2022-12-22 14:30 | PM.PN ---
Subjective Subjective: Patient was seen this morning, denies any fevers, no chills, no nausea, no vomiting, he tells me that he continues to have weakness, denies any chest pain, no palpitations, Vitals/I&O/Wt Last Vital Signs Temp 98.2 F 12/22/22 12:00 Pulse 104 H 12/22/22 12:00 Resp 18 12/22/22 12:00 BP 110/61 12/22/22 12:00 Pulse Ox 93 12/22/22 12:00 O2 Del Method Nasal Cannula 12/22/22 09:38 O2 Flow Rate 3.5 12/22/22 09:38 12/21/22 12/22/22 12/22/22 22:59 06:59 14:59 Intake Total 500 / 500 200 / 700 800 / 800 Output Total 3322 / 3322 Balance -2822 / -2822 200 / -2622 800 / 800 Weight last 48 hrs Weight 153.1 kg Weight 151.953 kg Physical Exam Const: COMMON NORMALS: no acute distress and patient oriented x3 Resp: COMMON NORMALS: normal respiratory effort, No retractions, No use of accessory muscles and clear to auscultation bilaterally AUSCULTATION: clear to auscultation bilaterally Cardio: COMMON NORMALS: regular rate, regular rhythm, S1 normal heart sound present and S2 normal heart sound present RATE: regular rate RHYTHM: regular rhythm HEART SOUNDS: S1 normal heart sound present and S2 normal heart sound present GI: COMMON NORMALS: Normal to inspection, nondistended, normoactive bowel sounds present and non-tender Extremity: COMMON NORMALS: no pedal edema Neuro: COMMON NORMALS: patient oriented x3 Psych: COMMON NORMALS: mental status grossly normal Data 12/22/22 04:58 12/22/22 04:58 Micro: Microbiology 12/21/22 14:31 Urine Culture - Preliminary Urine,Clean Catch A&P Assessment and plan (1) Anemia: (2) Bullous pemphigoid: (3) Generalized weakness: (4) ESRD on dialysis: (5) Morbid obesity: (6) Type 2 diabetes mellitus: (7) CHF (congestive heart failure): (8) Acute kidney injury superimposed on chronic kidney disease: (9) COPD (chronic obstructive pulmonary disease): Plan Generalized weakness, ? Etiology unclear, possible deconditioning ? His anemia, follow iron studies, B12, folate, ? UA with possible UTI, start Rocephin ? PT OT, End-stage renal disease, etiology secondary to antibiotics?, ? Will get records from [facility] in [place], ? Consulted nephrology for dialysis, Acute on chronic anemia, follow iron studies, B12, folate, Bullous pemphigoid, consult wound care, continue doxycycline, continue clobetasol, will consider speaking with dermatology, will discuss with podiatry Serial EKGs, short of breath, telemetry monitoring, NSTEMI -Serial EKGs, troponins, telemetry monitoring CONCLUSIONS ?Normal left ventricular size and systolic function, EF 67 %. ?Mild left ventricular hypertrophy. Grade I/IV diastolic ?dysfunction (abnormal relaxation filling pattern), normal to ?mildly elevated filling pressures.? No wall motion abnormalities ?noted ? (Echo contrast - Optison was used to delineate the endocardium ?and to estimate the? LV ejection fraction) ?Thickened aortic valve. ?Dilated aortic root, measuring 4.2 cm at the level of the ?sinuses.? Ascending aorta measured 3.7 cm in diameter ?Normal pericardium without effusion.? ?Technically difficult study because of the poor ultrasonic ?window. PT OT, Patient is DNR/DNI, heparin for DVT prophylaxis Attestations Medical Necessity Statement*: Patient requires hospitalization for generalized weakness, deconditioning, possible UTI, end-stage renal disease, bullous pemphigoid Diagnoses Anemia D64.9 Bullous pemphigoid L12.0 Generalized weakness R53.1 ESRD on dialysis N18.6; Z99.2 Morbid obesity E66.01 Type 2 diabetes mellitus E11.9 CHF (congestive heart failure) I50.9 Acute kidney injury superimposed on chronic kidney disease N17.9; N18.9 COPD (chronic obstructive pulmonary disease) J44.9
--- NOTE | 2022-12-22 15:11 | PC.SOCIAL ---
IMM Update pg 2 of IMM updated and reviewed w/ patient. Copy provided and Copy dated, initialed and placed in chart.
[2022-12-22] MEDS: predniSONE 20 mg Tablet PO (16:11)
[2022-12-22 17:14] LABS: Glucose Point of Care 219 mg/dL (70-110)
[2022-12-22] MEDS: tamsulosin 0.4 mg Capsule PO (17:24)
--- NOTE | 2022-12-22 18:29 | USCV_ITS ---
Devyn Luo Age: 77 Gender: M : 1945 Exam Date: 12/22/2022 01:17 Ordering Phys: Omar Harden MD Technologist: KG Exam Location: [facility] – [place] Indication: NSTEMI BP: 141 / 86 HR: 91 Rhythm: Sinus Technical Quality: Fair with OPTISON MEASUREMENTS (Male / Female) Normal Values 2D ECHO LV Diastolic Diameter PLAX 4.1 cm 4.2 - 5.9 / 3.9 - 5.3 cm LV Systolic Diameter PLAX 3.1 cm IVS Diastolic Thickness 2.4 cm 0.6 - 1.0 / 0.6 - 0.9 cm IVS Systolic Thickness 2.6 cm LVPW Diastolic Thickness 1.2 cm 0.6 - 1.0 / 0.6 - 0.9 cm LVPW Systolic Thickness 1.5 cm LVOT Diameter 2.5 cm LV Ejection Fraction 2D Teich 51.3 % LV Ejection Fraction MOD 2C 62.8 % LV Ejection Fraction 2C AL 63.6 % LA Diameter 5.2 cm LA Width 4.5 cm LA Height 5.8 cm RA Width 4.8 cm RA Height 5.6 cm Aorta at Sinotubular Diameter 4.2 cm IVC Diameter 1.5 cm M-MODE Aortic Annulus Diameter 3.9 cm LA Ao Ratio MM 1.3 MV E Point Septal Separation 0.0 cm DOPPLER AV Peak Velocity 134.0 cm/s LVOT Peak Velocity 88.0 cm/s AV Area Cont Eq vti 3.4 cm squared AV Area Cont Eq pk 3.2 cm squared MV Area PHT 3.6 cm squared Mitral E to A Ratio 0.7 MV E' Velocity 40.0 cm/s Mitral E to MV E' Ratio 13.2 Mitral E to LV E' Lateral Ratio 16.4 Mitral E to LV E' Septal Ratio 11.1 TV Peak E Velocity 53.0 cm/s PV Peak Velocity 147.0 cm/s RV Acceleration Time 0.1 s RV Ejection Time 0.4 s RV AcT/ET 0.3 FINDINGS Left Ventricle Normal left ventricular size and systolic function, EF 67 %. Mild left ventricular hypertrophy. Grade I/IV diastolic dysfunction (abnormal relaxation filling pattern), normal to mildly elevated filling pressures. Right Ventricle The right ventricle is normal in size and function. Right Atrium The right atrium is normal in size. Left Atrium The left atrium is normal in size. Mitral Valve No gross abnormalities noted Aortic Valve Thickened aortic valve. Tricuspid Valve Not visualized well Pulmonic Valve Pulmonic valve not well visualized. Pericardium Normal pericardium without effusion. Aorta Aortic root, at the level of the sinuses, measured 4.2 cm in diameter. 3.7 cm at the level of the sinus ascending aorta IVC Inferior vena cava not visualized. CONCLUSIONS Normal left ventricular size and systolic function, EF 67 %. Mild left ventricular hypertrophy. Grade I/IV diastolic dysfunction (abnormal relaxation filling pattern), normal to mildly elevated filling pressures. No wall motion abnormalities noted (Echo contrast - Optison was used to delineate the endocardium and to estimate the LV ejection fraction) Thickened aortic valve. Dilated aortic root, measuring 4.2 cm at the level of the sinuses. Ascending aorta measured 3.7 cm in diameter Normal pericardium without effusion. Technically difficult study because of the poor ultrasonic window. Dr Gilles Galvez MD FACC (Electronically Signed) Final Date: 22 December 2022 07:57 S
[2022-12-22 21:26] LABS: Glucose Point of Care 245 mg/dL (70-110)
[2022-12-22] MEDS: pantoprazole 40 mg SDV IVP (21:56)
[2022-12-22] MEDS: gabapentin 300 mg Capsule PO (22:03)
[2022-12-22] MEDS: betamethasone 0.05% Cream 15 gm 1 APPLIC TOPICAL (22:03)
[2022-12-22] MEDS: atorvastatin 40 mg Tablet PO (22:03)
[2022-12-22] MEDS: mupirocin oint 22 gm TOPICAL (22:04)
[2022-12-23] VITALS (13 sets, daily range): BP systolic 93–154; BP diastolic 53–80; PULSE 77–96; RESP 16–20; TEMP 36.2–37; O2SAT 94–99
[2022-12-23 04:56] LABS: Basophils % 0.2 %; Eosinophils % 0.1 %; Hematocrit 25.7 % (37-53); Lymphocytes # 0.8 10^3/uL (0.8-4.8); Lymphocytes % 9.5 %; Mean Corpuscular HGB Conc 31.1 g/dL (30-55); Mean Corpuscular Hemoglobin 30.2 pg (27-33); Mean Platelet Volume 8.8 fL (7.4-10.4); Monocytes # 0.6 10^3/uL (0.2-0.9); Monocytes % 6.2 %; Neutrophils # 7.32 10^3/uL (1.8-7.7); Neutrophils % 82.5 %; Nucleated Red Blood Cells % 0 %; Platelet Count 99 10^3/cmm (157-399); Red Blood Count 2.65 10^6/uL (3.85-5.65); White Blood Count 8.87 10^3/uL (3.29-11.43)
[2022-12-23 05:19] LABS: Alanine Aminotransferase 32 U/L (0-41); Albumin Level 2.6 g/dL (3.5-5.2); Alkaline Phosphatase 83 U/L (40-130); Anion Gap 19.8 (5-19); Aspartate Amino Transferase 24 U/L (0-40); Blood Urea Nitrogen 69 mg/dL (8-23); Calcium 8.7 mg/dL (8.5-10.5); Carbon Dioxide 23 mmol/L (22-29); Chloride 95 mmol/L (98-107); Glucose 257 mg/dL (65-115); Osmolality Calculated 303 mOsm/kg (285-295); Phosphorus 7.3 mg/dL (2.5-4.5); Potassium 5.8 mmol/L (3.5-5.1); Sodium 132 mmol/L (136-145); Total Bilirubin 0.3 mg/dL (0.15-1.2); Total Protein 5.6 g/dL (6.6-8.7)
[2022-12-23 06:57] LABS: Glucose Point of Care 257 mg/dL (70-110)
[2022-12-23] MEDS: ipratropium-albuterol 3 mL Neb INHALATION (08:45)
[2022-12-23] MEDS: budesonide 0.5 mg/2 mL Neb INHALATION ×2 (08:45→20:16)
[2022-12-23] MEDS: heparin, porcine 1,000 unit/mL INJ 10 mL 1000 UNIT IV (09:03)
--- NOTE | 2022-12-23 09:43 | PC.NURSE ---
Pt in dialysis at this time
[2022-12-23] MEDS: epoetin alfa 1000 Unit/0.05 mL (ESRD) 20000 UNIT SUBCUT (10:31)
--- NOTE | 2022-12-23 10:32 | PC.PHAR ---
Renal dosing for Cipro IV 400mg q12h changed to q24h after dialysis. Thank you, Shannon Hutchison RPh
--- NOTE | 2022-12-23 10:47 | PM.PN ---
Subjective Subjective: no new complaints Medications: Reviewed: Yes Vitals/I&O/Wt Last Vital Signs Temp 97.2 F L 12/23/22 07:49 Pulse 87 12/23/22 08:55 Resp 18 12/23/22 08:45 BP 154/53 12/23/22 07:49 Pulse Ox 94 12/23/22 08:45 O2 Del Method Nasal Cannula 12/23/22 08:45 O2 Flow Rate 3 12/23/22 08:45 12/22/22 12/23/22 12/23/22 22:59 06:59 14:59 Intake Total 240 / 1040 200 / 1240 360 / 360 Balance 240 / 1040 200 / 1240 360 / 360 Weight last 48 hrs Weight 153.1 kg Weight 151.953 kg Physical Exam Narrative: awake ,alert 'no distress S1S2 RRR per report Lungs clear per report No edema skin rash/wounds Data 12/23/22 04:39 12/23/22 04:39 Micro: Microbiology 12/21/22 14:31 Urine Culture - Preliminary Urine,Clean Catch A&P Assessment and plan (1) ESRD on dialysis: Plan 1. End-stage renal disease: Per TTS schedule as outpatient, HD today . Ultrafiltration as tolerated. Patient was recently started on HD for possible AIN diagnosis from antibiotics (status post kidney biopsy in [facility], results not available to us currently). 2. Anemia: Ordered LINDA 3. History of bullous pemphigoid: Wound care following 4. Hypertension: Blood pressure controlled 5. History of coronary artery disease and CHF Patient evaluated using audiovisual cart. Time spent 20 min Attestations Medical Necessity Statement*: per medicine team Coding Level of Care Code Acute Code for [facility] Fwd Diagnoses ESRD on dialysis N18.6; Z99.2
[2022-12-23 12:03] LABS: Glucose Point of Care 218 mg/dL (70-110)
[2022-12-23] MEDS: fluticasone nasal spray 16gm Btl 1 SPRAY INTRANASAL ×2 (12:41→17:02)
[2022-12-23] MEDS: insulin lispro 100 unit/1 mL SUBCUT ×2 (12:41→17:01)
[2022-12-23] MEDS: predniSONE 20 mg Tablet PO (12:42)
[2022-12-23] MEDS: cetirizine 10 mg Tablet PO (12:42)
[2022-12-23] MEDS: doxycycline 100 mg Tablet PO ×2 (12:42→17:02)
[2022-12-23] MEDS: cholecalciferol (vitamin D3) 1,000 unit Tablet 1000 UNIT PO (12:42)
[2022-12-23] MEDS: finasteride 5 mg Tablet PO (12:42)
[2022-12-23] MEDS: sennosides-docusate Tablet 1 TAB PO (12:42)
[2022-12-23] MEDS: sevelamer 800 mg Tablet PO ×3 (12:42→21:50)
[2022-12-23] MEDS: betamethasone 0.05% Cream 15 gm 1 APPLIC TOPICAL ×2 (12:43→17:01)
[2022-12-23] MEDS: aspirin 81 mg Chew Tablet PO (12:43)
[2022-12-23] MEDS: mupirocin oint 22 gm TOPICAL ×2 (12:45→17:02)
[2022-12-23] MEDS: ciprofloxacin 400 MG/200 ML PREMIX 200 MG IV (12:46)
[2022-12-23] MEDS: heparin 5,000 unit/mL INJ 1 mL 5000 UNIT SUBCUT ×2 (12:47→21:50)
--- NOTE | 2022-12-23 12:59 | PM.PN ---
Subjective Subjective: Patient was seen this morning, he denies any shortness of breath, no abdominal pain, he is receiving dialysis, no lightheadedness, does report generalized weakness, bilateral upper and lower extremities are wrapped, I also spoke to patient's family, discussed plan of care, they voiced understanding, Vitals/I&O/Wt Last Vital Signs Temp 97.3 F L 12/23/22 11:37 Pulse 94 12/23/22 11:37 Resp 19 H 12/23/22 11:37 BP 93/72 12/23/22 11:37 Pulse Ox 96 12/23/22 11:37 O2 Del Method Nasal Cannula 12/23/22 11:37 O2 Flow Rate 3 12/23/22 08:45 12/22/22 12/23/22 12/23/22 22:59 06:59 14:59 Intake Total 240 / 1040 200 / 1240 360 / 360 Balance 240 / 1040 200 / 1240 360 / 360 Weight last 48 hrs Weight 153.1 kg Physical Exam Const: COMMON NORMALS: no acute distress and patient oriented x3 Neck/C-Spine: COMMON NORMALS: no JVD Resp: COMMON NORMALS: normal respiratory effort, No retractions, No use of accessory muscles and clear to auscultation bilaterally AUSCULTATION: clear to auscultation bilaterally Cardio: COMMON NORMALS: no JVD, regular rate, regular rhythm, S1 normal heart sound present and S2 normal heart sound present RATE: regular rate RHYTHM: regular rhythm HEART SOUNDS: S1 normal heart sound present and S2 normal heart sound present GI: COMMON NORMALS: Normal to inspection, nondistended, normoactive bowel sounds present and non-tender Extremity: COMMON NORMALS: no pedal edema NARRATIVE EXTREMITY EXAM: Bilateral upper and lower extremity wrapped Neuro: COMMON NORMALS: patient oriented x3 Psych: COMMON NORMALS: mental status grossly normal Data 12/23/22 04:39 12/23/22 04:39 Micro: Microbiology 12/21/22 14:31 Urine Culture - Preliminary Urine,Clean Catch A&P Assessment and plan (1) Anemia: (2) Bullous pemphigoid: (3) Generalized weakness: (4) ESRD on dialysis: (5) Morbid obesity: (6) Type 2 diabetes mellitus: (7) CHF (congestive heart failure): (8) Acute kidney injury superimposed on chronic kidney disease: (9) COPD (chronic obstructive pulmonary disease): (10) Urinary tract infection: Plan Generalized weakness, ? Etiology unclear, possible deconditioning ? A component of anemia, hemoglobin 8.0, will monitor ? UA with possible UTI, start Rocephin ? PT OT, Anemia ? Likely anemia of chronic disease related to bullous pemphigoid, acute renal failure ? Hemoglobin is down to 8.0, has iron levels at 14, ferritin at 843, ? Hemoccult stool pending, ? We will monitor hemoglobin ? Consider transfusion if hemoglobin drops below 7 UTI, currently on Rocephin, End-stage renal disease, etiology secondary to antibiotics?, ? Will get records from [facility] in [place], ? Consulted nephrology for dialysis, Acute on chronic anemia, follow hemoglobin Hyperkalemia, will receive dialysis today Bullous pemphigoid, consult wound care, continue doxycycline, continue clobetasol, will consider speaking with dermatology, will discuss with podiatry Serial EKGs, short of breath, telemetry monitoring, NSTEMI -Serial EKGs, troponins, telemetry monitoring CONCLUSIONS ?Normal left ventricular size and systolic function, EF 67 %. ?Mild left ventricular hypertrophy. Grade I/IV diastolic ?dysfunction (abnormal relaxation filling pattern), normal to ?mildly elevated filling pressures.? No wall motion abnormalities ?noted ? (Echo contrast - Optison was used to delineate the endocardium ?and to estimate the? LV ejection fraction) ?Thickened aortic valve. ?Dilated aortic root, measuring 4.2 cm at the level of the ?sinuses.? Ascending aorta measured 3.7 cm in diameter ?Normal pericardium without effusion.? ?Technically difficult study because of the poor ultrasonic ?window. PT OT, Patient is DNR/DNI, heparin for DVT prophylaxis Attestations Medical Necessity Statement*: Patient requires hospitalization for UTI, anemia, generalized weakness, end-stage renal disease on dialysis Coding Level of Care Code Acute Code for Chg Fwd Diagnoses Anemia D64.9 Bullous pemphigoid L12.0 Generalized weakness R53.1 ESRD on dialysis N18.6; Z99.2 Morbid obesity E66.01 Type 2 diabetes mellitus E11.9 CHF (congestive heart failure) I50.9 Acute kidney injury superimposed on chronic kidney disease N17.9; N18.9 COPD (chronic obstructive pulmonary disease) J44.9 Urinary tract infection N39.0
[2022-12-23] MEDS: morphine 4 mg/mL SDV 1 mL 2 MG IVP (15:05)
[2022-12-23 15:41] LABS: Hematocrit 27.2 % (37-53)
[2022-12-23] MEDS: tamsulosin 0.4 mg Capsule PO (17:02)
[2022-12-23 17:10] LABS: Glucose Point of Care 370 mg/dL (70-110)
[2022-12-23 21:08] LABS: Glucose Point of Care 336 mg/dL (70-110)
[2022-12-23] MEDS: insulin glargine 100 units/1 mL 15 UNIT SUBCUT (21:50)
[2022-12-23] MEDS: atorvastatin 40 mg Tablet PO (21:50)
[2022-12-23] MEDS: gabapentin 300 mg Capsule PO (21:51)
[2022-12-23] MEDS: pantoprazole 40 mg SDV IVP (22:42)
[2022-12-24] VITALS (12 sets, daily range): BP systolic 115–158; BP diastolic 62–74; PULSE 82–96; RESP 18–20; TEMP 36.4–36.8; O2SAT 92–99
[2022-12-24 05:00] LABS: Basophils % 0.2 %; Eosinophils % 0.2 %; Hematocrit 25.7 % (37-53); Lymphocytes # 0.8 10^3/uL (0.8-4.8); Lymphocytes % 9.1 %; Mean Corpuscular HGB Conc 31.1 g/dL (30-55); Mean Corpuscular Hemoglobin 30.3 pg (27-33); Mean Corpuscular Volume 97.3 fl (82-101); Mean Platelet Volume 8.9 fL (7.4-10.4); Monocytes # 0.6 10^3/uL (0.2-0.9); Monocytes % 7.2 %; Neutrophils # 7.07 10^3/uL (1.8-7.7); Neutrophils % 80.9 %; Nucleated Red Blood Cells % 0 %; Platelet Count 110 10^3/cmm (157-399); Red Blood Count 2.64 10^6/uL (3.85-5.65); Red Cell Distribution Width 12.9 % (12.1-15.1); White Blood Count 8.75 10^3/uL (3.29-11.43)
[2022-12-24 05:26] LABS: Alanine Aminotransferase 36 U/L (0-41); Albumin Level 2.6 g/dL (3.5-5.2); Alkaline Phosphatase 89 U/L (40-130); Anion Gap 15.7 (5-19); Aspartate Amino Transferase 29 U/L (0-40); Blood Urea Nitrogen 52 mg/dL (8-23); Calcium 8.6 mg/dL (8.5-10.5); Carbon Dioxide 27 mmol/L (22-29); Chloride 96 mmol/L (98-107); Globulin 3.1 g/dL (1.3-4.6); Glucose 274 mg/dL (65-115); Osmolality Calculated 300 mOsm/kg (285-295); Phosphorus 5.7 mg/dL (2.5-4.5); Potassium 5.7 mmol/L (3.5-5.1); Sodium 133 mmol/L (136-145); Total Bilirubin 0.3 mg/dL (0.15-1.2); Total Protein 5.7 g/dL (6.6-8.7)
[2022-12-24 06:53] LABS: Glucose Point of Care 271 mg/dL (70-110)
[2022-12-24] MEDS: budesonide 0.5 mg/2 mL Neb INHALATION ×2 (08:27→19:54)
--- NOTE | 2022-12-24 08:58 | PC.NURSE ---
Report receivd from Charge nurse, EMMA Andrade. Care assumed.
[2022-12-24] MEDS: insulin lispro 100 unit/1 mL SUBCUT ×4 (09:22→21:18)
[2022-12-24] MEDS: cetirizine 10 mg Tablet PO (09:23)
[2022-12-24] MEDS: aspirin 81 mg Chew Tablet PO (09:23)
[2022-12-24] MEDS: cholecalciferol (vitamin D3) 1,000 unit Tablet 1000 UNIT PO (09:23)
[2022-12-24] MEDS: doxycycline 100 mg Tablet PO ×2 (09:24→18:25)
[2022-12-24] MEDS: predniSONE 20 mg Tablet PO (09:24)
[2022-12-24] MEDS: fluticasone nasal spray 16gm Btl 1 SPRAY INTRANASAL ×2 (09:24→18:25)
[2022-12-24] MEDS: sennosides-docusate Tablet 1 TAB PO (09:24)
[2022-12-24] MEDS: finasteride 5 mg Tablet PO (09:25)
[2022-12-24] MEDS: sevelamer 800 mg Tablet PO ×3 (09:25→21:26)
[2022-12-24 10:34] LABS: Glucose Point of Care 281 mg/dL (70-110)
--- NOTE | 2022-12-24 10:58 | PM.PN ---
Subjective Subjective: s/p hD yesterday Medications: Reviewed: Yes Vitals/I&O/Wt Last Vital Signs Temp 97.6 F 12/24/22 08:00 Pulse 84 12/24/22 08:28 Resp 20 H 12/24/22 08:28 BP 129/62 12/24/22 08:00 Pulse Ox 96 12/24/22 08:28 O2 Del Method Nasal Cannula 12/24/22 08:28 O2 Flow Rate 2 12/24/22 08:28 12/23/22 12/24/22 12/24/22 22:59 06:59 14:59 Intake Total 660 / 1220 480 / 480 Output Total 300 / 300 Balance 660 / 1220 -300 / 920 480 / 480 Physical Exam Narrative: awake ,alert 'no distress S1S2 RRR per report Lungs clear per report No edema skin rash/wounds Data 12/24/22 04:30 12/24/22 04:30 Micro: Microbiology 12/21/22 14:31 Urine Culture - Final Urine,Clean Catch A&P Assessment and plan (1) ESRD on dialysis: Plan 1. End-stage renal disease: Per TTS schedule as outpatient, . Ultrafiltration as tolerated. Patient was recently started on HD for possible AIN diagnosis from antibiotics (status post kidney biopsy in [facility], results not available to us currently).Next HD sunday 2. Anemia: Ordered LINDA 3. History of bullous pemphigoid: Wound care following 4. Hypertension: Blood pressure controlled 5. History of coronary artery disease and CHF Patient evaluated using audiovisual cart. Time spent 20 min Attestations Medical Necessity Statement*: per medicine team Coding Level of Care Code Acute Code for Chg Fwd Diagnoses ESRD on dialysis N18.6; Z99.2
[2022-12-24] MEDS: acetaminophen 500 mg Tablet 1000 MG PO (11:50)
[2022-12-24] MEDS: sodium polystyrene sulfonate 15 gm/60 mL Btl PO (11:50)
[2022-12-24] MEDS: betamethasone 0.05% Cream 15 gm 1 APPLIC TOPICAL ×2 (11:51→18:26)
[2022-12-24] MEDS: heparin 5,000 unit/mL INJ 1 mL 5000 UNIT SUBCUT ×2 (11:51→21:25)
[2022-12-24] MEDS: mupirocin oint 22 gm TOPICAL ×2 (11:51→18:26)
[2022-12-24] MEDS: ciprofloxacin 400 MG/200 ML PREMIX 200 MG IV (11:52)
[2022-12-24 13:49] LABS: Anion Gap 18.4 (5-19); Blood Urea Nitrogen 60 mg/dL (8-23); Carbon Dioxide 26 mmol/L (22-29); Chloride 95 mmol/L (98-107); Glucose 252 mg/dL (65-115); Osmolality Calculated 303 mOsm/kg (285-295); Potassium 5.4 mmol/L (3.5-5.1); Sodium 134 mmol/L (136-145)
[2022-12-24] MEDS: morphine 4 mg/mL SDV 1 mL 2 MG IVP (13:58)
--- NOTE | 2022-12-24 15:23 | PM.PN ---
Subjective Subjective: Patient was seen this morning, denies any fevers, chills, no cough, does report generalized weakness, no abdominal pain, has not had a bowel movement today, discussed his hyperkalemia, no chest pain, no palpitations Vitals/I&O/Wt Last Vital Signs Temp 97.5 F L 12/24/22 12:00 Pulse 85 12/24/22 12:00 Resp 18 12/24/22 13:58 BP 123/67 12/24/22 12:00 Pulse Ox 98 12/24/22 12:00 O2 Del Method Room Air 12/24/22 12:00 O2 Flow Rate 2 12/24/22 08:28 12/24/22 12/24/22 12/24/22 06:59 14:59 22:59 Intake Total 960 / 960 Output Total 300 / 300 Balance -300 / 920 960 / 960 Physical Exam Const: COMMON NORMALS: no acute distress and patient oriented x3 Resp: COMMON NORMALS: normal respiratory effort, No retractions, No use of accessory muscles and clear to auscultation bilaterally AUSCULTATION: clear to auscultation bilaterally Cardio: COMMON NORMALS: regular rate, regular rhythm, S1 normal heart sound present and S2 normal heart sound present RATE: regular rate RHYTHM: regular rhythm HEART SOUNDS: S1 normal heart sound present and S2 normal heart sound present GI: COMMON NORMALS: Normal to inspection, nondistended, normoactive bowel sounds present and non-tender Extremity: COMMON NORMALS: no pedal edema Neuro: COMMON NORMALS: patient oriented x3 Psych: COMMON NORMALS: mental status grossly normal Data 12/24/22 04:30 12/24/22 13:04 Micro: Microbiology 12/21/22 14:31 Urine Culture - Final Urine,Clean Catch A&P Assessment and plan (1) Anemia: (2) Bullous pemphigoid: (3) Generalized weakness: (4) ESRD on dialysis: (5) Morbid obesity: (6) Type 2 diabetes mellitus: (7) CHF (congestive heart failure): (8) Acute kidney injury superimposed on chronic kidney disease: (9) COPD (chronic obstructive pulmonary disease): (10) Urinary tract infection: Plan Generalized weakness, ? Likely secondary to physical deconditioning, anemia ? A component of anemia, hemoglobin 8.0, will monitor ? UA with possible UTI, continue Rocephin ? PT OT, Anemia ? Likely anemia of chronic disease related to bullous pemphigoid, acute renal failure ? Hemoglobin is down to 8.0, has iron levels at 14, ferritin at 843, ? Hemoccult stool pending, ? We will monitor hemoglobin ? Consider transfusion if hemoglobin drops below 7 UTI, currently on Rocephin, follow urine culture End-stage renal disease, etiology secondary to antibiotics?, ? Will get records from [facility] in [place], ? Consulted nephrology for dialysis, Acute on chronic anemia, follow hemoglobin Hyperkalemia, will receive dialysis today Bullous pemphigoid, consult wound care, continue doxycycline, continue clobetasol, will consider speaking with dermatology, will discuss with podiatry Serial EKGs, short of breath, telemetry monitoring, NSTEMI -Serial EKGs, troponins, telemetry monitoring CONCLUSIONS ?Normal left ventricular size and systolic function, EF 67 %. ?Mild left ventricular hypertrophy. Grade I/IV diastolic ?dysfunction (abnormal relaxation filling pattern), normal to ?mildly elevated filling pressures.? No wall motion abnormalities ?noted ? (Echo contrast - Optison was used to delineate the endocardium ?and to estimate the? LV ejection fraction) ?Thickened aortic valve. ?Dilated aortic root, measuring 4.2 cm at the level of the ?sinuses.? Ascending aorta measured 3.7 cm in diameter ?Normal pericardium without effusion.? ?Technically difficult study because of the poor ultrasonic ?window. PT OT, Patient is DNR/DNI, heparin for DVT prophylaxis Attestations Medical Necessity Statement*: Patient requires hospitalization for generalized weakness, deconditioning, anemia, UTI, Diagnoses Anemia D64.9 Bullous pemphigoid L12.0 Generalized weakness R53.1 ESRD on dialysis N18.6; Z99.2 Morbid obesity E66.01 Type 2 diabetes mellitus E11.9 CHF (congestive heart failure) I50.9 Acute kidney injury superimposed on chronic kidney disease N17.9; N18.9 COPD (chronic obstructive pulmonary disease) J44.9 Urinary tract infection N39.0
[2022-12-24 17:12] LABS: Glucose Point of Care 398 mg/dL (70-110)
[2022-12-24] MEDS: tamsulosin 0.4 mg Capsule PO (18:25)
--- NOTE | 2022-12-24 19:19 | PC.NURSE ---
Shift summary: Pt prefers to drowse most of the day. Pt rested in bed throughout shift. Pt unable to stand with PT due to painful feet. He has been afebrile Sinus rhythm noted on monitor His heart rate has been 80's-90's this shift. He has urinated once. No BM noted this shift. His BUN and creatinine increased this afternoon from this morning, See labs. His blood sugars have been very high 271-398 mg/dl this shift. [place] peanut butter cups and beef jerky noted on his bedside table. His skin is covered with scabby, crusty and/or oozing opened areas. Wound care provided this am according to orders. His left hand needed redressed after PT atempt and his right forefinger crust opened up, muciprocin , telfa and gauze wrap applied to help his comfort.
[2022-12-24 20:47] LABS: Glucose Point of Care 324 mg/dL (70-110)
[2022-12-24] MEDS: pantoprazole 40 mg SDV IVP (21:25)
[2022-12-24] MEDS: gabapentin 300 mg Capsule PO (21:26)
[2022-12-24] MEDS: atorvastatin 40 mg Tablet PO (21:26)
[2022-12-25] VITALS (12 sets, daily range): BP systolic 100–157; BP diastolic 58–86; PULSE 83–110; RESP 14–19; TEMP 36.4–36.7; O2SAT 90–99
[2022-12-25 04:37] LABS: Basophils # 0.1 10^3/uL (0.0-0.1); Basophils % 0.4 %; Eosinophils # 0.1 10^3/uL (0.0-0.8); Eosinophils % 0.6 %; Hematocrit 28.1 % (37-53); Lymphocytes # 0.9 10^3/uL (0.8-4.8); Lymphocytes % 7.2 %; Mean Corpuscular Hemoglobin 30.1 pg (27-33); Mean Corpuscular Volume 97.2 fl (82-101); Mean Platelet Volume 9.1 fL (7.4-10.4); Monocytes # 0.7 10^3/uL (0.2-0.9); Monocytes % 5.7 %; Neutrophils # 10.54 10^3/uL (1.8-7.7); Neutrophils % 82.4 %; Nucleated Red Blood Cells % 0 %; Platelet Count 124 10^3/cmm (157-399); Red Blood Count 2.89 10^6/uL (3.85-5.65); Red Cell Distribution Width 12.9 % (12.1-15.1); White Blood Count 12.79 10^3/uL (3.29-11.43)
[2022-12-25 04:57] LABS: Alanine Aminotransferase 34 U/L (0-41); Albumin Level 2.9 g/dL (3.5-5.2); Alkaline Phosphatase 101 U/L (40-130); Anion Gap 17.2 (5-19); Aspartate Amino Transferase 20 U/L (0-40); Blood Urea Nitrogen 68 mg/dL (8-23); Calcium 8.9 mg/dL (8.5-10.5); Carbon Dioxide 28 mmol/L (22-29); Chloride 96 mmol/L (98-107); Globulin 3.1 g/dL (1.3-4.6); Glucose 196 mg/dL (65-115); Magnesium 2.1 mg/dL (1.7-2.3); Osmolality Calculated 305 mOsm/kg (285-295); Phosphorus 7.1 mg/dL (2.5-4.5); Potassium 6.2 mmol/L (3.5-5.1); Sodium 135 mmol/L (136-145); Total Bilirubin 0.3 mg/dL (0.15-1.2)
[2022-12-25 07:02] LABS: Glucose Point of Care 253 mg/dL (70-110)
[2022-12-25] MEDS: budesonide 0.5 mg/2 mL Neb INHALATION (07:30)
--- NOTE | 2022-12-25 08:36 | ECG_ITS ---
[facility] Test Date: 2022-12-25 Pat Name: Devyn Luo Department: Room: 256 Gender: Male Flaker Operator: : [id number] Requested By: Omar Harden Order Number: [id number] Konrad MD: Christina George M.D. Measurements Intervals [place] Rate: 95 P: 37 WI: 148 QRS: 41 QRSD: 84 T: 39 QT: 309 QTc: 389 Interpretive Statements SINUS RHYTHM NONSPECIFIC T-WAVE ABNORMALITY Compared to ECG 12/21/2022 17:54:49 T-wave abnormality now present Electronically Signed On 12-25-2022 18:34:06 BLOCKERS SKIVER by Christina George M.D. [email or web address]
[2022-12-25] MEDS: doxycycline 100 mg Tablet PO ×2 (08:46→18:38)
[2022-12-25] MEDS: sennosides-docusate Tablet 1 TAB PO (08:46)
[2022-12-25] MEDS: predniSONE 20 mg Tablet PO (08:46)
[2022-12-25] MEDS: finasteride 5 mg Tablet PO (08:46)
[2022-12-25] MEDS: cholecalciferol (vitamin D3) 1,000 unit Tablet 1000 UNIT PO (08:46)
[2022-12-25] MEDS: sevelamer 800 mg Tablet PO ×2 (08:46→21:12)
[2022-12-25] MEDS: cetirizine 10 mg Tablet PO (08:46)
[2022-12-25] MEDS: fluticasone nasal spray 16gm Btl 1 SPRAY INTRANASAL ×2 (08:46→18:40)
[2022-12-25] MEDS: aspirin 81 mg Chew Tablet PO (08:46)
[2022-12-25] MEDS: insulin regular-human 10 UNIT in SYRINGE 1 EACH IVP (09:25)
[2022-12-25] MEDS: dextrose 50% syringe 50 mL IVP (09:26)
[2022-12-25] MEDS: heparin 5,000 unit/mL INJ 1 mL 5000 UNIT SUBCUT ×2 (09:26→21:13)
[2022-12-25] MEDS: calcium gluconate 0.9% NaCL 1 GM/50 ML PREMIX IV (09:27)
[2022-12-25] MEDS: insulin lispro 100 unit/1 mL SUBCUT ×4 (09:28→21:13)
[2022-12-25] MEDS: betamethasone 0.05% Cream 15 gm 1 APPLIC TOPICAL ×2 (09:30→18:37)
[2022-12-25] MEDS: mupirocin oint 22 gm TOPICAL ×2 (09:31→18:39)
--- NOTE | 2022-12-25 10:55 | PM.PN ---
Subjective Subjective: NO NEW COMPLAINTS Medications: Reviewed: Yes Vitals/I&O/Wt Last Vital Signs Temp 97.5 F L 12/25/22 07:57 Pulse 83 12/25/22 07:57 Resp 19 H 12/25/22 07:57 BP 100/62 12/25/22 07:57 Pulse Ox 99 12/25/22 07:57 O2 Del Method Nasal Cannula 12/25/22 07:57 O2 Flow Rate 2 12/25/22 07:30 12/24/22 12/25/22 12/25/22 22:59 06:59 14:59 Intake Total 600 / 1560 440 / 2000 120 / 120 Balance 600 / 1560 440 / 2000 120 / 120 Physical Exam Narrative: awake ,alert 'no distress S1S2 RRR per report Lungs clear per report No edema skin rash/wounds Data 12/25/22 02:51 12/25/22 02:51 Micro: Microbiology 12/24/22 15:53 Occult Blood (FIT) - Final Stool Routine Collection A&P Assessment and plan (1) ESRD on dialysis: Plan 1. End-stage renal disease: Per TTS schedule as outpatient, . Ultrafiltration as tolerated. Patient was recently started on HD for possible AIN diagnosis from antibiotics (status post kidney biopsy in [facility], results not available to us currently). HD today for Hyperkalemia 2. Anemia: Ordered LINDA 3. History of bullous pemphigoid: Wound care following 4. Hypertension: Blood pressure controlled 5. History of coronary artery disease and CHF Patient evaluated using audiovisual cart. Time spent 20 min Attestations Medical Necessity Statement*: per medicine team Coding Level of Care Code Acute Code for Chg Fwd Diagnoses ESRD on dialysis N18.6; Z99.2
[2022-12-25 11:31] LABS: Glucose Point of Care 264 mg/dL (70-110)
[2022-12-25] MEDS: ciprofloxacin 400 MG/200 ML PREMIX 200 MG IV (12:02)
[2022-12-25 16:19] LABS: Glucose Point of Care 224 mg/dL (70-110)
[2022-12-25] MEDS: epoetin alfa 1000 Unit/0.05 mL (ESRD) 20000 UNIT IVP (16:42)
[2022-12-25] MEDS: heparin, porcine 1,000 unit/mL INJ 10 mL 1000 UNIT IV (16:43)
[2022-12-25 16:44] LABS: Anion Gap 16.3 (5-19); Blood Urea Nitrogen 69 mg/dL (8-23); Calcium 8.9 mg/dL (8.5-10.5); Carbon Dioxide 29 mmol/L (22-29); Chloride 94 mmol/L (98-107); Glucose 247 mg/dL (65-115); Osmolality Calculated 306 mOsm/kg (285-295); Potassium 5.3 mmol/L (3.5-5.1); Sodium 134 mmol/L (136-145)
[2022-12-25] MEDS: heparin, porcine 1,000 unit/mL INJ 10 mL 10000 UNIT INTRACATH (16:44)
--- NOTE | 2022-12-25 17:53 | P.PN_ITS ---
Subjective Subjective: Patient was seen this morning, he family members are at bedside, he denies any fevers, no chills, no cough, no lightheadedness, no dizziness, Vitals/I&O/Wt Last Vital Signs Temp 97.7 F 12/25/22 16:00 Pulse 90 12/25/22 16:00 Resp 17 12/25/22 16:00 BP 108/77 12/25/22 16:00 Pulse Ox 93 12/25/22 16:00 O2 Del Method Nasal Cannula 12/25/22 12:00 O2 Flow Rate 2 12/25/22 07:30 12/25/22 12/25/22 12/25/22 06:59 14:59 22:59 Intake Total 1999 840 / 840 Balance 1999 840 / 840 Physical Exam Const: COMMON NORMALS: no acute distress and patient oriented x3 Resp: COMMON NORMALS: normal respiratory effort, No retractions, No use of accessory muscles and clear to auscultation bilaterally AUSCULTATION: clear to auscultation bilaterally Cardio: COMMON NORMALS: regular rate, regular rhythm, S1 normal heart sound present and S2 normal heart sound present RATE: regular rate RHYTHM: regular rhythm HEART SOUNDS: S1 normal heart sound present and S2 normal heart sound present GI: COMMON NORMALS: Normal to inspection, nondistended, normoactive bowel sounds present and non-tender Extremity: COMMON NORMALS: no pedal edema Neuro: COMMON NORMALS: patient oriented x3 Psych: COMMON NORMALS: mental status grossly normal Data 12/25/22 02:51 12/25/22 15:50 Micro: Microbiology 12/24/22 15:53 Occult Blood (FIT) - Final Stool Routine Collection A&P Assessment and plan (1) Anemia: (2) Bullous pemphigoid: (3) Generalized weakness: (4) ESRD on dialysis: (5) Morbid obesity: (6) Type 2 diabetes mellitus: (7) CHF (congestive heart failure): (8) Acute kidney injury superimposed on chronic kidney disease: (9) COPD (chronic obstructive pulmonary disease): (10) Urinary tract infection: Plan Generalized weakness, ? Likely secondary to physical deconditioning, anemia ? A component of anemia, hemoglobin 8.0, will monitor ? UA with possible UTI, continue Rocephin ? PT OT, Anemia ? Likely anemia of chronic disease related to bullous pemphigoid, acute renal failure ? Hemoglobin is down to 8.0, has iron levels at 14, ferritin at 843, ? Hemoccult stool negative for blood ? We will monitor hemoglobin ? Consider transfusion if hemoglobin drops below 7 UTI, urine cultures negative End-stage renal disease, etiology secondary to antibiotics?, ? Will get records from [facility] in [place], ? Consulted nephrology for dialysis, Acute on chronic anemia, follow hemoglobin Hyperkalemia, will receive dialysis today, did receive 10 units insulin, 1 g calcium gluconate, amp of D50, repeat potassium 5.4 Bullous pemphigoid, consult wound care, continue doxycycline, continue clobetasol, will consider speaking with dermatology, will discuss with podiatry Serial EKGs, short of breath, telemetry monitoring, NSTEMI -Serial EKGs, troponins, telemetry monitoring CONCLUSIONS ?Normal left ventricular size and systolic function, EF 67 %. ?Mild left ventricular hypertrophy. Grade I/IV diastolic ?dysfunction (abnormal relaxation filling pattern), normal to ?mildly elevated filling pressures.? No wall motion abnormalities ?noted ? (Echo contrast - Optison was used to delineate the endocardium ?and to estimate the? LV ejection fraction) ?Thickened aortic valve. ?Dilated aortic root, measuring 4.2 cm at the level of the ?sinuses.? Ascending aorta measured 3.7 cm in diameter ?Normal pericardium without effusion.? ?Technically difficult study because of the poor ultrasonic ?window. PT OT, Patient is DNR/DNI, heparin for DVT prophylaxis Attestations Medical Necessity Statement*: Patient requires hospitalization for generalized weakness, anemia, hyperkalemia, NSTEMI Diagnoses Anemia D64.9 Bullous pemphigoid L12.0 Generalized weakness R53.1 ESRD on dialysis N18.6; Z99.2 Morbid obesity E66.01 Type 2 diabetes mellitus E11.9 CHF (congestive heart failure) I50.9 Acute kidney injury superimposed on chronic kidney disease N17.9; N18.9 COPD (chronic obstructive pulmonary disease) J44.9 Urinary tract infection N39.0
[2022-12-25] MEDS: tamsulosin 0.4 mg Capsule PO (18:38)
[2022-12-25 20:54] LABS: Glucose Point of Care 310 mg/dL (70-110)
[2022-12-25] MEDS: pantoprazole 40 mg SDV IVP (21:12)
[2022-12-25] MEDS: atorvastatin 40 mg Tablet PO (21:12)
[2022-12-25] MEDS: gabapentin 300 mg Capsule PO (21:12)
[2022-12-25] MEDS: insulin glargine 100 units/1 mL 15 UNIT SUBCUT (21:14)
[2022-12-26] VITALS: BP 129/74; PULSE 91; RESP 17; TEMP 36.6; O2SAT 91
[2022-12-26 03:58] VITALS: BP 112/68; PULSE 90; RESP 18; TEMP 36.6; O2SAT 92
[2022-12-26 05:43] LABS: Basophils % 0.3 %; Eosinophils # 0.4 10^3/uL (0.0-0.8); Hematocrit 26.8 % (37-53); Lymphocytes % 8.1 %; Mean Corpuscular HGB Conc 31.3 g/dL (30-55); Mean Corpuscular Hemoglobin 30.3 pg (27-33); Mean Corpuscular Volume 96.8 fl (82-101); Mean Platelet Volume 9.4 fL (7.4-10.4); Monocytes # 0.9 10^3/uL (0.2-0.9); Monocytes % 7.8 %; Neutrophils # 9.36 10^3/uL (1.8-7.7); Neutrophils % 78.9 %; Nucleated Red Blood Cells % 0.3 %; Platelet Count 103 10^3/cmm (157-399); Red Blood Count 2.77 10^6/uL (3.85-5.65); White Blood Count 11.86 10^3/uL (3.29-11.43)
[2022-12-26 06:07] LABS: Alanine Aminotransferase 26 U/L (0-41); Albumin Level 2.6 g/dL (3.5-5.2); Alkaline Phosphatase 86 U/L (40-130); Aspartate Amino Transferase 13 U/L (0-40); Blood Urea Nitrogen 53 mg/dL (8-23); Calcium 8.6 mg/dL (8.5-10.5); Carbon Dioxide 30 mmol/L (22-29); Chloride 95 mmol/L (98-107); Globulin 2.9 g/dL (1.3-4.6); Glucose 193 mg/dL (65-115); Magnesium 1.9 mg/dL (1.7-2.3); Osmolality Calculated 298 mOsm/kg (285-295); Phosphorus 6.1 mg/dL (2.5-4.5); Sodium 134 mmol/L (136-145); Total Bilirubin 0.3 mg/dL (0.15-1.2); Total Protein 5.5 g/dL (6.6-8.7)
[2022-12-26 06:37] LABS: Glucose Point of Care 183 mg/dL (70-110)
[2022-12-26 08:00] VITALS: BP 103/62; BP 123/67; PULSE 84; PULSE 90; PULSE 92; RESP 16; RESP 18; RESP 19; TEMP 36.4; TEMP 36.7; O2SAT 92; O2SAT 95
[2022-12-26] MEDS: insulin lispro 100 unit/1 mL SUBCUT ×2 (08:49→13:29)
[2022-12-26] MEDS: sevelamer 800 mg Tablet PO (08:50)
[2022-12-26] MEDS: finasteride 5 mg Tablet PO (08:50)
[2022-12-26] MEDS: cholecalciferol (vitamin D3) 1,000 unit Tablet 1000 UNIT PO (08:50)
[2022-12-26] MEDS: doxycycline 100 mg Tablet PO (08:50)
[2022-12-26] MEDS: predniSONE 20 mg Tablet PO (08:50)
[2022-12-26] MEDS: cetirizine 10 mg Tablet PO (08:50)
[2022-12-26] MEDS: sennosides-docusate Tablet 1 TAB PO (08:51)
[2022-12-26] MEDS: aspirin 81 mg Chew Tablet PO (08:51)
[2022-12-26] MEDS: acetaminophen 500 mg Tablet 1000 MG PO (10:11)
[2022-12-26] MEDS: fluticasone nasal spray 16gm Btl 1 SPRAY INTRANASAL (10:11)
--- NOTE | 2022-12-26 10:50 | PM.DCS ---
Discharge Providers Date of Admission: 12/21/22 14:31 Date of Discharge: December 26, 2022 Attending Provider at Admission: Omar Harden MD Attending Provider at Discharge: Omar Harden MD Primary Care Provider: Mariana Cao MD Diagnoses at Discharge Discharge Diagnosis (1) Anemia: Status: Acute (2) Bullous pemphigoid: Status: Acute (3) Generalized weakness: Status: Acute (4) ESRD on dialysis: Status: Acute (5) Morbid obesity: Status: Acute (6) Type 2 diabetes mellitus: Status: Acute (7) CHF (congestive heart failure): Status: Acute (8) Acute kidney injury superimposed on chronic kidney disease: Status: Acute (9) COPD (chronic obstructive pulmonary disease): Status: Acute (10) Urinary tract infection: Status: Acute Reason for Visit Reason for Visit: weakness Hospital Course Hospital Course Devyn Luo is a 77 year old male with a past medical history of chronic kidney disease, with developing acute renal failure, recently transfer to [facility], had a kidney biopsy, patient told me that he was diagnosed with renal failure associated with antibiotics?? He also had a skin biopsy, and was diagnosed with bullous pemphigoid, currently on prednisone, doxycycline, on outpatient dialysis, history of CAD status post tenting x1, history of heart failure, who presents [facility] for generalized weakness.? Patient tells me that he was recently discharged on the from the hospital, he can ambulate, but uses a walker, he has fallen a couple of times since getting out of the hospital, but has no acute back pains, no head ache, no blurry vision, no significant trauma, no loss of consciousness, he tells me that he was supposed to get dialysis today but felt too weak and fatigued to go to dialysis, he does not urinate, denies any dysuria, no hematuria, no cough, shortness of breath, no chest pain, abdominal pain, diarrhea, Patient was admitted to [facility] for generalized weakness, likely multifactorial from physical deconditioning, anemia, possible UTI, was monitored as inpatient, received PT OT, discharged to long term facility, For anemia, likely anemia of chronic disease, did not require transfusion PRBC Hemoccult stool negative, monitor hemoglobin as outpatient, End-stage renal disease, received inpatient dialysis, Hyperkalemia required IV insulin, during his hospitalization to help with hyperkalemia received dialysis for hyperkalemia, improved, continue outpatient dialysis schedule, Elevated troponin during his hospitalization, no chest pain complaints, cardiac echocardiogram normal EF of 67%, Patient has bullous pemphigoid, bilateral lower extremities, bilateral legs, bilateral feet, requiring podiatry eval, and bedside debridement, follow-up with wound care, follow-up with podiatry, Patient does on the left foot, third digit, stable eschar, follow-up with podiatry as outpatient Physical Exam Const: COMMON NORMALS: no acute distress and patient oriented x3 Resp: COMMON NORMALS: normal respiratory effort, No retractions, No use of accessory muscles and clear to auscultation bilaterally AUSCULTATION: clear to auscultation bilaterally Cardio: COMMON NORMALS: regular rate, regular rhythm, S1 normal heart sound present and S2 normal heart sound present RATE: regular rate RHYTHM: regular rhythm HEART SOUNDS: S1 normal heart sound present and S2 normal heart sound present GI: COMMON NORMALS: Normal to inspection, nondistended, normoactive bowel sounds present and non-tender Extremity: COMMON NORMALS: no pedal edema Neuro: COMMON NORMALS: patient oriented x3 Psych: COMMON NORMALS: mental status grossly normal Discharge Data Studies Completed and Pending Completed Studies During Hospitalization Category Date Time Status CT head wo con* [id number] Stat Cat Scan 12/21/22 11:44 Completed XR chest 1V portable [id number] Stat Exams 12/21/22 11:44 Completed XR foot LT min 3V* [id number] Routine Exams 12/22/22 14:16 Completed XR foot RT min 3V* [id number] Routine Exams 12/22/22 14:16 Completed CV. echo wo/w contrast [id number] Routine Ultrasound 12/22/22 18:29 Completed Pending at discharge Category Date Time Status Complete Blood Count w/Auto AM LABS Lab 12/27/22 04:00 Ordered Comprehensive Metabolic Panel AM LABS Lab 12/27/22 04:00 Ordered Magnesium AM LABS Lab 12/27/22 04:00 Ordered Phosphorus AM LABS Lab 12/27/22 04:00 Ordered Radiology Impressions Foot X-Ray 12/22/22 14:16 IMPRESSION: Soft tissue swelling and osteopenia without evidence of acute fracture or dislocation. Laboratory Results WBC 11.86 10^3/uL (3.29-11.43) H 12/26/22 05:04 RBC 2.77 10^6/uL (3.85-5.65) L 12/26/22 05:04 Hgb 8.40 g/dL (11.27-16.99) L 12/26/22 05:04 Hct 26.8 % (37-53) L 12/26/22 05:04 MCV 96.8 fl (82-101) 12/26/22 05:04 MCH 30.3 pg (27-33) 12/26/22 05:04 MCHC 31.3 g/dL (30-55) 12/26/22 05:04 RDW 13.0 % (12.1-15.1) 12/26/22 05:04 Plt Count 103 10^3/cmm (157-399) L 12/26/22 05:04 MPV 9.4 fL (7.4-10.4) 12/26/22 05:04 Neut % (Auto) 78.9 % 12/26/22 05:04 Lymph % (Auto) 8.1 % 12/26/22 05:04 [place] % (Auto) 7.8 % 12/26/22 05:04 Eos % (Auto) 3.0 % 12/26/22 05:04 Baso % (Auto) 0.3 % 12/26/22 05:04 Neut # (Auto) 9.36 10^3/uL (1.8-7.7) H 12/26/22 05:04 Lymph # (Auto) 1.0 10^3/uL (0.8-4.8) 12/26/22 05:04 [place] # (Auto) 0.9 10^3/uL (0.2-0.9) 12/26/22 05:04 Eos # (Auto) 0.4 10^3/uL (0.0-0.8) 12/26/22 05:04 Baso # (Auto) 0.0 10^3/uL (0.0-0.1) 12/26/22 05:04 Nucleated RBC % (auto) 0.3 % 12/26/22 05:04 Nucleated RBCs # 0.0 /100WBC 12/26/22 05:04 PT 15.60 SECONDS (12.1-14.9) H 12/21/22 11:59 INR 1.20 (0.8-1.2) 12/21/22 11:59 Sodium 134 mmol/L (136-145) L 12/26/22 05:04 Potassium 5.0 mmol/L (3.5-5.1) 12/26/22 05:04 Chloride 95 mmol/L (98-107) L 12/26/22 05:04 Carbon Dioxide 30 mmol/L (22-29) H 12/26/22 05:04 Anion Gap 14.0 (5-19) 12/26/22 05:04 BUN 53 mg/dL (8-23) H 12/26/22 05:04 Creatinine 7.5 mg/dL (0.7-1.2) H* 12/26/22 05:04 GFR Calculation Not Reportable 12/26/22 05:04 Glucose 193 mg/dL (65-115) H 12/26/22 05:04 POC Glucose 183 mg/dL (70-110) H 12/26/22 06:33 Estimat Average Glucose 143 12/21/22 11:59 Hemoglobin A1c 6.6 % (4.0-6.0) H 12/21/22 11:59 Calculated Osmolality 298 mOsm/kg (285-295) H 12/26/22 05:04 Calcium 8.6 mg/dL (8.5-10.5) 12/26/22 05:04 Phosphorus 6.1 mg/dL (2.5-4.5) H 12/26/22 05:04 Magnesium 1.9 mg/dL (1.7-2.3) 12/26/22 05:04 Iron 14 ug/dL (59-158) L 12/21/22 15:25 Iron Cancelled 12/21/22 15:25 TIBC 137 mcg/dl 12/21/22 15:25 % Saturation 10.2 % (20-50) L 12/21/22 15:25 Unsat Iron Binding 123 ug/dL (112-347) 12/21/22 15:25 Ferritin 843 ng/mL (30-400) H 12/21/22 15:25 Total Bilirubin 0.3 mg/dL (0.15-1.2) 12/26/22 05:04 AST 13 U/L (0-40) 12/26/22 05:04 ALT 26 U/L (0-41) 12/26/22 05:04 Alkaline Phosphatase 86 U/L (40-130) 12/26/22 05:04 Ammonia 22 umol/L (16-60) 12/21/22 15:25 Troponin T Baseline 147 ng/L (0-15) H* 12/21/22 15:25 Troponin T 120 Minute 134.2 ng/L (0-15) H 12/21/22 17:20 Delta Troponin T -12.8 ABS# (0-10) L 12/21/22 17:20 Troponin T Hi Sens 6Hr 129.5 ng/L (0-15) H 12/21/22 22:04 Troponin T Hi Sens 6Hr Delta -17.5 ng/L (0-12) L 12/21/22 22:04 NT-Pro-B Natriuret Pep 6637 pg/mL (0-450) H 12/21/22 15:25 Total Protein 5.5 g/dL (6.6-8.7) L 12/26/22 05:04 Albumin 2.6 g/dL (3.5-5.2) L 12/26/22 05:04 Globulin 2.9 g/dL (1.3-4.6) 12/26/22 05:04 Vitamin B12 758 pg/mL (232-1245) 12/21/22 15:25 Folate 15.1 ng/mL (4.5-32.2) 12/21/22 15:25 Procalcitonin 1.79 ng/mL (0-0.5) H 12/21/22 15:25 TSH 1.14 uIU/mL (0.27-4.20) 12/21/22 15:25 Urine Color Brown (Yellow) A 12/21/22 14: Urine Appearance Cloudy (CLEAR) A 12/21/22 14: Urine pH 6 (5-7) 12/21/22 14: Ur Specific [place] 1.020 (1.005-1.030) 12/21/22 14:31 Urine Protein 3+ (Negative) H 12/21/22 14:31 Urine Glucose (UA) 2+ (Normal) H 12/21/22 14:31 Urine Ketones Negative (Negative) 12/21/22 14: Urine Blood 3+ (Negative) H 12/21/22 14:31 Urine Nitrate Negative (Negative) 12/21/22 14:31 Urine Bilirubin 1+ (Negative) H 12/21/22 14:31 Urine Urobilinogen Norm mg/dL (Negative) 12/21/22 14:31 Ur Leukocyte Esterase Negative (Negative) 12/21/22 14:31 Urine RBC 80-100 /hpf (0-2) H 12/21/22 14:31 Urine WBC 5-10 /hpf (0-5) H 12/21/22 14:31 Ur Squamous Epith Cells 0-4 /hpf (0-5) H 12/21/22 14:31 Ur Renal Epithelial Cell 0-4 /hpf 12/21/22 14:31 Amorphous Sediment Trace /hpf 12/21/22 14:31 Urine Bacteria 1+ /hpf (NONE) H 12/21/22 14:31 Urine Mucus Trace /hpf 12/21/22 14:31 Hep Bs Antigen Non-reactive (Nonreactive) 12/21/22 15:25 Hep Bs Antibody 974.7 (11.5-1000) 12/21/22 15:25 Hep B Core Total Ab Reactive (Nonreactive) H 12/21/22 15:25 Vitals Last Vital Signs Temp 97.5 F L 12/26/22 08:00 Pulse 92 12/26/22 08:00 Resp 19 H 12/26/22 08:00 BP 123/67 12/26/22 08:00 Pulse Ox 95 12/26/22 08:00 O2 Del Method Nasal Cannula 12/26/22 08:00 O2 Flow Rate 2 12/26/22 08:00 Discharge Plan Discharge Patient Disposition: Xfer SNF Condition: Stable Prescriptions: New Humalog U-100 Insulin 100 unit/mL Solution See Rx Instructions .ROUTE .COMPLEX Qty: 10 0RF Rx Instructions: inject subcut, three times daily, after meals, based on low dose sliding scale hydrocodone-acetaminophen 5-325 mg tablet 1 tab PO Q6H PRN (Reason: pain) 5 Days Qty: 20 0RF Continued acetaminophen 500 mg Tablet 1,000 mg PO Q6H PRN (Reason: Pain) prednisone 10 mg Tablet See Rx Instructions .ROUTE .COMPLEX Rx Instructions: TAKE 6 TABLETS BY MOUTH DAILY FOR 3 DAYS, 4 TABLETS DAILY FOR 4 DAYS, 3 TABLETS DAILY FOR 7 DAYS, THEN 2 TABLETS DAILY FOR 30 DAYS FOR INFLAMATION. TAKE WITH FOOD OR MILK. miconazole nitrate 2 % Cream 1 applic TOPICAL BID clobetasol 0.05 % Cream 1 applic TOPICAL BID niacinamide 500 mg Tablet 500 mg PO TID bumetanide 1 mg Tablet 1 mg PO BID PRN (Reason: FLUID RETENTION) Miralax 17 gram/dose Powder See Rx Instructions .ROUTE .COMPLEX Rx Instructions: TAKE 1 CAPFUL (17 GRAMS) TWICE DAILY NEEDED FOR CONSTIPATION. DISSOLVE IN 8 OUNCES OF WATER, JUICE, SODA, COFFEE, OR TEA. doxycycline hyclate 100 mg Tablet See Rx Instructions .ROUTE .COMPLEX Rx Instructions: TAKE 1 TABLET BY MOUTH TWICE DAILY UNTIL SEEN BY DERMATOLOGY, THEN FOLLOW INSTRUCTIONS. AVOID SUN EXPOSURE WHILE TAKING sevelamer carbonate 800 mg Tablet 800 mg PO TID Rx Instructions: must administer with a meal/food benzonatate 100 mg Capsule 100 mg PO TID PRN (Reason: Cough) atorvastatin 80 mg Tablet 40 mg PO BEDTIME cetirizine 10 mg Tablet 10 mg PO DAILY sennosides-docusate sodium [Senna-S] 8.6-50 mg Tablet 1 tab-cap PO DAILY tamsulosin 0.4 mg Capsule 0.4 mg PO QPM fluticasone propion-salmeterol [Wixela Inhub] 500-50 mcg/dose Blister With Device 1 inh INHALATION BID nitroglycerin [Nitrostat] 0.4 mg Tablet, Sublingual 0.4 mg SUBLINGUAL Q5M PRN (Reason: Chest Pain) Rx Instructions: do not exceed 3 doses per episode gabapentin 300 mg Capsule 300 mg PO BEDTIME aspirin 81 mg Tablet,Chewable 81 mg PO DAILY fluticasone propionate 50 mcg/actuation [place],Suspension 1 spray INTRANASAL BID Rx Instructions: administer into each nostril finasteride 5 mg Tablet 5 mg PO DAILY cholecalciferol (vitamin D3) [Vitamin D3] 25 mcg (1,000 unit) Capsule 25 mcg PO DAILY glucosamine-chondroitin [Osteo Bi-Flex] 250-200 mg Tablet 1 tab PO BID Rx Instructions: give after food/meal Combivent Respimat 20-100 mcg/actuation Mist 1 puff INHALATION QID Rx Instructions: space evenly during waking hours Changed Lantus Solostar U-100 Insulin 100 unit/mL (3 mL) insulin pen 15 unit SUBCUT BEDTIME Qty: 15 0RF Discontinued insulin aspart U-100 [Novolog U-100 Insulin aspart] 100 unit/mL Solution See Rx Instructions .ROUTE .COMPLEX Rx Instructions: TAKE 30 UNITS EVERY MORNING BEFORE A MEAL, 25 UNITS AT NOON, AND 20 UNITS EVERY EVENING BEFORE SUPPER. ADMINISTER 10 MINUTES BEFORE FOOD DIRECTED. DISCARD ANY OPEN CARTRIDGE AFTER 28 DAYS. Discharge Orders: Discharge Order (Routine); Ordered 12/26/22 Ordered By: Omar Harden Referrals: [facility] [Outside] Jeremiah Loco DPM [Physician] - 1 week Mariana Cao MD [Primary Care Provider] - Discharge Diet: Cardiac Discharge Activity: Resume usual activity Patient Instructions: Opioid Safety Activity Restrictions/Additional Instructions: -wound care bilateral hands and bilateral feet as prescribed -recheck hemoglobin in 48 hours --Please monitor your blood sugars closely -Monitor your blood sugars 3 times daily as after meals -Please record your blood sugars, and a blood sugar log -For your NovoLog -Please inject blood sugar after meals based on sliding scale provided -Do not inject insulin if you do not eat as hypoglycemia kills -This is a NovoLog sliding scale -Insulin sliding ?fingerstick? Insulin ?141-180?0 units/sq 181-220?2 units/sq ?221-260?4 units/sq ?261-300 6 units/sq ?301-350?8 units/sq ?351-400 10 units/sq ?401-450?12 units/sq >450? 14units/sq -If your blood sugar is greater than 500 go to the emergency room -If your blood sugar is less than 60 or at anytime you feel lightheaded or dizzy or diaphoretic or have chest palpitations check your blood sugar, and eat a hard candy or drink orange juice and go immediately to the emergency room -Remember hypoglycemia kills, so if his blood sugar is less than 60 we have to increase it by taking in a sugary meal such as a hard candy or orange juice and go to the emergency room -If you have any questions please call us where here to help Discharge Attestations Time Spent in Discharge Care*: greater than 30 min Status at Discharge: Cognitive status at discharge: cognitively intact, Behavioral status at discharge: cooperative, Quality Metrics Clinical Quality Measures [ No reported AMI, CVA or VTE this stay] Coding Level of Care Code 95216 Total time (in minutes) for Discharge: 45 Diagnoses Anemia D64.9 Bullous pemphigoid L12.0 Generalized weakness R53.1 ESRD on dialysis N18.6; Z99.2 Morbid obesity E66.01 Type 2 diabetes mellitus E11.9 CHF (congestive heart failure) I50.9 Acute kidney injury superimposed on chronic kidney disease N17.9; N18.9 COPD (chronic obstructive pulmonary disease) J44.9 Urinary tract infection N39.0
[2022-12-26 11:30] LABS: Glucose Point of Care 182 mg/dL (70-110)
--- NOTE | 2022-12-26 11:32 | PC.OT ---
OT TREATMENT ATTEMPTED. PATIENT OUT OF ROOM TO DIALYSIS.
[2022-12-26] MEDS: heparin, porcine 1,000 unit/mL INJ 10 mL 1000 UNIT IV (11:57)
[2022-12-26 12:00] VITALS: BP 103/62; BP 107/55; PULSE 84; PULSE 88; RESP 18; TEMP 36.4; TEMP 36.7; O2SAT 93
[2022-12-26] MEDS: heparin 5,000 unit/mL INJ 1 mL 5000 UNIT SUBCUT (13:30)
[2022-12-26 13:35] VITALS: BP 103/62; BP 148/69; PULSE 84; PULSE 93; RESP 18; TEMP 36.7
--- NOTE | 2022-12-26 14:12 | PC.NURSE ---
Report called to Franchesca Khan LPN at [facility]. Nurse ask stated not to do dressing changes due to them having to undo all dressing to look at them and redress. My charge nurse was notified as well.
[2022-12-26 15:07] LABS: SARS Covid-2 Antigen negative (Negative)
[2022-12-26 15:32] VITALS: BP 103/62; PULSE 84; RESP 18; TEMP 36.7
--- NOTE | 2022-12-26 16:26 | P.PN_ITS ---
Subjective Subjective: getting HD Medications: Reviewed: Yes Vitals/I&O/Wt Last Vital Signs Temp 98.1 F 12/26/22 15:32 Pulse 84 12/26/22 15:32 Resp 18 12/26/22 15:32 BP 103/62 12/26/22 15:32 Pulse Ox 93 12/26/22 12:00 O2 Del Method Nasal Cannula 12/26/22 08:00 O2 Flow Rate 2 12/26/22 08:00 12/26/22 12/26/22 12/26/22 06:59 14:59 22:59 Intake Total 1220 / 1220 Output Total 0 / 2275 2272 / 2272 Balance 0 / -684.9 -1052 / -1052 Weight last 48 hrs Weight 0 g Weight 0 g Data 12/26/22 05:04 12/26/22 05:04 A&P Assessment and plan (1) ESRD on dialysis: Plan 1. End-stage renal disease: Per TTS schedule as outpatient, . Ultrafiltration as tolerated. Patient was recently started on HD for possible AIN diagnosis from antibiotics (status post kidney biopsy in [facility], results not available to us currently). HD today 2. Anemia: Ordered LINDA 3. History of bullous pemphigoid: Wound care following 4. Hypertension: Blood pressure controlled 5. History of coronary artery disease and CHF Patient evaluated using audiovisual cart. Time spent 20 min Attestations Medical Necessity Statement*: per mediicen team Coding Level of Care Code Acute Code for Chg Fwd Diagnoses ESRD on dialysis N18.6; Z99.2
== END 2022-12-26 15:21 | disposition skilled nursing facility (03) | DRG 689 ==
LOC: ER 13:47 → MEDSURG 15:55
PROVIDERS: Hospitalist; Admitting Provider Family Medicine; Emergency Provider Emergency Medicine; PCP Internal Medicine; Visit Provider Family Medicine
DX: N39.0 Urinary tract infection, site not specified (principal); N18.6 End stage renal disease; I13.2 Hypertensive heart and chronic kidney disease with heart failure and with stage 5 chronic kidney disease, or end stage renal disease; N17.9 Acute kidney failure, unspecified; L12.0 Bullous pemphigoid; E11.22 Type 2 diabetes mellitus with diabetic chronic kidney disease; I50.9 Heart failure, unspecified; Z99.2 Dependence on renal dialysis; Z79.4 Long term (current) use of insulin; N40.0 Benign prostatic hyperplasia without lower urinary tract symptoms; J44.9 Chronic obstructive pulmonary disease, unspecified; I25.10 Atherosclerotic heart disease of native coronary artery without angina pectoris; Z95.5 Presence of coronary angioplasty implant and graft; K21.9 Gastro-esophageal reflux disease without esophagitis; E78.5 Hyperlipidemia, unspecified; E66.01 Morbid (severe) obesity due to excess calories; Z87.891 Personal history of nicotine dependence; Z66 Do not resuscitate; D63.1 Anemia in chronic kidney disease; E87.5 Hyperkalemia; R79.89 Other specified abnormal findings of blood chemistry
CPT/HCPCS: 36415; 36416; 70450; 71045; 73630; 80048; 80053; 81001; 82140; 82274; 82607; 82728; 82746; 82962; 83036; 83540; 83550; 83735; 83880; 84100; 84145; 84443; 84484; 85014; 85018; 85025; 85610; 86705; 86706; 87086; 87340; 87426; 90935; 93005; 94640; 94664; 96372; 97110; 97161; 97165; 97530; 97535; 99285; C8929; C9113; J0610; J0744; J1644; J1815; J2270; J7512; J7626; Q3014; Q4081; Q9956

== ENCOUNTER 2023-01-08 08:12 | Inpatient (IN) | payer OTHER, SELFPAY ==
[2023-01-08] VITALS (175 sets, daily range): BP systolic 84–201; BP diastolic 45–117; PULSE 77–119; RESP 13–38; TEMP 36.6–36.8; O2SAT 62–100; BMI 44.0; BMI 41.3
--- NOTE | 2023-01-08 08:15 | XRR_ITS ---
PROCEDURE INFORMATION: Exam: XR Chest Exam date and time: 01/08/2023 10:05 AM Age: 77 years old Clinical indication: Cough and dyspnea; Additional info: Dyspnea/cough TECHNIQUE: Imaging protocol: Radiologic exam of the chest. Views: 1 view. COMPARISON: CR XR chest 1V portable [id number] 12/21/2022 11:52 AM FINDINGS: Tubes, catheters and devices: Multi lumen catheter enters from the right and terminates near the atrial caval junction. Lungs: Unremarkable. No consolidation. Pleural spaces: Unremarkable. No pleural effusion. No pneumothorax. Heart/Mediastinum: Unremarkable. No cardiomegaly. Vasculature: Ectasia of the thoracic aorta. Bones/joints: Unremarkable. XR/XR chest 1V portable [id number] IMPRESSION: No acute cardiopulmonary disease.
--- NOTE | 2023-01-08 08:15 | CT_ITS ---
WS: [id number] CT HEAD TECHNIQUE: Noncontrast CT of the head obtained from the skullbase to the vertex. CLINICAL INFORMATION: Altered mental status COMPARISON: CT 12/21/22 DLP: 1285.[address] scans at [facility] use at least one of these dose optimization techniques: automated e xposure control; mA and/or kV adjustment per patient size (includes targeted exams where dose is matc hed to clinical indication); or iterative reconstruction. FINDINGS: No evidence of intracranial hemorrhage or mass effect. Ventricular system and basal cisterns are hadley nt. Mild small vessel changes with moderate parenchymal volume loss. No extra-axial fluid collections . No evidence of mass or mass effect. Vascular calcification. Paranasal sinuses and mastoid air cells are well aerated. .Normal visualized soft tissues. IMPRESSION: 1. No evidence of intracranial hemorrhage or mass effect. 2. Mild small vessel changes. Moderate parenchymal volume loss. 3. Vascular calcification. 4. No acute intracranial findings.
--- NOTE | 2023-01-08 08:16 | ECG_ITS ---
[facility] Test Date: 2023-01-08 Pat Name: Devyn Luo Department: Room: Gender: Male Front End Driver: : 1945 Requested By: Angel Luis Chris Order Number: [id number] Konrad MD: Billy Jaeger M.D. Measurements Intervals [place] Rate: 112 P: 4 [place]: 141 QRS: 48 QRSD: 77 T: 68 QT: 301 QTc: 412 Interpretive Statements SINUS TACHYCARDIA NONSPECIFIC ST & T-WAVE ABNORMALITY ABNORMAL RHYTHM ECG Compared to ECG 12/25/2022 10:06:14 Sinus rhythm no longer present T-wave abnormality still present Electronically Signed On 01-08-2023 9:08:56 SHINGLE GRADER by Billy Jaeger M.D. [id number]
--- NOTE | 2023-01-08 08:32 | ED_ITS ---
HPI - Nausea/Vomiting/Diarrhea General: Chief complaint: Nausea/Vomiting/Diarrhea Stated complaint: ams Time Seen by Provider: 01/08/23 08:15 Source: patient Mode of arrival: EMS History of Present Illness: 77 yo male presents to the ER via EMS with AMS and report of coffee ground emesis. Family at the bedside states he seemed his usual baseline self 2 days ago when I last seen him. Reporting that overnight he began having coffee- ground emesis. Shortly after arrival here he had a large foul-smelling stool which was sharply Hemoccult positive. He has a history of bullous pemphigoid and has several eschared areas on his forearms that are wrapped those are chronic according to family member. He is not on any anticoagulation. He is complaining of some mild abdominal discomfort. He is disoriented he thought he was in [place]. He recently was started on dialysis approximately 6 weeks ago. MD elicited complaint: nausea and vomiting Description of vomiting: coffee grounds Description of diarrhea: black tarry Associated nausea: Yes Associated abdominal pain: Yes Location of pain: Diffuse Exacerbating factors: none Relieving factors: none Associated symtoms: Reports altered mental status, bloating, change in vision, decreased urine output, fatigue, anorexia, malaise, nausea, rash and weakness; Denies chest pain, cough, dysuria, epistaxis, fecal incontinence, fevers/chills, headache(s), palpitations, short of breath or syncope Review of Systems Const: Reports: fatigue and malaise; Denies: fever(s) or chills Eyes: Reports: change in vision ENMT: Denies: epistaxis Card: Denies: chest pain, palpitations or syncope Resp: Denies: dyspnea GI: Reports: abdominal pain, nausea, vomiting, coffee ground emesis and bloating; Denies: fecal incontinence : Denies: dysuria, urinary frequency or urinary urgency Musc: Denies: neck pain or back pain Skin/Breast: Denies: rash Neuro: Denies: headache(s) PFSH ED PFSH: Medical History BPH (benign prostatic hyperplasia) Cellulitis CHF (congestive heart failure) Chronic kidney disease COPD (chronic obstructive pulmonary disease) Coronary artery disease ESRD on dialysis GERD (gastroesophageal reflux disease) Hyperlipidemia Morbid obesity Peripheral neuropathy Type 2 diabetes mellitus Surgical History History of cholecystectomy History of coronary angioplasty Family History Other CAD (coronary artery disease) Social History Smoking and tobacco/nicotine status: former use of tobacco/nicotine Alcohol intake: never Substance/Drug Use: never Physical Exam Const: EXAM LIMITATIONS: altered mental status GENERAL APPEARANCE: cooperative and comfortable ORIENTATION/CONSCIOUSNESS: Yes awake HENMT: COMMON NORMALS: normocephalic, atraumatic and hearing grossly normal bilaterally HEAD & SCALP: normocephalic and atraumatic Resp: COMMON NORMALS: normal respiratory effort, No retractions, No use of accessory muscles and clear to auscultation bilaterally AUSCULTATION: clear to auscultation bilaterally Cardio: COMMON NORMALS: regular rate, regular rhythm and No murmurs present (Cardio) RATE: regular rate RHYTHM: regular rhythm GI: COMMON NORMALS: Soft to palpation and No hepatosplenomegaly present AUSCULTATION: Yes normoactive bowel sounds PALPATION: Yes Soft to palpation, No Tenderness to palpation present (GI), No Guarding due to palpation present (GI) and Yes No hepatosplenomegaly present Extremity: COMMON NORMALS: normal to inspection, capillary refill normal, no clubbing, cyanosis or edema, no calf tenderness and no pedal edema Skin: COMMON NORMALS: no rashes or lesions noted GENERAL SKIN EXAM: no r ashes or lesions noted Procedures Central Line Placement Left IJ: Time Out Performed: Yes Patient Placed on Monitor/Pulse Ox: Yes MD Prep: mask, gown and gloves Central Line Prep: Chlorhexidine scrub Local Anesthetic: lidocaine 1% Amount of anesthesia used (mL): 4 Central Line Lumen Inserted: triple Post Procedure: sutured in place, good blood return, all ports aspirated, flushed, capped and sterile dressing applied Post Procedure X-Ray: tip of catheter in good position Patient Tolerated Procedure: well Complications: none Course Vital Signs: Vital signs: Vital Signs Temperature 98.3 F 01/08/23 13:05 Pulse Rate 101 H 01/08/23 14:35 Respiratory Rate 18 01/08/23 14:35 Blood Pressure 173/100 01/08/23 14:00 Pulse Oximetry 97 01/08/23 14:35 Oxygen Delivery Me thod Room Air 01/08/23 14:35 MDM - Nausea/Vomiting/Diarrhea Medical Decision Making Patient presents with melanotic stools coffee-ground emesis he had several melanotic stools and 1 blood-tinged stool while here in the emergency room. He is stool tested heme positive his repeat hemoglobin had dropped from 8.6-7.3 and 3 hours he continued to have melanotic stools. Difficult time with blood pressure and maintaining lines Central line was placed patient was started on Levophed. He was given TXA and Protonix as well as initially 2 units uncrossed match blood after the bright red blood per rectum and transient drop in blood pressure, then followed up by a unit of crossmatched blood. Pressure improved with blood products and Levophed. Discussed with Dr. Krishna will admit also consulted general surgery Dr. Rodriguez for EGD. Orders written patient admitted to the ICU. Medical Records I reviewed the patient's medical records. Lab Data I reviewed the patient's lab results. 01/08/23 11:10 01/08/23 08:50 Radiology Impressions Chest X-Ray 01/08/23 13:15 IMPRESSION: Left IJ catheter insertion. Laboratory Results WBC 19.35 10^3/uL (3.29-11.43) H 01/08/23 11:10 RBC 2.35 10^6/uL (3.85-5.65) L 01/08/23 11:10 Hgb 7.30 g/dL (11.27-16.99) L 01/08/23 11:10 Hct 22.5 % (37-53) L 01/08/23 11:10 MCV 95.7 fl (82-101) 01/08/23 11:10 MCH 31.1 pg (27-33) 01/08/23 11:10 MCHC 32.4 g/dL (30-55) 01/08/23 11:10 RDW 15.5 % (12.1-15.1) H 01/08/23 11:10 Plt Count 167 10^3/cmm (157-399) 01/08/23 11:10 MPV 9.4 fL (7.4-10.4) 01/08/23 11:10 Neut % (Auto) 87.3 % 01/08/23 11:10 Lymph % (Auto) 5.7 % 01/08/23 11:10 Maries % (Auto) 6.7 % 01/08/23 11:10 Eos % (Auto) 0.1 % 01/08/23 11:10 Baso % (Auto) 0.2 % 01/08/23 11:10 Neut # (Auto) 15.91 10^3/uL (1.8-7.7) H 01/08/23 11:10 Lymph # (Auto) 1.1 10^3/uL (0.8-4.8) 01/08/23 11:10 Maries # (Auto) 1.3 10^3/uL (0.2-0.9) H 01/08/23 11:10 Eos # (Auto) 0.0 10^3/uL (0.0-0.8) 01/08/23 11:10 Baso # (Auto) 0.0 10^3/uL (0.0-0.1) 01/08/23 11:10 Nucleated RBC % (auto) 1.1 % 01/08/23 11:10 Nucleated RBCs # 0.2 /100WBC 01/08/23 11:10 PT 15.30 SECONDS (12.1-14.9) H 01/08/23 08:50 INR 1.17 (0.8-1.2) 01/08/23 08:50 Sodium 132 mmol/L (136-145) L 01/08/23 08:50 Potassium 5.6 mmol/L (3.5-5.1) H 01/08/23 08:50 Chloride 90 mmol/L (98-107) L 01/08/23 08:50 Carbon Dioxide 19 mmol/L (22-29) L 01/08/23 08:50 Anion Gap 28.6 (5-19) H 01/08/23 08:50 BUN 89 mg/dL (8-23) H* D 01/08/23 08:50 Creatinine 10.4 mg/dL (0.7-1.2) H* 01/08/23 08:50 GFR Calculation Not Reportable 01/08/23 08:50 Glucose 321 mg/dL (65-115) H 01/08/23 08:50 Calculated Osmolality 314 mOsm/kg (285-295) H 01/08/23 08:50 Calcium 8.8 mg/dL (8.5-10.5) 01/08/23 08:50 Total Bilirubin 0.6 mg/dL (0.15-1.2) 01/08/23 08:50 AST 19 U/L (0-40) 01/08/23 08:50 ALT 22 U/L (0-41) 01/08/23 08:50 Alkaline Phosphatase 92 U/L (40-130) 01/08/23 08:50 Troponin T Baseline 183 ng/L (0-15) H* 01/08/23 08:50 Troponin T 120 Minute 160.0 ng/L (0-15) H 01/08/23 11:10 Delta Troponin T -23.0 ABS# (0-10) L 01/08/23 11:10 Total Protein 5.5 g/dL (6.6-8.7) L 01/08/23 08:50 Albumin 2.8 g/dL (3.5-5.2) L 01/08/23 08:50 Globulin 2.7 g/dL (1.3-4.6) 01/08/23 08:50 Lipase 39 U/L (13-60) 01/08/23 08:50 Urine Color Brown (Yellow) A 01/08/23 08:58 Urine Appearance Bloody (CLEAR) A 01/08/23 08:58 Urine pH 5 (5-7) 01/08/23 08:58 Ur Specific [place] 1.015 (1.005-1.030) 01/08/23 08:58 Urine Protein 3+ (Negative) H 01/08/23 08:58 Urine Glucose (UA) 2+ (Normal) H 01/08/23 08:58 Urine Ketones 1+ (Negative) H 01/08/23 08:58 Urine Blood 3+ (Negative) H 01/08/23 08:58 Urine Nitrate Negative (Negative) 01/08/23 08:58 Urine Bilirubin 1+ (Negative) H 01/08/23 08:58 Urine Urobilinogen Norm mg/dL (Negative) 01/08/23 08:58 Ur Leukocyte Esterase Trace (Negative) H 01/08/23 08:58 Urine RBC Too numerous to cnt /hpf (0-2) H 01/08/23 08:58 Urine WBC 5-10 /hpf (0-5) H 01/08/23 08:58 Ur Squamous Epith Cells None /hpf (0-5) 01/08/23 08:58 Amorphous Sediment Not Reportable 01/08/23 08:58 Urine Bacteria 2+ /hpf (NONE) H 01/08/23 08:58 Coarse Granular Casts 10-15 /lpf H 01/08/23 08:58 Serum Ketones Negative (Negative) 01/08/23 08:50 Blood Type B Negative 01/08/23 11:10 Rho(D) Type Negative 01/08/23 11:10 Antibody Screen Negative 01/08/23 11:10 Crossmatch See Detail 01/08/23 11:10 All radiology interpretation(s) finalized by discharge Critical Care Time Critical Care Time: Critical Care Time: Yes Total Critical Care Time: 60 Attestation: The high probability of a clinically significant, sudden or life threatening deterioration of the patient's cardiovascular, hematologic, GI system(s) required my full and direct attention, intervention and personal management. The critical care time is as shown. This time is in addition to time spent performing any reported procedures but includes the following: [x] Data and vital sign review and interpretation [x] Patient assessment, examination and intervention [x] Documentation [x] Medication orders and management Discharge Plan Discharge Patient Disposition: Admitted As Inpatient Admit Provider: Gaudencio Amin Clinical Impression: UGI bleed, Anemia, ESRD on dialysis, Hypotension, Bullous pemphigoid Condition: Stable Coding Level of Care Code ED Machine Chocolate Molder for Anabelle Lopez
[2023-01-08 08:58] LABS: Basophils % 0.2 %; Eosinophils % 0.2 %; Hematocrit 27.4 % (37-53); Lymphocytes # 3.6 10^3/uL (0.8-4.8); Lymphocytes % 16.3 %; Mean Corpuscular HGB Conc 31.4 g/dL (30-55); Mean Corpuscular Hemoglobin 30.7 pg (27-33); Mean Corpuscular Volume 97.9 fl (82-101); Mean Platelet Volume 9.3 fL (7.4-10.4); Monocytes # 1.8 10^3/uL (0.2-0.9); Monocytes % 8.1 %; Neutrophils # 15.61 10^3/uL (1.8-7.7); Neutrophils % 71.2 %; Nucleated Red Blood Cells # 0.2 /100WBC; Nucleated Red Blood Cells % 0.8 %; Platelet Count 224 10^3/cmm (157-399); Red Cell Distribution Width 15.3 % (12.1-15.1); White Blood Count 21.91 10^3/uL (3.29-11.43)
[2023-01-08 09:18] LABS: Alanine Aminotransferase 22 U/L (0-41); Albumin Level 2.8 g/dL (3.5-5.2); Alkaline Phosphatase 92 U/L (40-130); Anion Gap 28.6 (5-19); Aspartate Amino Transferase 19 U/L (0-40); Calcium 8.8 mg/dL (8.5-10.5); Carbon Dioxide 19 mmol/L (22-29); Chloride 90 mmol/L (98-107); Globulin 2.7 g/dL (1.3-4.6); Glucose 321 mg/dL (65-115); Lipase 39 U/L (13-60); Osmolality Calculated 314 mOsm/kg (285-295); Potassium 5.6 mmol/L (3.5-5.1); Sodium 132 mmol/L (136-145); Total Bilirubin 0.6 mg/dL (0.15-1.2); Total Protein 5.5 g/dL (6.6-8.7)
[2023-01-08 09:25] LABS: Blood Urea Nitrogen 89 mg/dL (8-23)
[2023-01-08 09:27] LABS: Troponin(5th) Baseline 183 ng/L (0-15)
--- NOTE | 2023-01-08 09:36 | CT_ITS ---
WS: [id number] CT ABDOMEN PELVIS TECHNIQUE: Contrast-enhanced CT of the abdomen and pelvis with coronal and sagittal reformatted image s. CLINICAL INFORMATION: abd pain COMPARISON: CT 11/24/2022 DLP: 2006.[address] scans at [facility] use at least one of these dose optimization techniques: automated e xposure control; mA and/or kV adjustment per patient size (includes targeted exams where dose is matc hed to clinical indication); or iterative reconstruction. FINDINGS: Slight bibasal atelectasis. Mild diffuse fatty filtration of the liver. Small esophageal hiatal herni a with air-fluid level in the distal esophagus. Air-fluid level in the stomach. Increased attenuation in the stomach may represent blood products. Prior cholecystectomy. Normal spleen. Fatty atrophy of the pancreas. Adrenal glands are normal. Mild bilateral renal cortical atrophy. Normal renal parenchymal enhancement. LEFT peripelvic renal cysts. Disc space narrowing worse at L3-L4 and L4-L5. Chronic appearing RIGHT greater than LEFT insufficiency fractures similar to 11/24/2022. Small visual ized fracture cleft in the RIGHT sacral ala. IMPRESSION: 1. Small esophageal hiatal hernia with air-fluid level in the distal esophagus. 2. Increased attenuation within the stomach may be due to blood products. 3. Mild diffuse fatty infiltration of the liver. Prior cholecystectomy. 4. Mild fecal retention rectosigmoid 5. Chronic appearing RIGHT greater than LEFT sacral insufficiency fractures described above.
[2023-01-08 09:37] LABS: Ketone (Acetest) Serum Negative (Negative)
--- NOTE | 2023-01-08 10:12 | PC.PHAR ---
pt is from [facility] [phone]-per ras nurse at [facility] states the pt took no meds today-states the pt is still taking doxycycline hyclate 100mg bid till appt-ras states the pt is on prednisone 20mg daily till 01/25/23-states the pt had one time dose of humalog 5 units on 01/01/23 and 5 units humalog for bs greater than 400 at 21:00 on 01/02/23-medications entered are from pts mar and tar that was sent with the pt from [facility] and what ras nurse from [facility] states the pt takes
--- NOTE | 2023-01-08 10:16 | ECG_ITS ---
[facility] Test Date: 2023-01-08 Pat Name: Devyn Luo Department: Room: Gender: Male Spooling Supervisor: : 1945 Requested By: Angel Luis Chris Order Number: [id number] Konrad MD: Blily Jaeger M.D. Measurements Intervals [place] Rate: 105 P: 52 VA: 158 QRS: 61 QRSD: 82 T: 77 QT: 308 QTc: 407 Interpretive Statements SINUS TACHYCARDIA NONSPECIFIC ST & T-WAVE ABNORMALITY ABNORMAL RHYTHM ECG Compared to ECG 01/08/2023 08:20:34 No significant changes Electronically Signed On 01-09-2023 17:23:19 TRACK INSPECTING SUPERVISOR by Billy Jaeger M.D. [email or web address]
[2023-01-08 10:18] LABS: Protein Urine 3+ (Negative); Specific Gravity, Urine 1.015 (1.005-1.030); Urine Appearance Bloody (CLEAR); Urine Color Brown (Yellow); pH Urine 5 (5-7)
[2023-01-08 10:19] LABS: Add Urine Microscopic? YES; Bacteria Urine 2+ /hpf; Bilirubin Urine 1+ (Negative); Blood Urine 3+ (Negative); Glucose Urine UA 2+ (Normal); Ketones Urine 1+ (Negative); Leukocyte Esterase Urine Trace (Negative); Nitrate Urine Negative (Negative); RBC Urine TOO NUMEROUS TO CNT /hpf (0-2); Urobilinogen Urine Norm (Negative)
[2023-01-08 10:20] LABS: Add Urine Culture? Yes
[2023-01-08] MEDS: pantoprazole 40 mg SDV 80 MG IVP (10:52)
[2023-01-08] MEDS: iohexol 350 mg/mL 500 mL Btl (per mL) IV (11:04)
--- NOTE | 2023-01-08 11:06 | PC.NURSE ---
pt has had multiple bowel movements requiring assistance from two nurses. pt has grade two pressure ulcers present on both buttocks and scrotum.
[2023-01-08 11:24] LABS: Basophils % 0.2 %; Eosinophils % 0.1 %; Hematocrit 22.5 % (37-53); Lymphocytes # 1.1 10^3/uL (0.8-4.8); Lymphocytes % 5.7 %; Mean Corpuscular HGB Conc 32.4 g/dL (30-55); Mean Corpuscular Hemoglobin 31.1 pg (27-33); Mean Corpuscular Volume 95.7 fl (82-101); Mean Platelet Volume 9.4 fL (7.4-10.4); Monocytes # 1.3 10^3/uL (0.2-0.9); Monocytes % 6.7 %; Neutrophils # 15.91 10^3/uL (1.8-7.7); Nucleated Red Blood Cells # 0.2 /100WBC; Nucleated Red Blood Cells % 1.1 %; Platelet Count 167 10^3/cmm (157-399); Red Blood Count 2.35 10^6/uL (3.85-5.65); Red Cell Distribution Width 15.5 % (12.1-15.1); White Blood Count 19.35 10^3/uL (3.29-11.43)
[2023-01-08 11:39] LABS: Neutrophils % 87.3 %; Slide Review Slide Review Perform
[2023-01-08] MEDS: tranexamic acid 1,000 MG/100 ML PREMIX 600 MG IV (11:43)
--- NOTE | 2023-01-08 12:22 | PC.NURSE ---
DENTURES GIVEN TO DAUGHTER
[2023-01-08 12:41] LABS: INR 1.17 (0.8-1.2)
--- NOTE | 2023-01-08 13:15 | XRR_ITS ---
PROCEDURE INFORMATION: Exam: XR Chest Exam date and time: 01/08/2023 1:18 PM Age: 77 years old Clinical indication: Device placement; Other: Central line placement TECHNIQUE: Imaging protocol: Radiologic exam of the chest. Views: 1 view. COMPARISON: CR XR chest 1V portable [id number] 01/08/2023 10:05 AM FINDINGS: Tubes, catheters and devices: Interval insertion of a left IJ catheter which terminates in the SVC. Stable right multi lumen catheter. No change in the heart or mediastinum. Lungs: Unremarkable. No consolidation. Pleural spaces: Unremarkable. No pleural effusion. No pneumothorax. Heart/Mediastinum: See Tubes, catheters and devices finding. Bones/joints: Unremarkable. XR/XR chest 1V portable [id number] IMPRESSION: Left IJ catheter insertion.
[2023-01-08] MEDS: norepinephrine 4 MG/250 ML BAG 15 MG IV (13:22)
--- NOTE | 2023-01-08 13:31 | P.HP_ITS ---
Providers/Chief Complaint Admitting Physician: Gaudencio Amin MD Primary Care Provider: Mariana Cao MD Chief Complaint: ams History of Present Illness Devyn Luo is a 77 year old male presenting from [facility] with hemoptysis. This started occurring this morning around 615, initially vomiting blood. Since that time he has had a fair amount of melena. He has had another hemoptysis episode in the emergency department, perhaps an hour from [facility] this history and physical was done. He was confused this morning after vomiting. This has persisted somewhat. He denies any abdominal pain, saying only that his stomach feels a little upset. He cannot really participate much in his review of systems but does do note he does not have any chest pain. Review of Systems General: Reports: 10 or more systems reviewed and unremarkable except in HPI and below Card: Denies: chest pain Resp: Denies: dyspnea GI: Reports: nausea, vomiting, hematemesis and melena Medications/Allergies Home Medications Medication Instructions Recorded Confirmed Last Taken Type aspirin 81 mg chewable tablet 81 mg PO DAILY@06/08/22 01/08/23 12/21/22 History atorvastatin 80 mg tablet 40 mg PO BEDTIME 06/08/22 01/08/23 12/20/22 History cetirizine 10 mg tablet 10 mg PO DAILY@06/08/22 01/08/23 12/21/22 History cholecalciferol (vitamin D3) 25 25 mcg PO DAILY@06/08/22 01/08/23 12/21/22 History mcg (1,000 unit) capsule (Vitamin D3) finasteride 5 mg tablet 5 mg PO DAILY@06/08/22 01/08/23 12/21/22 History fluticasone 500 mcg-salmeterol 50 1 inh inhalation BID 06/08/22 01/08/23 12/21/22 History mcg/dose blistr powdr for inhalation (Wixela Inhub) fluticasone propionate 50 1 spray intranasal BID 06/08/22 01/08/23 12/21/22 History mcg/actuation nasal spray,suspension gabapentin 300 mg capsule 300 mg PO BEDTIME 06/08/22 01/08/23 12/20/22 History glucosamine-chondroitin 250 mg-200 1 tab PO BID 06/08/22 01/08/23 12/21/22 History mg tablet (Osteo Bi-Flex) ipratropium 20 mcg-albuterol 100 1 puff inhalation QID 06/08/22 01/08/23 12/21/22 History mcg/actuation mist for inhalation (Combivent Respimat) nitroglycerin 0.4 mg sublingual 0.4 mg sublingual Q5M PRN Chest 06/08/22 01/08/23 Unknown History tablet (Nitrostat) Pain sennosides 8.6 mg-docusate sodium 1 tab-cap PO DAILY@06/08/22 01/08/23 12/21/22 History 50 mg tablet (Senna-S) tamsulosin 0.4 mg capsule 0.4 mg PO DAILY@06/08/22 01/08/23 12/20/22 History acetaminophen 500 mg tablet 1,000 mg PO Q6H PRN Pain 11/24/22 01/08/23 11/24/22 History benzonatate 100 mg capsule 100 mg PO TID PRN Cough 12/21/22 01/08/23 Unknown History bumetanide 1 mg tablet 1 mg PO BID PRN FLUID RETENTION 12/21/22 01/08/23 Unknown History doxycycline hyclate 100 mg tablet 100 mg PO BID 12/21/22 01/08/23 01/07/23 History niacinamide 500 mg tablet 500 mg PO TID 12/21/22 01/08/23 12/21/22 History polyethylene glycol 3350 17 See Rx Instructions .Route .COMPLEX 12/21/22 Unknown History gram/dose oral powder (Miralax) prednisone 10 mg tablet 20 mg PO DAILY 12/21/22 01/08/23 01/07/23 History sevelamer carbonate 800 mg tablet 800 mg PO TID 12/21/22 01/08/23 12/21/22 History insulin lispro 100 unit/mL See Rx Instructions .Route 12/26/22 01/08/23 Unknown Rx subcutaneous solution (Humalog .COMPLEX #10 mL U-100 Insulin) aluminum-mag hydroxide-simethicone 30 ml PO .EVERY 2 HOURS PRN 01/08/23 01/08/23 Unknown History 200 mg-200 mg-20 mg/5 mL oral susp Indigestion bisacodyl 10 mg rectal suppository See Rx Instructions .Route .COMPLEX 01/08/23 01/08/23 Unknown History (Dulcolax (bisacodyl)) bisacodyl 5 mg tablet,delayed See Rx Instructions .Route .COMPLEX 01/08/23 01/08/23 Unknown History release (Dulcolax (bisacodyl)) hydrocodone 5 mg-acetaminophen 325 1 tab PO Q6H PRN Pain 01/08/23 01/08/23 Unknown History mg tablet insulin glargine 100 unit/mL (3 35 unit SUBCUT BEDTIME 01/08/23 01/08/23 Unknown History mL) subcutaneous pen (Lantus Solostar U-100 Insulin) insulin lispro 100 unit/mL See Rx Instructions .Route .COMPLEX 01/08/23 01/08/23 01/07/23 History subcutaneous solution (Humalog U-100 Insulin) magnesium citrate See Rx Instructions .Route .COMPLEX 01/08/23 01/08/23 Unknown History magnesium hydroxide 400 mg/5 mL 30 ml PO .EVERY 3RD DAY PRN 01/08/23 01/08/23 Unknown History oral suspension (Milk of Magnesia) Constipation Allergies Allergy/AdvReac Type Severity Reaction Status Date / Time amoxicillin Allergy Unknown Unknown Verified 01/08/23 10:03 PFSH Acute PFSH: Medical History BPH (benign prostatic hyperplasia) Cellulitis CHF (congestive heart failure) Chronic kidney disease COPD (chronic obstructive pulmonary disease) Coronary artery disease ESRD on dialysis GERD (gastroesophageal reflux disease) Hyperlipidemia Morbid obesity Peripheral neuropathy Type 2 diabetes mellitus Surgical History History of cholecystectomy History of coronary angioplasty Family History Other CAD (coronary artery disease) Social History Smoking and tobacco/nicotine status: former use of tobacco/nicotine Alcohol intake: never Substance/Drug Use: never Vitals/I&O/Wt Last Vital Signs Temp 98.2 F 01/08/23 12:24 Pulse 105 H 01/08/23 12:25 Resp 29 H 01/08/23 12:25 BP 101/71 01/08/23 12:25 Pulse Ox 99 01/08/23 12:25 O2 Del Method Room Air 01/08/23 10:25 01/07/23 01/08/23 01/08/23 22:59 06:59 14:59 Intake Total 0 / 0 Balance 0 / 0 Weight last 48 hrs Weight 147.418 kg Physical Exam Narrative: General exam is no distress HEENT: Atraumatic normocephalic. Oropharynx with some dried blood Neck is supple no lymphadenopathy or thyromegaly Cardiovascular slight tachycardia, no murmur Lungs clear no wheezing or crackles Abdomen is soft, obese. No specific tenderness. deferred Extremities no cyanosis clubbing. 1+ edema lower extremities. Skin multiple scabbed areas, consistent with a history of bullous pemphigoid Neuro confused but no obvious focal deficits Data 01/08/23 11:10 01/08/23 08:50 Other Labs: Abdomen pelvis CT demonstrates hiatal hernia, air-fluid distal esophagus, stomach likely blood products, fatty infiltration of liver, stool in the rectosigmoid, chronic appearing sacral insufficiency fractures right greater than left Head CT no acute changes Chest x-ray which I reviewed no acute disease EKG which I reviewed demonstrates sinus tachycardia, normal axis, nonspecific ST-T wave changes INR is normal, LFTs are normal, troponin is 180 with repeat of 160 Urine with too numerous to count red blood cells A&P Assessment and plan (1) UGI bleed: Patient presents with acute upper GI bleed Initiate Protonix drip Discontinue his aspirin Avoid anti-inflammatories Surgery consult for endoscopy He has received transexamic acid Recently on a prolonged prednisone taper. N.p.o. He is currently receiving 2 units of O- blood, released secondary to his hypotension associated with GI bleeding Repeat CBC daily, as well as serially. Next CBC will be 30 minutes following completion of transfusion Severely ill with life-threatening illness of GI bleed with associated anemia and hypotension (2) Anemia: Patient anemic secondary to GI bleeding Transfusing as needed (3) Type 2 diabetes mellitus: Sliding scale insulin, mild N.p.o. for now but when diet is started, will need to be consistent carb (4) COPD (chronic obstructive pulmonary disease): Budesonide twice daily DuoNeb every 6 hours No evidence of exacerbation currently (5) Bullous pemphigoid: Was on chronic prednisone Secondary to hypotension, currently still on taper will place on hydrocortisone and taper quickly if blood pressure recovers Discontinue doxycycline currently as patient is n.p.o., risk of pill esophagitis (6) ESRD on dialysis: Associated with hyperkalemia Nephrology consultation He has received bicarb, insulin and glucose Repeat BMP following transfusion Plan Multiple other medical problems as outlined in past medical history Full code currently SCDs for DVT prophylaxis, anticoagulation contraindicated Attestations Medical Necessity Statement*: Will need greater than 2-day overnight stay, for evaluation and treatment of severe upper GI bleeding associate with hypotension. Critical Care Time: The high probability of a clinically significant, sudden or life threatening deterioration of the patient's [GI, hematologic, vascular] system(s) required my full and direct attention, intervention and personal management. The critical care time is as shown. This time is in addition to time spent performing any reported procedures but includes the following: [x] Data and vital sign review and interpretation [x] Patient assessment, examination and intervention [x] Documentation [x] Medication orders and management Critical Care Time (min): 62 Coding Level of Care Code Critical Care >/= 30 minutes Critical care time (in minutes): 62 The high probability of a clinically significant, sudden or life threatening deterioration, as referenced in this documentation, required my full and direct attention, intervention and personal management. The critical care time shown is in addition to time spent performing any reported separately billable procedures and includes the following: [x] Data and vital sign review and interpretation [x ] Patient assessment, examination and intervention [x] Medication orders and management [x] Patient/Family updates as able [x] Care Coordination and Documentation. Diagnoses UGI bleed K92.2 Anemia D64.9 Type 2 diabetes mellitus E11.9 COPD (chronic obstructive pulmonary disease) J44.9 Bullous pemphigoid L12.0 ESRD on dialysis N18.6; Z99.2
--- NOTE | 2023-01-08 14:16 | PM.CONSULT ---
Providers/Reason For Consult Consulting Physician/Specialty*: General surgery Reason for Consult*: Upper GI bleeding Attending Physician: Gaudencio Amin MD Primary Care Provider: Mariana Cao MD History of Present Illness History of Present Illness Devyn Luo is a 77 year old male who presents to the emergency department with abdominal pain nausea vomiting and diarrhea. Symptoms started this morning, vomit was characterized with what appears to be coffee-ground emesis and diarrhea was melanotic. Patient has a extensive medical history he has end-stage renal disease, heart disease, is a senior living resident. After evaluation in the emergency department patient was noted to have a dropping hemoglobin and therefore he was started stat blood transfusions. I was consulted for evaluation for possible upper endoscopy. Review of Systems Narrative: Unable to complete due to patient condition. Medications/Allergies Home Medications Medication Instructions Recorded Confirmed Last Taken Type aspirin 81 mg chewable tablet 81 mg PO DAILY@06/08/22 01/08/23 12/21/22 History atorvastatin 80 mg tablet 40 mg PO BEDTIME 06/08/22 01/08/23 12/20/22 History cetirizine 10 mg tablet 10 mg PO DAILY@06/08/22 01/08/23 12/21/22 History cholecalciferol (vitamin D3) 25 25 mcg PO DAILY@06/08/22 01/08/23 12/21/22 History mcg (1,000 unit) capsule (Vitamin D3) finasteride 5 mg tablet 5 mg PO DAILY@06/08/22 01/08/23 12/21/22 History fluticasone 500 mcg-salmeterol 50 1 inh inhalation BID 06/08/22 01/08/23 12/21/22 History mcg/dose blistr powdr for inhalation (Wixela Inhub) fluticasone propionate 50 1 spray intranasal BID 06/08/22 01/08/23 12/21/22 History mcg/actuation nasal spray,suspension gabapentin 300 mg capsule 300 mg PO BEDTIME 06/08/22 01/08/23 12/20/22 History glucosamine-chondroitin 250 mg-200 1 tab PO BID 06/08/22 01/08/23 12/21/22 History mg tablet (Osteo Bi-Flex) ipratropium 20 mcg-albuterol 100 1 puff inhalation QID 06/08/22 01/08/23 12/21/22 History mcg/actuation mist for inhalation (Combivent Respimat) nitroglycerin 0.4 mg sublingual 0.4 mg sublingual Q5M PRN Chest 06/08/22 01/08/23 Unknown History tablet (Nitrostat) Pain sennosides 8.6 mg-docusate sodium 1 tab-cap PO DAILY@06/08/22 01/08/23 12/21/22 History 50 mg tablet (Senna-S) tamsulosin 0.4 mg capsule 0.4 mg PO DAILY@06/08/22 01/08/23 12/20/22 History acetaminophen 500 mg tablet 1,000 mg PO Q6H PRN Pain 11/24/22 01/08/23 11/24/22 History benzonatate 100 mg capsule 100 mg PO TID PRN Cough 12/21/22 01/08/23 Unknown History bumetanide 1 mg tablet 1 mg PO BID PRN FLUID RETENTION 12/21/22 01/08/23 Unknown History doxycycline hyclate 100 mg tablet 100 mg PO BID 12/21/22 01/08/23 01/07/23 History niacinamide 500 mg tablet 500 mg PO TID 12/21/22 01/08/23 12/21/22 History polyethylene glycol 3350 17 See Rx Instructions .Route .COMPLEX 12/21/22 01/08/23 Unknown History gram/dose oral powder (Miralax) prednisone 10 mg tablet 20 mg PO DAILY 12/21/22 01/08/23 01/07/23 History sevelamer carbonate 800 mg tablet 800 mg PO TID 12/21/22 01/08/23 12/21/22 History insulin lispro 100 unit/mL See Rx Instructions .Route 12/26/22 01/08/23 Unknown Rx subcutaneous solution (Humalog .COMPLEX #10 mL U-100 Insulin) aluminum-mag hydroxide-simethicone 30 ml PO .EVERY 2 HOURS PRN 01/08/23 01/08/23 Unknown History 200 mg-200 mg-20 mg/5 mL oral susp Indigestion bisacodyl 10 mg rectal suppository See Rx Instructions .Route .COMPLEX 01/08/23 01/08/23 Unknown History (Dulcolax (bisacodyl)) bisacodyl 5 mg tablet,delayed See Rx Instructions .Route .COMPLEX 01/08/23 01/08/23 Unknown History release (Dulcolax (bisacodyl)) hydrocodone 5 mg-acetaminophen 325 1 tab PO Q6H PRN Pain 01/08/23 01/08/23 Unknown History mg tablet insulin glargine 100 unit/mL (3 35 unit SUBCUT BEDTIME 01/08/23 01/08/23 Unknown History mL) subcutaneous pen (Lantus Solostar U-100 Insulin) insulin lispro 100 unit/mL See Rx Instructions .Route .COMPLEX 01/08/23 01/08/23 01/07/23 History subcutaneous solution (Humalog U-100 Insulin) magnesium citrate See Rx Instructions .Route .COMPLEX 01/08/23 01/08/23 Unknown History magnesium hydroxide 400 mg/5 mL 30 ml PO .EVERY 3RD DAY PRN 01/08/23 01/08/23 Unknown History oral suspension (Milk of Magnesia) Constipation Allergies Allergy/AdvReac Type Severity Reaction Status Date / Time amoxicillin Allergy Unknown Unknown Verified 01/08/23 10:03 Current Medications Generic Name Dose Route Start Last Admin Trade Name Freq PRN Reason Stop Dose Admin norepinephrine 4 mg in 250 mls @ 0 mls/hr 01/08/23 13:15 01/08/23 13:22 Levophed IV 4 mcg/min .Q0M DONALD 15 mls/hr Administration Protocol Per Protocol PFSH Acute PFSH: Medical History BPH (benign prostatic hyperplasia) Cellulitis CHF (congestive heart failure) Chronic kidney disease COPD (chronic obstructive pulmonary disease) Coronary artery disease ESRD on dialysis GERD (gastroesophageal reflux disease) Hyperlipidemia Morbid obesity Peripheral neuropathy Type 2 diabetes mellitus Surgical History History of cholecystectomy History of coronary angioplasty Family History Other CAD (coronary artery disease) Social History Smoking and tobacco/nicotine status: former use of tobacco/nicotine Alcohol intake: never Substance/Drug Use: never Vitals/I&O/Wt Last Vital Signs Temp 98.2 F 01/08/23 12:24 Pulse 105 H 01/08/23 12:25 Resp 29 H 01/08/23 12:25 BP 101/71 01/08/23 12:25 Pulse Ox 99 01/08/23 12:25 O2 Del Method Room Air 01/08/23 10:25 01/07/23 01/08/23 01/08/23 22:59 06:59 14:59 Intake Total 0 / 0 Balance 0 / 0 Weight last 48 hrs Weight 325 lb Physical Exam Const: OTHER: Appears pale, alert and oriented x 2, unable to provide a full history. GI: OTHER: Abdomen is soft, nontender, not distended. Data 01/08/23 11:10 01/08/23 08:50 A&P Assessment and plan (1) UGI bleed: (2) Hypotension: (3) CHF (congestive heart failure): (4) ESRD on dialysis: Plan 77-year-old male with multiple medical comorbidities who presents with active upper GI bleeding. He was initiated on high-dose PPI and TXA in the emergency room, blood transfusion was also initiated. There may initial evaluation his clinical condition was concerning for hypotension and altered mental status. After blood transfusions were initiated patient mental status improved as well as his hypotension. Due to severity and acuity of bleeding I have discussed with the patient and family members the need for urgent upper endoscopy. We plan to proceed with upper endoscopy as soon as patient finishes resuscitation with blood products, I have explained to the patient and family members that the goal will be to control the bleeding, if there is extensive bleeding that cannot be controlled by endoscopic means in our institution patient will require transfer to outside facility for repeat endoscopy and possible IR embolization of bleeding vessel. I have discussed all the risk and benefits of the procedure with the family including the risks of perforation of the esophagus stomach or duodenum, persistent bleeding, need for additional interventions, the record of bleeding, hemodynamic instability. 5 member agrees with the risks and wishes to proceed. I have indicated to the patient that these will be a life-saving procedure, there is a high risk for morbidity and mortality due to patient clinical comorbidities. Family members aware. Patient is being transferred to the ICU and after resuscitation will proceed with upper endoscopy. Coding Level of Care Code 45889 Diagnoses UGI bleed K92.2 Hypotension I95.9 CHF (congestive heart failure) I50.9 ESRD on dialysis N18.6; Z99.2
[2023-01-08] MEDS: sodium bicarbonate 8.4% 1 mEq/mL 50mL Syr 50 MEQ IVP (15:09)
[2023-01-08] MEDS: calcium chloride 10% Syr 10 mL 2 GM IVP (15:11)
[2023-01-08] MEDS: insulin regular-human 100 units/1 mL 10 UNIT IVP (15:12)
[2023-01-08] MEDS: hydrocortisone 100 mg/2 mL SDV IVP ×2 (15:12→21:11)
[2023-01-08] MEDS: sodium chloride 0.9% 1,000 ML 30 ML IV (15:15)
[2023-01-08] MEDS: pantoprazole 40 MG in sodium chloride 0.9% (plus) 100 ML 20 MG IV ×2 (15:17→19:51)
--- NOTE | 2023-01-08 15:18 | PM.CONSULT ---
Providers/Reason For Consult Consulting Physician/Specialty*: [facility]/Nephrology Reason for Consult*: ESRD Attending Physician: Gaudencio Amin MD Primary Care Provider: Mariana Cao MD History of Present Illness History of Present Illness Devyn Luo is a 77 year old male With past medical history of hypertension, dyslipidemia diabetes, COPD, CHF, end-stage renal disease on dialysis per TTS schedule was sent from the snf due to hematemesis and melena. He denied any other complaints. Patient reports that his last dialysis was on Sunday in the ER vital signs are stable, lab data significant for hemoglobin of 7.3, creatinine of 10, potassium was 5.6. General surgery was consulted for possible endoscopy. And plan for 2 units of blood transfusion today. He will be admitted to the ICU. Review of Systems Narrative: Other ROS engative Medications/Allergies Home Medications Medication Instructions Recorded Confirmed Last Taken Type aspirin 81 mg chewable tablet 81 mg PO DAILY@06/08/22 01/08/23 12/21/22 History atorvastatin 80 mg tablet 40 mg PO BEDTIME 06/08/22 01/08/23 12/20/22 History cetirizine 10 mg tablet 10 mg PO DAILY@06/08/22 01/08/23 12/21/22 History cholecalciferol (vitamin D3) 25 25 mcg PO DAILY@06/08/22 01/08/23 12/21/22 History mcg (1,000 unit) capsule (Vitamin D3) finasteride 5 mg tablet 5 mg PO DAILY@06/08/22 01/08/23 12/21/22 History fluticasone 500 mcg-salmeterol 50 1 inh inhalation BID 06/08/22 01/08/23 12/21/22 History mcg/dose blistr powdr for inhalation (Wixela Inhub) fluticasone propionate 50 1 spray intranasal BID 06/08/22 01/08/23 12/21/22 History mcg/actuation nasal spray,suspension gabapentin 300 mg capsule 300 mg PO BEDTIME 06/08/22 01/08/23 12/20/22 History glucosamine-chondroitin 250 mg-200 1 tab PO BID 06/08/22 01/08/23 12/21/22 History mg tablet (Osteo Bi-Flex) ipratropium 20 mcg-albuterol 100 1 puff inhalation QID 06/08/22 01/08/23 12/21/22 History mcg/actuation mist for inhalation (Combivent Respimat) nitroglycerin 0.4 mg sublingual 0.4 mg sublingual Q5M PRN Chest 06/08/22 01/08/23 Unknown History tablet (Nitrostat) Pain sennosides 8.6 mg-docusate sodium 1 tab-cap PO DAILY@06/08/22 01/08/23 12/21/22 History 50 mg tablet (Senna-S) tamsulosin 0.4 mg capsule 0.4 mg PO DAILY@06/08/22 01/08/23 12/20/22 History acetaminophen 500 mg tablet 1,000 mg PO Q6H PRN Pain 11/24/22 01/08/23 11/24/22 History benzonatate 100 mg capsule 100 mg PO TID PRN Cough 12/21/22 01/08/23 Unknown History bumetanide 1 mg tablet 1 mg PO BID PRN FLUID RETENTION 12/21/22 01/08/23 Unknown History doxycycline hyclate 100 mg tablet 100 mg PO BID 12/21/22 01/08/23 01/07/23 History niacinamide 500 mg tablet 500 mg PO TID 12/21/22 01/08/23 12/21/22 History polyethylene glycol 3350 17 See Rx Instructions .Route .COMPLEX 12/21/22 01/08/23 Unknown History gram/dose oral powder (Miralax) prednisone 10 mg tablet 20 mg PO DAILY 12/21/22 01/08/23 01/07/23 History sevelamer carbonate 800 mg tablet 800 mg PO TID 12/21/22 01/08/23 12/21/22 History insulin lispro 100 unit/mL See Rx Instructions .Route 12/26/22 01/08/23 Unknown Rx subcutaneous solution (Humalog .COMPLEX #10 mL U-100 Insulin) aluminum-mag hydroxide-simethicone 30 ml PO .EVERY 2 HOURS PRN 01/08/23 01/08/23 Unknown History 200 mg-200 mg-20 mg/5 mL oral susp Indigestion bisacodyl 10 mg rectal suppository See Rx Instructions .Route .COMPLEX 01/08/23 01/08/23 Unknown History (Dulcolax (bisacodyl)) bisacodyl 5 mg tablet,delayed See Rx Instructions .Route .COMPLEX 01/08/23 01/08/23 Unknown History release (Dulcolax (bisacodyl)) hydrocodone 5 mg-acetaminophen 325 1 tab PO Q6H PRN Pain 01/08/23 01/08/23 Unknown History mg tablet insulin glargine 100 unit/mL (3 35 unit SUBCUT BEDTIME 01/08/23 01/08/23 Unknown History mL) subcutaneous pen (Lantus Solostar U-100 Insulin) insulin lispro 100 unit/mL See Rx Instructions .Route .COMPLEX 01/08/23 01/08/23 01/07/23 History subcutaneous solution (Humalog U-100 Insulin) magnesium citrate See Rx Instructions .Route .COMPLEX 01/08/23 01/08/23 Unknown History magnesium hydroxide 400 mg/5 mL 30 ml PO .EVERY 3RD DAY PRN 01/08/23 01/08/23 Unknown History oral suspension (Milk of Magnesia) Constipation Allergies Allergy/AdvReac Type Severity Reaction Status Date / Time amoxicillin Allergy Unknown Unknown Verified 01/08/23 10:03 Current Medications Generic Name Dose Route Start Last Admin Trade Name Freq PRN Reason Stop Dose Admin Hydrocortisone Sodium Succinate 100 mg 01/08/23 14:30 01/08/23 15:12 Hydrocortisone 100 Mg/2 Ml Sdv IVP 100 mg Q6H DONALD Administration norepinephrine 4 mg in 250 mls @ 0 mls/hr 01/08/23 13:15 01/08/23 13:22 Levophed IV 4 mcg/min .Q0M DONALD 15 mls/hr Administration Protocol Per Protocol Sodium Chloride 1,000 mls @ 50 mls/hr 01/08/23 13:15 01/08/23 14:32 Sodium Chloride 0.9% IV Not Given .Q20H DONALD Sodium Chloride 1,000 mls @ 30 mls/hr 01/08/23 14:09 01/08/23 15:15 Sodium Chloride 0.9% IV 01/09/23 14:08 30 mls/hr .Q24H ONE Administration Pantoprazole Sodium 40 mg/ 100 mls @ 20 mls/hr 01/08/23 14:30 01/08/23 15:17 Sodium Chloride IV 8 mg/hr .Q5H DONALD 20 mls/hr Administration 8 MG/HR PFSH Acute PFSH: Medical History BPH (benign prostatic hyperplasia) Cellulitis CHF (congestive heart failure) Chronic kidney disease COPD (chronic obstructive pulmonary disease) Coronary artery disease ESRD on dialysis GERD (gastroesophageal reflux disease) Hyperlipidemia Morbid obesity Peripheral neuropathy Type 2 diabetes mellitus Surgical History History of cholecystectomy History of coronary angioplasty Family History Other CAD (coronary artery disease) Social History Smoking and tobacco/nicotine status: former use of tobacco/nicotine Alcohol intake: never Substance/Drug Use: never Vitals/I&O/Wt Last Vital Signs Temp 98.2 F 01/08/23 13:30 Pulse 101 H 01/08/23 14:35 Resp 18 01/08/23 14:35 BP 173/100 01/08/23 14:00 Pulse Ox 97 01/08/23 14:35 O2 Del Method Room Air 01/08/23 14:35 01/08/23 01/08/23 01/08/23 06:59 14:59 22:59 Intake Total 780 / 780 Balance 780 / 780 Weight last 48 hrs Weight 147.418 kg Physical Exam Narrative: Awake, confused Data 01/08/23 11:10 01/08/23 08:50 A&P Assessment and plan (1) ESRD on dialysis: Plan 1. End-stage renal disease: Per TTS schedule as outpatient, . Ultrafiltration as tolerated. Patient was recently started on HD for possible AIN diagnosis from antibiotics (status post kidney biopsy in [facility],). Last dialysis was on Sunday, will plan on HD again tomorrow 2. Anemia: With GI bleed, plan for EGD, status post 2 units PRBCs, ordered LINDA 3. History of bullous pemphigoid 4. Hypertension: Blood pressure controlled 5. History of coronary artery disease and CHF 6. Hyperkalemia: Potassium is 5.6, will repeat K, I will treat medically and dialysis in a.m. If repeat K remains high will need HD tonight. Patient evaluated using audiovisual cart. Time spent 40 min Consult Attestations Medical Necessity Statement: Per medicine team Coding Level of Care Code Acute Code for Chg Fwd Diagnoses ESRD on dialysis N18.6; Z99.2
[2023-01-08] MEDS: EPINEPHrine 1 mg/mL INJ XX (15:46)
--- NOTE | 2023-01-08 16:00 | ANE.PACU2 ---
Inpatient post-anesthesia follow up: Airway intact: Yes Vital signs: Temperature 97.6 F Pulse Rate 92 Respiratory Rate 20 Blood Pressure 104/76 Pulse Oximetry 96 Oxygen Delivery Me thod Nasal Cannula Oxygen Flow Rate 2 Fraction of Inspir ed Oxygen Hydration adequate: Yes Nausea and vomiting: No Pain level: 1 Mental status: Baseline
[2023-01-08] MEDS: citric acid-sodium citrate 30 mL UDC 60 ML PO (16:15)
[2023-01-08] MEDS: FUROsemide 10 mg/mL SDV 10mL 60 MG IVP (16:15)
[2023-01-08] MEDS: epoetin alfa 1000 Unit/0.05 mL (ESRD) 20000 UNIT SUBCUT (16:15)
--- NOTE | 2023-01-08 16:39 | ECG_ITS ---
[facility] Test Date: 2023-01-08 Pat Name: Devyn Luo Department: Room: ICU02 Gender: Male Human Resources Specialist: : 1945 Requested By: Angel Luis Chris Order Number: [id number] Konrad MD: Billy Jaeger M.D. Measurements Intervals [place] Rate: 106 P: 79 MD: 165 QRS: 56 QRSD: 88 T: 180 QT: 298 QTc: 396 Interpretive Statements SINUS TACHYCARDIA WITH OCCASIONAL VENTRICULAR PREMATURE COMPLEXES WITH OCCASIONAL SUPRAVENTRICULAR PREMATURE COMPLEXES NONSPECIFIC ST & T-WAVE ABNORMALITY Compared to ECG 01/08/2023 10:20:42 Occasional PVCs and PAVCs arenow present Electronically Signed On 01-09-2023 17:20:51 CERTIFIED DIALYSIS TECHNICIAN by Billy Jaeger M.D. [id number]
[2023-01-08 16:44] LABS: Basophils # 0.1 10^3/uL (0.0-0.1); Basophils % 0.3 %; Hematocrit 29.1 % (37-53); Lymphocytes % 5.1 %; Mean Corpuscular HGB Conc 32.3 g/dL (30-55); Mean Corpuscular Hemoglobin 30.6 pg (27-33); Mean Corpuscular Volume 94.8 fl (82-101); Mean Platelet Volume 9.5 fL (7.4-10.4); Monocytes # 1.2 10^3/uL (0.2-0.9); Monocytes % 5.8 %; Neutrophils # 17.03 10^3/uL (1.8-7.7); Nucleated Red Blood Cells # 0.2 /100WBC; Nucleated Red Blood Cells % 1.1 %; Platelet Count 185 10^3/cmm (157-399); Red Blood Count 3.07 10^6/uL (3.85-5.65); Red Cell Distribution Width 15.1 % (12.1-15.1); White Blood Count 20.38 10^3/uL (3.29-11.43)
[2023-01-08 16:46] LABS: Neutrophils % 88.8 %
[2023-01-08 17:11] LABS: Anion Gap 27.8 (5-19); Calcium 9.8 mg/dL (8.5-10.5); Carbon Dioxide 18 mmol/L (22-29); Chloride 92 mmol/L (98-107); Glucose 285 mg/dL (65-115); Osmolality Calculated 317 mOsm/kg (285-295); Potassium 4.8 mmol/L (3.5-5.1); Sodium 133 mmol/L (136-145)
[2023-01-08 17:46] LABS: Blood Urea Nitrogen 99 mg/dL (8-23); Troponin 5 6HR 163.8 ng/L (0-15); Troponin 5 6HR Delta -19.2 ng/L (0-12)
[2023-01-08 18:09] LABS: Glucose Point of Care 345 mg/dL (70-110)
[2023-01-08] MEDS: insulin lispro 100 unit/1 mL SUBCUT ×2 (18:29→21:11)
[2023-01-08 19:32] LABS: Anion Gap 26.2 (5-19); Calcium 9.8 mg/dL (8.5-10.5); Carbon Dioxide 20 mmol/L (22-29); Chloride 91 mmol/L (98-107); Glucose 321 mg/dL (65-115); Osmolality Calculated 318 mOsm/kg (285-295); Potassium 5.2 mmol/L (3.5-5.1); Sodium 132 mmol/L (136-145)
[2023-01-08 19:46] LABS: Blood Urea Nitrogen 102 mg/dL (8-23)
[2023-01-08] MEDS: budesonide 0.5 mg/2 mL Neb INHALATION (19:49)
[2023-01-08] MEDS: ipratropium-albuterol 3 mL Neb INHALATION (19:49)
[2023-01-08 20:35] LABS: Glucose Point of Care 320 mg/dL (70-110)
[2023-01-08 21:00] LABS: Hematocrit 27.7 % (37-53)
[2023-01-08] MEDS: gabapentin 300 mg Capsule PO (21:11)
--- OUTSIDE RECORDS SUMMARY | 2023-01-08 23:43 | XMS_ITS ---
Author Name Aguila Campos Address [address] [place] [id number] Phone [phone] Organization [facility], NA DOCUMENT DISCLAIMER Multiple document versions may exist, please be sure you review the latest version. The information in the [facility] Progress Note Document represents a providers documented clinical note containing certain health and medical information. It may not contain the complete medical history for the patient and should be independently verified. The represented time in the document is Eastern Time PROVIDER ROUNDING NOTE AICHA Patient:?Devyn?Gurpreet?Valerio,?1945,?77y,?M Dialysis?Location:?[facility] Attending?Full Charge Bookkeeper:?Aguila?Andres Service?Date:?01/03/2023 Service?Provider:?Aguila?Andres,? I?met?face?to?face?with?the?patient?today. OVERVIEW The?patient?presented?with?AICHA?on?dialysis. 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 Patient?remains?oliguric.??Not?sure?if?he?would?do&#160 ;Hd?long?term.?discussed?situation?with?daughter.? Medications?and?labs?reviewed. HOME?MEDICATIONS Home?Medications:? ??Lantus?Solostar?U-100?Insulin?(insulin?glargine)?100? unit/mL?(3?mL),?subcutaneously,?Inject?15?unit?every?night at?bedtime ??hydrocodone-acetaminophen?5-325?mg,?by?mouth,?Take?1? tablet?every?six?hours?as?needed?for?pain ??Humalog?U-100?Insulin?(insulin?lispro)?100?unit/mL,?s ubcutaneously,?Inject?three?times?a?day?after?meals?Per&#160 ;Low?dose?sliding?scale. ??tamsulosin?0.4?mg,?by?mouth,?Take?once?a?day ??gabapentin?300?mg,?by?mouth,?Take?1?capsule?at bedtime?for?nerve?pain ??Advair?Diskus?(fluticasone?propion-salmeterol)?500-50?mcg/dose, ?as?directed,?Inhale?1?puff?twice?a?day?as?directed ??finasteride?5?mg,?by?mouth,?Take?1?tablet?once&# 160;a?day?do?not?crush,?chew?or?split?tablet ??famotidine?20?mg,?by?mouth,?Take?1?tablet?twice a?day ??cholecalciferol?(vitamin?D3)?(cholecalciferol?(vitamin?d3))&#16 0;25?mcg?(1,000?unit),?by?mouth,?Take?1?capsule?once&#1 60;a?day?for?vit?D?deficiency ??cetirizine?10?mg,?by?mouth,?Take?1?tablet?once a?day?for?allergies ??atorvastatin?80?mg,?by?mouth,?Take?1/2?tablet?every?night ??Ecotrin?Low?Strength?(aspirin)?81?mg,?by?mouth,?Take?1?tablet?once?a?day ??nitroglycerin?0.4?mg,?under?tongue,?Place?1?tablet&#1 60;as?needed?for?chest?pain-call?911?if?no?relief?after?1st?dose-may?repeat?x2. ??docusate?sodium?50?mg,?by?mouth,?Take?1?capsule& #160;twice?a?day?as?needed?to?soften?stool,?hold?for loose?stools. ??benzonatate?100?mg,?by?mouth,?Take?1?capsule?thr ee?times?a?day?as?needed?for?cough ??albuterol?sulfate?90?mcg/actuation,?as?directed,?Inhale&#1 60;1?puff?four?times?a?day?as?needed?for?breathing Allergies:? ??AMOXICILLIN LAST?HOSPITALIZATION Discharge?Diagnosis:?L12.0?Bullous?pemphigoid M62.81?Muscle?weakness?(generalized) D64.9?Anemia,?unspecified Admission?Date?12/21/22 Discharge?Date?12/26/22 DIALYSIS?PRESCRIPTION ??IHD?3x?Week?Start?date:?01/06/23 ??Dialyzer:?180NRe?Optiflux ??BFR:?450 ??DFR:?Manual?800 ??Potassium:?2.0 ??Sodium:?135 ??EDW:?140 ??Duration:?4:00 ??Calcium:?2.5 ??Bicarb:?35 ??Rx?updated?on:?01/06/2023 TREATMENT?ASSESSMENT Blood?pressure?controlled.?No?changes?indicated.? BP?Sit?Pre ??01/06/2023:?120/60 ??01/03/2023:?141/54 ??01/01/2023:?146/54 BP?Sit?Post ??01/06/2023:?140/46 ??01/03/2023:?143/74 ??01/01/2023:?144/72 Tx?Duration ??01/06/2023:?4:00 ??01/03/2023:?4:12 ??01/01/2023:?4:06 Missed?Treatments 0?-?last?30?days 0?-?last?60?days FLUID?ASSESSMENT Fluid?status?acceptable.?Interdialytic?weight?gain?acceptable.?No ?changes?indicated.? EDW?(kg) ??01/06/2023:?143.0 ??01/03/2023:?153.0 ??01/01/2023:?153.0 Weight?Pre?(kg) ??01/06/2023:?142.2 ??01/03/2023:?144.2 ??01/01/2023:?145.6 Weight?Post?(kg) ??01/06/2023:?140.2 ??01/03/2023:?140.3 ??01/01/2023:?143.6 PWV?(kg) ??01/06/2023:?-2.8 ??01/03/2023:?-12.7 ??01/01/2023:?-9.4 UF?Rate?(mL/kg/hr) ??01/06/2023:?3.6 ??01/03/2023:?6.6 ??01/01/2023:?3.4 ADEQUACY?ASSESSMENT Comments:?repeat?Kt/V Adequacy?target?not?met.?Prescription?compliance?acceptable.?No&# 160;changes?indicated.? spKt/V,?URR,?Creatinine ??01/01/2023:?1.04,?60,?- ??12/12/2022:?1.38,?71,?- ??12/07/2022:?1.22,?66,?8.63 ACCESS?ASSESSMENT ??Access?Type:?CVCatheter ??Access?SubType:?Tunneled ??Access?Status:?Active?(In?Use)?-?12/06/2022 ??Access?Location:?Chest ??Placed:?12/01/2022 Vascular?access?reviewed. ANEMIA?ASSESSMENT HGB?below?goal.?Medications?adjusted.?Treatment?protocol?ordered.? HGB,?TSAT ??01/01/2023:?9.3,?31.0 ??12/19/2022:?9.9,?- ??12/12/2022:?10.8,?- ?? Ferritin ??01/01/2023:?370.0 ??12/07/2022:?311.0 Mircera,?IVP?(mcg) ??01/06/2023:?75 BMM?ASSESSMENT PTH?controlled.?Calcium?controlled.?Phosphorus?elevated.?Referred&#160 ;to?dietitian.? Phosphorus,?Calcium ??01/01/2023:?7.5,?8.7 ??12/07/2022:?4.8,?8.6 ?? Magnesium ??01/01/2023:?2.0 ??12/07/2022:?1.7 ?? PTH,?Intact ??12/07/2022:?449.0 NUTRITION?ASSESSMENT Comments:?receiving?supplements?at?treatment?for?protein.?multiple?wounds? Potassium?controlled.?Albumin?below?goal.?Diet?reviewed?with&#160 ;patient.?Referred?to?dietitian.? Albumin,?Potassium ??01/01/2023:?2.8,?4.6 ??12/07/2022:?3.2,?5.0 ?? eNPCR ??01/01/2023:?0.93 ??12/12/2022:?0.83 PHYSICAL?EXAM Exam?Performed.?Vital?Signs?Reviewed.?Lungs?-?Clear.?CV&#160 ;-?Blood?pressure?noted.?CV?-?RRR. 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
[2023-01-09] VITALS (237 sets, daily range): BP systolic 53–156; BP diastolic 38–90; PULSE 71–112; RESP 12–29; TEMP 36.4–36.9; O2SAT 82–100
[2023-01-09] MEDS: pantoprazole 40 MG in sodium chloride 0.9% (plus) 100 ML 20 MG IV (00:18)
--- NOTE | 2023-01-09 02:14 | PC.NURSE ---
ICU staff transported patient to ICU 10 so patient can receive dialysis during the day. During transport, transport monitor fell on patients head. Dime size bruise noted on patients hair line. No changes in patients neurological status after incident occured. Dr Post notified. No new orders given.
[2023-01-09] MEDS: ipratropium-albuterol 3 mL Neb INHALATION ×4 (02:19→20:37)
[2023-01-09] MEDS: hydrocortisone 100 mg/2 mL SDV IVP ×3 (02:23→21:22)
[2023-01-09 08:27] LABS: Alanine Aminotransferase 84 U/L (0-41); Albumin Level 2.8 g/dL (3.5-5.2); Alkaline Phosphatase 77 U/L (40-130); Aspartate Amino Transferase 79 U/L (0-40); Calcium 9.6 mg/dL (8.5-10.5); Carbon Dioxide 22 mmol/L (22-29); Chloride 95 mmol/L (98-107); Globulin 2.4 g/dL (1.3-4.6); Glucose 198 mg/dL (65-115); Magnesium 2.3 mg/dL (1.7-2.3); Sodium 138 mmol/L (136-145); Total Bilirubin 0.5 mg/dL (0.15-1.2); Total Protein 5.2 g/dL (6.6-8.7)
[2023-01-09] MEDS: budesonide 0.5 mg/2 mL Neb INHALATION ×2 (08:46→20:37)
[2023-01-09 09:10] LABS: Blood Urea Nitrogen 124 mg/dL (8-23); Osmolality Calculated 331 mOsm/kg (285-295)
[2023-01-09 09:19] LABS: Basophils % 0.2 %; Hematocrit 26.7 % (37-53); Lymphocytes # 1.1 10^3/uL (0.8-4.8); Lymphocytes % 5.6 %; Mean Corpuscular HGB Conc 32.2 g/dL (30-55); Mean Corpuscular Hemoglobin 29.9 pg (27-33); Mean Corpuscular Volume 92.7 fl (82-101); Mean Platelet Volume 9.5 fL (7.4-10.4); Monocytes # 0.5 10^3/uL (0.2-0.9); Monocytes % 2.6 %; Neutrophils # 16.73 10^3/uL (1.8-7.7); Neutrophils % 87.8 %; Nucleated Red Blood Cells # 0.2 /100WBC; Nucleated Red Blood Cells % 1.3 %; Platelet Count 133 10^3/cmm (157-399); Red Blood Count 2.88 10^6/uL (3.85-5.65); Red Cell Distribution Width 15.8 % (12.1-15.1); White Blood Count 19.05 10^3/uL (3.29-11.43)
[2023-01-09 09:49] LABS: Glucose Point of Care 203 mg/dL (70-110)
--- NOTE | 2023-01-09 09:58 | P.PN_ITS ---
Subjective 2 Subjective: getting HD Medications: Reviewed: Yes Vitals/I&O/Wt Last Vital Signs Temp 97.6 F 01/09/23 01:00 Pulse 96 01/09/23 09:35 Resp 19 H 01/09/23 09:35 BP 135/65 01/09/23 09:35 Pulse Ox 98 01/09/23 09:35 O2 Del Method Nasal Cannula 01/09/23 08:00 O2 Flow Rate 2 01/09/23 08:00 01/08/23 01/09/23 01/09/23 22:59 06:59 14:59 Intake Total 175.833 / 1305.833 189 / 1494.833 0 / 0 Balance 175.833 / 1305.833 189 / 1494.833 0 / 0 Weight last 48 hrs Weight 138.487 kg Weight 147.418 kg Physical Exam 2 Narrative: Awake, No distress + Edema Data 01/09/23 05:20 01/09/23 05:20 A&P Assessment and plan (1) ESRD on dialysis: Plan 1. End-stage renal disease: Per TTS schedule as outpatient, . Ultrafiltration as tolerated. Patient was recently started on HD for possible AIN diagnosis from antibiotics (status post kidney biopsy in [facility],). Last dialysis was on Sunday, will plan on HD again tomorrow 2. Anemia: With GI bleed, , status post 2 units PRBCs, ordered LINDA 3. History of bullous pemphigoid 4. Hypertension: Blood pressure controlled 5. History of coronary artery disease and CHF 6. Hyperkalemia:HD today and Low K diet Patient evaluated using audiovisual cart. Time spent 20 min Attestations 2 Medical Necessity Statement*: per medicine team Coding Level of Care Code Acute Code for Chg Fwd Diagnoses ESRD on dialysis N18.6; Z99.2
[2023-01-09] MEDS: insulin lispro 100 unit/1 mL SUBCUT ×4 (10:12→21:22)
[2023-01-09 11:54] LABS: Glucose Point of Care 192 mg/dL (70-110)
--- NOTE | 2023-01-09 12:08 | P.PN_ITS ---
Subjective 2 Subjective: Devyn has not had any vomiting since yesterday. He reports his stomach feels better, but he is still somewhat confused. He has still had an occasional stool that is melanotic. Medications: Reviewed: Yes Vitals/I&O/Wt Last Vital Signs Temp 97.5 F L 01/09/23 10:27 Pulse 98 01/09/23 12:00 Resp 18 01/09/23 12:00 BP 95/60 01/09/23 12:00 Pulse Ox 90 01/09/23 12:00 O2 Del Method Nasal Cannula 01/09/23 08:00 O2 Flow Rate 2 01/09/23 08:00 01/08/23 01/09/23 01/09/23 22:59 06:59 14:59 Intake Total 175.833 / 1305.833 189 / 1494.833 0 / 0 Balance 175.833 / 1305.833 189 / 1494.833 0 / 0 Weight last 48 hrs Weight 138.487 kg Weight 147.418 kg Physical Exam 2 Narrative: General alert. Responsive. Mild confusion. Neck is supple no lymphadenopathy or thyromegaly Cardiovascular slight tachycardia, no murmur Lungs clear no wheezing or crackles Abdomen is soft, obese. No specific tenderness. deferred Extremities no cyanosis clubbing. 1+ edema lower extremities. Skin multiple scabbed areas, consistent with a history of bullous pemphigoid Neuro confused but no obvious focal deficits Data 01/09/23 05:20 01/09/23 05:20 Micro: Microbiology 01/08/23 08:58 Urine Culture - Preliminary Urine,Clean Catch A&P Assessment and plan (1) UGI bleed: Patient presents with acute upper GI bleed Change Protonix to 40 mg IV every 12 hours Discontinue his aspirin Avoid anti-inflammatories Appreciate surgical intervention with endoscopy. Multiple gastric and duodenal ulcers noted. Esophagitis noted. Recently on a prolonged prednisone taper. He received 2 units of blood in 01/08. Hemoglobin is 8.6 this morning, relatively stable. Repeat at around 2 PM, and tomorrow Will discuss with surgery whether clear liquids can be initiated. (2) Anemia: Patient anemic secondary to GI bleeding See above (3) Type 2 diabetes mellitus: Sliding scale insulin, mild N.p.o. for now but when diet is started, will need to be consistent carb (4) COPD (chronic obstructive pulmonary disease): Budesonide twice daily DuoNeb every 6 hours No evidence of exacerbation currently (5) Bullous pemphigoid: Was on chronic prednisone Secondary to hypotension, patient was placed on hydrocortisone. Taper today, changed to p.o. tomorrow if tolerated Discontinue doxycycline currently as patient is n.p.o., risk of pill esophagitis (6) ESRD on dialysis: Associated with hyperkalemia Nephrology consultation This is now improved. He is receiving dialysis again today. Plan Multiple other medical problems as outlined in past medical history Full code currently SCDs for DVT prophylaxis, anticoagulation contraindicated Attestations 2 Medical Necessity Statement*: Needs continued hospitalization for close monitoring following upper GI bleed requiring transfusion Diagnoses UGI bleed K92.2 Anemia D64.9 Type 2 diabetes mellitus E11.9 COPD (chronic obstructive pulmonary disease) J44.9 Bullous pemphigoid L12.0 ESRD on dialysis N18.6; Z99.2 Time Spent (min) 35
[2023-01-09] MEDS: epoetin alfa 1000 Unit/0.05 mL (ESRD) 20000 UNIT SUBCUT (12:22)
[2023-01-09] MEDS: heparin, porcine 1,000 unit/mL INJ 10 mL 10000 UNIT INTRACATH (12:34)
--- NOTE | 2023-01-09 12:50 | PC.HD ---
At conclusion of treatment, heparin was instilled into HD catheter limbs. Arterial port 2.1 mL (2100 units), venous port 2.2 mL (2200 units). Epogen administered via HD circuit at treatment conclusion as well. UF goal 2500; however, due to soft BPs, goal was not met. 1491 net fluid removal noted. Physician Assistant Surgery aware.
[2023-01-09] MEDS: pantoprazole 40 mg SDV IVP (13:17)
--- NOTE | 2023-01-09 14:20 | P.PN_ITS ---
Subjective 2 Subjective: 77-year-old male with upper GI bleeding. Patient was evaluated at bedside today. Appears more alert and oriented, denies nausea vomit or hematemesis. Has continued to have melanotic stools. No abdominal pain. Vitals/I&O/Wt Last Vital Signs Temp 97.9 F 01/09/23 12:49 Pulse 99 01/09/23 14:05 Resp 19 H 01/09/23 14:05 BP 106/67 01/09/23 14:05 Pulse Ox 95 01/09/23 13:52 O2 Del Method Nasal Cannula 01/09/23 13:52 O2 Flow Rate 2 01/09/23 13:52 01/08/23 01/09/23 01/09/23 22:59 06:59 14:59 Intake Total 175.833 / 1305.833 189 / 1494.833 300 / 300 Output Total 1791 / 1791 Balance 175.833 / 1305.833 189 / 1494.833 -1491 / -1491 Weight last 48 hrs Weight 319 lb 0.142 oz Weight 305 lb 5 oz Weight 325 lb Physical Exam 2 Narrative: Alert and oriented, benign abdominal exam. Data 01/09/23 05:20 01/09/23 05:20 Micro: Microbiology 01/08/23 08:58 Urine Culture - Preliminary Urine,Clean Catch A&P Assessment and plan (1) Hypotension: (2) Anemia: (3) UGI bleed: (4) CHF (congestive heart failure): (5) ESRD on dialysis: Plan 77-year-old male with a history of upper GI bleeding, he is postoperative day 1 status post EGD with bleeding control. I explained the findings to the patient and family members at the bedside, well. Bleeding has currently stopped I think it will be necessary to repeat endoscopy in 4 to 6 weeks to ensure healing of the mucosa and for biopsies. In the interim patient will continue management per medical ICU team. He is cleared from my standpoint to proceed with clear diet as diet as tolerated. Only additional recommendation will be to and the new twice a day PPI for 4 to 6 weeks as outpatient and patient should be initiated on sucralfate 1 g every 6 hours for the next 4 weeks. Attestations 2 Medical Necessity Statement*: Patient will require hospitalist but they as guided by primary team. From the general surgery still point he is cleared to advance diet continue and may be discharged once tolerating. Coding Level of Care Code 39224 Diagnoses Hypotension I95.9 Anemia D64.9 UGI bleed K92.2 CHF (congestive heart failure) I50.9 ESRD on dialysis N18.6; Z99.2
[2023-01-09 18:01] LABS: Glucose Point of Care 150 mg/dL (70-110)
[2023-01-09] MEDS: sucralfate 1 gm/10 mL Oral Liq UDC PO ×2 (18:06→21:22)
[2023-01-09] MEDS: gabapentin 300 mg Capsule PO (21:22)
[2023-01-09] MEDS: sodium chloride 0.9% 1,000 ML 50 ML IV (22:03)
[2023-01-09 23:24] LABS: Glucose Point of Care 289 mg/dL (70-110)
[2023-01-10] VITALS (75 sets, daily range): BP systolic 96–162; BP diastolic 51–89; PULSE 80–102; RESP 14–32; TEMP 36.6–36.7; O2SAT 82–98
[2023-01-10] MEDS: pantoprazole 40 mg SDV IVP ×2 (00:29→12:17)
[2023-01-10 06:02] LABS: Hematocrit 25.8 % (37-53); Mean Corpuscular Hemoglobin 30.5 pg (27-33); Mean Corpuscular Volume 98.5 fl (82-101); Mean Platelet Volume 9.4 fL (7.4-10.4); Platelet Count 121 10^3/cmm (157-399); Red Blood Count 2.62 10^6/uL (3.85-5.65)
[2023-01-10] MEDS: sucralfate 1 gm/10 mL Oral Liq UDC PO ×4 (06:10→20:37)
[2023-01-10 06:28] LABS: Alanine Aminotransferase 65 U/L (0-41); Albumin Level 2.7 g/dL (3.5-5.2); Alkaline Phosphatase 72 U/L (40-130); Aspartate Amino Transferase 36 U/L (0-40); Blood Urea Nitrogen 71 mg/dL (8-23); Calcium 8.8 mg/dL (8.5-10.5); Carbon Dioxide 21 mmol/L (22-29); Chloride 96 mmol/L (98-107); Creatinine Clr Calc Pharmacy 10.0511; Globulin 2.3 g/dL (1.3-4.6); Glucose 213 mg/dL (65-115); Osmolality Calculated 307 mOsm/kg (285-295); Sodium 135 mmol/L (136-145); Total Bilirubin 0.5 mg/dL (0.15-1.2)
[2023-01-10 07:01] LABS: Slide Review Slide Review Perform
[2023-01-10 07:02] LABS: Absolute Neutrophil 15.9 10^3/cmm (1.4-6.5); Band Neutrophils Absolute 0.9 10^3/cmm (0.0-1.2); Eosinophils 0 %; Lymphocytes 4 %; Lymphocytes Absolute 0.7 10^3/cmm (1.2-3.4); Monocytes Absolute 0.4 10^3/cmm (0.1-0.6); Platelet Estimate Decreased (Normal); Segmented Neutrophils 85 %; Total Cells Counted 100 (0-100)
[2023-01-10 07:03] LABS: Anisocytosis Trace
[2023-01-10 07:51] LABS: Glucose Point of Care 248 mg/dL (70-110)
--- NOTE | 2023-01-10 08:15 | PM.PN ---
Documented by User: [email or web address] Nelson 01/10/23 10:49 Subjective Subjective: Patient was evaluated this morning while lying in bed on 1L/NC. Patient is alert and oriented x 4 and able to answer questions appropriately this morning. Patient does state that he feels better overall. Denies any hematemesis this a.m. did receive bedside hemodialysis treatment yesterday and stated he felt somewhat weak post but has improved since. Patient denies any pain at this time. Medications: Reviewed: Yes Vitals/I&O/Wt Last Vital Signs Temp 98.1 F 01/10/23 00:00 Pulse 93 01/10/23 06:00 Resp 17 01/10/23 05:45 BP 156/89 01/10/23 06:00 Pulse Ox 96 01/10/23 06:00 O2 Del Method Nasal Cannula 01/10/23 01:29 O2 Flow Rate 1 01/10/23 01:29 01/09/23 01/10/23 01/10/23 22:59 06:59 14:59 Intake Total 600 / 900 996.5 / 1896.5 Balance 600 / -891 996.5 / 105.5 Weight last 48 hrs Weight 141.634 kg Weight 144.7 kg Weight 138.487 kg Physical Exam Narrative: General alert and oriented x 4. Able to answer questions appropriately. Neck is supple no lymphadenopathy. Cardiovascular sinus rhythm with no murmur. Lungs clear no wheezing or crackles Abdomen is soft, obese. No tenderness on palpation. deferred Extremities no cyanosis clubbing. 1+ edema lower extremities. Skin multiple scabbed areas, consistent with a history of bullous pemphigoid Neuro alert and oriented x 4. Data 01/10/23 05:25 01/10/23 05:25 Other Labs: Leukocytosis improving 17.7. Hemoglobin 8.0, hematocrit 25.8. Platelet 121. Anion gap 22, BUN 71, creatinine 8.7, AST 36, ALT 65. Micro: Microbiology 01/08/23 08:58 Urine Culture - Preliminary Urine,Clean Catch A&P Assessment and plan (1) UGI bleed: Postop day 1 EGD with bleeding control. General surgery consult. Recommendations appreciated, Recommendations to repeat endoscopy in 4 to 6 weeks ensuring healing and the mucosa for biopsies Will add sucralfate 1 g every 6 for 4 weeks. PPI 40 mg IV every 12. ASA on hold Avoid anti-inflammatory medications. Hemoglobin is 8.0 this morning, relatively stable. Repeat labs in AM. Advance diet to clear liquid as tolerated today. (2) Anemia: As per #1. Secondary to GI bleed. (3) Type 2 diabetes mellitus: Sliding scale insulin, mild Advance diet as tolerated, clear liquid this am. (4) COPD (chronic obstructive pulmonary disease): Budesonide twice daily DuoNeb every 6 hours No evidence of exacerbation currently Stable. (5) Bullous pemphigoid: Was on chronic prednisone Doxycycline on hold until patient able to tolerate diet. (6) ESRD on dialysis: Associated with hyperkalemia. Potassium 4.0. Plan for HD again today, 01/10, per Nephrology. Nephrology consultation. Recommendations appreciated. Plan As per above. Patient is stable to move out of ICU to [facility] today. CODE STATUS: Full code SCDs for DVT prophylaxis, anticoagulation contraindicated Coding Level of Care Code 44948 Diagnoses UGI bleed K92.2 Anemia D64.9 Type 2 diabetes mellitus E11.9 COPD (chronic obstructive pulmonary disease) J44.9 Bullous pemphigoid L12.0 ESRD on dialysis N18.6; Z99.2 Time Spent (min) 25 Documented by User: Gaudencio Amin MD 01/10/23 10:54 Data 01/10/23 05:25 01/10/23 05:25 A&P Assessment and plan (1) UGI bleed: Postop day 1 EGD with bleeding control. General surgery consult. Recommendations appreciated, Recommendations to repeat endoscopy in 4 to 6 weeks ensuring healing and the mucosa for biopsies Continue sucralfate 1 g every 6 for 4 weeks. PPI 40 mg IV every 12. Changed to p.o. tomorrow if improving ASA on hold. Possible reinitiation tomorrow Avoid anti-inflammatory medications. Hemoglobin is 8.0 this morning, relatively stable. Repeat labs in AM. Advance diet to clear liquid as tolerated today. (2) Anemia: (3) Type 2 diabetes mellitus: (4) COPD (chronic obstructive pulmonary disease): (5) Bullous pemphigoid: Was on chronic prednisone Doxycycline on hold until patient able to tolerate diet. Then will reassess. Doxycycline is associated with esophagitis and some individuals, particularly those that cannot remain upright 30 minutes after ingesting. (6) ESRD on dialysis: Attestations Medical Necessity Statement*: Needs continued hospitalization, for close monitoring following upper GI bleed, with reinitiation of diet Diagnoses UGI bleed K92.2 Anemia D64.9 Type 2 diabetes mellitus E11.9 COPD (chronic obstructive pulmonary disease) J44.9 Bullous pemphigoid L12.0 ESRD on dialysis N18.6; Z99.2 Time Spent (min) 25
[2023-01-10] MEDS: budesonide 0.5 mg/2 mL Neb INHALATION ×2 (09:11→21:19)
[2023-01-10] MEDS: ipratropium-albuterol 3 mL Neb INHALATION ×3 (09:11→21:19)
[2023-01-10] MEDS: hydrocortisone 100 mg/2 mL SDV IVP (09:12)
[2023-01-10] MEDS: insulin lispro 100 unit/1 mL SUBCUT ×4 (09:12→21:45)
--- NOTE | 2023-01-10 09:14 | PC.SOCIAL ---
IMM Update Pg.2 of IMM Updated and reviewed with patient. Copy provided to patient, initialed and dated copy in chart.
--- NOTE | 2023-01-10 10:35 | PM.PN ---
Subjective Subjective: s/p hD yesterday Medications: Reviewed: Yes Vitals/I&O/Wt Last Vital Signs Temp 98.1 F 01/10/23 00:00 Pulse 93 01/10/23 10:00 Resp 19 H 01/10/23 10:00 BP 131/78 01/10/23 10:00 Pulse Ox 97 01/10/23 09:12 O2 Del Method Nasal Cannula 01/10/23 09:12 O2 Flow Rate 1 01/10/23 09:12 01/09/23 01/10/23 01/10/23 22:59 06:59 14:59 Intake Total 600 / 900 996.5 / 1896.5 602.5 / 602.5 Balance 600 / -891 996.5 / 105.5 602.5 / 602.5 Weight last 48 hrs Weight 141.634 kg Weight 144.7 kg Weight 138.487 kg Physical Exam Narrative: Awake, No distress + Edema Data 01/11/23 04:11 01/11/23 04:11 Micro: Microbiology 01/08/23 08:58 Urine Culture - Final Urine,Clean Catch A&P Assessment and plan (1) ESRD on dialysis: Plan 1. End-stage renal disease: Per TTS schedule as outpatient, Patient was recently started on HD for possible AIN diagnosis from antibiotics (status post kidney biopsy in [facility],).s/p HD yesterday and next HD tomorrow 2. Anemia: With GI bleed, , status post 2 units PRBCs, ordered LINDA 3. History of bullous pemphigoid 4. Hypertension: Blood pressure controlled 5. History of coronary artery disease and CHF 6. Hyperkalemia:HD today and Low K diet Patient evaluated using audiovisual cart. Time spent 20 min Attestations Medical Necessity Statement*: per medicien team Coding Level of Care Code Acute Code for Chg Fwd Diagnoses ESRD on dialysis N18.6; Z99.2
[2023-01-10 13:10] LABS: Glucose Point of Care 315 mg/dL (70-110)
[2023-01-10 17:12] LABS: Glucose Point of Care 310 mg/dL (70-110)
[2023-01-10] MEDS: methylPREDNISolone sod succ 40 mg/mL INJ IVP (18:04)
[2023-01-10] MEDS: gabapentin 300 mg Capsule PO (20:37)
[2023-01-10 22:04] LABS: Glucose Point of Care 282 mg/dL (70-110)
[2023-01-11] VITALS (13 sets, daily range): BP systolic 104–140; BP diastolic 57–92; PULSE 67–99; RESP 16–20; TEMP 36.3–37.2; O2SAT 92–97
[2023-01-11] MEDS: pantoprazole 40 mg SDV IVP ×2 (00:48→14:41)
[2023-01-11 05:10] LABS: Basophils % 0.3 %; Hematocrit 24.3 % (37-53); Lymphocytes # 0.6 10^3/uL (0.8-4.8); Lymphocytes % 3.9 %; Mean Corpuscular HGB Conc 31.3 g/dL (30-55); Mean Corpuscular Hemoglobin 29.9 pg (27-33); Mean Corpuscular Volume 95.7 fl (82-101); Mean Platelet Volume 9.5 fL (7.4-10.4); Monocytes # 0.7 10^3/uL (0.2-0.9); Monocytes % 4.6 %; Neutrophils # 12.82 10^3/uL (1.8-7.7); Neutrophils % 85.1 %; Nucleated Red Blood Cells # 0.3 /100WBC; Nucleated Red Blood Cells % 1.8 %; Platelet Count 103 10^3/cmm (157-399); Red Blood Count 2.54 10^6/uL (3.85-5.65); Red Cell Distribution Width 15.8 % (12.1-15.1); White Blood Count 15.04 10^3/uL (3.29-11.43)
[2023-01-11 05:28] LABS: Alanine Aminotransferase 53 U/L (0-41); Albumin Level 2.8 g/dL (3.5-5.2); Alkaline Phosphatase 83 U/L (40-130); Anion Gap 21.9 (5-19); Aspartate Amino Transferase 26 U/L (0-40); Calcium 9.1 mg/dL (8.5-10.5); Carbon Dioxide 23 mmol/L (22-29); Chloride 97 mmol/L (98-107); Globulin 2.4 g/dL (1.3-4.6); Glucose 181 mg/dL (65-115); Osmolality Calculated 319 mOsm/kg (285-295); Potassium 3.9 mmol/L (3.5-5.1); Sodium 138 mmol/L (136-145); Total Bilirubin 0.5 mg/dL (0.15-1.2); Total Protein 5.2 g/dL (6.6-8.7)
[2023-01-11 05:51] LABS: Slide Review Slide Review Perform
[2023-01-11 06:00] LABS: Blood Urea Nitrogen 92 mg/dL (8-23)
[2023-01-11] MEDS: sucralfate 1 gm/10 mL Oral Liq UDC PO ×4 (06:14→21:06)
[2023-01-11 06:44] LABS: Glucose Point of Care 227 mg/dL (70-110)
[2023-01-11] MEDS: insulin lispro 100 unit/1 mL SUBCUT ×3 (08:05→21:06)
[2023-01-11] MEDS: heparin, porcine 1,000 unit/mL INJ 10 mL 1000 UNIT IV (09:42)
--- NOTE | 2023-01-11 09:47 | PM.PN ---
Subjective Subjective: Devyn reports he is doing okay. He denies any vomiting/hematemesis last night. According to nursing he did not have any stools last night but he does have a stool currently but small of melena. Medications: Reviewed: Yes Vitals/I&O/Wt Last Vital Signs Temp 98.5 F 01/11/23 07:20 Pulse 86 01/11/23 09:14 Resp 16 01/11/23 09:14 BP 120/69 01/11/23 07:20 Pulse Ox 96 01/11/23 09:14 O2 Del Method Nasal Cannula 01/11/23 09:14 O2 Flow Rate 2 01/11/23 09:14 01/10/23 01/11/23 01/11/23 22:59 06:59 14:59 Intake Total 360 / 1202.5 720 / 720 Balance 360 / 1202.5 720 / 720 Weight last 48 hrs Weight 141.719 kg Weight 141.634 kg Weight 144.7 kg Physical Exam Narrative: General alert. Confused but conversant Neck is supple no lymphadenopathy or thyromegaly Cardiovascular slight tachycardia, no murmur Lungs clear no wheezing or crackles Abdomen is soft, obese. No specific tenderness. deferred. Stool noted Extremities no cyanosis clubbing. 1+ edema lower extremities. Data 01/11/23 04:11 01/11/23 04:11 Micro: Microbiology 01/08/23 08:58 Urine Culture - Final Urine,Clean Catch A&P Assessment and plan (1) UGI bleed: Postop day 2 EGD with bleeding control. General surgery consult. Recommendations appreciated, Recommendations to repeat endoscopy in 4 to 6 weeks ensuring healing and the mucosa for biopsies Continue sucralfate 1 g every 6 for 4 weeks. PPI 40 mg IV every 12. Continue this for now until further observation of hemoglobin ASA on hold. Continue to hold will monitor hemoglobin Avoid anti-inflammatory medications. Hemoglobin 7.6 this morning. Recheck this afternoon around 1 PM Advance to soft diet (2) Anemia: As per #1. Secondary to GI bleed. (3) Type 2 diabetes mellitus: Sliding scale insulin, mild Advance diet as tolerated, clear liquid this am. (4) COPD (chronic obstructive pulmonary disease): Budesonide twice daily DuoNeb every 6 hours No evidence of exacerbation currently Stable. (5) Bullous pemphigoid: Was on chronic prednisone Doxycycline on hold until patient able to tolerate diet. Then will reassess. Doxycycline is associated with esophagitis and some individuals, particularly those that cannot remain upright 30 minutes after ingesting. (6) ESRD on dialysis: Associated with hyperkalemia. Potassium 4.0. Appreciate nephrology consultation Likely hemodialysis today. Plan Hypotension initially. Was placed on hydrocortisone as he was on a prolonged steroid taper for bullous pemphigoid. At this point we will take off IV steroids and placed on prednisone 20 mg a day, tapering rapidly as blood pressure allows As per above. Patient is stable to move out of ICU to [facility] today. SCDs for DVT prophylaxis, anticoagulation contraindicated Attestations Medical Necessity Statement*: Needs continued hospitalization for advancing diet, close monitoring of hemoglobin prior to discharge back to the nursing facility. If with advancing diet, there is no evidence of active bleeding by tomorrow consider discharge back to nursing facility Diagnoses UGI bleed K92.2 Anemia D64.9 Type 2 diabetes mellitus E11.9 COPD (chronic obstructive pulmonary disease) J44.9 Bullous pemphigoid L12.0 ESRD on dialysis N18.6; Z99.2 Time Spent (min) 24
--- NOTE | 2023-01-11 10:44 | PM.PN ---
Subjective Subjective: getting HD Medications: Reviewed: Yes Vitals/I&O/Wt Last Vital Signs Temp 98.5 F 01/11/23 07:20 Pulse 86 01/11/23 09:14 Resp 16 01/11/23 09:14 BP 120/69 01/11/23 07:20 Pulse Ox 96 01/11/23 09:14 O2 Del Method Nasal Cannula 01/11/23 09:14 O2 Flow Rate 2 01/11/23 09:14 01/10/23 01/11/23 01/11/23 22:59 06:59 14:59 Intake Total 360 / 1202.5 720 / 720 Balance 360 / 1202.5 720 / 720 Weight last 48 hrs Weight 141.719 kg Weight 141.634 kg Weight 144.7 kg Physical Exam Narrative: Awake, No distress + Edema Data 01/11/23 04:11 01/11/23 04:11 Micro: Microbiology 01/08/23 08:58 Urine Culture - Final Urine,Clean Catch A&P Assessment and plan (1) ESRD on dialysis: Plan 1. End-stage renal disease: Per TTS schedule as outpatient, Patient was recently started on HD for possible AIN diagnosis from antibiotics (status post kidney biopsy in [facility],).s/p HD yesterday and next HD today 2. Anemia: With GI bleed, , status S/P egd ost 2 units PRBCs, ordered LINDA 3. History of bullous pemphigoid 4. Hypertension: Blood pressure controlled 5. History of coronary artery disease and CHF 6. Hyperkalemia:HD today and Low K diet Patient evaluated using audiovisual cart. Time spent 20 min Attestations Medical Necessity Statement*: per medicien team Coding Level of Care Code Acute Code for Chg Fwd Diagnoses ESRD on dialysis N18.6; Z99.2
[2023-01-11 11:13] LABS: Glucose Point of Care 206 mg/dL (70-110)
[2023-01-11 14:10] LABS: Hematocrit 28.9 % (37-53)
[2023-01-11] MEDS: predniSONE 20 mg Tablet PO (14:42)
[2023-01-11] MEDS: epoetin alfa 1000 Unit/0.05 mL (ESRD) 20000 UNIT SUBCUT (14:42)
[2023-01-11] MEDS: sodium chloride 0.9% (100 ml) 100 ML 50 ML (14:43)
[2023-01-11 16:55] LABS: Glucose Point of Care 243 mg/dL (70-110)
[2023-01-11] MEDS: budesonide 0.5 mg/2 mL Neb INHALATION (20:29)
[2023-01-11] MEDS: ipratropium-albuterol 3 mL Neb INHALATION (20:29)
[2023-01-11 20:56] LABS: Glucose Point of Care 331 mg/dL (70-110)
[2023-01-11] MEDS: gabapentin 300 mg Capsule PO (21:06)
[2023-01-12] VITALS (13 sets, daily range): BP systolic 96–108; BP diastolic 58–64; PULSE 78–96; RESP 16–18; TEMP 37–37.2; O2SAT 91–98
[2023-01-12] MEDS: pantoprazole 40 mg SDV IVP ×2 (00:36→11:28)
[2023-01-12] MEDS: ipratropium-albuterol 3 mL Neb INHALATION ×3 (01:33→14:49)
[2023-01-12 05:53] LABS: Hematocrit 26.9 % (37-53); Mean Corpuscular HGB Conc 31.2 g/dL (30-55); Mean Corpuscular Volume 96.1 fl (82-101); Mean Platelet Volume 9.7 fL (7.4-10.4); Platelet Count 72 10^3/cmm (157-399); Red Cell Distribution Width 16.7 % (12.1-15.1); White Blood Count 12.51 10^3/uL (3.29-11.43)
[2023-01-12] MEDS: sucralfate 1 gm/10 mL Oral Liq UDC PO ×2 (06:06→11:28)
[2023-01-12 06:12] LABS: Alanine Aminotransferase 39 U/L (0-41); Albumin Level 2.7 g/dL (3.5-5.2); Alkaline Phosphatase 94 U/L (40-130); Anion Gap 16.7 (5-19); Aspartate Amino Transferase 24 U/L (0-40); Blood Urea Nitrogen 58 mg/dL (8-23); Calcium 8.5 mg/dL (8.5-10.5); Carbon Dioxide 25 mmol/L (22-29); Chloride 96 mmol/L (98-107); Globulin 2.5 g/dL (1.3-4.6); Glucose 175 mg/dL (65-115); Osmolality Calculated 298 mOsm/kg (285-295); Potassium 3.7 mmol/L (3.5-5.1); Sodium 134 mmol/L (136-145); Total Bilirubin 0.5 mg/dL (0.15-1.2); Total Protein 5.2 g/dL (6.6-8.7)
[2023-01-12 06:20] LABS: Absolute Segmented Neutrophil 10.6 10/cmm (1.6-7.1); Eosinophils 0 %; Lymphocytes 7 %; Monocytes Absolute 0.6 10^3/cmm (0.1-0.6); Platelet Estimate Decreased (Normal); Segmented Neutrophils 85 %; Slide Review Slide Review Perform; Total Cells Counted 100 (0-100)
[2023-01-12 06:28] LABS: Glucose Point of Care 187 mg/dL (70-110)
[2023-01-12] MEDS: budesonide 0.5 mg/2 mL Neb INHALATION (07:38)
[2023-01-12] MEDS: insulin lispro 100 unit/1 mL SUBCUT ×2 (08:36→11:28)
[2023-01-12] MEDS: predniSONE 20 mg Tablet PO (08:36)
[2023-01-12 10:57] LABS: Glucose Point of Care 253 mg/dL (70-110)
--- NOTE | 2023-01-12 10:58 | P.DS_ITS ---
Discharge Providers Date of Admission: 01/08/23 13:20 Date of Discharge: January 12, 2023 Attending Provider at Admission: Gaudencio Amin MD Attending Provider at Discharge: Gaudencio Amin MD Primary Care Provider: Mariana Cao MD Diagnoses at Discharge Discharge Diagnosis (1) ESRD on dialysis: Status: Acute Reason for Visit Reason for Visit: ams Hospital Course Hospital Course Devyn is a 77-year-old white male who presented from the nursing facility with history of hematemesis, melanotic schools. He was significantly anemic, and required transfusion of 2 units of blood during his resuscitation. An EGD was performed shortly after admission demonstrating esophagitis, gastric ulcer, duodenal ulceration, but no active bleeding at time of EGD. He was placed on Protonix, Carafate, and diet slowly advanced. Initially aspirin was held. Doxycycline was discontinued as this can cause significant esophagitis. Nephrology was consulted to provide dialysis. If the above treatment his hemoglobin stabilized. On January 12, with no significant bleeding in over 48 hours and diet advanced and tolerated it was thought he could be discharged back to the nursing facility for close monitoring. He will follow-up with surgery per their recommendations. He will follow-up with his primary care provider 3 to 5 days. I discussed discharge planning with the family and they were able to ask questions, and agreed with the plan. Physical Exam Narrative: General exam no distress Neck is supple Cardiovascular regular rhythm Lungs clear Abdomen soft obese Extremities 1+ bilateral edema Discharge Data Studies Completed and Pending Completed Studies During Hospitalization Category Date Time Status CT abdomen pelvis w con* [id number] Stat Cat Scan 01/08/23 09:[address] head wo con* [id number] Stat Cat Scan 01/08/23 08:15 Completed XR chest 1V portable [id number] Stat Exams 01/08/23 08:15 Completed XR chest 1V portable [id number] Stat Exams 01/08/23 13:15 Completed Pending at discharge Category Date Time Status COVID [SARS Covid-2 Antigen] Routine Lab 01/12/23 09:59 Uncollected Radiology Impressions Chest X-Ray 01/08/23 13:15 IMPRESSION: Left IJ catheter insertion. Laboratory Results WBC 12.51 10^3/uL (3.29-11.43) H 01/12/23 05:29 RBC 2.80 10^6/uL (3.85-5.65) L 01/12/23 05:29 Hgb 8.40 g/dL (11.27-16.99) L 01/12/23 05:29 Hct 26.9 % (37-53) L 01/12/23 05:29 MCV 96.1 fl (82-101) 01/12/23 05:29 MCH 30.0 pg (27-33) 01/12/23 05:29 MCHC 31.2 g/dL (30-55) 01/12/23 05:29 RDW 16.7 % (12.1-15.1) H 01/12/23 05:29 Plt Count 72 10^3/cmm (157-399) L D 01/12/23 05:29 MPV 9.7 fL (7.4-10.4) 01/12/23 05:29 Neut % (Auto) 85.1 % 01/11/23 04:11 Lymph % (Auto) Not Reportable 01/12/23 05:29 [place] % (Auto) Not Reportable 01/12/23 05:29 Eos % (Auto) 0.0 % 01/11/23 04:11 Baso % (Auto) 0.3 % 01/11/23 04:11 Neut # (Auto) 12.82 10^3/uL (1.8-7.7) H 01/11/23 04:11 Lymph # (Auto) Not Reportable 01/12/23 05:29 [place] # (Auto) Not Reportable 01/12/23 05:29 Eos # (Auto) 0.0 10^3/uL (0.0-0.8) 01/11/23 04:11 Baso # (Auto) 0.0 10^3/uL (0.0-0.1) 01/11/23 04:11 Nucleated RBC % (auto) 1.8 % 01/11/23 04:11 Total Counted 100 (0-100) 01/12/23 05:29 Atypical Lymphs % Not Reportable 01/12/23 05:29 Absolute Neutrophils 15.9 10^3/cmm (1.4-6.5) H 01/10/23 05:25 Segmented Neutrophils 85 % 01/12/23 05:29 Abs Segm Neuts (Man) 10.6 10/cmm (1.6-7.1) H 01/12/23 05:29 Band Neutrophils Not Reportable 01/12/23 05:29 Abs Band Neuts (Man) 0.9 10^3/cmm (0.0-1.2) 01/10/23 05:25 Absolute Lymphocytes 0.7 10^3/cmm (1.2-3.4) L 01/10/23 05:25 Lymphocytes (Manual) 7 % 01/12/23 05:29 Monocytes (Manual) 5.0 % 01/12/23 05:29 Absolute Monocytes 0.6 10^3/cmm (0.1-0.6) 01/12/23 05:29 Eosinophils (Manual) 0 % 01/12/23 05:29 Absolute Eosinophils 0.0 10^3/cmm (0.0-0.7) 01/12/23 05:29 Basophils (Manual) 0.0 % 01/12/23 05:29 Absolute Basophils 0.0 10^3/cmm (0.0-0.2) 01/12/23 05:29 Metamyelocytes 2.0 % 01/10/23 05:25 Myelocytes 2.0 % 01/12/23 05:29 Nucleated RBCs 1.0 /100WBC (0-1) 01/12/23 05:29 Nucleated RBCs # 0.3 /100WBC 01/11/23 04:11 Platelet Estimate Decreased (Normal) 01/12/23 05:29 Anisocytosis Trace 01/10/23 05:25 PT 15.30 SECONDS (12.1-14.9) H 01/08/23 08:50 INR 1.17 (0.8-1.2) 01/08/23 08:50 Sodium 134 mmol/L (136-145) L 01/12/23 05:29 Potassium 3.7 mmol/L (3.5-5.1) 01/12/23 05:29 Chloride 96 mmol/L (98-107) L 01/12/23 05:29 Carbon Dioxide 25 mmol/L (22-29) 01/12/23 05:29 Anion Gap 16.7 (5-19) 01/12/23 05:29 BUN 58 mg/dL (8-23) H 01/12/23 05:29 Creatinine 7.5 mg/dL (0.7-1.2) H* 01/12/23 05:29 GFR Calculation Not Reportable 01/12/23 05:29 Glucose 175 mg/dL (65-115) H 01/12/23 05:29 POC Glucose 253 mg/dL (70-110) H 01/12/23 10:50 Calculated Osmolality 298 mOsm/kg (285-295) H 01/12/23 05:29 Calcium 8.5 mg/dL (8.5-10.5) 01/12/23 05:29 Magnesium 2.3 mg/dL (1.7-2.3) 01/09/23 05:20 Total Bilirubin 0.5 mg/dL (0.15-1.2) 01/12/23 05:29 AST 24 U/L (0-40) 01/12/23 05:29 ALT 39 U/L (0-41) 01/12/23 05:29 Alkaline Phosphatase 94 U/L (40-130) 01/12/23 05:29 Troponin T Baseline 183 ng/L (0-15) H* 01/08/23 08:50 Troponin T 120 Minute 160.0 ng/L (0-15) H 01/08/23 11:10 Delta Troponin T -23.0 ABS# (0-10) L 01/08/23 11:10 Troponin T Hi Sens 6Hr 163.8 ng/L (0-15) H 01/08/23 16:15 Troponin T Hi Sens 6Hr Delta -19.2 ng/L (0-12) L 01/08/23 16:15 Total Protein 5.2 g/dL (6.6-8.7) L 01/12/23 05:29 Albumin 2.7 g/dL (3.5-5.2) L 01/12/23 05:29 Globulin 2.5 g/dL (1.3-4.6) 01/12/23 05:29 Lipase 39 U/L (13-60) 01/08/23 08:50 Urine Color Brown (Yellow) A 01/08/23 08:58 Urine Appearance Bloody (CLEAR) A 01/08/23 08:58 Urine pH 5 (5-7) 01/08/23 08:58 Ur Specific [place] 1.015 (1.005-1.030) 01/08/23 08:58 Urine Protein 3+ (Negative) H 01/08/23 08:58 Urine Glucose (UA) 2+ (Normal) H 01/08/23 08:58 Urine Ketones 1+ (Negative) H 01/08/23 08:58 Urine Blood 3+ (Negative) H 01/08/23 08:58 Urine Nitrate Negative (Negative) 01/08/23 08:58 Urine Bilirubin 1+ (Negative) H 01/08/23 08:58 Urine Urobilinogen Norm mg/dL (Negative) 01/08/23 08:58 Ur Leukocyte Esterase Trace (Negative) H 01/08/23 08:58 Urine RBC Too numerous to cnt /hpf (0-2) H 01/08/23 08:58 Urine WBC 5-10 /hpf (0-5) H 01/08/23 08:58 Ur Squamous Epith Cells None /hpf (0-5) 01/08/23 08:58 Amorphous Sediment Not Reportable 01/08/23 08:58 Urine Bacteria 2+ /hpf (NONE) H 01/08/23 08:58 Coarse Granular Casts 10-15 /lpf H 01/08/23 08:58 Serum Ketones Negative (Negative) 01/08/23 08:50 Blood Type B Negative 01/08/23 11:10 Rho(D) Type Negative 01/08/23 11:10 Antibody Screen Negative 01/08/23 11:10 Crossmatch See Detail 01/08/23 11:10 Vitals Last Vital Signs Temp 98.7 F 01/12/23 07:59 Pulse 87 01/12/23 07:59 Resp 16 01/12/23 07:59 BP 108/62 01/12/23 07:59 Pulse Ox 94 01/12/23 07:59 O2 Del Method Nasal Cannula 01/12/23 07:59 O2 Flow Rate 2 01/12/23 07:41 Discharge Plan Discharge Patient Disposition: Xfer SNF Condition: Stable Prescriptions: New sucralfate 100 mg/mL Suspension 1 g PO AC&BEDTIME Qty: 120 0RF Protonix 40 mg tablet,delayed release (DR/EC) 40 mg PO BID Qty: 60 0RF Continued acetaminophen 500 mg Tablet 1,000 mg PO Q6H PRN (Reason: Pain) prednisone 10 mg Tablet 20 mg PO DAILY Rx Instructions: for 30 days (finish date 12/14/23) niacinamide 500 mg Tablet 500 mg PO TID bumetanide 1 mg Tablet 1 mg PO BID PRN (Reason: FLUID RETENTION) polyethylene glycol 3350 [Miralax] 17 gram/dose Powder See Rx Instructions .ROUTE .COMPLEX Rx Instructions: TAKE 1 CAPFUL (17 GRAMS) TWICE DAILY NEEDED FOR CONSTIPATION. DISSOLVE IN 8 OUNCES OF WATER, JUICE, SODA, COFFEE, OR TEA. sevelamer carbonate 800 mg Tablet 800 mg PO TID Rx Instructions: must administer with a meal/food benzonatate 100 mg Capsule 100 mg PO TID PRN (Reason: Cough) insulin lispro [Humalog U-100 Insulin] 100 unit/mL Solution See Rx Instructions .ROUTE .COMPLEX Qty: 10 0RF Rx Instructions: low dose sliding sclae subq ac and hs 70-149=0 units 150-199=1 unit 200-249=2 units 250-299=3 units 300-349=4 units >350=5 units hydrocodone-acetaminophen 5-325 mg Tablet 1 tab PO Q6H PRN (Reason: Pain) Milk of Magnesia 400 mg/5 mL Suspension 30 ml PO .EVERY 3RD DAY PRN (Reason: Constipation) Dulcolax (bisacodyl) 10 mg Suppository See Rx Instructions .ROUTE .COMPLEX Rx Instructions: 10 mg rectally after mom if no bm if needed only if tabs refused magnesium citrate Solution See Rx Instructions .ROUTE .COMPLEX Rx Instructions: 10 oz po after dulcolax if no bm as needed Dulcolax (bisacodyl) 5 mg Tablet,Delayed Release (Dr/Ec) See Rx Instructions .ROUTE .COMPLEX Rx Instructions: 20 mg (4 tabs) po as needed after mom if no bm alum-mag hydroxide-simeth 200-200-20 mg/5 mL Suspension 30 ml PO .EVERY 2 HOURS PRN (Reason: Indigestion) Lantus Solostar U-100 Insulin 100 unit/mL (3 mL) insulin pen 35 unit SUBCUT BEDTIME Humalog U-100 Insulin 100 unit/mL solution See Rx Instructions .ROUTE .COMPLEX Rx Instructions: 20 units in the am, 15 units at noon,and 10 units at dinner atorvastatin 80 mg Tablet 40 mg PO BEDTIME cetirizine 10 mg Tablet 10 mg PO DAILY@07 sennosides-docusate sodium [Senna-S] 8.6-50 mg Tablet 1 tab-cap PO DAILY@07 tamsulosin 0.4 mg Capsule 0.4 mg PO DAILY@07 fluticasone propion-salmeterol [Wixela Inhub] 500-50 mcg/dose Blister With Device 1 inh INHALATION BID nitroglycerin [Nitrostat] 0.4 mg Tablet, Sublingual 0.4 mg SUBLINGUAL Q5M PRN (Reason: Chest Pain) Rx Instructions: do not exceed 3 doses per episode gabapentin 300 mg Capsule 300 mg PO BEDTIME aspirin 81 mg Tablet,Chewable 81 mg PO DAILY@07 fluticasone propionate 50 mcg/actuation [place],Suspension 1 spray INTRANASAL BID Rx Instructions: administer into each nostril finasteride 5 mg Tablet 5 mg PO DAILY@07 cholecalciferol (vitamin D3) [Vitamin D3] 25 mcg (1,000 unit) Capsule 25 mcg PO DAILY@07 glucosamine-chondroitin [Osteo Bi-Flex] 250-200 mg Tablet 1 tab PO BID Rx Instructions: give after food/meal Combivent Respimat 20-100 mcg/actuation Mist 1 puff INHALATION QID Rx Instructions: space evenly during waking hours Discontinued doxycycline hyclate 100 mg Tablet 100 mg PO BID Rx Instructions: UNTIL SEEN BY DERMATOLOGY, THEN FOLLOW INSTRUCTIONS. AVOID SUN EXPOSURE WHILE TAKING Discharge Orders: Discharge Order (Routine); Ordered 01/12/23 Ordered By: Gaudencio Amin Referrals: [facility] [Outside] Enrike Rodriguez MD [Physician] - 2 weeks Mariana Cao MD [Primary Care Provider] - 4-7 days Discharge Diet: Cardiac and Diabetic Discharge Activity: Increase activity as tolerated Patient Instructions: Dialysis Diet (DC), Hemodialysis (DC), GI Discharge Instructions, Opioid Safety Activity Restrictions/Additional Instructions: CBC on Sunday Take all medicine as prescribed Monitor for any bleeding Doxycycline is discontinued, monitor for any return of bullous pemphigoid lesions/blisters Continue to taper prednisone as ordered Discharge Attestations Time Spent in Discharge Care*: greater than 30 min Status at Discharge: Cognitive status at discharge: cognitively intact , Behavioral status at discharge: cooperative , Quality Metrics Clinical Quality Measures [ No reported AMI, CVA or VTE this stay] Coding Level of Care Code 82329 Total time (in minutes) for Discharge: 34 Diagnoses ESRD on dialysis N18.6; Z99.2
[2023-01-12 11:56] LABS: SARS Covid-2 Antigen negative (Negative)
--- NOTE | 2023-01-12 11:56 | PC.SOCIAL ---
IMM Update pg 2 of IMM updated and reviewed w/ patient. Copy provided and copy dated, initialed and placed in chart.
--- NOTE | 2023-01-12 12:06 | P.PN_ITS ---
Subjective 2 Subjective: no new complaints Medications: Reviewed: Yes Vitals/I&O/Wt Last Vital Signs Temp 98.7 F 01/12/23 11:38 Pulse 83 01/12/23 11:38 Resp 16 01/12/23 11:38 BP 104/58 01/12/23 11:38 Pulse Ox 94 01/12/23 11:38 O2 Del Method Nasal Cannula 01/12/23 11:38 O2 Flow Rate 2 01/12/23 07:41 01/11/23 01/12/23 01/12/23 22:59 06:59 14:59 Intake Total 1240 / 2200 240 / 240 Output Total 3349 / 3349 Balance -2109 / -1149 240 / 240 Weight last 48 hrs Weight 139.026 kg Weight 139.026 kg Weight 141 kg Weight 141.719 kg Physical Exam 2 Narrative: Awake, No distress + Edema Data 01/12/23 05:29 01/12/23 05:29 A&P Assessment and plan (1) ESRD on dialysis: Plan 1. End-stage renal disease: Per TTS schedule as outpatient, Patient was recently started on HD for possible AIN diagnosis from antibiotics (status post kidney biopsy in [facility],).s/p HD yesterday and next HD tomorrow 2. Anemia: With GI bleed, , status S/P egd ost 2 units PRBCs, ordered LINDA 3. History of bullous pemphigoid 4. Hypertension: Blood pressure controlled 5. History of coronary artery disease and CHF 6. Hyperkalemia:HD today and Low K diet Patient evaluated using audiovisual cart. Time spent 20 min Attestations 2 Medical Necessity Statement*: per medicien team Coding Level of Care Code Acute Code for Chg Fwd Diagnoses ESRD on dialysis N18.6; Z99.2
--- NOTE | 2023-01-12 12:54 | PC.NURSE ---
report called to Tory at [facility].
== END 2023-01-12 16:46 | disposition skilled nursing facility (03) | DRG 377 ==
LOC: ER 09:10 → ICU 13:49 → MEDSURG 01-10 11:45
PROVIDERS: Hospitalist; Surgery; Admitting Provider Internal Medicine; Emergency Provider Family Medicine; PCP Internal Medicine; Visit Provider Internal Medicine
PROC: 0DJ08ZZ Inspection of Upper Intestinal Tract, Via Natural or Artificial Opening Endoscopic (ICD-10-PCS; CPT 43235; principal; 2023-01-08 15:00)
DX: K26.4 Chronic or unspecified duodenal ulcer with hemorrhage (principal); N18.6 End stage renal disease; I13.2 Hypertensive heart and chronic kidney disease with heart failure and with stage 5 chronic kidney disease, or end stage renal disease; L12.0 Bullous pemphigoid; Z68.41 Body mass index [BMI] 40.0-44.9, adult; K20.90 Esophagitis, unspecified without bleeding; K25.3 Acute gastric ulcer without hemorrhage or perforation; E11.22 Type 2 diabetes mellitus with diabetic chronic kidney disease; I50.9 Heart failure, unspecified; I95.9 Hypotension, unspecified; J44.9 Chronic obstructive pulmonary disease, unspecified; E87.5 Hyperkalemia; D64.9 Anemia, unspecified; E11.42 Type 2 diabetes mellitus with diabetic polyneuropathy; E66.01 Morbid (severe) obesity due to excess calories; E78.5 Hyperlipidemia, unspecified; K21.9 Gastro-esophageal reflux disease without esophagitis; I25.10 Atherosclerotic heart disease of native coronary artery without angina pectoris; N40.0 Benign prostatic hyperplasia without lower urinary tract symptoms; Z87.891 Personal history of nicotine dependence; Z11.52 Encounter for screening for COVID-19; Z98.61 Coronary angioplasty status; Z79.52 Long term (current) use of systemic steroids; Z79.4 Long term (current) use of insulin; Z79.82 Long term (current) use of aspirin
CPT/HCPCS: 36415; 36416; 36430; 36592; 43235; 43236; 70450; 71045; 74177; 80048; 80053; 81001; 82009; 82962; 83690; 83735; 84484; 85007; 85014; 85018; 85025; 85610; 86850; 86900; 86920; 86927; 87086; 87426; 90935; 93005; 93010; 94640; 96365; 96372; 96375; 96376; 99285; 99291; 99292; C9113; J0171; J1644; J1720; J1815; J1940; J2920; J3490; J7030; J7512; J7626; P9016; P9017; Q3014; Q4081; Q9967